=== PATIENT | female | born 1980 | race Caucasian/White ===

== ENCOUNTER → 2018-04-01 08:57 | Outpatient (CLI) | payer BC, SELFPAY ==
[2018-04-01 13:59] LABS: Cholesterol 172 mg/dL (200); Glucose 93 mg/dL (74-106); High Density Lipoprotein 47 mg/dL; Triglycerides 55 mg/dL; Very Low Density Lipoprotein 11 mg/dL (5-40)
== END ==
PROVIDERS: Visit Provider Family Medicine
DX: Z13.1 Encounter for screening for diabetes mellitus (principal); Z13.220 Encounter for screening for lipoid disorders
CPT/HCPCS: 36415; 80061; 82947

== ENCOUNTER → 2019-05-05 11:48 | Outpatient (CLI) | payer BC, SELFPAY ==
--- NOTE | 2019-05-05 11:52 | BI_ITS ---
BILATERAL DIGITAL MAMMOGRAM WITH TOMOSYNTHESIS: Mediolateraloblique and craniocaudal views demonstrate no evidence of dominant parenchymal masses. No cluster of microcalcifications or architectural distortion is seen. No evidence of skin thickening is identified There has been no significant change since 08/18/2013. Breast Density: The breast tissue is heterogeneously dense, which may obscure small masses. CAD was used to assist in final assessment. BI/SCREEN MAMM (CAD) W/NETTE BILAT IMPRESSION: NORMAL MAMMOGRAM BILATERALLY. ASSESSMENT CATEGORY: BIRADS Category 1: Negative. A letter regarding these results will be sent to the patient by the facility within 30 days. Yearly mammograms are recommended. Approximately 10% of breast cancers are not detected by mammography. A normal mammogram should not delay biopsy of a clinically suspicious abnormality. [id number] Electronically Signed: Jorge Presley, at 17:41 EDT Tel , Service support ,
== END ==
PROVIDERS: Family Provider Family Medicine; PCP Family Medicine; Referring Provider Nurse Practitioner Women's Health; Visit Provider Nurse Practitioner Women's Health
DX: Z12.31 Encounter for screening mammogram for malignant neoplasm of breast (principal)
CPT/HCPCS: 77063; 77067

== ENCOUNTER → 2019-06-30 12:32 | Outpatient (CLI) | payer BC, SELFPAY ==
[2019-06-30 11:27] VITALS: BMI 45.5
[2019-07-04 16:23] LABS: HPV APTIMA, High Risk Negative (Negative)
== END ==
PROVIDERS: Family Provider Family Medicine; PCP Family Medicine; Visit Provider Nurse Practitioner Women's Health
DX: Z12.4 Encounter for screening for malignant neoplasm of cervix (principal)
CPT/HCPCS: 87624; 88175; G0145

== ENCOUNTER → 2020-09-24 09:18 | Outpatient (CLI) | payer BC, SELFPAY ==
[2019-09-08 14:04] VITALS: BMI 45.5
[2020-09-24 11:19] LABS: Cholesterol 172 mg/dL (200); Glucose 92 mg/dL (74-106); High Density Lipoprotein 55 mg/dL; Thyroid Stim Hormone (TSH) 3.02 uIU/mL (0.358-3.74); Triglycerides 118 mg/dL; Very Low Density Lipoprotein 24 mg/dL (5-40)
== END ==
PROVIDERS: PCP Family Medicine; Visit Provider Family Medicine
DX: G25.81 Restless legs syndrome (principal); E66.01 Morbid (severe) obesity due to excess calories; Z82.49 Family history of ischemic heart disease and other diseases of the circulatory system
CPT/HCPCS: 36415; 80061; 82947; 84443

== ENCOUNTER → 2020-10-04 12:46 | Outpatient (CLI) | payer BC, SELFPAY ==
[2019-09-08 14:04] VITALS: BMI 45.5
--- NOTE | 2020-10-04 12:48 | ECHOD_ITS ---
Reason For Study: MURMUR Procedure This was a 2D Doppler, Color Flow transthoracic echocardiogram. Exam performed in department. Left Ventricle Normal LV size. The estimated ejection fraction is 65 %. No evidence for diastolic dysfunction. No regional wall motion abnormalities noted. Right Ventricle Normal RV size. Normal systolic function. Atria Normal left atrium. Normal right atrium. No doppler evidence for ASD. Mitral Valve There is no mitral valve stenosis. Trivial mitral valve insufficiency. Tricuspid Valve There is no tricuspid stenosis. Trivial tricuspid valve insufficiency. Pulmonary artery systolic pressure is 30 mmHg. Aortic Valve Likely trileaflet valve. There is no aortic stenosis. No aortic valve insufficiency. Pulmonic Valve There is no pulmonic valvular stenosis. No pulmonic valve insufficiency. Great Vessels Normal aortic root. Pericardium/Pleural No pericardial effusion. MMode/2D Measurements & Calculations LVIDd: 4.9 cm IVSd: 0.65 cm Ao root diam: 3.0 cm LVIDs: 3.3 cm LVPWd: 0.71 cm RVDd: 3.5 cm FS: 33.0 % LAV(MOD-bp): 38.5 ml LA A4 area: 15.6 cm2 LA dimension(2D): 3.5 cm LAV(MOD-bp) Indexed: 17.5 ml/m2 LAV(MOD-sp2): 36.2 ml LAV(MOD-sp4): 36.8 ml RA A4 area: 14.4 cm2 Time Measurements MV dec time: 0.20 sec Doppler Measurements & Calculations MV E max andrea: 86.1 cm/sec Lat Peak E' Andrea: 14.2 cm/sec Med Peak E' Andrea: 10.3 cm/sec MV A max andrea: 90.7 cm/sec E/E' lat: 6.1 E/E' med: 8.3 MV E/A: 0.95 Ao V2 max: 165.9 cm/sec LV V1 max: 125.7 cm/sec PA V2 max: 112.5 cm/sec Ao max P.0 mmHg LV V1 max P.3 mmHg TR max andrea: 232.9 cm/sec TR max P.7 mmHg Interpretation Summary The estimated ejection fraction is 65 %. No evidence for diastolic dysfunction. Trivial mitral valve insufficiency. Likely trileaflet valve. Ordering Physician: Yosef Ochoa Referring Physician: Yosef Ochoa Performed By: Yelena Dubois RDCS, RVT
== END ==
LOC: CVS 12:47
PROVIDERS: PCP Family Medicine; Referring Provider Family Medicine; Visit Provider Family Medicine
DX: R01.1 Cardiac murmur, unspecified (principal)
CPT/HCPCS: 93306

== ENCOUNTER 2020-12-30 22:57 | Emergency (ER) | payer BC, SELFPAY ==
[2019-09-08 14:04] VITALS: BMI 45.5
[2020-12-30 22:58] VITALS: BP 160/99; PULSE 66; RESP 16; TEMP 36.5; O2SAT 99; BMI 44.4
--- NOTE | 2020-12-30 23:38 | EKG12_ITS ---
Test Reason : CP Blood Pressure : / mmHG Vent. Rate : 057 BPM Atrial Rate : 057 BPM P-R Int : 170 ms QRS Dur : 094 ms QT Int : 418 ms P-R-T Axes : 043 004 019 degrees QTc Int : 406 ms Sinus bradycardia Otherwise normal ECG Confirmed by JACK CONWAY, CARA ([id number]), photograph editor MARKO SCHUSTER ([id number]) on 01/01/2021 10:20:52 AM Referred By: BETHANIE Confirmed By:CARA SANTIAGO MD
--- NOTE | 2020-12-30 23:38 | RAD_ITS ---
EXAM: XR CHEST, 1 VIEW : 1978 CLINICAL INDICATION: chest pain TECHNIQUE: Frontal view of the chest. This report was created using [employer] report generation technology. COMPARISON: None. FINDINGS: LUNGS AND PLEURAL SPACES: Unremarkable. No consolidation or edema. No pneumothorax. No effusion. HEART: Unremarkable. Cardiac silhouette not enlarged. MEDIASTINUM: Central airways and mediastinal contour are unremarkable. BONES/JOINTS: Unremarkable. SOFT TISSUES: Unremarkable. RAD/Chest 1 View (Portable) IMPRESSION: No radiographic evidence of acute cardiopulmonary disease. at 0000 Reported and signed by: Sherif Arango MD Electronically Signed: Sherif Arango MD at 23:59 EDT Tel , Service support ,
[2020-12-30 23:42] VITALS: O2SAT 100
[2020-12-30] MEDS: Mag Hydrox/Al Hydrox/Simeth 30 ML UDC PO (23:46)
[2020-12-30] MEDS: Ondansetron 4 MG/2 ML Vial IV (23:50)
[2020-12-30 23:53] LABS: Absolute Lymphocyte Count 2.03 X10^3/uL (0.83-4.51); Absolute Neutrophil Count 13.2 X10^3/uL (2.0-7.7); Basophil# 0.06 X10^3/uL; Basophil% 0.4 % (0-1); Eosinophil# 0.15 X10^3/uL; Eosinophils% 0.9 % (0-5); Hematocrit 44.9 % (37-47); Hemoglobin 14.9 g/dL (12.0-15.0); Lymphocyte # 2.03 X10^3/ul (0.83-4.51); Lymphocyte % 12.3 % (19-41); Mean Corp Hgb Conc 33.2 g/dL (32-36); Mean Corpuscular Volume 87.5 fL (81-99); Monocyte# 0.95 X10^3/uL; Monocyte% 5.8 % (0-10); NRBC Flagged by Analyzer 0 % (0-5); Neutrophil # 13.23 X10^3/uL (2.7-7.7); Neutrophil % 80.1 % (47-70); Platelet Count 371 K/mm3 (150-450); RBC Distribution Width CV 12.1 % (11.6-14.6); Red Blood Count 5.13 M/mm3 (4.2-5.4); White Blood Count 16.5 K/mm3 (4.4-11.0)
[2020-12-30 23:57] VITALS: BP 168/96; PULSE 63; RESP 14; O2SAT 99
[2020-12-31] VITALS: PULSE 63; RESP 14; O2SAT 99
[2020-12-31 00:10] LABS: Anion Gap 9 (5-15); BUN 26 mg/dL (7-18); BUN/Creat Ratio 33.5 RATIO (10-20); Chloride 104 mmol/L (98-107); Creatinine, Serum 0.78 mg/dL (0.55-1.02); EST Glomerular Filtration Rate 86 mL/min (>60); Est Glom Filt Rate - Afr Amer 104 mL/min (>60); Estimated Creatinine Clearance 77.72 ml/min; Glucose 110 mg/dL (74-106); Potassium 3.3 mmol/L (3.5-5.1); Sodium Level 139 mmol/L (136-145)
[2020-12-31] MEDS: Aspirin 81 MG TAB.CHEW 324 MG PO (00:12)
[2020-12-31 01:00] VITALS: BP 148/91; PULSE 71; RESP 18; O2SAT 98
[2020-12-31 02:00] VITALS: BP 135/82; PULSE 82; RESP 18; O2SAT 98
--- NOTE | 2020-12-31 02:06 | EDS_ITS ---
HPI History of Present Illness Chief Complaint: Chest Pain Informant: patient Onset/Context/Timing Onset: Today Activity at onset: gradual Timing: Intermittent and Lasts (1 to 2 hours) Quality: Positive for Burning and Sharp Location: Substernal Worsened By: - (Laying down) Relieved By: Nothing Associated Symptoms: Positive for Nausea, Vomiting and Acid Reflux; Negative for Diaphoresis, Dyspnea, Cough, Fever, Lightheadedness and Palpitations Narrative Narrative: Patient presents with chest pain that began approximately 10 hours prior to arrival. Patient states it lasted 1 hour then resolved. Patient states it returned approximately 2 to 3 hours prior to arrival. Patient states that it has been constant since that time. Patient describes a sharp and burning. Patient denies any radiation of the pain. Patient states it is worse whenever she lays down. Patient states nothing seems to help with it. Patient admits to some nausea and vomiting. Patient also admits to some heartburn and reflux. Patient denies any cough or shortness of breath. Patient denies any fevers or sweats. Patient denies any lightheadedness or palpitations. Patient denies any cardiac or PE risk factors. CVD Risk Factors: Negative for Hypertension, Diabetes, Hypercholesterolemia, Family History 1' </=55 and Smoking PE Risk Factors: Negative for Recent Travel/Surgery, Recent Immobilization, Prior DVT or PE, Cancer and OCP + Smoking + >/=35 [employer] [facility] Medical History (Updated 12/31/20 @ 02:[address] Narendra Hurt DO) Restless leg Home Medications ropinirole 1 mg tablet 1 mg PO TID 05/24/19 [History Last Taken Unknown] Allergy/AdvReac Type Severity Reaction Status Date / Time bacitracin Allergy Mild unknown Verified 12/30/20 23:00 orange juice Allergy Mild UNKNOWN Verified 12/30/20 23:00 Family History Grandfather Diabetes Colon cancer Father Colon cancer Mother COPD (chronic obstructive pulmonary disease) Asthma Surgical History Groin cyst History of tonsillectomy Social History number of children: 2 current occupational status: employed current occupation: [employer] Smoking Status: Former smoker how long ago did patient quit smokin year ago seatbelt use: always do you feel safe at home: Yes additional social history: [place] Works at [employer] ROS ROS ED Constitutional Constitutional ED: Denies chills or fever(s) Eyes Eyes: Denies blurry vision or change in vision ENT ENT ED: Denies rhinorrhea or sore throat Cardiovascular Cardiovascular: Reports chest pain; Denies palpitations Respiratory/Chest Respiratory/Chest: Denies cough or dyspnea Gastrointestinal Gastrointestinal: Reports nausea and vomiting; Denies abdominal pain Genitourinary Genitourinary ED: Denies dysuria or hematuria Musculoskeletal Musculoskeletal: Reports back pain; Denies neck pain Integumentary Denies abscess or rash Neurologic Neurologic: Denies headache(s) or weakness Allergic/Immunologic Allergic/Immunologic ED: Denies mouth swelling or urticaria EXAM Physical Exam Const Vital Signs: 12/30/20 22:58 12/30/20 23:17 12/30/20 23:42 Temperature 97.7 F L Temperature Source Temporal Pulse Rate 66 Respiratory Rate 16 Respiratory Effort Normal Non-Labored Blood Pressure 160/99 H Blood Pressure Mean 119 Pulse Ox 99 100 Oxygen Delivery Method Room Air Nasal Cannula Oxygen Flow Rate (L/min) 2 12/30/20 23:57 12/31/20 00:00 12/31/20 01:00 Temperature Temperature Source Pulse Rate 63 63 71 Respiratory Rate 14 14 18 Respiratory Effort Blood Pressure 168/96 H 148/91 H Blood Pressure Mean 120 110 Pulse Ox 99 99 98 Oxygen Delivery Method Room Air Room Air Room Air Oxygen Flow Rate (L/min) 12/31/20 02:00 Temperature Temperature Source Pulse Rate 82 Respiratory Rate 18 Respiratory Effort Blood Pressure 135/82 H Blood Pressure Mean 99 Pulse Ox 98 Oxygen Delivery Method Room Air Oxygen Flow Rate (L/min) Positive well nourished, well developed and obese General Appearance ED: well developed Nutritional Appearance: obese HEENT normocephalic and atraumatic Eyes PERRL and EOMs intact bilaterally Neck supple and no JVD Chest Wall palpation of chest normal Resp normal respiratory effort and clear to auscultation bilaterally Effort and Inspection: Negative for respiratory distress Cardio regular rate, regular rhythm and no murmurs GI normal to inspection, nondistended, normoactive bowel sounds, soft to palpation, non-tender and non-distended Extremity normal to inspection General Extremety ED: Negative for edema or tenderness General Extremity: Negative for edema Neuro oriented x3, CN's II-XII intact bilaterally and no sensory deficits noted Sensorium / Orientation: awake and alert Motor Exam: strength 5/5 throughout Psych mental status grossly normal Heart Score History: Slightly/Non-Suspicious ECG: Normal Age: </= 45 years Risk Factors: No Risk Factors Troponin: </= Normal Limit Score: 0 MDM MDM MDM Narrative Medical decision making narrative: EKG was obtained. On my interpretation, it showed a normal sinus rhythm with a rate of 57. CA interval, QRS interval, and QTc intervals were all normal. Paulina was normal. There are no acute ST or T wave changes. Portable 1 view chest x-ray was obtained. On my interpretation, lung rosales are clear. There is normal cardiac silhouette. Bony thorax is normal. There is no acute process noted. Radiologist also interpreted the x-r ay and agrees. CBC shows a mild leukocytosis of 16.5. Basic metabolic profile was within normal limits. Troponin was normal. Patient was given a GI cocktail. Patient became nauseated after this. Patient was given a dose of Zofran. Patient has a HEART score of 0. Patient was advised that this is low risk for acute cardiac event. Patient was instructed to follow-up with her primary care physician in 5 to 7 days. Patient understood and was agreeable with the plan. All questions were answered. Lab Data Attestation: I reviewed the patient's lab results. Labs: Laboratory Results - last 24 hr 12/30/20 12/30/20 23:14 23:14 WBC 16.5 H RBC 5.13 Hgb 14.9 Hct 44.9 MCV 87.5 MCH 29.0 MCHC 33.2 RDW Std Deviation 39.0 RDW Coeff of Devaughn 12.1 Plt Count 371 MPV 10.0 Immature Gran % (Auto) 0.500 Neut % (Auto) 80.1 H Lymph % (Auto) 12.3 L Mclennan % (Auto) 5.8 Eos % (Auto) 0.9 Baso % (Auto) 0.4 Absolute Neuts (auto) 13.2 H Absolute Lymphs (auto) 2.03 Nucleated RBC % 0 Sodium 139 Potassium 3.3 L Chloride 104 Carbon Dioxide 26.0 Anion Gap 9 BUN 26 H Creatinine 0.78 Estim Creat Clear Calc 77.72 Est GFR (MDRD) Af Amer 104 Est GFR (MDRD) Non-Af 86 BUN/Creatinine Ratio 33.5 H Glucose 110 H Calcium 10.0 Troponin I < 0.015 Radiography Chest X-Ray - ED: 1 View, Read by ED Physician, Read by Radiologist and Normal Diagnostic Testing: Radiology Impression Chest X-Ray 12/30/20 23:38 IMPRESSION: No radiographic evidence of acute cardiopulmonary disease. at 0000 Reported and signed by: Sherif Arango MD Electronically Signed: Sherif Arango MD at 23:59 EDT Tel , Service support , EKG Initial EKG: Attestation: I personally reviewed and interpreted this EKG as follows: Interpretation: No Acute Injury Pattern and Sinus Bradycardia (57) Discharge Plan Triage Chief Complaint: Chest Pain ED Provider: Narendra Hurt Dx/Rx/DC Orders Clinical Impression: Chest pain of uncertain etiology Instructions: ED Chest Pain, Uncertain Cause Prescriptions: No Action ropinirole 1 mg tablet 1 mg PO TID RF: 0 Primary Care Provider: Yosef Ochoa Referrals: Yosef Ochoa MD [Primary Care Provider] - 1-2 Weeks Disposition Disposition: Home, self care Discharge Date/Time: 12/31/20 02:22
== END 2020-12-31 02:22 | disposition home or self-care (01) ==
PROVIDERS: Emergency Provider Emergency Medicine; PCP Family Medicine
DX: R07.9 Chest pain, unspecified (principal); E66.9 Obesity, unspecified; R11.2 Nausea with vomiting, unspecified; Z87.891 Personal history of nicotine dependence
CPT/HCPCS: 71045; 80048; 84484; 85025; 93005; 96374; 99285; A4216; J2405

== ENCOUNTER → 2021-03-28 14:19 | Outpatient (CLI) | payer BC, SELFPAY | PROVIDERS: PCP Family Medicine; Visit Provider Physician Assistant | DX: R05 Cough (principal) | CPT/HCPCS: 87635; U0005; U0003 ==

== ENCOUNTER 2023-01-02 08:00 | Outpatient (RCR) | payer BC, SELFPAY ==
--- NOTE | 2022-12-11 12:26 | HP.PTEVAL_ITS ---
Patient's Visit Information VIBHA MCCORMACK is a 42 year old F referred to Physical Therapy by IZAIAH Johnson with a diagnosis of LEFT KNEE PAIN AND DERANGEMENT. Date of Evaluation: 12/11/22 Physical Therapist: Tiara Marti PT, Cert MDT - Visit Plan Frequency: 2-3x /Week Duration: 4-6 Weeks Plan: L KNEE US, E-STIM WITH CP, AND GAIT TRAINING INCLUDING STEPS. L LE ROM, STRETCHING AND STRENGTHENING. - Subjective Work/Leisure: [employer]/WAITER ABOUT 30 TO 36 HRS A WK. Disability: NO. Present symptoms: WHOLE LEFT KNEE DEEP INSIDE. NO NUMBNESS OR TINGLING. NO SWELLING BUT KNEE GETS TIGHT. Present since: ABOUT A MONTH AGO. Pain Scale: WORST 7/10, LEAST 2/10. Currently: 3/10. Is it getting better, worse or staying the same: GETTING WORSE. Commenced as a result of: SOMETHING POPPED COMING DOWN STEPS AND HAS BEEN HURTING EVER SINCE THEN. Worse: STAIRS, BENDING IT, GETTING IN AND OUT OF CAR, GETTING UP AND DOWN OFF TOLIET. INITIATING GAIT AFTER SITTING. INCREASED PAIN WITH PROLONGED STANDING AND WALKING. Better: I DON'T KNOW. SITTING. IBUPROFEN 4 TIMES A DAY PER NATHANAEL LAI AT [facility]. Disturbed sleep: NO UNLESS ROLLING OVER. Previous history/Previous treatment: NO. Treatment this episode: ONE VISIT TO [facility] LAST WEEK. Gait: I FEEL LIKE I AM ALWAYS LIMPING. WALKS AND STANDS ALL DAY LONG AT WORK. Bowel or Bladder Dysfunction: NO. Accidents: NO. Unexplained weight loss: NO. Imaging: RECENT L KNEE X-RAY THAT WAS FINE PER PATIENT REPORT. PMH/Recent major surgery: UNREMARKABLE. OTHER: PATIENT REPORTS NATHANAEL LAI TOLD HER TO TRY PT IBUPROFEN AND PT FOR A WEEK AND IF IT ISN'T BETTER TO GO TO [facility]THO (DR. VELASQUEZ). - Objective THIS PATIENT AMBULATES INDEP'LY INTO PT LIMPING ON L LE AND NOT USING ANY ASSISTIVE DEVICES. SHE IS WALKING ON A BENT L KNEE. Sensory deficit: IRMA LE LIGHT TOUCH SENSATION IS GROSSLY INTACT AND SYMMETRICAL. ROM deficit: L KNEE AROM IN SUPINE = -5 DEG EXT TO 98 DEG FLEXION. Motor deficit: L LE: HIP 4-/5, KNEE 3-/5, ANKLE 5/5. R LE WFL. Core strength: POOR. Palpation: MILD L KNEE EDEMA. NO ACUTE TENDERNESS MCL OR LCL. - Special Tests L Knee Karley - Meniscus: Positive L Knee Jade - ACL: Negative L Knee Valgus - MCL: Negative L Knee Varus - LCL: Negative L Knee Patellar Apprehension - PFS: Negative - Balance/Special Test Scores Lower Extremity Functional Score: 40 - Goals Goal 1:: DECREASE C/O L KNEE PAIN AND SWELLING. Goal Time Frame: 4-6 Weeks Goal 2:: INCREASE FUNCTIONAL ROM OF L KNEE TO EASE ADL'S. Goal Time Frame: 4-6 Weeks Goal 3:: IMPROVE L LE FUNCTIONAL STRENGTH TO EASE ADL'S. Goal Time Frame: 4-6 Weeks Goal 4:: INDEP GAIT ON LEVEL SURFACES AND UP AND DOWN STEPS WITH LEAST UE ASSSIT AND DEVIATIONS. Goal Time Frame: 4-6 Weeks Goal 5:: PATIENT WILL BE INDEP WITH HEP FOR CONTINUED IMPROVEMENT ONCE FORMAL PHYSICAL THERAPY CONCLUDES. Goal Time Frame: 4-6 Weeks - Anticipated Interventions Patient/Client Instruction: Educate patient on: Condition, Plan of Care, Risk Factors For the Purpose of:: To improve self management Therapeutic Exercise to Include: Strength training, Flexibilty training, Gait and locomotor training, Neuromotor development, In an aquatic setting Comment: CONSIDER AT NEEDED/APPROPRIATE For the Purpose of:: To decrease pain, To decrease swelling/inflammation, To increase ROM, To improve muscle performance and motor function, To increase tolerance to activity/condition/position, To improve ability of physical actions for home/community/work/leisure, To improve gait and locomotor functions TENS: Yes IF ES: Yes Cryotherapy (ice pack, ice massage): Yes Ultrasound (thermal/non thermal): Yes For the Purpose of:: To decrease pain, To decrease swelling/inflammation, To improve nutrient delivery to tissue Thank you for the opportunity to evaluate your patient. For Medicare and Medicare HMO plans, please review the plan of care and approve it. It will need to be FAXED BACK to us at [phone] for Medicare purposes. For Medicare only, by signing this I certify the plan of care. Please let me know if there are questions or concerns regarding this plan of care. Physician Signature: Date:
--- NOTE | 2023-01-02 08:21 | HP.PTDCSUM ---
It has been my pleasure to treat VIBHA MCCORMACK referred by IZAIAH Johnson, with the diagnosis of LEFT KNEE PAIN AND DERANGEMENT for a total of 9 visit(s). Discharge Date: Please see the following information for a summary of their discharge status. Subjective: PATIENT REPORTS SHE IS DOING A LOT BETTER. ITS SO MUCH BETTER. PATIENT REPORTS HER PAIN IS MILD NOW AND MORE LOCALIZED TO A SMALL AREA ON THE INSIDE OF HER KNEE. SOMEDAYS SHE DOESN'T HAVE ANY KNEE PAIN AT ALL. CALF IS SORE TODAY AND SHE RELATES IT TO DOING CALF RAISES LAST VISIT - NOT BAD AND FEELS LIKE NORMAL SORENESS. STATES SHE FEELS 80% BETTER AND CAN CONTINUE INDEP EX NOW WITH [employer]. Left Knee Pain Intensity (Out of 10): 2 % Improvement: 80 Objective/Function: PATIENT WAS SEEN TODAY FOR RE-ASSESSMENT OF PROGRESS TOWARD THE SET PT GOALS AND THE NEED FOR FURTHER PHYSICAL THERAPY VS READINESS FOR DISCHARGE. UPON EXAM TODAY: ROM deficit: L KNEE AROM IN SUPINE WITH A HEEL SLIDE = FULL EXT TO 123 DEG FLEXION. Motor deficit: L LE: HIP 4/5, KNEE 4-/5, ANKLE 5/5. R LE WFL. Core strength: POOR. Palpation: MILD L KNEE EDEMA. NO ACUTE TENDERNESS MCL OR LCL. STAIRS: INDEP ASCEND AND DESCEND WITHOUT HR RECIPRICALLY BUT DIFFICULT ASCENDING LEADING WITH EA LEG - PATIENT REPORTS SHE WAS HAVING TROUBLE WITH R KNEE THAT WAS GETTING BETTER WITH EX JUST BEFORE SHE HURT THE L KNEE. NO C/O PAIN THROUGHOUT ASSESSMENT TODAY. Goal 1:: DECREASE C/O L KNEE PAIN AND SWELLING. Goal Progress: Goal Met Goal 2:: INCREASE FUNCTIONAL ROM OF L KNEE TO EASE ADL'S. Goal Progress: Goal Met Goal 3:: IMPROVE L LE FUNCTIONAL STRENGTH TO EASE ADL'S. Goal Progress: Goal Met Goal 4:: INDEP GAIT ON LEVEL SURFACES AND UP AND DOWN STEPS WITH LEAST UE ASSSIT AND DEVIATIONS. Goal Progress: Goal Met Goal 5:: PATIENT WILL BE INDEP WITH HEP FOR CONTINUED IMPROVEMENT ONCE FORMAL PHYSICAL THERAPY CONCLUDES. Goal Progress: Goal Met Plan: D/C TO INDEP EX. PATIENT AGREEABLE. If there are questions or concerns regarding this patient's physical therapy, please feel free to call me at [phone]. Thank you for the referral of this patient. Sincerely, Tiara Marti, PT, Cert MDT Balance/Gait/Functional tests - Balance/Special Test Scores Lower Extremity Functional Score: 52
== END 2023-01-02 08:29 | disposition home or self-care (01) ==
LOC: PT 08:00
PROVIDERS: PCP Family Medicine; Referring Provider Physician Assistant; Visit Provider Physician Assistant
DX: S86.912D Strain of unspecified muscle(s) and tendon(s) at lower leg level, left leg, subsequent encounter (principal); M23.92 Unspecified internal derangement of left knee
CPT/HCPCS: 97035; 97110; 97161; 97164; 97530

== ENCOUNTER → 2023-01-15 | Outpatient (CLI) | payer BC, SELFPAY ==
[2023-01-15 17:45] LABS: Absolute Lymphocyte Count 2.31 X10^3/uL (0.83-4.51); Absolute Neutrophil Count 7.5 X10^3/uL (2.0-7.7); Basophil# 0.06 X10^3/uL; Basophil% 0.5 % (0-1); Eosinophil# 0.32 X10^3/uL; Eosinophils% 2.9 % (0-5); Hematocrit 42.3 % (37-47); Hemoglobin 13.7 g/dL (12.0-15.0); Lymphocyte # 2.31 X10^3/ul (0.83-4.51); Lymphocyte % 20.8 % (19-41); Mean Corp Hgb Conc 32.4 g/dL (32-36); Mean Corpuscular Hgb 29.2 pg (27.0-32.0); Mean Corpuscular Volume 90.2 fL (81-99); Mean Platelet Vol. 9.8 fl (6.2-12.0); Monocyte# 0.84 X10^3/uL; Monocyte% 7.6 % (0-10); NRBC Flagged by Analyzer 0 % (0-5); Neutrophil # 7.53 X10^3/uL (2.7-7.7); Neutrophil % 67.8 % (47-70); Platelet Count 333 K/mm3 (150-450); RBC Distribution Width CV 12.9 % (11.6-14.6); RBC Distribution Width SD 42.5 fl (35.1-43.9); Red Blood Count 4.69 M/mm3 (4.2-5.4); White Blood Count 11.1 K/mm3 (4.4-11.0)
[2023-01-15 18:05] LABS: Vitamin B12 309 pg/mL (211-911); Vitamin D,25 Hydroxy 50.5 ng/mL
[2023-01-15 18:32] LABS: AST(SGOT) 13 U/L (15-37); Alanine Aminotransfer ALT/SGPT 24 U/L (13-56); Albumin, Serum 3.4 g/dL (3.2-5.0); Alkaline Phosphatase 64 U/L (45-117); Anion Gap 4 (5-15); BUN 24 mg/dL (7-18); Chloride 111 mmol/L (98-107); Creatinine, Serum 0.63 mg/dL (0.55-1.02); EST Glomerular Filtration Rate 108 mL/min (>60); Est Glom Filt Rate - Afr Amer 131 mL/min (>60); Ferritin 153 ng/mL (8-252); Globulin 3.4 g/dL (2.2-4.2); Glucose 93 mg/dL (74-106); Magnesium 2.2 mg/dL (1.6-2.6); Potassium 4.2 mmol/L (3.5-5.1); Protein, Total 6.8 g/dL (6.4-8.2); Sodium Level 139 mmol/L (136-145); Thyroid Stim Hormone (TSH) 1.75 uIU/mL (0.358-3.74)
== END | disposition home or self-care (01) ==
LOC: MFPLAB 15:59
PROVIDERS: PCP Family Medicine; Visit Provider Family Medicine
DX: R25.2 Cramp and spasm (principal)
CPT/HCPCS: 36415; 80053; 82306; 82607; 82728; 83735; 84443; 85025

== ENCOUNTER → 2023-01-19 | Outpatient (CLI) | payer BC, SELFPAY ==
[2023-01-19 18:01] LABS: Mucous, Urine 0 SEEN /hpf (<or=2+)
[2023-01-19 18:16] LABS: Color, Urine Yellow (Yellow); Glucose, Dipstick Normal (Normal); Ketone-Dipstick Negative (Negative); Leukocyte Esterase-Dipstick 100 /ul (Negative); Nitrite-Dipstick Negative (Negative); Occult Blood-Urine 50 /ul (Negative); Protein-Dipstick 15 mg/dl (Negative); Specific Gravity, Urine 1.025 (1.002-1.030); Urine Bilirubin Dipstick Negative (Negative); Urine Clarity Clear (Clear); Urine Urobilinogen Normal (Normal)
[2023-01-19 18:21] LABS: Internal QC Validated? YES +Cl - CLEAR BKGD; Pregnancy, Urine Negative Negative
[2023-01-19 18:34] LABS: Bacteria 1+ /hpf (None Seen)
[2023-01-19 18:35] LABS: Red Blood Cells-Urine 0-5 SEEN /hpf (0-5); Squamous Epithelial Cells - UA 0-5 SEEN /hpf (5-10); White Blood Cells 0-5 SEEN /hpf (0-5)
== END | disposition home or self-care (01) ==
PROVIDERS: PCP Family Medicine; Visit Provider Physician Assistant
DX: R30.0 Dysuria (principal); R80.9 Proteinuria, unspecified
CPT/HCPCS: 81001; 81025; 87086; 87088

== ENCOUNTER → 2023-02-11 | Outpatient (CLI) | payer BC, SELFPAY ==
--- NOTE | 2023-02-11 08:05 | BI_ITS ---
MAMMOGRAPHY - BILATERAL SCREENING 3-D TOMOSYNTHESIS REASON FOR EXAM: Female, 42 years old. Routine screening PERTINENT HISTORY: No significant family history. TECHNIQUE: 2-D mammograms and 3-D Tomosynthesis of the breast (s) were performed. CAD was performed. COMPARISON: 2019 FINDINGS: The breast composition is composed of scattered fibroglandular density. Scattered benign calcifications are seen. No dense spiculated masses or suspicious microcalcifications are identified. No architectural distortion is identified. There is no skin thickening or retraction. There has been no significant change since the prior study. BI/SCRN MAMM (CAD)W/NETTE BILAT IMPRESSION: No mammographic signs of malignancy. Routine yearly mammograms recommended. ASSESSMENT CATEGORY: BIRADS Category 1: Negative. A letter regarding these results will be sent to the patient by the facility within 30 days. FOLLOW UP RECOMMENDATION: Yearly follow up mammogram recommended. (A) Approximately 10% of breast cancers are not detected by mammography. A normal mammogram should not delay biopsy of a clinically suspicious abnormality. Electronically Signed: Ariel Taylor MD at 9:07 EDT ,
== END | disposition home or self-care (01) ==
LOC: OPBI 08:04
PROVIDERS: PCP Family Medicine; Referring Provider Nurse Practitioner Women's Health; Visit Provider Nurse Practitioner Women's Health
DX: Z12.31 Encounter for screening mammogram for malignant neoplasm of breast (principal)
CPT/HCPCS: 77063; 77067

== ENCOUNTER → 2023-02-13 | Outpatient (CLI) | payer BC, SELFPAY ==
--- NOTE | 2023-02-13 11:08 | MRI_ITS ---
EXAM: MR LEFT LOWER EXTREMITY WITHOUT INTRAVENOUS CONTRAST, HIP CLINICAL INDICATION: pain, rule out MM tear left TECHNIQUE: Multiplanar and multisequence MR images of the left hip without intravenous contrast. COMPARISON: No relevant prior studies available. FINDINGS: TENDONS: FLEXORS: Unremarkable. Intact. EXTENSORS/HAMSTRING: Unremarkable. Intact. ABDUCTORS: Unremarkable. Intact. ADDUCTORS: Unremarkable. Intact. ROTATORS: Unremarkable. Intact. MUSCLES: Unremarkable. Normal bulk and signal. FLUID: Moderate to large joint effusion. Up to large suprapatellar joint effusion with no Mcdowell''s cyst. Subcutaneous edema anterior to the patellar tendon. No organized fluid collections. No trochanteric bursitis. LABRUM: Unremarkable. No evidence of a tear on this non-arthrogram exam. CARTILAGE: Unremarkable. Articular cartilage intact. BONES/JOINTS: At least high-grade partial thickness tearing involving the posterior root ligament of the medial meniscus. There is associated 3 mm of peripheral extrusion of the body segment of the medial meniscus. Bone marrow edema both sides of the peripheral aspect of the medial femorotibial compartment may be related to meniscal pathology or could be degenerative with overall moderate osteoarthrosis involving the medial femorotibial compartment. No femoral neck fracture. No avascular necrosis of the femoral head. No sacral insufficiency fracture. No intra-articular ossific bodies. No bone marrow signal alterations. MRI/Lower Ext Joint Only (Routine) IMPRESSION: 1. At least high-grade partial thickness tearing involving the posterior root ligament of the medial meniscus. There is associated 3 mm of peripheral extrusion of the body segment of the medial meniscus. 2. Up to large suprapatellar joint effusion with no Mcdowell''s cyst. 3. 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 Electronically Signed: Srinivasa Stephens MD at 22:23 EDT ,
== END | disposition home or self-care (01) ==
LOC: OPBI 10:58
PROVIDERS: PCP Family Medicine; Referring Provider Nurse Practitioner Women's Health; Visit Provider Nurse Practitioner Women's Health
DX: M17.12 Unilateral primary osteoarthritis, left knee (principal); M23.92 Unspecified internal derangement of left knee
CPT/HCPCS: 73721

== ENCOUNTER 2023-07-27 08:50 | Emergency (ER) | payer BC, SELFPAY ==
[2023-07-27 08:51] VITALS: BP 183/105; PULSE 68; RESP 14; TEMP 36.8; O2SAT 98; BMI 43.7
--- NOTE | 2023-07-27 09:01 | EDS_ITS ---
HPI History of Present Illness Chief Complaint: Back [facility] Medical History Internal derangement of left knee Osteoarthritis of left knee Restless leg Strain of left knee Tear of medial meniscus of left knee Urinary tract infection with hematuria Home Medications ropinirole 1 mg tablet 1 mg PO TID 05/24/19 [History Last Taken Unknown] levonorgestrel 21 mcg/24 hours (8 yrs) 52 mg intrauterine device (Mirena) 1 device intrauterine ONCE 06/05/22 [History Last Taken Unknown] sumatriptan succinate 50 mg tablet (Imitrex) See Rx Instructions PO .COMPLEX 06/05/22 [History Last Taken Unknown] amino acid-hydrolyzed collagen-whey 15 gram-100 kcal/30 mL oral liquid ml PO 12/15/22 [History Last Taken Unknown] cholecalciferol (vitamin D3) 125 mcg (5,000 unit) capsule 125 mcg PO DAILY 12/15/22 [History Last Taken Unknown] krill oil 500 mg capsule 600 mg PO 12/15/22 [History Last Taken Unknown] loratadine 10 mg tablet (Claritin) 10 mg PO DAILY 12/15/22 [History Last Taken Unknown] mecobalamin (vitamin B12) 500 mcg chewable tablet mcg PO 12/15/22 [History Last Taken Unknown] tumeric 100 mg-nghia 150 mg-olive 50 mg-oreg 150 mg-caprylate capsule cap PO 12/15/22 [History Last Taken Unknown] vitamin K2 100 mcg capsule 100 mcg PO DAILY 12/15/22 [History Last Taken Unknown] prednisone 20 mg tablet 40 mg (2 x 20 mg) PO DAILY 5 days #10 tabs 07/27/23 [Rx Last Taken Unknown] Allergy/AdvReac Type Severity Reaction Status Date / Time bacitracin Allergy Mild unknown Verified 07/27/23 08:51 orange juice Allergy Mild UNKNOWN Verified 07/27/23 08:51 Family History Grandfather Diabetes Colon cancer Father Colon cancer Mother COPD (chronic obstructive pulmonary disease) Asthma Surgical History Groin cyst History of tonsillectomy Social History number of children: 2 current occupational status: employed current occupation: [employer] Smoking Status: Former smoker how long ago did patient quit smokin year ago seatbelt use: always do you feel safe at home: Yes additional social history: [employer] Works at [employer] EXAM Physical Exam Const Vital Signs: 07/27/23 08:51 Temperature 98.2 F Temperature Source Temporal Pulse Rate 68 Respiratory Rate 14 Blood Pressure 183/105 H Blood Pressure Mean 131 Pulse Ox 98 Oxygen Delivery Method Room Air [facility] [place] Narrative Medical decision making narrative: HISTORY OF PRESENT ILLNESS: 43-year-old female presents with back pain. States several days of right-sided back pain that radiates down the right leg. Notes tingling in the right leg. No inciting event. No falls. No recent MVC's. No history of back surgeries. Patient denies any saddle anesthesia, urinary tension, bowel or bladder incontinence, lower extremity weakness, fever or IV drug use, no recent spinal manipulation or surgery, no recent urinary catheterization. REVIEW OF SYSTEMS: All other systems reviewed and are negative except as noted in the history of present illness. At least 10 review of systems reviewed and are negative except as noted in history of present illness. PHYSICAL EXAM: Nursing triage notes reviewed, Vital signs reviewed Constitutional: please see mdm Abdomen: Soft, there is no tenderness, rigidity, rebound or guarding, no obvious peritoneal signs, no palpable pulsatile abdominal masses, no auscultated abdominal bruit : No CVAT Extremities: No edema, compartments soft, positive straight leg raise test on the right Back: No midline step-offs or deformities Neuro: In intact sensation L1-S1 dermatomal distributions. Intact 5/5 strength in hip flexion (T12-L3). Knee extension (L2-L4). Ankle dorsiflexion (L4-L5). Ankle plantar flexion (S1). Great toe extension (L5). 2+ patellar and Achilles DTRs. Skin: No rash or lesions noted MEDICAL DECISION MAKING: Chief Complaint: Back pain External records reviewed: No recent advanced imaging of the spine Factors affecting care: Obesity Social determinants of health: No IV drug use History obtained from others: the patient's Consults: none ALL IMAGES (IF OBTAINED) HAVE BEEN PERSONALLY REVIEWED AND INTERPRETED BY MYSELF. [facility] Narrative: Patient was hemodynamically stable, afebrile, nontoxic-appearing. Exam with positive straight leg raise on the right. This consistent with likely lumbar r adiculopathy. I gave the patient oral narcotics, NSAIDs, corticosteroids, IM muscle relaxants and topical Lidoderm patch. Encouraged to continue anti- inflammatory therapy with home corticosteroids, Tylenol and ibuprofen. I considered the following differential diagnosis: Musculoskeletal back pain, space-occupying lesion of the spinal (epidural abscess, epidural hematoma), cauda equina, conus medullaris, fracture dislocation, AAA, nephrolithiasis, pyelonephritis, aortic dissection I considered obtaining imaging including x-ray, CT scan and MRI of the lumbar spine however that these tests were not necessary at this time given the atraumatic nature of her pain and low suspicion for acute bony or spinal pathology. The patient presented complaining of back pain. There was no history of recent fall or trauma. There was no evidence to support genitourinary etiology. There is also no evidence to suggest vascular pathology such as AAA dissection. No fevers or other evidence to suspect infectious processes, abscess, osteomyelitis etc. The patient?s neurological exam is normal with normal motor and sensory. There is no saddle paresthesias reported and no bowel or bladder incontinence or retention. I suspect the pain is mechanical in nature. Clinical suspicion, plan of care and management was discussed with the patient. The patient was instructed to follow up with their health care provider. The patient was also instructed to return if the pain worsened, changed, or developed weakness or bowel or bladder trouble. The patient agreed with plan. I completed a structured, evidence-based clinical evaluation to screen for acute non-traumatic spinal emergencies. The patient has a normal detailed neurologic exam and red flag historical factors were negative. The evidence indicates that the patient is very low risk for an acute spinal emergency and this is consistent with my clinical intuition. The risk of further workup is higher than the likelihood of the patient having a spinal epidural abscess or other dangerous emergency spinal condition. It is, therefore, in the patient?s best interest not to do additional emergent testing at this time. Shared Decision-Making I have discussed with the patient my clinical impression and the result of an evidence-based clinical evaluation to screen for spinal epidural abscess and other spinal emergencies, as well as the risk of further testing and hospitalization. The evidence shows that the risk for an acute spinal emergency is less than 1%. Although the risk of an acute spinal emergency has not been completely eliminated, the risks of further testing likely exceed any potential benefit, and the patient agrees with not pursuing further emergent evaluation for causes of back pain at this time. The patient and/or family, caregivers express understanding. The patient and/or family, caregivers agrees with the plan. Total critical care time today provided was at least 0 minutes. This excludes separately billable procedures. Critical care time (if documented) is secondary to the patient having high probability of clinically significant/life threatening deterioration in the patient's condition which required my urgent intervention. Impression: 1. Lumbar radiculopathy 2. Obesity Disposition: Discharge home Troy Morillo DO Discharge Plan Triage Chief Complaint: Back ED Provider: Troy Morillo Dx/Rx/DC Orders Clinical Impression: Lumbar radiculopathy, acute Instructions: ED Sciatica, ED RICE Prescriptions: New prednisone 20 mg tablet 40 mg PO DAILY 5 Days Qty: 10 0RF No Action ropinirole 1 mg tablet 1 mg PO TID Mirena 20 mcg/24 hours (8 yrs) 52 mg intrauterine device 1 device intrauterine ONCE Rx Instructions: as a single dose sumatriptan succinate [Imitrex] 50 mg tablet See Rx Instructions PO .COMPLEX Rx Instructions: take 1 tab at onset of headache; if no relief may repeat 1 tab after at least 2 hrs; max = 4 tabs/24 hr PO loratadine [Claritin] 10 mg tablet 10 mg PO DAILY mecobalamin (vitamin B12) 500 mcg tablet,chewable PO krill oil 500 mg capsule 600 mg PO cholecalciferol (vitamin D3) 125 mcg (5,000 unit) capsule 125 mcg PO DAILY vitamin K2 100 mcg capsule 100 mcg PO DAILY luwbxda-rrti-ovvby-oreg-capryl 100 mg-150 mg- 50 mg-150 mg capsule PO amino ac-hydroly collagen-whey 15 gram-100 kcal/30 mL liquid PO Primary Care Provider: Arely Merino Referrals: Arely Merino, [Primary Care Provider] - Activity Restrictions/Additional Instructions: Thank you for trusting us with your care today! Please take Tylenol (2 pills, 650 mg), ibuprofen (2 pills, 400 mg) every 6 hours as needed for pain and fever control. Please take prednisone as prescribed. Please go to local pharmacy or drugstore obtain lidocaine (Salonpas) lidocaine patches. Please return to the emergency department if your symptoms change or worsen. Specifically develop bowel or bladder incontinence, urinary retention, weakness numbness or loss sensation in the legs. Please follow with your primary care physician for further outpatient evaluation and management. Disposition Disposition: Home, Self Care
--- OUTSIDE RECORDS SUMMARY | 2023-07-27 09:20 | XMS RPT_ITS | CCD ---
Author Name Unknown Address [address] [place] [address] Organization [facility] Care Team Providers Care Combine Driver Name Role Phone Herberth Merino DO Primary Care Provider [phone] HERBERTH MERINO Primary Care Unavailable MARKO CARR Referring Unavailable MANISH MARIEE Attending Unavailable HERBERTH MERINO Primary Care Unavailable MARKO CARR Attending Unavailable Allergies Allergy Classification Reported Allergen(s) Allergy Type Date of Onset Reaction(s) Facility (3 sources) Bacitracin; Translations: [BACITRACIN] Drug Allergy 6 Swelling [facility] Work Phone: (3 sources) Brooke juice; Translations: [ORANGE JUICE] Propensity to adverse reactions 6 Rash [facility] (3 sources) Bees; Translations: [BEES] Propensity to adverse reactions 6 Swelling [facility] (2 sources) CATERPILLARS [Other] Propensity to adverse reactions 6 Hives [facility] (1 source) OTHER; Translations: [OTHER] Propensity to adverse reactions (disorder) 6 [facility] [place] [facility] Medications Completed/Discontinued Medications Medication Drug Class(es) Dates Sig (Normalized) Sig (Original) [id number] 200 actuat albuterol 0.09 mg/actuat metered dose inhaler (1 source) beta2-Adrenergic Agonist Start: 05-23-2015 End: 01-23-2023 take 2 puff(s) by inhalation every six hours as needed for wheezing albuterol HFA (PROVENTIL HFA, VENTOLIN HFA) 90 mcg/actuation inhaler Indications: Sinobronchitis Inhale 2 Puffs as instructed every 6 hours as needed for Wheezing/Shortness of Breath. 1 Inhaler 2 05/23/2015 01/23/2023 Discontinued Problems Active Problems Problem Classification Problem Date Documented Da te Episodic/Chronic Gastrointestinal hemorrhage (4 sources) Hematochezia; Translations: [Melena] Onset: 05-23-2008 05-23-2008 Episodic Other and unspecified benign neoplasm (2 sources) History of polyp of colon; Translations: [Personal history of colonic polyps] Episodic Other and unspecified benign neoplasm (1 source) Personal history of colonic polyps; Translations: [Personal history of colonic polyps] Onset: 03-24-2023 Episodic Other nutritional; endocrine; and metabolic disorders (1 source) Body mass index 40+ - severely obese; Translations: [Morbid (severe) obesity due to excess calories] 03-26-2023 Chronic Residual codes; unclassified (2 sources) Family history of cancer of colon; Translations: [Family history of malignant neoplasm of digestive organs] Episodic Residual codes; unclassified (1 source) Family history of malignant neoplasm of digestive organs; Translations: [Family history of colon cancer] Onset: 03-24-2023 Episodic Past or Other Problems Problem Classification Problem Date Documented Da te Episodic/Chronic Abdominal pain (2 sources) Left lower quadrant pain; Translations: [Left lower quadrant pain] Onset: 05-23-2008 05-23-2008 Episodic Other and unspecified benign neoplasm (2 sources) Benign neoplasm of colon; Translations: [Benign neoplasm of colon, unspecified] Onset: 06-06-2008 06-06-2008 Episodic Residual codes; unclassified (2 sources) Family history of breast cancer; Translations: [Family history of malignant neoplasm of breast] Onset: 08-18-2013 08-18-2013 Episodic Sprains and strains (2 sources) Neck sprain; Translations: [Sprain of joints and ligaments of unspecified parts of neck, initial encounter] Onset: 02-16-2007 02-16-2007 Episodic Results Test Name Value Interpretation Reference Range Facil ity Vital Signs Date Time Vital Sign Value Performing Clinician Jenifer alexis 03-24-2023 09:50-0400 Diastolic blood pressure 62 mm[Hg] Manish Mariee MD Work Phone: [facility] 03-24-2023 09:50-0400 Heart rate 64 /min Manish Mareie MD Work Phone: [facility] 03-24-2023 09:50-0400 Respiratory rate 16 /min Manish Mariee MD Work Phone: [facility] 03-24-2023 09:50-0400 SaO2% (BldA) [Mass fraction] 97 % Manish Mariee MD Work Phone: [facility] 03-24-2023 09:50-0400 Systolic blood pressure 117 mm[Hg] Manish Mariee MD Work Phone: [facility] 03-24-2023 07:42-0400 Body temperature 97.9 [degF] Manish Mariee MD Work Phone: [facility] 03-24-2023 07:42-0400 Body weight 112 kg Manish Mariee MD Work Phone: [facility] 01-23-2023 09:35-0400 Body height 162.6 cm Marko [place] PA-C Work Phone: [facility] 01-23-2023 09:35-0400 Body temperature 97.5 [degF] Marko [place] PA-C Work Phone: [facility] 01-23-2023 09:35-0400 Body weight 112.04 kg Marko Lilly PA-C Work Phone: [facility] 01-23-2023 09:35-0400 Diastolic blood pressure 74 mm[Hg] Marko Lilly PA-C Work Phone: [facility] 01-23-2023 09:35-0400 Heart rate 103 /min Marko Lilly PA-C Work Phone: [facility] 01-23-2023 09:35-0400 SaO2% (BldA) [Mass fraction] 96 % Marko [place] PA-C Work Phone: [facility] 01-23-2023 09:35-0400 Systolic blood pressure 118 mm[Hg] Marko Lilly PA-C Work Phone: [facility] Encounters Encounter Date Encounter Type Care Provider Facility Start: 03-24-2023 End: 03-24-2023 ambulatory HERBERTH MERINO Facility:[facility] Start: 03-24-2023 End: 03-24-2023 Subsequent hospital visit by physician Manish Mariee MD Work Phone: Ambulatory Surgery Procedures Date Procedure Procedure Detail Performing Clinician Start: 03-24-2023 Colonoscopy flx dx w /collj spec when pfrmd Marko [place] PA-C Work Phone: Start: 03-24-2023 Colonoscopy Manish hinojosa MD Work Phone: Start: 01-30-2017 Colonoscopy Marko Gra [place] PA-C Work Phone: Start: 08-18-2013 Mammography Marko Gra f PA-C Work Phone: Start: 06-16-2008 Lipid 1996 panel - S katharine or Plasma Manish Mariee MD Work Phone: Plan of Treatment Date Care Activity Detail Author Start: 03-24-2028 Colonoscopy Colonoscopy [facility] Start: 03-24-2028 Colorectal Cancer Screening Colorectal Cancer Screening [facility] Start: 03-27-2023 Covid-19 Vaccine () Covid-19 Vaccine () [facility] Start: 03-27-2023 Influenza vaccination [facility] Start: 2023 COLOGUARD (FIT-DNA) COLOGUARD (FIT-D NA) [facility] Start: [address] COLONOGRAPHY [facility] Start: 2023 Diabetes Screening Diabetes Screenin g [facility] Start: 2023 FECAL OCCULT BLOOD FECAL OCCULT BLOO D [facility] Start: 2023 Lipid 1996 panel - S katharine or Plasma Lipid Screening [facility] Start: 2023 SIGMOIDOSCOPY SIGMOIDOSCOPY [facility] Start: 07-27-2022 DEPRESSION ASSESSMENT DEPRESSION ASS ESSMENT [facility] Start: 01-30-2022 Colonoscopy COLONOSCOPY [facility] Start: 01-30-2022 COLORECTAL CANCER SCREENING COLORECTAL CANCER SCREENING [facility] Start: 01-10-2021 COVID-19 VACCINE (3 - Booster for Moderna series) COVID-19 VACCINE (3 - Booster for Moderna series) [facility] Start: 08-18-2018 HPV TESTING HPV TESTING [facility] Start: 08-18-2018 PAP TESTING PAP TESTING [facility] Start: 05-16-2018 Urine microalbumin profile [facility] Start: 2018 Mammography [facility] Start: 1996 HEPATITIS C SCREENING HEPATITIS C SC REENING [facility] Start: 1996 HIV SCREENING HIV SCREENING [facility] Start: 1978 HEPATITIS B (1 of 3 - 3-dose series) HEPATITIS B (1 of 3 - 3-dose series) [facility] Start: 1978 Hepatitis B Vaccine (1 of 3 - 3-dose series) Hepatitis B Vaccine (1 of 3 - 3-dose series) [facility] Immunizations Immunization Date Immunization Notes Care Provider Shady tellez 07-10-2014 influenza virus vacc ine, unspecified formulation Manish Mariee MD Work Phone: [facility] 05-31-2008 influenza virus vacc ine, unspecified formulation Marko Carr PA-C Work Phone: [facility] 05-16-2008 tetanus toxoid, redu claudia diphtheria toxoid, and acellular pertussis vaccine, adsorbed Marko Carr PA-C Work Phone: [facility] Payers Date Payer Category Payer Unknown [employer] PPO OOS [id number] 2013-Present [phone] [address] [place] [address] PPO [id number] 2013 Unknown [id number] Social History Date Type Detail Facility Start: 01-23-2023 Tobacco smoking stat us NHIS Ex-smoker [facility] Work Phone: History of tobacco use Current smoker [facility] Work Phone: History of tobacco use Cigarette Smoker [facility] Work Phone: Start: 01-23-2023 End: 03-24-2023 Cigarettes smoked current (pack per day) - Reported 0.5 [facility] Start: 01-23-2023 Tobacco use and exposure Smokeless tobacco non-user [facility] Work Phone: Start: 01-23-2023 End: 05-21-2023 Alcohol intake Current drinker of alcohol (finding) [facility] Start: 1980 Sex Assigned At Not on file [facility] Start: 01-23-2023 End: 03-24-2023 Tobacco use panel [facility] National Score (1-10 0), lower number is lower risk 60 [facility] Nurse Note 03-24-2023 April Bedoya RN - 03/24/2023 9:20 AM EDT Note Date & Type Note Facility 03-24-2023 Nurse Note Arrived in phase II via cart. Left lateral position. Sedated, but responds to verbal stimuli. Color normal; skin warm and dry. Respirations wnl and unlabored. Abdomen soft and with + bowel sounds in quads X 4. Patient resting comfortably. Family at bedside. Dr. Mariee at bedside to review procedure and recommendations. April Bedoya RN documented in this encounter [facility] History and physical note 03-24-2023 Manish Mariee MD - 03/24/2023 8:15 AM EDTGManish hill MD - 03/24/2023 8:15 AM EDT Note Date & Type Note Facility 03-24-2023 History and physi zonia note UPDATED PROCEDURAL SEDATION HISTORY AND PHYSICAL EXAMINATION SERVICE DATE: 03/24/2023 SERVICE TIME: 8:43 AM PHYSICAL EXAM MUST BE COMPLETED ON ADMISSION PROCEDURE: Procedure Indications: The History and Physical (completed in the past 30 days) has been reviewed and the patient has been examined. The contents accurately reflect the patient's condition with the following additions or revisions since the H&P was completed. ASA Class: ASA Class:: Patient with mild systemic disease Examination indicates no changes. AIRWAY: Airway Visualization of Uvula: Yes Mouth opening greater than 2 fingerbreadths: Yes Neck Full Range of Motion: Yes LUNGS: Lungs clear to auscultation CARDIAC: Regular rhythm,Regular rate Provisional Diagnosis/Treatment Plan: screening colonoscopy - family history SEDATION GOAL: Moderate This H&P can be found in the attached. SIGNATURE: Manish Mariee MD PATIENT NAME: Brigette German DATE: March 24, 2023 TIME: 8:43 AM Source Note - Manish Mariee MD - 03/24/2023 8:15 AM EDT Images from the original note were not included. HISTORY AND PHYSICAL Brigette German 1980 REFERRING PHYSICIAN: No ref. provider found CHIEF COMPLAINT: Consult HPI: The patient is a 42 year old female referred for endoscopy. Brigette notes no colon complaints. Patient denies any change in bowel habits, weight changes, blood in stools, black tarry stools or abdominal pain. +family history of colon cancer The patient notes no upper GI complaints. Brigette has undergone prior endoscopy. Last colonoscopy 01/30/[address] Mariee under conscious sedation. No concerning findings, repeat colonoscopy recommended in 5 years. Patient denies chest pain, shortness of breath or recent hospitalizations. Denies problems with sedation in the past. PAST MEDICAL HISTORY PAST MEDICAL HISTORY Diagnosis Date Abdominal pain, right upper quadrant Acute medial meniscus tear left Benign neoplasm of colon Blood in stool Encounter for insertion or removal of intrauterine contraceptive device 07/04/2008 Mirena Migraine Restless leg PAST SURGICAL HISTORY PAST SURGICAL HISTORY Procedure Laterality Date BX/EXC LYMPH NODE OPEN SUPERFICIAL 1998 left groin area COLONOSCOPY FLX DX W/COLLJ SPEC WHEN PFRMD 01/30/2017 Normal colon-family history of colon cancer-5 year follow-up COLSC FLX W/REMOVAL LESION BY HOT BX FORCEPS 06/06/2008 small sessile polyp a 30cm IUD INSERTION ([employer]IAN DEPT)_*FL 2002 Mirena IUD INSERTION ([employer]CH[employer]ICIAN DEPT)_*FL 07/04/2008 Mirena TONSILLECTOMY & ADENOIDECTOMY <AGE 10 age 7 CURRENT MEDICATIONS Current Outpatient Medications Medication Sig SUMAtriptan (IMITREX) 25 mg tablet Take 25 mg by mouth as needed for migraine headache (see administration instructions). rOPINIRole (REQUIP) 0.5 mg tablet Take 0.5 mg by mouth as needed (restless leg). No current facility-administered medications for this visit. ALLERGIES: Bacitracin, Bees, Caterpillars [Other], and Brooke Juice PERSONAL HISTORY: SOCIAL HISTORY Social History Tobacco Use Smoking status: Former Packs/day: 0.50 Years: 11.00 Pack years: 5.50 Types: Cigarettes Smokeless tobacco: Never Substance Use Topics Alcohol use: Yes Comment: Occasionally Drug use: No FAMILY HISTORY: FAMILY HISTORY FAMILY HISTORY Problem Relation Age of Onset other (ENDOMETRIOSIS) Mother other (HTN) Mother Colon Cancer Father Heart Maternal Grandmother Hypertension Maternal Grandmother Stroke Maternal Grandmother Alzheimer's Disease Maternal Grandmother Stroke Maternal Grandfather Heart Maternal Grandfather Hypertension Maternal Grandfather Diabetes Maternal Grandfather Breast Cancer Maternal Aunt @ age 38 Colon Cancer Paternal Grandfather Colon Cancer Other P-Great Aunt other (Congenital Heart Defect) Other Maternal Cousin REVIEW OF SYMPTOMS: The review of systems data was entered by the nurse and reviewed by me Nursing Notes: Veronica Escalante 01/23/2023 9:38 AM Signed REVIEW OF SYSTEMS: General: The patient denies fatigue, denies weight loss, denies weight gain, denies feeling hot, and denies feelings of cold. Eyes: The patient denies glaucoma, denies eye injury/surgery, wears glasses or contacts. Ear/Nose/Throat: The patient denies allergies, denies hayfever, denies ear infections, and denies bloody noses. Cardiovascular: The patient denies chest pain, denies heart disease, denies high blood pressure,denies cardiac stent, denies prior heart attack, denies irregular heart beat, denies high cholesterol, denies poor circulation, denies heart failure, other cardiac issues, denies claudication, denies cold feet, denies peripheral arterial stent. Respiratory: The patient denies tuberculosis, denies pneumonia, denies frequent cough, denies pulmonary embolism, denies shortness of breath, and denies coughing up blood. Gastrointestinal: The patient denies difficulty swallowing, denies acid reflux, denies ulcers, denies vomiting, denies jaundice/hepatitis, denies gallbladder problems, denies black or tarry stools, denies hemorrhoids, denies bleeding from rectum, denies diverticulitis, denies constipation, denies diarrhea, denies loss of stool control, and denies hernias. Kidney/Bladder: The patient denies kidney stones, NOTES urine infections, and denies bloody urine. Skin: The patient denies a history of skin cancer, denies bleeding/changing moles, and denies a history of skin rash. Neurologic: The patient denies a history of epilepsy/convulsions, NOTES headaches, denies head/spinal injuries, and denies stroke/TIA. Psychiatric: The patient denies psychiatric medications, denies depression, and denies voices, denies substance abuse. Endocrine: The patient denies thyroid disorders, denies diabetes, and denies hormonal problems. Hematologic: The patient denies a history of bruising, denies bleeding, and denies anemia, denies blood clots. Infections: The patient denies a history of measles and mumps, denies rheumatic fever, and denies sexually transmitted diseases. Musculoskeletal: The patient denies back pain/injury, denies back problems, denies sciatica, NOTES knee/foot trouble, denies arthritis, or denies gout. When was patient's last Mammogram screening? N/A Last Colonoscopy: 2016 Veronica Escalante I have confirmed and edited as necessary, the PFSH and ROS obtained by others. Marko Carr PA-C PHYSICAL EXAMINATION: General: The patient is 42 year old female, well nourished, well hydrated in no acute distress. The patient is oriented to time, place, and person. VITALS: Blood pressure 118/74, pulse 103, temperature 36.4 C (97.5 F), height 162.6 cm (5' 4 ), weight 112 kg (247 lb), last menstrual period 06/27/2005, SpO2 96 %. Body mass index is 42.4 kg/m . HEENT: Normal cephalic, ataumatic, pupils are equally round, sclera are anicteric, mucous membranes are moist, oropharynx is clear. Neck has no masses, asymmetry or lymphadenopathy. Respiratory: Clear to auscultation and percussion. Normal respiratory excursion and pattern. Cardiac: Examination is regular rate and rhythm. Normal S1/S2 Abdominal exam: Soft, nontender, with no palpable masses. No hepatosplenomegaly. No palpable hernias. Extremities: no clubbing, cyanosis or edema. No adenopathy. LABORATORY VALUES: As Noted RADIOLOGIC STUDIES: As Noted Assessment IMPRESSION: encounter for high-risk screening colonoscopy, family history of colon cancer PLAN: I have reviewed my findings with the surgeon. Will plan for lower endoscopy. We discussed the risks and benefits of the planned endoscopy. I have informed the patient that complications can occur including failure to complete the endoscopy and perforation. The patient had the opportunity to ask questions concerning the planned endoscopy. My staff has also explained the procedure to the patient in understandable terms and has given the patient printed material concerning the procedure. The patient freely consents to surgery. I plan to use Miralax/Dulcolax bowel preparation Diagnoses: (Z80.0) Family history of colon cancer (primary encounter diagnosis) (Z86.010) Personal history of colonic polyps I spent a total of 25 minutes on the date of the service which included preparing to see the patient, [id number] patient care, completing clinical documentation, obtaining and/or reviewing separately obtained history, performing a medically appropriate examination, counseling and educating the patient/family/caregiver, and ordering medications, tests, or procedures. Marko Carr PA-C Images from the original note were not included. HISTORY AND PHYSICAL Brigette German 1980 REFERRING PHYSICIAN: No ref. provider found CHIEF COMPLAINT: Consult HPI: The patient is a 42 year old female referred for endoscopy. Brigette notes no colon complaints. Patient denies any change in bowel habits, weight changes, blood in stools, black tarry stools or abdominal pain. +family history of colon cancer The patient notes no upper GI complaints. Brigette has undergone prior endoscopy. Last colonoscopy 01/30/[address] Mariee under conscious sedation. No concerning findings, repeat colonoscopy recommended in 5 years. Patient denies chest pain, shortness of breath or recent hospitalizations. Denies problems with sedation in the past. PAST MEDICAL HISTORY PAST MEDICAL HISTORY Diagnosis Date Abdominal pain, right upper quadrant Acute medial meniscus tear left Benign neoplasm of colon Blood in stool Encounter for insertion or removal of intrauterine contraceptive device 07/04/2008 Mirena Migraine Restless leg PAST SURGICAL HISTORY PAST SURGICAL HISTORY Procedure Laterality Date BX/EXC LYMPH NODE OPEN SUPERFICIAL 1998 left groin area COLONOSCOPY FLX DX W/COLLJ SPEC WHEN PFRMD 01/30/2017 Normal colon-family history of colon cancer-5 year follow-up COLSC FLX W/REMOVAL LESION BY HOT BX FORCEPS 06/06/2008 small sessile polyp a 30cm IUD INSERTION ([employer]ICIAN DEPT)_*FL 2002 Mirena IUD INSERTION ([employer]CH[employer]ICIAN DEPT)_*FL 07/04/2008 Mirena TONSILLECTOMY & ADENOIDECTOMY <AGE 10 age 7 CURRENT MEDICATIONS Current Outpatient Medications Medication Sig SUMAtriptan (IMITREX) 25 mg tablet Take 25 mg by mouth as needed for migraine headache (see administration instructions). rOPINIRole (REQUIP) 0.5 mg tablet Take 0.5 mg by mouth as needed (restless leg). No current facility-administered medications for this visit. ALLERGIES: Bacitracin, Bees, Caterpillars [Other], and Brooke Juice PERSONAL HISTORY: SOCIAL HISTORY Social History Tobacco Use Smoking status: Former Packs/day: 0.50 Years: 11.00 Pack years: 5.50 Types: Cigarettes Smokeless tobacco: Never Substance Use Topics Alcohol use: Yes Comment: Occasionally Drug use: No FAMILY HISTORY: FAMILY HISTORY FAMILY HISTORY Problem Relation Age of Onset other (ENDOMETRIOSIS) Mother other (HTN) Mother Colon Cancer Father Heart Maternal Grandmother Hypertension Maternal Grandmother Stroke Maternal Grandmother Alzheimer's Disease Maternal Grandmother Stroke Maternal Grandfather Heart Maternal Grandfather Hypertension Maternal Grandfather Diabetes Maternal Grandfather Breast Cancer Maternal Aunt @ age 38 Colon Cancer Paternal Grandfather Colon Cancer Other P-Great Aunt other (Congenital Heart Defect) Other Maternal Cousin REVIEW OF SYMPTOMS: The review of systems data was entered by the nurse and reviewed by mn Nursing Notes: Veronica Escalante 01/23/2023 9:38 AM Signed REVIEW OF SYSTEMS: General: The patient denies fatigue, denies weight loss, denies weight gain, denies feeling hot, and denies feelings of cold. Eyes: The patient denies glaucoma, denies eye injury/surgery, wears glasses or contacts. Ear/Nose/Throat: The patient denies allergies, denies hayfever, denies ear infections, and denies bloody noses. Cardiovascular: The patient denies chest pain, denies heart disease, denies high blood pressure,denies cardiac stent, denies prior heart attack, denies irregular heart beat, denies high cholesterol, denies poor circulation, denies heart failure, other cardiac issues, denies claudication, denies cold feet, denies peripheral arterial stent. Respiratory: The patient denies tuberculosis, denies pneumonia, denies frequent cough, denies pulmonary embolism, denies shortness of breath, and denies coughing up blood. Gastrointestinal: The patient denies difficulty swallowing, denies acid reflux, denies ulcers, denies vomiting, denies jaundice/hepatitis, denies gallbladder problems, denies black or tarry stools, denies hemorrhoids, denies bleeding from rectum, denies diverticulitis, denies constipation, denies diarrhea, denies loss of stool control, and denies hernias. Kidney/Bladder: The patient denies kidney stones, NOTES urine infections, and denies bloody urine. Skin: The patient denies a history of skin cancer, denies bleeding/changing moles, and denies a history of skin rash. Neurologic: The patient denies a history of epilepsy/convulsions, NOTES headaches, denies head/spinal injuries, and denies stroke/TIA. Psychiatric: The patient denies psychiatric medications, denies depression, and denies voices, denies substance abuse. Endocrine: The patient denies thyroid disorders, denies diabetes, and denies hormonal problems. Hematologic: The patient denies a history of bruising, denies bleeding, and denies anemia, denies blood clots. Infections: The patient denies a history of measles and mumps, denies rheumatic fever, and denies sexually transmitted diseases. Musculoskeletal: The patient denies back pain/injury, denies back problems, denies sciatica, NOTES knee/foot trouble, denies arthritis, or denies gout. When was patient's last Mammogram screening? N/A Last Colonoscopy: 2017 Veronica Escalante I have confirmed and edited as necessary, the PFSH and ROS obtained by others. Marko Carr PA-C PHYSICAL EXAMINATION: General: The patient is 42 year old female, well nourished, well hydrated in no acute distress. The patient is oriented to time, place, and person. VITALS: Blood pressure 118/74, pulse 103, temperature 36.4 C (97.5 F), height 162.6 cm (5' 4 ), weight 112 kg (247 lb), last menstrual period 06/27/2005, SpO2 96 %. Body mass index is 42.4 kg/m . HEENT: Normal cephalic, ataumatic, pupils are equally round, sclera are anicteric, mucous membranes are moist, oropharynx is clear. Neck has no masses, asymmetry or lymphadenopathy. Respiratory: Clear to auscultation and percussion. Normal respiratory excursion and pattern. Cardiac: Examination is regular rate and rhythm. Normal S1/S2 Abdominal exam: Soft, nontender, with no palpable masses. No hepatosplenomegaly. No palpable hernias. Extremities: no clubbing, cyanosis or edema. No adenopathy. LABORATORY VALUES: As Noted RADIOLOGIC STUDIES: As Noted Assessment IMPRESSION: encounter for high-risk screening colonoscopy, family history of colon cancer PLAN: I have reviewed my findings with the surgeon. Will plan for lower endoscopy. We discussed the risks and benefits of the planned endoscopy. I have informed the patient that complications can occur including failure to complete the endoscopy and perforation. The patient had the opportunity to ask questions concerning the planned endoscopy. My staff has also explained the procedure to the patient in understandable terms and has given the patient printed material concerning the procedure. The patient freely consents to surgery. I plan to use Miralax/Dulcolax bowel preparation Diagnoses: (Z80.0) Family history of colon cancer (primary encounter diagnosis) (Z86.010) Personal history of colonic polyps I spent a total of 25 minutes on the date of the service which included preparing to see the patient, [id number] patient care, completing clinical documentation, obtaining and/or reviewing separately obtained history, performing a medically appropriate examination, counseling and educating the patient/family/caregiver, and ordering medications, tests, or procedures. Marko Carr PA-C documented in this encounter [facility] Progress note 01-23-2023 Note Date & Type Note Facility 01-23-2023 Note HNO ID: [id number] Author: Marko Carr PA-C Service: ? Author Type: Physician Criminal Court Judge Type: Progress Notes Filed: 01/29/2023 4:08 PM Note Text: HISTORY AND PHYSICAL Brigette German 1980 REFERRING PHYSICIAN: No ref. provider found CHIEF COMPLAINT: Consult HPI: The patient is a 42 year old female referred for endoscopy. Brigette notes no colon complaints. Patient denies any change in bowel habits, weight changes, blood in stools, black tarry stools or abdominal pain. +family history of colon cancer The patient notes no upper GI complaints. Brigette has undergone prior endoscopy. Last colonoscopy 01/30/[address] Mariee under conscious sedation. No concerning findings, repeat colonoscopy recommended in 5 years. Patient denies chest pain, shortness of breath or recent hospitalizations. Denies problems with sedation in the past. PAST MEDICAL HISTORY Diagnosis Date Abdominal pain, right upper quadrant Acute medial meniscus tear left Benign neoplasm of colon Blood in stool Encounter for insertion or removal of intrauterine contraceptive device 07/04/2008 Mirena Migraine Restless leg PAST SURGICAL HISTORY Procedure Laterality Date BX/EXC LYMPH NODE OPEN SUPERFICIAL 1998 left groin area COLONOSCOPY FLX DX W/COLLJ SPEC WHEN PFRMD 01/30/2017 Normal colon-family history of colon cancer-5 year follow-up COLSC FLX W/REMOVAL LESION BY HOT BX FORCEPS 06/06/2008 small sessile polyp a 30cm IUD INSERTION ([employer])_*FL 2002 Mirena IUD INSERTION ([employer])_*FL 07/04/2008 Mirena TONSILLECTOMY AND ADENOIDECTOMY age 7 Current Outpatient Medications Medication Sig SUMAtriptan (IMITREX) 25 mg tablet Take 25 mg by mouth as needed for migraine headache (see administration instructions). rOPINIRole (REQUIP) 0.5 mg tablet Take 0.5 mg by mouth as needed (restless leg). No current facility-administered medications for this visit. ALLERGIES: Bacitracin, Bees, Caterpillars [Other], and Brooke Juice PERSONAL HISTORY: Social History Tobacco Use Smoking status: Former Packs/day: 0.50 Years: 11.00 Pack years: 5.50 Types: Cigarettes Smokeless tobacco: Never Substance Use Topics Alcohol use: Yes Comment: Occasionally Drug use: No FAMILY HISTORY: FAMILY HISTORY Problem Relation Age of Onset other (ENDOMETRIOSIS) Mother other (HTN) Mother Colon Cancer Father Heart Maternal Grandmother Hypertension Maternal Grandmother Stroke Maternal Grandmother Alzheimer's Disease Maternal Grandmother Stroke Maternal Grandfather Heart Maternal Grandfather Hypertension Maternal Grandfather Diabetes Maternal Grandfather Breast Cancer Maternal Aunt @ age 38 Colon Cancer Paternal Grandfather Colon Cancer Other P-Great Aunt other (Congenital Heart Defect) Other Maternal Cousin REVIEW OF SYMPTOMS: The review of systems data was entered by the nurse and reviewed by me Nursing Notes: Veronica Escalante 01/23/2023 9:38 AM Signed REVIEW OF SYSTEMS: General: The patient denies fatigue, denies weight loss, denies weight gain, denies feeling hot, and denies feelings of cold. Eyes: The patient denies glaucoma, denies eye injury/surgery, wears glasses or contacts. Ear/Nose/Throat: The patient denies allergies, denies hayfever, denies ear infections, and denies bloody noses. Cardiovascular: The patient denies chest pain, denies heart disease, denies high blood pressure,denies cardiac stent, denies prior heart attack, denies irregular heart beat, denies high cholesterol, denies poor circulation, denies heart failure, other cardiac issues, denies claudication, denies cold feet, denies peripheral arterial stent. Respiratory: The patient denies tuberculosis, denies pneumonia, denies frequent cough, denies pulmonary embolism, denies shortness of breath, and denies coughing up blood. Gastrointestinal: The patient denies difficulty swallowing, denies acid reflux, denies ulcers, denies vomiting, denies jaundice/hepatitis, denies gallbladder problems, denies black or tarry stools, denies hemorrhoids, denies bleeding from rectum, denies diverticulitis, denies constipation, denies diarrhea, denies loss of stool control, and denies hernias. Kidney/Bladder: The patient denies kidney stones, NOTES urine infections, and denies bloody urine. Skin: The patient denies a history of skin cancer, denies bleeding/changing moles, and denies a history of skin rash. Neurologic: The patient denies a history of epilepsy/convulsions, NOTES headaches, denies head/spinal injuries, and denies stroke/TIA. Psychiatric: The patient denies psychiatric medications, denies depression, and denies voices, denies substance abuse. Endocrine: The patient denies thyroid disorders, denies diabetes, and denies hormonal problems. Hematologic: The patient denies a history of bruising, denies bleeding, and denies anemia, denies blood clots. Infections: The patient denies a (more content not included)... [place] History of Present illness Narrative 01-23-2023 Marko Carr PA-C - 01/23/2023 9:38 AM EDT Note Date & Type Note Facility 01-23-2023 History of Presen t illness Narrative HISTORY AND PHYSICAL Brigette German 1980 REFERRING PHYSICIAN: No ref. provider found CHIEF COMPLAINT: Consult HPI: The patient is a 42 year old female referred for endoscopy. Brigette notes no colon complaints. Patient denies any change in bowel habits, weight changes, blood in stools, black tarry stools or abdominal pain. +family history of colon cancer The patient notes no upper GI complaints. Brigette has undergone prior endoscopy. Last colonoscopy 01/30/[address] Mariee under conscious sedation. No concerning findings, repeat colonoscopy recommended in 5 years. Patient denies chest pain, shortness of breath or recent hospitalizations. Denies problems with sedation in the past. PAST MEDICAL HISTORY Diagnosis Date Abdominal pain, right upper quadrant Acute medial meniscus tear left Benign neoplasm of colon Blood in stool Encounter for insertion or removal of intrauterine contraceptive device 07/04/2008 Mirena Migraine Restless leg PAST SURGICAL HISTORY Procedure Laterality Date BX/EXC LYMPH NODE OPEN SUPERFICIAL 1998 left groin area COLONOSCOPY FLX DX W/COLLJ SPEC WHEN PFRMD 01/30/2017 Normal colon-family history of colon cancer-5 year follow-up COLSC FLX W/REMOVAL LESION BY HOT BX FORCEPS 06/06/2008 small sessile polyp a 30cm IUD INSERTION ([employer])_*FL 2002 Mirena IUD INSERTION ([employer])_*FL 07/04/2008 Mirena TONSILLECTOMY & ADENOIDECTOMY <AGE 10 age 7 Current Outpatient Medications Medication Sig SUMAtriptan (IMITREX) 25 mg tablet Take 25 mg by mouth as needed for migraine headache (see administration instructions). rOPINIRole (REQUIP) 0.5 mg tablet Take 0.5 mg by mouth as needed (restless leg). No current facility-administered medications for this visit. ALLERGIES: Bacitracin, Bees, Caterpillars [Other], and Brooke Juice PERSONAL HISTORY: Social History Tobacco Use Smoking status: Former Packs/day: 0.50 Years: 11.00 Pack years: 5.50 Types: Cigarettes Smokeless tobacco: Never Substance Use Topics Alcohol use: Yes Comment: Occasionally Drug use: No FAMILY HISTORY: FAMILY HISTORY Problem Relation Age of Onset other (ENDOMETRIOSIS) Mother other (HTN) Mother Colon Cancer Father Heart Maternal Grandmother Hypertension Maternal Grandmother Stroke Maternal Grandmother Alzheimer's Disease Maternal Grandmother Stroke Maternal Grandfather Heart Maternal Grandfather Hypertension Maternal Grandfather Diabetes Maternal Grandfather Breast Cancer Maternal Aunt @ age 38 Colon Cancer Paternal Grandfather Colon Cancer Other P-Great Aunt other (Congenital Heart Defect) Other Maternal Cousin REVIEW OF SYMPTOMS: The review of systems data was entered by the nurse and reviewed by me Nursing Notes: Veronica Ava 01/23/2023 9:38 AM Signed REVIEW OF SYSTEMS: General: The patient denies fatigue, denies weight loss, denies weight gain, denies feeling hot, and denies feelings of cold. Eyes: The patient denies glaucoma, denies eye injury/surgery, wears glasses or contacts. Ear/Nose/Throat: The patient denies allergies, denies hayfever, denies ear infections, and denies bloody noses. Cardiovascular: The patient denies chest pain, denies heart disease, denies high blood pressure,denies cardiac stent, denies prior heart attack, denies irregular heart beat, denies high cholesterol, denies poor circulation, denies heart failure, other cardiac issues, denies claudication, denies cold feet, denies peripheral arterial stent. Respiratory: The patient denies tuberculosis, denies pneumonia, denies frequent cough, denies pulmonary embolism, denies shortness of breath, and denies coughing up blood. Gastrointestinal: The patient denies difficulty swallowing, denies acid reflux, denies ulcers, denies vomiting, denies jaundice/hepatitis, denies gallbladder problems, denies black or tarry stools, denies hemorrhoids, denies bleeding from rectum, denies diverticulitis, denies constipation, denies diarrhea, denies loss of stool control, and denies hernias. Kidney/Bladder: The patient denies kidney stones, NOTES urine infections, and denies bloody urine. Skin: The patient denies a history of skin cancer, denies bleeding/changing moles, and denies a history of skin rash. Neurologic: The patient denies a history of epilepsy/convulsions, NOTES headaches, denies head/spinal injuries, and denies stroke/TIA. Psychiatric: The patient denies psychiatric medications, denies depression, and denies voices, denies substance abuse. Endocrine: The patient denies thyroid disorders, denies diabetes, and denies hormonal problems. Hematologic: The patient denies a history of bruising, denies bleeding, and denies anemia, denies blood clots. Infections: The patient denies a history of measles and mumps, denies rheumatic fever, and denies sexually transmitted diseases. Musculoskeletal: The patient denies back pain/injury, denies back problems, denies sciatica, NOTES knee/foot trouble, denies arthritis, or denies gout. When was patient's last Mammogram screening? N/A Last Colonoscopy: 2016 Veronica Escalante I have confirmed and edited as necessary, the PFSH and ROS obtained by others. Marko Carr PA-C PHYSICAL EXAMINATION: General: The patient is 42 year old female, well nourished, well hydrated in no acute distress. The patient is oriented to time, place, and person. VITALS: Blood pressure 118/74, pulse 103, temperature 36.4 C (97.5 F), height 162.6 cm (5' 4 ), weight 112 kg (247 lb), last menstrual period 06/27/2005, SpO2 96 %. Body mass index is 42.4 kg/m . HEENT: Normal cephalic, ataumatic, pupils are equally round, sclera are anicteric, mucous membranes are moist, oropharynx is clear. Neck has no masses, asymmetry or lymphadenopathy. Respiratory: Clear to auscultation and percussion. Normal respiratory excursion and pattern. Cardiac: Examination is regular rate and rhythm. Normal S1/S2 Abdominal exam: Soft, nontender, with no palpable masses. No hepatosplenomegaly. No palpable hernias. Extremities: no clubbing, cyanosis or edema. No adenopathy. LABORATORY VALUES: As Noted RADIOLOGIC STUDIES: As Noted Assessment IMPRESSION: encounter for high-risk screening colonoscopy, family history of colon cancer PLAN: I have reviewed my findings with the surgeon. Will plan for lower endoscopy. We discussed the risks and benefits of the planned endoscopy. I have informed the patient that complications can occur including failure to complete the endoscopy and perforation. The patient had the opportunity to ask questions concerning the planned endoscopy. My staff has also explained the procedure to the patient in understandable terms and has given the patient printed material concerning the procedure. The patient freely consents to surgery. I plan to use Miralax/Dulcolax bowel preparation Diagnoses: (Z80.0) Family history of colon cancer (primary encounter diagnosis) (Z86.010) Personal history of colonic polyps I spent a total of 25 minutes on the date of the service which included preparing to see the patient, [id number] patient care, completing clinical documentation, obtaining and/or reviewing separately obtained history, performing a medically appropriate examination, counseling and educating the patient/family/caregiver, and ordering medications, tests, or procedures. Marko Carr PA-C documented in this encounter [facility] Nurse Note 01-23-2023 Veronica Escalante - 01/23/2023 9:37 AM EDT Note Date & Type Note Facility 01-23-2023 Nurse Note REVIEW OF SYSTEMS: General: The patient denies fatigue, denies weight loss, denies weight gain, denies feeling hot, and denies feelings of cold. Eyes: The patient denies glaucoma, denies eye injury/surgery, wears glasses or contacts. Ear/Nose/Throat: The patient denies allergies, denies hayfever, denies ear infections, and denies bloody noses. Cardiovascular: The patient denies chest pain, denies heart disease, denies high blood pressure,denies cardiac stent, denies prior heart attack, denies irregular heart beat, denies high cholesterol, denies poor circulation, denies heart failure, other cardiac issues, denies claudication, denies cold feet, denies peripheral arterial stent. Respiratory: The patient denies tuberculosis, denies pneumonia, denies frequent cough, denies pulmonary embolism, denies shortness of breath, and denies coughing up blood. Gastrointestinal: The patient denies difficulty swallowing, denies acid reflux, denies ulcers, denies vomiting, denies jaundice/hepatitis, denies gallbladder problems, denies black or tarry stools, denies hemorrhoids, denies bleeding from rectum, denies diverticulitis, denies constipation, denies diarrhea, denies loss of stool control, and denies hernias. Kidney/Bladder: The patient denies kidney stones, NOTES urine infections, and denies bloody urine. Skin: The patient denies a history of skin cancer, denies bleeding/changing moles, and denies a history of skin rash. Neurologic: The patient denies a history of epilepsy/convulsions, NOTES headaches, denies head/spinal injuries, and denies stroke/TIA. Psychiatric: The patient denies psychiatric medications, denies depression, and denies voices, denies substance abuse. Endocrine: The patient denies thyroid disorders, denies diabetes, and denies hormonal problems. Hematologic: The patient denies a history of bruising, denies bleeding, and denies anemia, denies blood clots. Infections: The patient denies a history of measles and mumps, denies rheumatic fever, and denies sexually transmitted diseases. Musculoskeletal: The patient denies back pain/injury, denies back problems, denies sciatica, NOTES knee/foot trouble, denies arthritis, or denies gout. When was patient's last Mammogram screening? N/A Last Colonoscopy: 2016 Veronica Escalante documented in this encounter [facility] Evaluation note Note Date & Type Note Facility documented in this encounter [facility] Evaluation note Note Date & Type Note Facility documented in this encounter [facility] Reason for referral (narrative) Outpatient Procedure (Routine) - Closed Note Date & Type Note Facility Referral ID Status Reason Start Date Expiration Date V isits Requested Visits Authorized [id number] Closed Auto-Generate d Referral 01/23/2023 01/24/2024 1 1 [facility] Reason for visit Narrative Outpatient Procedure (Routine) - Closed Note Date & Type Note Facility Referral ID Status Reason Start Date Expiration Date V isits Requested Visits Authorized [id number] Closed Auto-Generate d Referral 01/23/2023 01/24/2024 1 1 [facility] Summary Purpose Family History No Family History Records Found Advance Directives No Advanced Directives Records Found Medications Administered Section Inactive Administered Medications - up to 3 most recent administrations Medication Order MAR Action Action Date Dose Rate Site diphenhydrAMINE 12.5-50 mg injection (BENADRYL) 12.5-50 mg, INTRAVENOUS, DIRECTED, Starting on Thu03/24/23 at 0900, Until Thu03/24/23 at 1259, DOSING DIRECTED BY PHYSICIAN FOR PROCEDURAL SEDATION ONLY, Intraprocedure Given by LIP 03/24/2023 8:59 AM EDT 50 mg fentaNYL 50 mcg/mL 25-100 mcg injection (SUBLIMAZE) 25-100 mcg, INTRAVENOUS, DIRECTED, Starting on Thu03/24/23 at 0900, Until Thu03/24/23 at 1259, DOSING DIRECTED BY PHYSICIAN FOR PROCEDURAL SEDATION ONLY, Intraprocedure Given by LIP 03/24/2023 8:57 AM EDT 50 mcg Additional Source Comments Source Comments (unrecognize d section and content) In the event this informatio n is protected by the Federal Confidentiality of Alcohol and Drug Abuse Patient Records regulations: The Federal rules restrict any use of the information to criminally investigate or prosecute any alcohol or drug abuse patient.[facility] the event this information is protected by the Federal Confidentiality of Alcohol and Drug Abuse Patient Records regulations: The Federal rules restrict any use of the information to criminally investigate or prosecute any alcohol or drug abuse patient.[facility] Reason for Visit (unrecogniz ed section and content) Care Teams (unrecognized sec tion and content) 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 This clinical summary was aggregated from multiple sources. Caution should be exercised in using it in the provision of clinical care. This summary normalizes information from multiple sources, and as a consequence, information in this document may materially change the coding, format and clinical context of patient data. In addition, data may be omitted in some cases. CLINICAL DECISIONS SHOULD BE BASED ON THE PRIMARY CLINICAL RECORDS. [employer] provides no warranty or guarantee of the accuracy or completeness of information in this document.
[2023-07-27] MEDS: Ibuprofen 200 MG Tablet 400 MG PO (09:31)
[2023-07-27] MEDS: Orphenadrine 60 MG/2 ML Ampul IM (09:31)
[2023-07-27] MEDS: predniSONE 20 MG Tablet 40 MG PO (09:32)
[2023-07-27] MEDS: Oxycodone/Apap 5/325 Tablet PO (09:33)
[2023-07-27] MEDS: Lidocaine 5% Patch 1 PATCH TOPICAL (09:39)
== END 2023-07-27 10:06 | disposition home or self-care (01) ==
PROVIDERS: Emergency Provider Emergency Medicine; PCP Family Medicine; Visit Provider Emergency Medicine
DX: M54.16 Radiculopathy, lumbar region (principal); E66.9 Obesity, unspecified; Z87.891 Personal history of nicotine dependence; G25.81 Restless legs syndrome; Z79.899 Other long term (current) drug therapy
CPT/HCPCS: 96372; 99284

== ENCOUNTER 2023-09-10 10:00 | Outpatient (RCR) | payer BC, SELFPAY ==
--- NOTE | 2023-08-10 08:59 | HP.PTEVAL ---
Patient's Visit Information Visit Information Visit Information: VIBHA MCCORMACK is a 43 year old F referred to Physical Therapy by Dr. Elio Parker MD with a diagnosis of Lumbar Radiculopathy. Date of Evaluation: 08/10/23 Physical Therapist: Uma Posey DPT Visit Plan Frequency: 2x /Week Duration: 4 Weeks Plan: Extension Bias- 1x a week needs extension HEP due to high deductible- Focus on Centralization and core strength/stabilization HEP Given IE: postural correction, standing extensions, prone prop Subjective Subjective: Patient reports that she a herniated disc- MORRIS- she could do NOTHING for 10 days- she had to play flat. She couldn't even get up to go to the bathroom. She went to the ED they gave her meds and sent her home, then she followed up with chiropractor. She has followed ortho and pain mgmt. She has had x-rays which showed (Mild degenerative narrowing of the L5-S1 disc). pain mgmt Dr. Stover did an injection- it helped- she feels that she is 30-40% better. She has not had an MRI. She is not currently seeing chiro. Worst in the last few days: 12/03 Agg: walking, sitting Eases: laying down flat on her back. Pain is located in the middle of the low back and on the right side- buttock and down to the mid thigh. The last time it went past the knee was last week prior to the injection. She reports that she has numbness in the lateral aspect of her right foot and has tingling in the whole leg- which is still constant. Sleep: disturbed but its better- side sleeper. She has had issues with her back but has been able to adapt with adjustments. Goes back to see ortho MD Aug 27 and pain mgmt sep 03. Work: [employer]- went back on Thursday- she did okay- took breaks and was able to lay down as needed. No loss of change in bowel or bladder. PMHx/Meds: no changes since seen in ortho. Objective Objective: Posture: forward head, rounded shoulder- can correct but is unable to complete Observation: she is unable to sit for longer than 5 min without getting up and moving around due to radicular s/s down the right LE ROM: Lumbar: pain with flexion and SB to the right and rotation to the right- Flexion: hands to knees all other WFL, Hip/Knee/Ankle: WFL HR/TR: able but increased discomfort on the right due to numbness per pt report Sensation: diminished on right lateral calf and lateral aspect of the foot Strength: Core: poor, Left: Hip: 4+/5, Knee: 5/5, Ankle: 5/5, Right: Hip: 4-/5 throughout, Knee:5/5 Ankle: 4+/5 Flex: HS: severe, Gastroc: moderate Special Test: dural signs: left: negative Right: positive, Prone Prop: decreased pain, DKTC: increased pain Special Tests L/S Slump test left side: Negative L/S Slump test right side: Positive L/S Left Straight Leg Raise: Negative L/S Right Straight Leg Raise: Positive Balance/Special Test Scores Oswestry Low Back Score: 18 Goals Goal 1:: Patient will report participation in home exercise program activities a minimum of 5 days per week, as adjunct to skilled physical therapy intervention in preparation for independent home management upon discharge. Goal Time Frame: 4-6 Weeks Goal 2:: Patient will report ability to sit for more than 10 min without radicular s/s Goal Time Frame: 4-6 Weeks Goal 3:: Patient will maintain proper posture t/o tx session to demo increased core s/s Goal Time Frame: 4-6 Weeks Goal 4:: Patient will report 80% improvement Goal Time Frame: 4-6 Weeks Rehabilitation Potential Physical Therapy Diagnosis: Patient presents hypomobility- she has decreased core strength/stabilization, flex, lumbar ROM and muscular endurance leading to increased pain and radiculopathy. Rehabilitation Potential: Good Anticipated Interventions Patient/Client Instruction: Educate patient on: Benefits of Fitness Program Therapeutic Exercise to Include: Strength training, Endurance training, Balance training, Coordination, Agility training, Body mechanics, Postural training, Flexibilty training, Gait and locomotor training, Neuromotor development, Passive ROM, Active ROM, Dynamic Lumbar Stabilization and Scapular Strength/Stabilization For the Purpose of:: To improve muscle performance and motor function TENS: Yes Cryotherapy (ice pack, ice massage): Yes Thermo therapy (hot pack): Yes Ultrasound (thermal/non thermal): Yes Text: Thank you for the opportunity to evaluate your patient. For Medicare and Medicare HMO plans, please review the plan of care and approve it. It will need to be FAXED BACK to us at [phone] for Medicare purposes. For Medicare only, by signing this I certify the plan of care. Please let me know if there are questions or concerns regarding this plan of care. Physician Signature: Date:
--- NOTE | 2023-09-10 15:32 | HP.PTREVAL_ITS ---
Re-Evaluation Intro: Dr. Elio Parker MD, It has been my pleasure to treat VIBHA MCCORMACK over the last 6 visits for Lumbar Radiculopathy. Please see the progress note below for an update on the physical therapy plan of care! Subjective Subjective: Pt reports no pain but numbness and tingling in RLE has increased, in lateral L foot and spreading to second to last toe. Pt reports 5/10 pain at worst (tingling/discomfort in L5 dermatome pattern), gets down to 2 or 3 at best. Objective Objective/Function: ROM: full flex, full ext with radic sxs improved, stretch with rod LSB 75% of normal movement bending to R MMT: global R hip strength 3+/5, L hip 4-/5, rod quads/hamstrings 4/5 PALPATION: some tightness in rod lumbar extensors and hamstrings when on stretch Pt. reports no longer having any pain, but is still having some extended NT in her RLE, she reports some mild centralization Pt overall demonstrates some improvements with pain and ROM, but continues to have radicular symptoms in RLE but is able to change intensity with lumbar ext. Plan Plan Plan: Pt to return in 3 weeks to check in and assess pain during work and at gym. Pt instructed to slowly progress and trial exercises at gym to improve LE and core strength while paying attention to pain/what motions flare up RLE sxs. Balance/Gait/Functional tests Balance/Special Test Scores Oswestry Low Back Score: 11 Goals Goals Goal 1:: Patient will report participation in home exercise program activities a minimum of 5 days per week, as adjunct to skilled physical therapy intervention in preparation for independent home management upon discharge. Goal Time Frame: 4-6 Weeks Goal Progress: Progressing Goal 2:: Patient will report ability to sit for more than 10 min without radicular s/s Goal Time Frame: 4-6 Weeks Goal Progress: Progressing Goal 3:: Patient will maintain proper posture t/o tx session to demo increased core s/s Goal Time Frame: 4-6 Weeks Goal Progress: Progressing Goal 4:: Patient will report 80% improvement Goal Time Frame: 4-6 Weeks Goal Progress: Progressing Goal 5:: LTG: pt. to complete her gym exercises with 0-2/10 symptoms in her RLE. Goal Time Frame: 4-6 Weeks Goal Progress: Progressing Anticipated Interventions Anticipated Interventions Patient/Client Instruction: Educate patient on: Benefits of Fitness Program Therapeutic Exercise to Include: Strength training, Endurance training, Balance training, Coordination, Agility training, Body mechanics, Postural training, Flexibilty training, Gait and locomotor training, Neuromotor development, Pa ssive ROM, Active ROM, Dynamic Lumbar Stabilization and Scapular Strength/Stabilization For the Purpose of:: To improve muscle performance and motor function TENS: Yes Cryotherapy (ice pack, ice massage): Yes Thermo therapy (hot pack): Yes Ultrasound (thermal/non thermal): Yes Re-Evaluation Ending Re-evaluation ending: Please do not hesitate to contact me at [phone] by phone or if you have questions or concerns regarding this new plan of care! Sincerely, Nate Noyola DPT
--- NOTE | 2023-11-02 10:57 | HP.PT.NRP ---
Patient Information Patient Information: VIBHA MCCORMACK was seen in my office for initial evaluation on 08/10/23. The following Plan of Care was established for this patient: POC Established Initial Frequency: 2x /Week Initial Duration: 4 Weeks Anticipated Interventions Patient/Client Instruction: Educate patient on: Benefits of Fitness Program Therapeutic Exercise to Include: Strength training, Endurance training, Balance training, Coordination, Agility training, Body mechanics, Postural training, Flexibilty training, Gait and locomotor training, Neuromotor development, Passive ROM, Active ROM, Dynamic Lumbar Stabilization and Scapular Strength/Stabilization For the Purpose of:: To improve muscle performance and motor function TENS: Yes Cryotherapy (ice pack, ice massage): Yes Thermo therapy (hot pack): Yes Ultrasound (thermal/non thermal): Yes Last Seen Last Seen: This patient was last seen in our office . Pertinent comments regarding their Physical therapy will appear below: Patient was to check in as needed after re-evaluation. She is appropriate to be d/c at this time- if she has questions we are happy to answer any that arise. At this point I will be discontinuing this patient from physical therapy. I would be happy to see this patient again in the future if found appropriate by the physician. Thank you! Uma Posey, DPT Balance/Gait/Functional tests Balance/Special Test Scores Oswestry Low Back Score: 11
== END 2023-09-10 19:00 | disposition home or self-care (01) ==
LOC: PT 10:00
PROVIDERS: PCP Family Medicine; Visit Provider Orthopaedic Surgery Orthopaedic Surgery of the Spine
DX: M54.16 Radiculopathy, lumbar region (principal)
CPT/HCPCS: 97110; 97162

== ENCOUNTER → 2023-12-18 | Outpatient (CLI) | payer BC, SELFPAY ==
--- NOTE | 2023-12-18 06:49 | MRI_ITS ---
EXAM: MR LUMBAR SPINE WITHOUT INTRAVENOUS CONTRAST CLINICAL INDICATION: low back pain, numbness down L leg and foot TECHNIQUE: Multiplanar and multisequence MR images of the lumbar spine without intravenous contrast. COMPARISON: No relevant prior studies available. FINDINGS: VERTEBRAE: Normal. Vertebral body heights are preserved. Normal vertebral bodies and posterior elements. No spondylolisthesis. There is preservation of the normal lumbar lordosis. SPINAL CORD: Normal. Normal position and signal intensity of the conus medullaris. SOFT TISSUES: Normal. /SPINAL CANAL/NEURAL FORAMINA: L1-L2: Normal. Normal disc height and morphology. Normal spinal canal and lateral recesses. Normal neuroforamina. L2-L3: Normal. Normal disc height and morphology. Normal spinal canal and lateral recesses. Normal neuroforamina. L3-L4: Normal. Normal disc height and morphology. Normal spinal canal and lateral recesses. Normal neuroforamina. L4-L5: Decreased T2 signal intensity of the disc consistent with desiccation. No disc protrusion. Normal spinal canal and lateral recesses. Normal neuroforamina. L5-S1: Mild to moderate narrowing of the disc space. Prominent disc herniation noted with what appears to be extruded disc extending inferiorly on the right side displacing the right S1 nerve root. No significant spinal or neural foraminal stenosis. MRI/Spine Lumbar (Routine) IMPRESSION: L5-S1 disc degeneration. Right L5-S1 extruded disc compressing the right S1 nerve root. Electronically Signed: Aaron Blanco MD at 8:45 EDT ,
== END | disposition home or self-care (01) ==
PROVIDERS: PCP Family Medicine; Referring Provider Orthopaedic Surgery Orthopaedic Surgery of the Spine; Visit Provider Orthopaedic Surgery Orthopaedic Surgery of the Spine
DX: M54.10 Radiculopathy, site unspecified (principal)
CPT/HCPCS: 72148

== ENCOUNTER → 2024-01-29 | Outpatient (CLI) | payer BC, SELFPAY ==
[2024-01-29 12:09] LABS: Absolute Lymphocyte Count 1.89 X10^3/uL (0.83-4.51); Absolute Neutrophil Count 5.4 X10^3/uL (2.0-7.7); Basophil# 0.04 X10^3/uL; Basophil% 0.5 % (0-1); Eosinophil# 0.33 X10^3/uL; Hematocrit 42.6 % (37-47); Hemoglobin 13.9 g/dL (12.0-15.0); Lymphocyte # 1.89 X10^3/ul (0.83-4.51); Lymphocyte % 22.7 % (19-41); Mean Corp Hgb Conc 32.6 g/dL (32-36); Mean Corpuscular Hgb 28.7 pg (27.0-32.0); Mean Platelet Vol. 10.9 fl (6.2-12.0); Monocyte# 0.61 X10^3/uL; Monocyte% 7.3 % (0-10); NRBC Flagged by Analyzer 0 % (0-5); Neutrophil # 5.41 X10^3/uL (2.7-7.7); Platelet Count 262 K/mm3 (150-450); RBC Distribution Width CV 12.4 % (11.6-14.6); Red Blood Count 4.84 M/mm3 (4.2-5.4); White Blood Count 8.3 K/mm3 (4.4-11.0)
[2024-01-29 12:29] LABS: Vitamin D,25 Hydroxy 49.2 ng/mL
[2024-01-29 12:52] LABS: ALB/GLOB Ratio 0.9 RATIO (0.9-2.4); AST(SGOT) 19 U/L (15-37); Alanine Aminotransfer ALT/SGPT 25 U/L (13-56); Albumin, Serum 3.4 g/dL (3.2-5.0); Alkaline Phosphatase 62 U/L (45-117); Anion Gap 9 (5-15); BUN 21 mg/dL (7-18); BUN/Creat Ratio 37.6 RATIO (10-20); Calcium,Total 9.5 mg/dL (8.5-10.1); Chloride 110 mmol/L (98-107); Cholesterol 188 mg/dL (200); Creatinine, Serum 0.56 mg/dL (0.55-1.02); EST Glomerular Filtration Rate 125 mL/min (>60); Est Glom Filt Rate - Afr Amer 151 mL/min (>60); Globulin 3.6 g/dL (2.2-4.2); Glucose 91 mg/dL (74-106); High Density Lipoprotein 52 mg/dL; Potassium 3.6 mmol/L (3.5-5.1); Sodium Level 139 mmol/L (136-145); T4 Free Direct 1.28 ng/dL (0.76-1.46); Thyroid Stim Hormone (TSH) 3.59 uIU/mL (0.358-3.74); Triglycerides 85 mg/dL; Very Low Density Lipoprotein 17 mg/dL (5-40)
== END | disposition home or self-care (01) ==
LOC: MTLAB 09:57
PROVIDERS: PCP Family Medicine; Referring Provider Family Medicine; Visit Provider Family Medicine
DX: Z13.1 Encounter for screening for diabetes mellitus (principal); G43.909 Migraine, unspecified, not intractable, without status migrainosus; R53.83 Other fatigue; Z13.220 Encounter for screening for lipoid disorders
CPT/HCPCS: 36415; 80053; 80061; 82306; 84439; 84443; 85025

== ENCOUNTER → 2024-09-08 | Outpatient (CLI) | payer BC, SELFPAY ==
[2024-09-13 16:08] LABS: HPV APTIMA, High Risk Negative (Negative)
== END | disposition home or self-care (01) ==
LOC: LABSPEC 16:22
PROVIDERS: PCP Family Medicine; Referring Provider Nurse Practitioner Women's Health; Visit Provider Nurse Practitioner Women's Health
DX: Z12.4 Encounter for screening for malignant neoplasm of cervix (principal)
CPT/HCPCS: 87624; 88175; G0145

== ENCOUNTER → 2024-09-23 | Outpatient (CLI) | payer BC, SELFPAY ==
--- NOTE | 2024-09-23 08:41 | BI_ITS ---
PROCEDURE: SCRN MAMM (CAD)W/NETTE BILAT REASON FOR EXAM: F, Age 44 y/o, presents for annual screening mammogram. Family history of breast cancer in a maternal aunt at age 29. TECHNIQUE: Bilateral screening digital breast tomosynthesis with 2D and 3D images. Computer aided detection. COMPARISON: 02/11/2023, 05/05/2019 FINDINGS: There are scattered areas of fibroglandular density. No suspicious masses, areas of developing architectural distortion, or suspicious calcifications. BI/SCRN MAMM (CAD)W/NETTE BILAT IMPRESSION: There is no mammographic evidence of malignancy. BI-RADS 1: NEGATIVE. RECOMMEND ANNUAL MAMMOGRAPHIC SCREENING. Follow-up code: Routine Follow-up The patient will be notified of the results by letter. Reading Location: [id number]
== END | disposition home or self-care (01) ==
LOC: OPBI 08:39
PROVIDERS: PCP Family Medicine; Referring Provider Nurse Practitioner Women's Health; Visit Provider Nurse Practitioner Women's Health
DX: Z12.31 Encounter for screening mammogram for malignant neoplasm of breast (principal); Z80.3 Family history of malignant neoplasm of breast
CPT/HCPCS: 77063; 77067

== ENCOUNTER → 2025-05-08 | Outpatient (CLI) | payer BC, SELFPAY ==
[2025-05-08 10:51] LABS: Hematocrit 42.3 % (37-47); Hemoglobin 14.1 g/dL (12.0-15.0); Immature Granulocytes Count 0.040 X10^3/uL (0.0-0.0); Mean Corp Hgb Conc 33.3 g/dL (32-36); Mean Corpuscular Volume 90.2 fL (81-99); Mean Platelet Vol. 10.3 fl (6.2-12.0); NRBC Flagged by Analyzer 0 % (0-5); Platelet Count 292 K/mm3 (150-450); RBC Distribution Width CV 12.3 % (11.6-14.6); RBC Distribution Width SD 40.7 fl (35.1-43.9); Red Blood Count 4.69 M/mm3 (4.2-5.4); White Blood Count 9.6 K/mm3 (4.4-11.0)
[2025-05-08 11:48] LABS: FOLATES,SERUM (FOLIC ACID) 25.20 ng/mL (4.60-34.80)
[2025-05-08 12:19] LABS: AST(SGOT) 18 U/L (<=31); Alanine Aminotransfer ALT/SGPT 19 U/L (<=34); Albumin, Serum 4.0 g/dL (3.5-5.0); Alkaline Phosphatase 67 U/L (35-104); Anion Gap 12 (5-15); BUN 18 mg/dL (4-19); BUN/Creat Ratio 28.5 RATIO (10-20); Calcium,Total 9.7 mg/dL (7.6-11.0); Carbon Dioxide 23.8 mmol/L (21.0-32.0); Chloride 102 mmol/L (98-108); Globulin 3.2 g/dL (2.2-4.2); Glucose 91 mg/dL (70-99); Potassium 3.7 mmol/L (3.3-5.1)
[2025-05-08 12:51] LABS: CORTISOL AM < 0.11 ug/dL (6.02-18.40); Free T3 3.2 pg/mL (2.18-3.98); Vitamin B12 657 pg/mL (180-914); Vitamin D,25 Hydroxy 48.9 ng/mL (30-100)
[2025-05-08 12:53] LABS: Ferritin 172 ng/mL (22-378)
[2025-05-08 13:04] LABS: CRP 7.51 mg/L (0.0-3.0); Iron 92 ug/dL (50-170); Iron Binding Capacity,Total 375 ug/dL (250-450); Iron Binding Capacity,Unsat 283 ug/dL (228-428)
[2025-05-14 13:07] LABS: Estrogen, Total, Serum 157 pg/mL (.); VITAMIN B6 23.0 ug/L (3.4-65.2)
== END | disposition home or self-care (01) ==
PROVIDERS: PCP Family Medicine; Referring Provider Nurse Practitioner Family; Visit Provider Nurse Practitioner Family
DX: Z13.29 Encounter for screening for other suspected endocrine disorder (principal); Z13.228 Encounter for screening for other metabolic disorders; E66.3 Overweight; M62.830 Muscle spasm of back; M54.50 Low back pain, unspecified; M25.569 Pain in unspecified knee; E55.9 Vitamin D deficiency, unspecified; R53.82 Chronic fatigue, unspecified
CPT/HCPCS: 36415; 80053; 82306; 82533; 82607; 82627; 82670; 82672; 82728; 82746; 83525; 83540; 83550; 84207; 84270; 84403; 84439; 84443; 84481; 84482; 85025; 85652; 86140; 82626

== ENCOUNTER → 2025-05-11 | Outpatient (CLI) | payer BC, SELFPAY ==
--- OUTSIDE RECORDS SUMMARY | 2025-05-11 08:06 | XMS RPT_ITS | CCD ---
Author Organization [facility] Care Team Providers Care Conference Director Name Role Phone Dr. Yosef Ochoa Primary Care Provider Dr. Yosef Ochoa Referring Provider Raudel BLISS, [place] Onofre Burrows Attending Provider Dr. Tomás Gomez Attending Provider MD Yosef Jacobs Attending Provider DO Herberth Merino Primary Care Provider [phone] DO Herberth Merino Referring Provider Herberth Merino DO Primary Care Provider Dr. Yosef Ochoa Referring Provider Unavailable [place] POWER LINEMAN TECHNICIAN, POWER LINEMAN TECHNICIAN-C Leah Attending Provider [phone] DO Herberth Merino Primary Care Provider [phone] Dr. Yosef Ochoa Referring Provider Unavailable [place] POWER LINEMAN TECHNICIAN, POWER LINEMAN TECHNICIAN-C Leah Attending Provider [phone] DO Herberth Merino Primary Care Provider [phone] DO Herberth Merino Referring Provider Dr. Elio Parker Attending Provider Dr. Tomás Gomez Attending Provider Jessica Ni MD Primary Care Provider [phone] JESSICA NI Primary Care Unavailable KAY MARIEE Attending Unavailable HERBERTH MERINO Primary Care Unavailable KATHIA CARR Referring Unavailable HERBERTH MERINO Primary Care Unavailable KATHIA CARR Attending Unavailable Herberth Merino DO Referring Provider [place] POWER LINEMAN TECHNICIAN-CLeah Attending Provider [facility] Polo OBRIENCLeah Referring Provider Jessica Ni Primary Care Unavailable Mahin Tanisha Referring Unavailable Mahin, Tanisha Attending Unavailable Raine, Chalon Primary Care Unavailable [place] POWER LINEMAN TECHNICIAN, Leah Referring Unavailable [place] POWER LINEMAN TECHNICIAN, Leah Attending Unavailable [place] POWER LINEMAN TECHNICIAN, Leah Attending Unavailable Raine, Chalon Primary Care Unavailable [place] POWER LINEMAN TECHNICIAN, Leah Referring Unavailable Raine, Chalon Primary Care Unavailable Herberth Merino Referring Unavailable [place] POWER LINEMAN TECHNICIAN, Leah Attending Unavailable Allergies Allergy Classification Reported Allergen(s) Allergy Type Date of Onset Reaction(s) Facility (9 sources) Bacitracin; Translations: [BACITRACIN] Drug Allergy 6 [facility] (9 sources) [place] juice; Translations: [ORANGE JUICE] Allergy to substance 6 [facility] (4 sources) Bees; Translations: [BEES] Propensity to adverse reactions 6 [facility] (2 sources) CATERPILLARS [Other] Propensity to adverse reactions 6 [facility] (1 source) OTHER; Translations: [OTHER] Propensity to adverse reactions (disorder) 6 [facility] (1 source) Bacitracin Drug Allergy 5 [facility] (1 source) [place] juice Drug allergy (disorder) 5 [facility] Medications Current Medications Medication Drug Class(es) Dates Sig (Normalized) Sig (Original) Amino Ac-Hydroly Collagen-Whey (4 sources) Start: 12-15-2022 Amino Ac-Hydroly Collagen-Whey Active ML PO December 14, 2022 11:00pm Start: 12-15-2022 Amino Ac-Wirtz ly Collagen-Whey Active ML PO December 15, 2022 12:00am Amino Ac-Hydroly Collagen-Whey 15 gram-100 kcal/30 mL liquid (1 source) Start: 12-15-2022 Amino Ac-Hydroly Collagen-Whey 15 gram-100 kcal/30 mL liquid Active mL PO December 15, 2022 12:00am cephalexin 500 mg oral capsule (1 source) Cephalosporin Antibacterial Start: 12-10-2023 End: 12-15-2023 take 1 capsule by mouth four times daily cephALEXin (KEFLEX) 500 mg capsule Take 1 capsule by mouth four times daily for 5 days. 20 capsule 0 12/10/2023 12/15/2023 Active cholecalciferol 0.125 mg oral capsule (5 sources) Vitamin D Start: 12-15-2022 take 1 capsule by mouth once daily Cholecalciferol (Vitamin D3) 125 mcg (5,000 unit) capsule Active 125 ug PO DAILY December 15, 2022 12:00am krill oil 500 mg oral capsule (5 sources) Start: 12-15-2022 Krill Oil 500 mg capsule Active 600 mg PO December 15, 2022 12:00am Start: 12-15-2022 Krill Oil Acti ve 600 MG PO December 15, 2022 12:00am levonorgestrel 0.624021 mg/hr intrauterine system (5 sources) Progestin, Progestin-containing Intrauterine Device Start: 06-05-2022 Levonorgestrel (Mirena) 20 mcg/24 hours (8 yrs) 52 mg intrauterine device Active 1 NMA INTRA-UTER ONCE June 05, 2022 1:00am as a single dose Start: 06-05-2022 Levonorgestrel (Mirena) 20 mcg/24 hours (8 yrs) 52 mg intrauterine device Active 1 DEVICE INTRA-UTER ONCE June 05, 2022 1:00am as a single dose rOPINIRole 1 mg oral tablet (8 sources) Nonergot Dopamine Agonist Start: 05-24-2019 take 1 tablet by mouth three times daily Ropinirole 1 mg tablet Active 1 mg PO THREE TIMES A DAY May 24, 2019 12:00am rOPINIRole (REQU IP) 0.5 mg tablet Take 0.5 mg by mouth as needed (restless leg). 0 Active Comment on above: Take 0.5 mg by mouth as needed (restless leg). SUMAtriptan 50 mg oral tablet (8 sources) Serotonin-1b and Serotonin-1d Receptor Agonist Start: 06-05-2022 take 1 tablet by mouth every two hours Sumatriptan Succinate (Imitrex) 50 mg tablet Active 0 PO .COMPLEX June 05, 2022 1:00am take 1 tab at onset of headache; if no relief may repeat 1 tab after at least 2 hrs; max = 4 tabs/24 hr PO SUMAtriptan (IMI TREX) 25 mg tablet Take 25 mg by mouth as needed for migraine headache (see administration instructions). 0 Active Comment on above: Take 25 mg by mouth as needed for migraine headache (see administration instructions). Atqygkn-Nedt-Rutmb-Or eg-Capryl (3 sources) Start: 12-15-2022 Kamqawj-Adjv-Inmdm-O reg-Capryl Active CAP PO December 14, 2022 11:00pm Start: 12-15-2022 Urpiuek-Mxte-A uqiy-Bgud-Sonhkk Active CAP PO December 15, 2022 12:00am Vaxuuttu-Kfwm-Sdgrf-Oreg-Cap ry (1 source) Start: 12-15-2022 Wvzrxjjj-Opea-Gfkhs-Oreg-Cap ry Active CAP PO December 15, 2022 12:00am Fzglwgrn-Ggfe-Kechb-Oreg-Cap ry 100 mg-150 mg- 50 mg-150 mg capsule (1 source) Start: 12-15-2022 Zdipuved-Bsst-Utiih-Oreg-Cap ry 100 mg-150 mg- 50 mg-150 mg capsule Active NMA PO December 15, 2022 12:00am Vitamin B Complex capsule (1 source) Start: 09-08-2024 Vitamin B Complex capsule Ac tive 1 NMA PO daily September 08, 2024 1:00am vitamin k2 0.1 mg oral capsu le (5 sources) Start: 12-15-2022 Vitamin K2 100 mcg capsule A ctive 100 ug PO DAILY December 15, 2022 12:00am Completed/Discontinued Medications Medication Drug Class(es) Dates Sig (Normalized) Sig (Original) [id number] 200 actuat albuterol 0.09 mg/actuat metered dose inhaler (1 source) beta2-Adrenergic Agonist Start: 05-23-2015 End: 01-23-2023 take 2 puff(s) by inhalation every six hours as needed for wheezing albuterol HFA (PROVENTIL HFA, VENTOLIN HFA) 90 mcg/actuation inhaler Indications: Sinobronchitis Inhale 2 Puffs as instructed every 6 hours as needed for Wheezing/Shortness of Breath. 1 Inhaler 2 05/23/2015 01/23/2023 Discontinued Comment on above: Inhale 2 Puffs as in structed every 6 hours as needed for Wheezing/Shortness of Breath. amoxicillin 500 mg oral capsule (5 sources) Penicillin-class Antibacterial Start: 09-08-2019 End: 09-18-2019 take 2 capsules by mouth twice daily Amoxicillin 500 mg capsule Discontinued 1000 mg PO TWICE A DAY 40 September 08, 2019 1:00am September 17, 2019 1:00am September 18, 2019 1:08am Start: 09-08-2019 End: 09-18-2019 take 1000 mg by mouth twice daily Amoxicillin Discontinued 1000 MG PO TWICE A DAY 40 September 08, 2019 1:00am September 18, 2019 1:08am buPROPion (1 source) Aminoketone End: 01-23-2023 bupropion HCl (WELLBUTRIN ORAL) Take by mouth. 0 01/23/2023 Discontinued Comment on above: Take by mouth. loratadine 10 mg oral tablet (5 sources) Start: 12-15-2022 End: 09-08-2024 take 1 tablet by mouth once daily Loratadine (Claritin) 10 mg tablet Discontinued 10 mg PO DAILY December 15, 2022 12:00am September 08, 2024 3:45pm mecobalamin (5 sources) Start: 12-15-2022 End: 09-08-2024 Mecobalamin (Vitamin B12) 500 mcg tablet,chewable Discontinued ug PO December 15, 2022 12:00am September 08, 2024 3:45pm Start: 12-15-2022 Mecobalamin (V itamin B12) Active MCG PO December 14, 2022 11:00pm Start: 12-15-2022 Mecobalamin (V itamin B12) Active MCG PO December 15, 2022 12:00am methylPREDNISolone 4 mg oral tablet (2 sources) Corticosteroid Start: 08-04-2023 End: 08-27-2023 take 1 tablet by mouth once Methylprednisolone (Medrol (Mauro)) 4 mg tablets,dose pack Discontinued 0 PO per package directions August 04, 2023 1:00am August 27, 2023 10:59am PO PER PKG DIR nitrofurantoin, macrocrystals 25 mg / nitrofurantoin, monohydrate 75 mg oral capsule (4 sources) Nitrofuran Antibacterial Start: 01-19-2023 End: 01-24-2023 take 1 capsule by mouth every twelve hours at mealtime Nitrofurantoin Monohyd/M-Cryst (Macrobid) 100 mg capsule Discontinued 100 mg PO Q12H 10 January 19, 2023 12:00am January 23, 2023 12:00am January 24, 2023 12:12am must administer with a meal/food predniSONE 20 mg oral tablet (3 sources) Start: 07-27-2023 End: 09-08-2024 take 2 tablets by mouth once daily Prednisone 20 mg tablet Discontinued 40 mg PO DAILY 10 July 27, 2023 1:00am September 08, 2024 3:45pm Start: 07-27-2023 take 40 mg by mouth once daily Prednisone Active 40 MG PO DAILY 10 July 27, 2023 1:00am Problems Active Problems Problem Classification Problem Date Documented Date Episodic/Chronic Contraceptive and procreative management (5 sources) Intrauterine contraceptive device in situ; Translations: [Presence of (intrauterine) contraceptive device] 06-05-2022 Episodic Comment on above: Mirena 04/2019 Joint disorders and dislocations; trauma-related (9 sources) Derangement of left knee; Translations: [Unspecified internal derangement of left knee] 12-04-2022 Chronic Joint disorders and dislocations; trauma-related (3 sources) Tear of medial meniscus of knee; Translations: [Other tear of medial meniscus, current injury, left knee, initial encounter] 02-17-2023 Episodic Malaise and fatigue (1 source) Chronic fatigue, unspecified; Translations: [Chronic fatigue, unspecified] Onset: 05-08-2025 Chronic Nutritional deficiencies (1 source) Vitamin D deficiency, unspecified; Translations: [Vitamin D deficiency, unspecified] Onset: 05-08-2025 Chronic Nutritional deficiencies (1 source) Nutritional deficiency, unspecified; Translations: [Nutritional deficiency, unspecified] Onset: 05-08-2025 Episodic Osteoarthritis (9 sources) Osteoarthritis of left knee joint; Translations: [Unilateral primary osteoarthritis, left knee] 12-15-2022 Chronic Other and unspecified benign neoplasm (2 sources) History of polyp of colon; Translations: [Personal history of colonic polyps] Episodic Other non-traumatic joint disorders (1 source) Pain in unspecified knee; Translations: [Pain in unspecified knee] Onset: 05-08-2025 Episodic Other nutritional; endocrine; and metabolic disorders (2 sources) Body mass index 40+ - severely obese; Translations: [Morbid (severe) obesity due to excess calories] Onset: 03-26-2023 03-26-2023 Chronic Other nutritional; endocrine; and metabolic disorders (1 source) Overweight; Translations: [Overweight] Onset: 05-08-2025 Episodic Other screening for suspected conditions (not mental disorders or infectious disease) (5 sources) Encounter for screening for other suspected endocrine disorder; Translations: [Encounter for screening for other metabolic disorders] Onset: 09-08-2024 Episodic Other skin disorders (1 source) Ingrowing great toenail; Translations: [Ingrowing nail] 12-10-2023 Episodic Residual codes; unclassified (7 sources) Family history of cancer of colon; Translations: [Family history of malignant neoplasm of digestive organs] 06-05-2022 Episodic Comment on above: started screening at age 28 and does every 5 years Spondylosis; intervertebral disc disorders; other back problems (8 sources) Lumbar radiculopathy; Translations: [Radiculopathy, lumbar region] Onset: 05-08-2025 07-27-2023 Episodic Sprains and strains (12 sources) Strain of knee; Translations: [Strain of unspecified muscle(s) and tendon(s) at lower leg level, left leg, initial encounter] Onset: 02-16-2007 12-04-2022 Episodic Unclassified (1 source) Low back pain, unspecified; Translations: [Low back pain, unspecified] Onset: 05-08-2025 Urinary tract infections (5 sources) Urinary tract infectious disease; Translations: [Urinary tract infection, site not specified] 01-19-2023 Episodic Viral infection (5 sources) Disease caused by 2019-nCoV; Translations: [COVID-19] 06-05-2022 Episodic Past or Other Problems Problem Classification Problem Date Documented Da te Episodic/Chronic Abdominal pain (3 sources) Left lower quadrant pain; Translations: [Left lower quadrant pain] Onset: 05-23-2008 05-23-2008 Episodic Gastrointestinal hemorrhage (5 sources) Hematochezia; Translations: [Melena] Onset: 05-23-2008 05-23-2008 Episodic Other and unspecified benign neoplasm (3 sources) Benign neoplasm of colon; Translations: [Benign neoplasm of colon, unspecified] Onset: 06-06-2008 06-06-2008 Episodic Other and unspecified benign neoplasm (1 source) Personal history of colonic polyps; Translations: [Personal history of colonic polyps] Onset: 03-24-2023 Episodic Residual codes; unclassified (3 sources) Family history of breast cancer; Translations: [Family history of malignant neoplasm of breast] Onset: 08-18-2013 08-18-2013 Episodic Residual codes; unclassified (1 source) Family history of malignant neoplasm of digestive organs; Translations: [Family history of colon cancer] Onset: 03-24-2023 Episodic Results Test Name Value Interpretation Reference Range Facility CBC W/Diff, Automatedon - Absolute Lymph 2.67 X10 3/uL Normal 0.83-4.51 [facility] Comment on above: Performed By: #### L 500.4050, L506.0400, L509.3001, L506.1001, L503.6030, L3300.1750, L506.0200, L101.9900, L501.9520, L501.43665, L509.6001, L100.0100, L503.0106, L503.6550, L501.6710 #### [facility] [address] [place], [address] Absolute Neut 5.9 X10 3/uL Normal 2.0-7.7 [facility] Comment on above: Performed By: #### L 500.4050, L506.0400, L509.3001, L506.1001, L503.6030, L3300.1750, L506.0200, L101.9900, L501.9520, L501.96294, L509.6001, L100.0100, L503.0106, L503.6550, L501.6710 #### [facility] [address] [place], [address] Basophils/100 WBC (Bld) 0.7 % Normal 0-1 [facility] Comment on above: Performed By: #### L 500.4050, L506.0400, L509.3001, L506.1001, L503.6030, L3300.1750, L506.0200, L101.9900, L501.9520, L501.48013, L509.6001, L100.0100, L503.0106, L503.6550, L501.6710 #### [facility] [address] [place], [place], [id number] (615) Eosinophils/100 WBC (Bld) 2.3 % Normal 0-5 [facility] Comment on above: Performed By: #### L 500.4050, L506.0400, L509.3001, L506.1001, L503.6030, L3300.1750, L506.0200, L101.9900, L501.9520, L501.56404, L509.6001, L100.0100, L503.0106, L503.6550, L501.6710 #### [facility] [address] [facility] [place], [address] Erythrocyte distribution width (RBC) [Ratio] 12.3 % Normal 11.6-14.6 [facility] Comment on above: Performed By: #### L 500.4050, L506.0400, L509.3001, L506.1001, L503.6030, L3300.1750, L506.0200, L101.9900, L501.9520, L501.10508, L509.6001, L100.0100, L503.0106, L503.6550, L501.6710 #### [facility] [address] [facility]. [place], [place], [id number] Hematocrit (Bld) [Volume fraction] 42.3 % Normal 37-47 [facility] Comment on above: Performed By: #### L 500.4050, L506.0400, L509.3001, L506.1001, L503.6030, L3300.1750, L506.0200, L101.9900, L501.9520, L501.12724, L509.6001, L100.0100, L503.0106, L503.6550, L501.6710 #### [facility] [address] [place], [address] Hemoglobin (Bld) [Mass/Vol] 14.1 g/dL Normal 12.0-15.0 [facility] Comment on above: Performed By: #### L 500.4050, L506.0400, L509.3001, L506.1001, L503.6030, L3300.1750, L506.0200, L101.9900, L501.9520, L501.61750, L509.6001, L100.0100, L503.0106, L503.6550, L501.6710 #### [facility] [address] [place], [address] IG% 0.400 Normal 0.0-0.9 [facility] Comment on above: Result Comment: IG% - Immature Granulocytes (promyelocytes, myelocytes and metamyelocytes) > 1% indicates that a LEFT SHIFT is Present. Performed By: #### L 500.4050, L506.0400, L509.3001, L506.1001, L503.6030, L3300.1750, L506.0200, L101.9900, L501.9520, L501.54294, L509.6001, L100.0100, L503.0106, L503.6550, L501.6710 #### [facility] [address] [place], [address] Lymphocytes/100 WBC (Bld) 27.9 % Normal 19-41 [facility] Comment on above: Performed By: #### L 500.4050, L506.0400, L509.3001, L506.1001, L503.6030, L3300.1750, L506.0200, L101.9900, L501.9520, L501.84993, L509.6001, L100.0100, L503.0106, L503.6550, L501.6710 #### [facility] [address] [place], [address] MCH (RBC) [Entitic mass] 30.1 pg Normal 27.0-32.0 [facility] Comment on above: Performed By: #### L 500.4050, L506.0400, L509.3001, L506.1001, L503.6030, L3300.1750, L506.0200, L101.9900, L501.9520, L501.44108, L509.6001, L100.0100, L503.0106, L503.6550, L501.6710 #### [facility] [address] [facility] [place], [address] MCHC (RBC) [Mass/Vol] 33.3 g/dL Normal 32-36 [facility] Comment on above: Performed By: #### L 500.4050, L506.0400, L509.3001, L506.1001, L503.6030, L3300.1750, L506.0200, L101.9900, L501.9520, L501.20247, L509.6001, L100.0100, L503.0106, L503.6550, L501.6710 #### [facility] [address] [place], [address] MCV (RBC) [Entitic vol] 90.2 fL Normal 81-99 [facility] Comment on above: Performed By: #### L 500.4050, L506.0400, L509.3001, L506.1001, L503.6030, L3300.1750, L506.0200, L101.9900, L501.9520, L501.69743, L509.6001, L100.0100, L503.0106, L503.6550, L501.6710 #### [facility] [address] [place], [address] Monocytes/100 WBC (Bld) 6.7 % Normal 0-10 [facility] Comment on above: Performed By: #### L 500.4050, L506.0400, L509.3001, L506.1001, L503.6030, L3300.1750, L506.0200, L101.9900, L501.9520, L501.20497, L509.6001, L100.0100, L503.0106, L503.6550, L501.6710 #### [facility] [address] [place], [address] Neutrophils/100 WBC (Bld) 62.0 % Normal 47-70 [facility] Comment on above: Performed By: #### L 500.4050, L506.0400, L509.3001, L506.1001, L503.6030, L3300.1750, L506.0200, L101.9900, L501.9520, L501.56847, L509.6001, L100.0100, L503.0106, L503.6550, L501.6710 #### [facility] [address] [place], [place], [phone] ([phone] Nucleated RBC (Bld) [#/Vol] 0 10*3/uL Normal 0-5 [facility] Comment on above: Performed By: #### L 500.4050, L506.0400, L509.3001, L506.1001, L503.6030, L3300.1750, L506.0200, L101.9900, L501.9520, L501.36289, L509.6001, L100.0100, L503.0106, L503.6550, L501.6710 #### [facility] [address] [place], [address] Platelet mean volume (Bld) [Entitic vol] 10.3 fL Normal 6.2-12.0 [facility] Comment on above: Performed By: #### L 500.4050, L506.0400, L509.3001, L506.1001, L503.6030, L3300.1750, L506.0200, L101.9900, L501.9520, L501.94740, L509.6001, L100.0100, L503.0106, L503.6550, L501.6710 #### [facility] [address] [facility] [place], [address] Platelets (Bld) [#/Vol] 292 10*3/uL Normal 150-450 [facility] Comment on above: Performed By: #### L 500.4050, L506.0400, L509.3001, L506.1001, L503.6030, L3300.1750, L506.0200, L101.9900, L501.9520, L501.60308, L509.6001, L100.0100, L503.0106, L503.6550, L501.6710 #### [facility] [address] [place], [address] RBC (Bld) [#/Vol] 4.69 10*6/uL Normal 4.2-5.4 [facility] Comment on above: Performed By: #### L 500.4050, L506.0400, L509.3001, L506.1001, L503.6030, L3300.1750, L506.0200, L101.9900, L501.9520, L501.26310, L509.6001, L100.0100, L503.0106, L503.6550, L501.6710 #### [facility] [address], [address] RDW SD 40.7 fl Normal 35.1-43.9 [facility] Comment on above: Performed By: #### L 500.4050, L506.0400, L509.3001, L506.1001, L503.6030, L3300.1750, L506.0200, L101.9900, L501.9520, L501.12983, L509.6001, L100.0100, L503.0106, L503.6550, L501.6710 #### [facility] [address] [place], [place], [id number] WBC (Bld) [#/Vol] 9.6 10*3/uL Normal 4.4-11.[address] [facility] Comment on above: Performed By: #### L 500.4050, L506.0400, L509.3001, L506.1001, L503.6030, L3300.1750, L506.0200, L101.9900, L501.9520, L501.46358, L509.6001, L100.0100, L503.0106, L503.6550, L501.6710 #### [facility] [address] [place], [place], [id number] CRPon 05-08-2025 C-REACTIVE PROT 7.51 mg/L High 0.0-3.0 [facility] Comment on above: Performed By: #### L 500.4050, L506.0400, L509.3001, L506.1001, L503.6030, L3300.1750, L506.0200, L101.9900, L501.9520, L501.14407, L509.6001, L100.0100, L503.0106, L503.6550, L501.6710 #### [facility] [address] [place], [place], [id number] Comprehensive Metabolic Prof ilon 05-08-2025 Albumin [Mass/Vol] 4.0 g/dL Normal 3.5-5.[address] [facility] Comment on above: Performed By: #### L 500.4050, L506.0400, L509.3001, L506.1001, L503.6030, L3300.1750, L506.0200, L101.9900, L501.9520, L501.33897, L509.6001, L100.0100, L503.0106, L503.6550, L501.6710 #### [facility] [address] [place], [place], [id number] (819) Albumin/Globulin [Mass ratio] 1.3 {ratio} Normal 0.9-2.4 [facility] Comment on above: Performed By: #### L 500.4050, L506.0400, L509.3001, L506.1001, L503.6030, L3300.1750, L506.0200, L101.9900, L501.9520, L501.45778, L509.6001, L100.0100, L503.0106, L503.6550, L501.6710 #### [facility] [address] [place], [place], [id number] ALK PHOS 67 U/L Normal 35-104 [facility] Comment on above: Performed By: #### L 500.4050, L506.0400, L509.3001, L506.1001, L503.6030, L3300.1750, L506.0200, L101.9900, L501.9520, L501.04631, L509.6001, L100.0100, L503.0106, L503.6550, L501.6710 #### [facility] [address] [place], [place], [id number] (569) ALT [Catalytic activity/Vol] 19 U/L Normal <=34 [facility] Comment on above: Performed By: #### L 500.4050, L506.0400, L509.3001, L506.1001, L503.6030, L3300.1750, L506.0200, L101.9900, L501.9520, L501.85476, L509.6001, L100.0100, L503.0106, L503.6550, L501.6710 #### [facility] [address] [place], [place], [id number] AST [Catalytic activity/Vol] 18 U/L Normal <=31 [facility] Comment on above: Performed By: #### L 500.4050, L506.0400, L509.3001, L506.1001, L503.6030, L3300.1750, L506.0200, L101.9900, L501.9520, L501.30927, L509.6001, L100.0100, L503.0106, L503.6550, L501.6710 #### [facility] [address] [facility] [place], [place], [id number] Bilirubin [Mass/Vol] 0.39 mg/dL Normal 0.00-1.30 [facility] Comment on above: Performed By: #### L 500.4050, L506.0400, L509.3001, L506.1001, L503.6030, L3300.1750, L506.0200, L101.9900, L501.9520, L501.02869, L509.6001, L100.0100, L503.0106, L503.6550, L501.6710 #### [facility] [address] [place], [place], [id number] BUN/CRE 28.5 RATIO High 10-20 [facility] Comment on above: Performed By: #### L 500.4050, L506.0400, L509.3001, L506.1001, L503.6030, L3300.1750, L506.0200, L101.9900, L501.9520, L501.35387, L509.6001, L100.0100, L503.0106, L503.6550, L501.6710 #### [facility] [address] [place], [place], [phone] (353) Calcium [Mass/Vol] 9.7 mg/dL Normal 7.6-11.[address] [facility] Comment on above: Performed By: #### L 500.4050, L506.0400, L509.3001, L506.1001, L503.6030, L3300.1750, L506.0200, L101.9900, L501.9520, L501.29085, L509.6001, L100.0100, L503.0106, L503.6550, L501.6710 #### [facility] [address] [place], [place], [phone] (713) Chloride [Moles/Vol] 102 mmol/L Normal 98-108 [facility] Comment on above: Performed By: #### L 500.4050, L506.0400, L509.3001, L506.1001, L503.6030, L3300.1750, L506.0200, L101.9900, L501.9520, L501.56687, L509.6001, L100.0100, L503.0106, L503.6550, L501.6710 #### [facility] [address] [place], [place], [phone] (163) CO2 [Moles/Vol] 23.8 mmol/L Normal 21.0-32.0 [facility] Comment on above: Performed By: #### L 500.4050, L506.0400, L509.3001, L506.1001, L503.6030, L3300.1750, L506.0200, L101.9900, L501.9520, L501.09463, L509.6001, L100.0100, L503.0106, L503.6550, L501.6710 #### [facility] [address] [place], [place], [address] Creatinine [Mass/Vol] 0.62 mg/dL Low 0.70-1.20 [facility] Comment on above: Performed By: #### L 500.4050, L506.0400, L509.3001, L506.1001, L503.6030, L3300.1750, L506.0200, L101.9900, L501.9520, L501.55436, L509.6001, L100.0100, L503.0106, L503.6550, L501.6710 #### [facility] [address] [place], [place], [id number] GAP 12 Normal 5-15 [facility] Comment on above: Performed By: #### L 500.4050, L506.0400, L509.3001, L506.1001, L503.6030, L3300.1750, L506.0200, L101.9900, L501.9520, L501.24805, L509.6001, L100.0100, L503.0106, L503.6550, L501.6710 #### [facility] [address] [place], [place], [id number] GFR/1.73 sq M.predicted among non-blacks MDRD (S/P/Bld) [Vol rate/Area] 111 mL/min/{1.73_m2} Normal >60 [facility] Comment on above: Result Comment: mL/m in/1.73m2 CKD-EPI Creatinine Equation (2020) Performed By: #### L 500.4050, L506.0400, L509.3001, L506.1001, L503.6030, L3300.1750, L506.0200, L101.9900, L501.9520, L501.63309, L509.6001, L100.0100, L503.0106, L503.6550, L501.6710 #### [facility] [address] [place], [address] Globulin (S) [Mass/Vol] 3.2 g/dL Normal 2.2-4.2 [facility] Comment on above: Performed By: #### L 500.4050, L506.0400, L509.3001, L506.1001, L503.6030, L3300.1750, L506.0200, L101.9900, L501.9520, L501.77386, L509.6001, L100.0100, L503.0106, L503.6550, L501.6710 #### [facility] [address] [place], [address] Glucose [Mass/Vol] 91 mg/dL Normal 70-[address] [facility] Comment on above: Performed By: #### L 500.4050, L506.0400, L509.3001, L506.1001, L503.6030, L3300.1750, L506.0200, L101.9900, L501.9520, L501.16877, L509.6001, L100.0100, L503.0106, L503.6550, L501.6710 #### [facility] [address] [place], [address] Potassium [Moles/Vol] 3.7 mmol/L Normal 3.3-5.1 [facility] Comment on above: Performed By: #### L 500.4050, L506.0400, L509.3001, L506.1001, L503.6030, L3300.1750, L506.0200, L101.9900, L501.9520, L501.56874, L509.6001, L100.0100, L503.0106, L503.6550, L501.6710 #### [facility] [address] [place], [address] Sodium [Moles/Vol] 138 mmol/L Normal 133-[address] [facility] Comment on above: Performed By: #### L 500.4050, L506.0400, L509.3001, L506.1001, L503.6030, L3300.1750, L506.0200, L101.9900, L501.9520, L501.04337, L509.6001, L100.0100, L503.0106, L503.6550, L501.6710 #### [facility] [address] [place], [place], [phone] T PROT 7.2 g/dL Normal 5.9-8.4 [facility] Comment on above: Performed By: #### L 500.4050, L506.0400, L509.3001, L506.1001, L503.6030, L3300.1750, L506.0200, L101.9900, L501.9520, L501.04054, L509.6001, L100.0100, L503.0106, L503.6550, L501.6710 #### [facility] [address] [place], [address] Urea nitrogen [Mass/Vol] 18 mg/dL Normal 4-19 [facility] Comment on above: Performed By: #### L 500.4050, L506.0400, L509.3001, L506.1001, L503.6030, L3300.1750, L506.0200, L101.9900, L501.9520, L501.28307, L509.6001, L100.0100, L503.0106, L503.6550, L501.6710 #### [facility] [address] [facility] [place], [place], [phone] Erythrocyte Sed Rateon 05-08 SED RATE 25 mm/hr Normal 0-30 [facility] Comment on above: Performed By: #### L 500.4050, L506.0400, L509.3001, L506.1001, L503.6030, L3300.1750, L506.0200, L101.9900, L501.9520, L501.51566, L509.6001, L100.0100, L503.0106, L503.6550, L501.6710 #### [facility] [address], [address] Estradiolon 05-08-2025 ESTRADIOL 45.2 pg/mL Normal [facility] Comment on above: Result Comment: FEMA LES ADULT FEMALE: Premenopausal: 15-350 pg/mL(E2 levels vary widely through the menstrual cycle) Postmenopausal: <10 pg/mL TESFAYE STAGES MEAN AGE REFERENCE RANGES Stage I(>14 days and prepubertal) 7.1 years Undetectable-20 pg/mLL Stage II 10.5 years Undetectable-24 pg/mL Stage III 11.6 years Undetectable-60 pg/mL Stage IV 12.3 years 15-85 pg/mL Stage V 14.5 years 15-350 pg/mL Puberty onset (transition from Tesfaye stage I to Tesfaye stage II) occurs for girls at a median age of 10.5 (/- 2) years. There is evidence that it may occur up to 1 year earlier in obese girls and in girls. Progression through Tesfaye stages is variable. Tesfaye stage V (adult) should be reached by age 18. Performed By: #### L 500.4050, L506.0400, L509.3001, L506.1001, L503.6030, L3300.1750, L506.0200, L101.9900, L501.9520, L501.97136, L509.6001, L100.0100, L503.0106, L503.6550, L501.6710 #### [facility] [address], [address] Ferritinon 05-08-2025 Ferritin [Mass/Vol] 172 ng/mL Normal 22-378 [facility] Comment on above: Performed By: #### L 500.4050, L506.0400, L509.3001, L506.1001, L503.6030, L3300.1750, L506.0200, L101.9900, L501.9520, L501.99233, L509.6001, L100.0100, L503.0106, L503.6550, L501.6710 #### [facility] [address] [place], [place], [id number] Folates,Serum (Folic Acid)on 05-08-2025 FOLATES,SERUM 25.20 ng/mL Normal 4.60-34.80 [facility] Comment on above: Order Comment: N Result Comment: Hemo lysis, Results will be affected, Requires Recollection. Performed By: #### L 500.4050, L506.0400, L509.3001, L506.1001, L503.6030, L3300.1750, L506.0200, L101.9900, L501.9520, L501.39404, L509.6001, L100.0100, L503.0106, L503.6550, L501.6710 #### [facility] [address] [place], [place], [phone] (562) Free T3on 05-08-2025 Free T3 [Mass/Vol] 3.2 pg/mL Normal 2.18-3.[address] [facility] Comment on above: Performed By: #### L 500.4050, L506.0400, L509.3001, L506.1001, L503.6030, L3300.1750, L506.0200, L101.9900, L501.9520, L501.36994, L509.6001, L100.0100, L503.0106, L503.6550, L501.6710 #### [facility] [address] [place], [place], [phone] Iron+Iron Binding Capacityon 05-08-2025 Iron [Mass/Vol] 92 ug/dL Normal 50-170 [facility] Comment on above: Performed By: #### L 500.4050, L506.0400, L509.3001, L506.1001, L503.6030, L3300.1750, L506.0200, L101.9900, L501.9520, L501.57226, L509.6001, L100.0100, L503.0106, L503.6550, L501.6710 #### [facility] [address] [place], [address] IRON SATURATION 24.5 Normal 13-59 [facility] Comment on above: Performed By: #### L 500.4050, L506.0400, L509.3001, L506.1001, L503.6030, L3300.1750, L506.0200, L101.9900, L501.9520, L501.92368, L509.6001, L100.0100, L503.0106, L503.6550, L501.6710 #### [facility] [address] [place], [place], [phone] (279) TIBC 375 ug/dL Normal 250-450 [facility] Comment on above: Performed By: #### L 500.4050, L506.0400, L509.3001, L506.1001, L503.6030, L3300.1750, L506.0200, L101.9900, L501.9520, L501.01047, L509.6001, L100.0100, L503.0106, L503.6550, L501.6710 #### [facility] [address] [place], [place], [phone] (574) UIBC 283 ug/dL Normal 228-428 [facility] Comment on above: Performed By: #### L 500.4050, L506.0400, L509.3001, L506.1001, L503.6030, L3300.1750, L506.0200, L101.9900, L501.9520, L501.80594, L509.6001, L100.0100, L503.0106, L503.6550, L501.6710 #### [facility] [address] [place], [address] L509.3001on 05-08-2025 Testosterone [Mass/Vol] ng/dL Low 9-55 [facility] Comment on above: Performed By: #### L 500.4050, L506.0400, L509.3001, L506.1001, L503.6030, L3300.1750, L506.0200, L101.9900, L501.9520, L501.72884, L509.6001, L100.0100, L503.0106, L503.6550, L501.6710 #### [facility] [address] [facility] [place], [address] L509.6001on 05-08-2025 CORTISOL < 0.11 Low 6.02-18.40 [facility] Comment on above: Performed By: #### L 500.4050, L506.0400, L509.3001, L506.1001, L503.6030, L3300.1750, L506.0200, L101.9900, L501.9520, L501.93086, L509.6001, L100.0100, L503.0106, L503.6550, L501.6710 #### [facility] [address] [place], [address] T4 Free Directon 05-08-2025 T4 FREE DIRECT 1.40 ng/dL Normal 0.76-1.46 [facility] Comment on above: Performed By: #### L 500.4050, L506.0400, L509.3001, L506.1001, L503.6030, L3300.1750, L506.0200, L101.9900, L501.9520, L501.09698, L509.6001, L100.0100, L503.0106, L503.6550, L501.6710 #### [facility] [address] [place], [place], [id number] Thyroid Stim Hormone (TSH)on 05-08-2025 TSH 5.860 uIU/mL High 0.300-4.200 [facility] Comment on above: Performed By: #### L 500.4050, L506.0400, L509.3001, L506.1001, L503.6030, L3300.1750, L506.0200, L101.9900, L501.9520, L501.78472, L509.6001, L100.0100, L503.0106, L503.6550, L501.6710 #### [facility] [address] [place], [place], [id number] Vitamin B12on 05-08-2025 Cobalamin (Vitamin B12) [Mass/Vol] 657 pg/mL Normal 180-914 [facility] Comment on above: Performed By: #### L 500.4050, L506.0400, L509.3001, L506.1001, L503.6030, L3300.1750, L506.0200, L101.9900, L501.9520, L501.54447, L509.6001, L100.0100, L503.0106, L503.6550, L501.6710 #### [facility] [address] [place], [place], [id number] Vitamin D,25 Hydroxyon 05-08 Vitamin D 25-OH 48.9 ng/mL Normal 30-100 [facility] Comment on above: Result Comment: Lidia min D Status Deficiency: <20 ng/mL (50nmol/L) Insufficiency: 20-30 ng/mL (50-75 nmol/L) Sufficiency: 30-100 ng/mL (75-250 nmol/L) Toxicity: >100 ng/mL (>250 nmol/L) Performed By: #### L 500.4050, L506.0400, L509.3001, L506.1001, L503.6030, L3300.1750, L506.0200, L101.9900, L501.9520, L501.50895, L509.6001, L100.0100, L503.0106, L503.6550, L501.6710 #### [facility] [address] [place], [address] Breast imaging reportOrdered By: Peyton Carlson on 09-23-2024 Study report [facility] Imaging Services [address] [place] [address] SCRN MAMM (CAD)W/NETTE BILAT MR#: [id number] Acct: [id number] Name: BRIGETTE GERMAN NANCY Rep #: [id number] : 1980 F 44 From: Renita Carlson MD PCP: Dr. Jessica Ni MD Status: REG CL I Study:SCRN MAMM (CAD)W/NETTE BILAT Date of Exa m: 09/23/24 Exam# [id number] Ordering Dr: Leah Cuellar NP POWER LINEMAN TECHNICIAN-C PROCEDURE: SCRN MAMM (CAD)W/NETTE BILAT REASON FOR EXAM: F, Age 44 y/o, presents for annual screening mammogram. Family history of breast cancer in a maternal aunt at age 29. TECHNIQUE: Bilateral screening digital breast tomosynthesis with 2D and 3D images. Computeraided detection. COMPARISON: 02/11/2023, 05/05/2019 FINDINGS: There are scattered areas of fibroglandular density. No suspicious masses, areas of developing architectural distortion, or suspicious calcifications. BI/SCRN MAMM (CAD)W/NETTE BILAT IMPRESSION: There is no mammographic evidence of malignancy. BI-RADS 1: NEGATIVE. RECOMMEND ANNUAL MAMMOGRAPHIC SCREENING. Follow-up code: Routine Follow-up The patient will be notified of the results by letter. Reading Location: [facility] CC: POWER LINEMAN TECHNICIAN-C Leah Cuellar; Dr. Jessica Ni MD ~ Class B Driver: Signed [facility] SCRN MAMM (CAD)W/NETTE BILATo n 09-23-2024 SCRN MAMM (CAD)W/NETTE BILAT [facility] Imaging Services [address] [place] [address] SCRN MAMM (CAD)W/NETTE BILAT MR#: [id number] Acct: [id number] Name: BRIGETTE GERMAN NANCY Rep #: [id number] : 1980 F 44 From: Peyton Carlson MD PCP: Dr. Jessica Ni MD Status: REG CLI Study: SCRN MAMM (CAD)W/NETTE BILAT Date of Exam: 08/28 03/20 Exam# [id number] Ordering Dr: Leah Cuellar NP POWER LINEMAN TECHNICIAN -C PROCEDURE: SCRN MAMM (CAD)W/NETTE BILAT REASON FOR EXAM: F, Age 44 y/o, presents for annual screening mammogram. Family history of breast cancer in a maternal aunt at age 29. TECHNIQUE: Bilateral screening digital breast tomosynthesis with 2D and 3D images. Computer aided detection. COMPARISON: 02/11/2023, 05/05/2019 FINDINGS: There are scattered areas of fibroglandular density. No suspicious masses, areas of developing architectural distortion, or suspicious calcifications. BI/SCRN MAMM (CAD)W/NETTE BILAT IMPRESSION: There is no mammographic evidence of malignancy. BI-RADS 1: NEGATIVE. RECOMMEND ANNUAL MAMMOGRAPHIC SCREENING. Follow-up code: Routine Follow-up The patient will be notified of the results by letter. Reading Location: [id number] CC: POWER LINEMAN TECHNICIANJuan Cuellar; Dr. Jessica Ni MD Class B Driver: Signed Normal [facility] PAP IG HPV APTIMA 16/18,45on 09-13-2024 ADEQ Comment Normal . [facility] Comment on above: Order Comment: Speci men Comment: [id number] Comment: Source.............CervixSpecimen Comment: No. of containers..01 ThinPrep Vial Result Comment: Sati sfactory for evaluation. No endocervical component is identified. Performed By: #### L 500.4050, L506.0400, L509.3001, L506.1001, L503.6030, L3300.1750, L506.0200, L101.9900, L501.9520, L501.41033, L509.6001, L100.0100, L503.0106, L503.6550, L501.6710 #### [facility] [address] [place], [place], [address] COMM . Normal . [facility] Comment on above: Order Comment: Speci men Comment: [id number] Comment: Source.............CervixSpecimen Comment: No. of containers..01 ThinPrep Vial Performed By: #### L 500.4050, L506.0400, L509.3001, L506.1001, L503.6030, L3300.1750, L506.0200, L101.9900, L501.9520, L501.72058, L509.6001, L100.0100, L503.0106, L503.6550, L501.6710 #### [facility] [address] [place], [address] COMMENT Comment Normal . [facility] Comment on above: Order Comment: Speci men Comment: [id number] Comment: Source.............CervixSpecimen Comment: No. of containers..01 ThinPrep Vial Result Comment: This liquid based ThinPrep(R) pap test was screened with the use of an image guided system. Performed By: #### L 500.4050, L506.0400, L509.3001, L506.1001, L503.6030, L3300.1750, L506.0200, L101.9900, L501.9520, L501.10114, L509.6001, L100.0100, L503.0106, L503.6550, L501.6710 #### [facility] [address] [place], [place], [address] DIAG Comment Normal . [facility] Comment on above: Order Comment: Speci men Comment: [id number] Comment: Source.............CervixSpecimen Comment: No. of containers..01 ThinPrep Vial Result Comment: NEGA TIVE FOR INTRAEPITHELIAL LESION OR MALIGNANCY. Performed By: #### L 500.4050, L506.0400, L509.3001, L506.1001, L503.6030, L3300.1750, L506.0200, L101.9900, L501.9520, L501.13383, L509.6001, L100.0100, L503.0106, L503.6550, L501.6710 #### [facility] [address] [place], [address] HPV APTIMA, HR Negative Normal Negative [facility] Comment on above: Order Comment: Speci men Comment: [id number] Comment: Source.............CervixSpecimen Comment: No. of containers..01 ThinPrep Vial Result Comment: This nucleic acid amplification test detects fourteen high- risk HPV types (16,18,31,33,35,39,45,51,52,56,58,59,66,68) without differentiation. Performed By: #### L 500.4050, L506.0400, L509.3001, L506.1001, L503.6030, L3300.1750, L506.0200, L101.9900, L501.9520, L501.36635, L509.6001, L100.0100, L503.0106, L503.6550, L501.6710 #### [facility] [address] [place], [place], [address] HPV Abbey Rfx Comment Normal . [facility] Comment on above: Order Comment: Speci men Comment: [id number] Comment: Source.............CervixSpecimen Comment: No. of containers..01 ThinPrep Vial Result Comment: Crit ertahir not met, HPV Genotype not performed. Performed at: - [facility] [id number] Student Liaison Officer: Lauren Valle MD, Phone: [phone] Performed at: = - [facility] [address] [id number] Student Liaison Officer: Lauren Valle MD, Phone: [phone] Performed By: #### L 500.4050, L506.0400, L509.3001, L506.1001, L503.6030, L3300.1750, L506.0200, L101.9900, L501.9520, L501.59187, L509.6001, L100.0100, L503.0106, L503.6550, L501.6710 #### [facility] [address] [place], [address] PAPSMR Comment Normal . [facility] Comment on above: Order Comment: Speci men Comment: [id number] Comment: Source.............CervixSpecimen Comment: No. of containers..01 ThinPrep Vial Result Comment: The Pap smear is a screening test designed to aid in the detection of premalignant and malignant conditions of the uterine cervix. It is not a diagnostic procedure and should not be used as the sole means of detecting cervical cancer. Both false-positive and false-negative reports do occur. Performed By: #### L 500.4050, L506.0400, L509.3001, L506.1001, L503.6030, L3300.1750, L506.0200, L101.9900, L501.9520, L501.75593, L509.6001, L100.0100, L503.0106, L503.6550, L501.6710 #### [facility] [address] [place], [address] PERFORM Comment Normal . [facility] Comment on above: Order Comment: Speci men Comment: [id number] Comment: Source.............CervixSpecimen Comment: No. of containers..01 ThinPrep Vial Result Comment: Brian [employer] Supply And Distribution Manager (ASCP) Performed By: #### L 500.4050, L506.0400, L509.3001, L506.1001, L503.6030, L3300.1750, L506.0200, L101.9900, L501.9520, L501.66758, L509.6001, L100.0100, L503.0106, L503.6550, L501.6710 #### [facility] [address] [place], [place], [address] Demolitionist Cyto stain Nom (C vx/Vag) [ID]Ordered By: Leah Cuellar on 09-08-2024 Pap Smear Performed By Comment . [facility] Comment on above: Brian Hair Cytote chnologist (ASCP) Cytology report Cyto stain D oc (Cvx/Vag)Ordered By: Leah Cuellar on 09-08-2024 Thin Prep Pap Smear Comment . [facility] Comment on above: The Pap smear is a s creening test designed to aid in thedetection of premalignant and malignant conditions of theuterine cervix. It is not a diagnostic procedure andshould not be used as the sole means of detecting cervicalcancer. Both false-positive and false-negative reports dooccur. Cytology report Cyto stain.t hin prep Doc (Cvx/Vag)Ordered By: Leah Cuellar on 09-08-2024 HPV Genotype Special Info Comment . [facility] Comment on above: Criteria not met, HP V Genotype not performed.Performed at: WB - [facility] [address] [id number] Director: Lauren Valle MD, Phone: [phone] at: =G - [facility] [id number] [place], [place] [id number] Director: Lauren Valle MD, Phone: [phone] HPV 16+18+31+33+35+39+45+51+ 52+56+58+59+66+68 DNA Probe+sig amp Ql (Cvx)Ordered By: Leah Cuellar on 09-08-2024 Human Papillomavirus High Risk Negative Negative [facility] Comment on above: This nucleic acid am plification test detects fourteen high-risk HPV types (16,18,31,33,35,39,45,51,52,56,58,59,66,68)without differentiation. Image-guided ThinPrep PapOrd ered By: Leah Cuellar on 09-08-2024 Pap Smear Note Comment . [facility] Comment on above: This liquid based Th inPrep(R) pap test was screened withthe use of an image guided system. Image-guided liquid-based Pa pOrdered By: Leah Cuellar on 09-08-2024 Pap Smear Diagnosis Comment . [facility] Comment on above: NEGATIVE FOR INTRAEP ITHELIAL LESION OR MALIGNANCY. Recreation Attendant Office Visit Reporton 09-08-2024 Recreation Attendant Office Visit Report [facility] [address], [address] [place] [address] OFFICE VISIT Date of Service: 09/08/24 MR#: [id number] Acct: [id number] Name: BRIGETTE GERMAN NANCY Rep #: [id number] : 1980 Provider: SARAHY cunningham Age/Sex: 44/F Location: [facility] Status: Signed Intake Vital Signs 07/09/23 15:50 12/22/23 08:02 09/08/24 14:39 09/08/24 14:45 Height 5 ft 4 in 5 ft 4 in 5 ft 4 in 5 ft 4 in Weight: 270 lb 4 oz BMI 46.3 BP 128/72 H Intake Visit Reasons: Annual (CHILLER TENDER) Chief Complaint: Annual Research Editor Required: No Is patient in pain?: No Allergies bacitracin Allergy (Mild, Verified 09/08/24 14:47) unknown orange juice Allergy (Mild, Verified 09/08/24 14:47) UNKNOWN Medications ???Medication ???Instructions ???Recorded ???Confirmed ???Type ropinirole 1 mg tablet 1 mg PO TID 05/24/19 09/08/24 Hist ory levonorgestrel (Mirena) 1 device intrauterine ONCE 2 09/08/24 History sumatriptan succinate 50 mg tablet See Rx Instructions PO .COMPLEX 06/05/22 09/08/24 History (Imitrex) amino acid-hydrolyzed ml PO 12/15/22 09/08/24 History collagen-whey 15 gram-100 kcal/30 mL oral liquid cholecalciferol (vitamin D3) 125 125 mcg PO DAILY 12/15/22 09/08/24 History mcg (5,000 unit) capsule krill oil 500 mg capsule 600 mg PO 12/15/22 09/08/24 Histor y turmeric 100 mg-nghia 150 cap PO 12/15/22 09/08/24 History mg-olive 50 mg-oreg 150 mg-capryl capsule vitamin K2 100 mcg capsule 100 mcg PO DAILY 12/15/22 09/08/24 History vitamin B complex 1 cap PO QDAY 09/08/24 09/08/24 Hi story Is last menstrual period known: No Post menopausal: No Patient : No : No Control Method: Mirena Nurse's Note: No menses with IUD. [facility] Medical History Tear of medial meniscus of left knee Urinary tract infection with hematuria Osteoarthritis of left knee Internal derangement of left knee Strain of left knee Restless leg Surgical History Groin cyst History of tonsillectomy Family History Grandfather Diabetes Colon cancer Father Colon cancer Mother COPD (chronic obstructive pulmonary disease) Asthma Social History number of children: 2 current occupational status: employed current occupation: [employer] Smoking Status: Former smoker how long ago did patient quit smokin year ago seatbelt use: always do you feel safe at home: Yes additional social history: [place] Works at [employer] History 2 Elective abortions Hx Para 2 Spontaneous abortions Hx # Term Pregnancies 2 Ectopic pregnancies Hx # Pregnancies Multiple births # of living children 2 Past Pregnancies Del. Date Name GA/Weeks Outcome Route Bth Weight Gen Labor Lgth Anesthesia Del Locatn Provider FOB Unknown [id number] Unknown 2002 HPI Encounter for routine gynecological examination Details: BRIGETTE GERMAN is a 44 year old who presents for annual exam. Denies concerns. No menses with IUD. Needs replaced 2026 Last PAP: 2018 History of abnormal PAP: no Last mammogram: 2022 History of abnormal mammogram: no Colon cancer screening: Q5yr. [facility] Other preventative health care screenings: Tanisha [place] Female Reproductive History Questions: metorrhagia: No, sexually active: Yes, dyspareunia: No and PCB: No ROS Const Constitutional: Denies fatigue, weight gain or weight loss Cardio Card: Denies chest pain Resp Resp: Denies cough or dyspnea on exertion GI GI: Denies abdominal pain, bloating, change in stool character, constipation or vomiting : Reports as per HPI; Denies difficulty voiding, pelvic pain, urinary frequency, urinary incontinence, urinary urgency, vaginal discharge or vaginal pruritus Exam Const General: cooperative, healthy appearing, no acute distress and well developed Nutritional Appearance: obese Orientation: alert, oriented to person and oriented to place HENSC Head: normal to inspection Neck Neck: normal visual inspection Thyroid: thyroid normal Lymphatic: no lymphadenopathy noted Chest Breast inspection: normal inspection of the breasts and normal inspection of the axillae Breast palpation: normal palpation of the breasts, normal palpation of the axillae and no axillary lymphadenopathy Resp Effort Inspection: normal respiratory effort GI Palpation: soft, no masses and nontender Rectal Exam: deferred External Female Exam: normal external appearance and normal appearance of the urethra Urethra: normal appearance o (more content not included)... Normal [facility] Service comment (Unsp spec) [Interp]Ordered By: Leah Cuellar on 09-08-2024 Pap Smear Comment (3) . . [facility] Office Visit (UCWSTR) BRIGETTE GERMAN ([id number]) 1980 F Date Time Provider Department 12/10/23 8:15 AM VERONICA MINOR [facility] During your visit today, we recorded the following information about you: Temperature Pulse Respiration Blood pressure 97 degrees 65/minute 18/minute 118/85 Weight 120 kg Veronica Minor APRN.CNP 12/10/2023 9:03 AM Signed This note was created using [employer]. Subjective Brigette German is a 43 year old female. 43 year old female with PMH migraines, RLS, presents for toe complaints. Subacute Endorses this episode started about 2 months ago Right great toe +redness +swelling +pain +pus Endorses she has a history of ingrown toe nail, she did attempt to remove herself Denies fever or chills Denies reduced or limited ROM She has an appt with podiatry on 12/15/23 through [facility] The history is provided by the patient. No high school foreign language teacher was used. Pain (foot) Pain location: right great toe. This is a new problem. The current episode started more than 1 month ago. There has been no history of extremity trauma. The problem occurs constantly. The problem has been waxing and waning. The quality of the pain is described as aching and sharp. The pain is at a severity of 6/10. The pain is moderate. Associated symptoms include joint swelling. Pertinent negatives include no fever, inability to bear weight, itching, joint locking, limited range of motion, numbness, stiffness or tingling. The symptoms are aggravated by activity. She has tried heat for the symptoms. The treatment provided no relief. Family history does not include gout or rheumatoid arthritis. There is no history of diabetes, gout, osteoarthritis or rheumatoid arthritis. PAST MEDICAL HISTORY Diagnosis Date Abdominal pain, right upper quadrant Acute medial meniscus tear left Arthritis Benign neoplasm of colon Blood in stool Encounter for insertion or removal of intrauterine contraceptive device 07/04/2008 Mirena Migraine Restless leg PAST SURGICAL HISTORY Procedure Laterality Date BX/EXC LYMPH NODE OPEN SUPERFICIAL 1998 left groin area COLONOSCOPY 03/23/2023 repeat in 5 years COLONOSCOPY FLX DX W/COLLJ SPEC WHEN PFRMD 01/30/2017 Normal colon-family history of colon cancer-5 year follow-up COLSC FLX W/REMOVAL LESION BY HOT BX FORCEPS 06/06/2008 small sessile polyp a 30cm IUD INSERTION ([employer])_*FL 2002 Mirena IUD INSERTION ([employer])_*FL 07/04/2008 Mirena TONSILLECTOMY AND ADENOIDECTOMY age 7 ALLERGIES Bacitracin, Bees, and [employer]view Juice MEDICATIONS SUMAtriptan (IMITREX) 25 mg tablet Take 25 mg by mouth as needed for migraine headache (see administration instructions). cephALEXin (KEFLEX) 500 mg capsule Take 1 capsule by mouth four times daily for 5 days. rOPINIRole (REQUIP) 0.5 mg tablet Take 0.5 mg by mouth as needed (restless leg). (Patient not taking: Reported on 12/10/2023) FAMILY HISTORY Problem Relation Age of Onset [...] other (Congenital Heart Defect) Other Maternal Cousin Social History Tobacco Use Smoking status: Former Packs/day: 0.50 Years: 11.00 Additional pack years: 0.00 Total pack years: 5.50 Types: Cigarettes Smokeless tobacco: Never Vaping Use Vaping Use: Never used Substance Use Topics Alcohol use: Yes Comment: Occasionally Drug use: Yes Types: Marijuana Comment: used gummies months ago Review of Systems Constitutional: Negative for activity change, appetite change, chills and fever. Eyes: Negative for pain, discharge and itching. Respiratory: Negative for apnea, cough, choking and chest tightness. Cardiovascular: Negative for chest pain, palpitations and leg swelling. Gastrointestinal: Negative for abdominal pain, diarrhea, nausea and vomiting. Musculoskeletal: Negative for back pain, gait problem, gout and stiffness. Right great toe Skin: Negative for color change, itching, pallor, rash and wound. Allergic/Immunologic : Negative for environmental allergies, food allergies and immunocompromised state. Neurological: Negative for dizziness, tingling, facial asymmetry, numbness and headaches. Hematological: Negative for adenopathy. Does not bruise/bleed easily. Psychiatric/Behavior al: Negative for agitation and behavioral problems. Objective BP 118/85 Pulse 65 Temp 36.1 ?C (97 ?F) Resp 18 Wt 120 kg (264 lb 8.8 oz) LMP 06/27/2005 SpO2 98% B (more content not included)... Normal [facility] COLONOSCOPY SCREENINGon 02-25 [facility] Patient Name: Brigette German Procedure Date: 03/24/2023 8:23 AM Date of : 1980 Admit Type: Outpatient Age: 43 Gender: Female Note Status: Finalized Procedure: Colonoscopy Indications: Screening in patient at increased risk: Family history of 1st-degree relative with colorectal cancer Providers: Kay Mariee MD Patient Profile: This is a 43 year old female. Refer to note in patient chart for documentation of history and physical. Last Colonoscopy: 5 years ago. Referring Physician: Kathia Carr (pa) (Referring MD) Medicines: Midazolam 7 mg IV, Fentanyl 100 micrograms IV, Diphenhydramine 50 mg IV Complications: No immediate complications. Requesting Provider: Procedure: Pre-Anesthesia Assessment: - Prior to the procedure, a History and Physical was performed, and patient medications and allergies were reviewed. The patient is competent. The risks and benefits of the procedure and the sedation options and risks were discussed with the patient. All questions were answered and informed consent was obtained. Patient identification and proposed procedure were verified by the physician and the nurse in the procedure room. Mental Status Examination: alert and oriented. Respiratory Examination: clear to auscultation. Prophylactic Antibiotics: The patient does not require prophylactic antibiotics. Prior Anticoagulants: The patient has taken no anticoagulant or antiplatelet agents. ASA Grade Assessment: II - A patient with mild systemic disease. After reviewing the risks and benefits, the patient was deemed in satisfactory condition to undergo the procedure. The anesthesia plan was to use moderate sedation / analgesia (conscious sedation). Immediately prior to administration of medications, the patient was re-assessed for adequacy to receive sedatives. The heart rate, respiratory rate, oxygen saturations, blood pressure, adequacy of pulmonary ventilation, and response to care were monitored throughout the procedure. The physical status of the patient was re-assessed after the procedure. After I obtained informed consent, the scope was passed under direct vision. Throughout the procedure, the patient's blood pressure, pulse, and oxygen saturations were monitored continuously. The Colonoscope was introduced through the anus and advanced to the cecum, identified by the appendiceal orifice, ileocecal valve and palpation. The colonoscopy was performed without difficulty. The patient tolerated the procedure well. The quality of the bowel preparation was good. The ileocecal valve, appendiceal orifice, and rectum were photographed. Moderate Sedation: Moderate (conscious) sedation was personally administered by the endoscopist. The following parameters were monitored: oxygen saturation, heart rate, blood pressure, and response to care. Total physician intraservice time was 20 minutes. The administration of moderate sedation was initiated at 08:54 AM. Findings: The perianal and digital rectal examinations were normal. A few small-mouthed diverticula were found in the sigmoid colon. The exam was otherwise without abnormality on direct and retroflexion views. Impression: - Diverticulosis in the sigmoid colon. - The examination was otherwise normal on direct and retroflexion views. - No specimens collected. Recommendation: - Discharge patient to home. - Resume previous diet. - Continue present medications. - Repeat colonoscopy in 5 years for screening purposes. - Patient has a contact number available for emergencies. The signs and symptoms of potential delayed complications were discussed with the patient. Return to normal activities tomorrow. Written discharge instructions were provided to the patient. Procedure Code(s): --- Professional --- 06641, Colonoscopy, flexible; diagnostic, including collection of specimen(s) by brushing or washing, when performed (separate procedure) G0500, Moderate sedation services provided by the same physician or other qualified health hospice spiritual care coordinator performing a gastrointestinal endoscopic service that sedation supports, requiring the presence of an independent trained observer to assist in the monitoring of the patient's level of consciousness and physiological status; initial 15 minutes of intra-service time; patient age 5 years or older (additional time may be reported with 66773, as appropriate) CPT copyright 2020 [employer]. All rights reserved. The codes documented in this report are preliminary and upon business continuity consultant review may be revised to meet current compliance requirements. Attending Participation: I was present and participated during the entire procedure, including non-peterson portions, and during the administration and monitoring of Moderate Sedation. Scope In: 9:01:37 AM Scope Out: 9:14 (more content not included)... Normal [facility] HISTORY PHYSICALon HISTORY PHYSICAL HNO ID: [id number] Author: Kay Mariee MD Service: General Surgery Author Type: Physician Type: HANDP Filed: 03/24/2023 7:30 AM Note Text: HISTORY AND PHYSICAL Brigette German [...] small sessile polyp a 30cm IUD INSERTION ([employer])_*FL 2002 Mirena IUD INSERTION ([employer])_*FL 07/04/2008 Mirena TONSILLECTOMY AND ADENOIDECTOMY age 7 CURRENT MEDICATIONS Current Outpatient Medications Medication Sig SUMAtriptan (IMITREX) 25 mg tablet Take 25 mg by mouth as needed for migraine headache (see administration instructions). rOPINIRole (REQUIP) 0.5 mg tablet Take 0.5 mg by mouth as needed (restless leg). No current facility-administere d medications for this visit. ALLERGIES: Bacitracin, Bees, Caterpillars [Other], and Fairview Juice PERSONAL HISTORY: SOCIAL HISTORY Social History [...] Neurologic: The patient denies a history of epilepsy/convulsions , NOTES headaches, denies head/spinal injuries, and denies stroke/TIA. Psychiatric: The patient denies psychiatric medications, denies depression, and denies voices, denies substance abuse. Endocrine: The patient denies thyroid disorders, denies diabetes, and denies hormonal problems. Hematologic: The patient denies a history of (more content not included)... Normal [facility] NURSING PROGon 03-24-2023 NURSING PROG HNO ID: [id number] Author: April Bedoya RN Service: ? Author Type: Registered Nurse Type: Nursing Progress Note Filed: 03/24/2023 9:28 AM Note Text: Arrived in phase II via cart. Left lateral position. Sedated, but responds to verbal stimuli. Color normal; skin warm and dry. Respirations wnl and unlabored. Abdomen soft and with + bowel sounds in quads X 4. Patient resting comfortably. Family at bedside. Dr. Mariee at bedside to review procedure and recommendations. April Bedoya RN Normal [facility] CNOVon 01-23-2023 CNOV Office Visit (CLAUDINES) BRIGETTE GERMAN ([id number]) 1980 F Date Time Provider Department 01/23/23 9:30 AM KATHIA CARR During your visit today, we recorded the following information about you: Temperature Pulse Blood pressure Weight 97.5 degrees 103/minute 118/74 112 kg Height 1.626 m Veronica Ava 01/23/2023 9:38 AM Signed REVIEW [...] Neurologic: The patient denies a history of epilepsy/convulsions , NOTES headaches, denies head/spinal injuries, and denies [...] Mammogram screening? N/A Last Colonoscopy: 2016 Veronica Carr PA-C 01/29/2023 4:08 PM Signed HISTORY AND PHYSICAL Brigette German 1980 REFERRING [...] small sessile polyp a 30cm IUD INSERTION ([employer])_*FL 2002 Mirena IUD INSERTION ([facility])_*FL 07/04/2008 Mirena TONSILLECTOMY AND ADENOIDECTOMY age 7 Current Outpatient Medications Medication Sig SUMAtriptan (IMITREX) 25 mg tablet Take 25 mg by mouth as needed for migraine headache (see administration instructions). rOPINIRole (REQUIP) 0.5 mg tablet Take 0.5 mg by mouth as needed (restless leg). No current facility-administere d medications for this visit. ALLERGIES: Bacitracin, Bees, Caterpillars [Other], and Fairview Juice PERSONAL HISTORY: Social History Tobacco Use Smoking status: Former Packs/day: 0.50 Years: 11.00 Pack years: 5.50 Types: Cigarettes Smokeless tobacco: Never Substance Use Topics Alcohol use: Yes Comment: Occasionally Drug use: No FAMILY HISTORY: FAMILY HISTORY Problem Relation Age o (more content not included)... Normal [facility] Basophil percentageOrdered B y: Onofre Starks on 01-19-2023 Basophil percentage 0-5 SEEN /hpf 0-5 [facility] Bilirubin Test strip Ql (U)O rdered By: Onofre Starks on 01-19-2023 Bilirubin Ql (U) Negative Negative [facility] Culture, urineOrdered By: St reyna Starks on 01-19-2023 Bacteria identified Cx Nom (U) Mixed Gram Pos & Gram Neg Org [facility] Ketones Test strip Ql (U)Ord ered By: Onofre Starks on 01-19-2023 Ketones Ql (U) Negative Negative [facility] Laboratory - Chemistry and C hemistry - challengeOrdered By: Onofre Starks on 01-19-2023 HCG ( test) Ql (U) Negative [facility] Comment on above: Very dilute urine sp ecimens, as indicated by a low specificgravity, may not contain business services sales representative levels of hCG. If is still suspected, a first morning urinespecimen should be collected 48 hours later and tested. Mucus LM Ql (Urine sed)Order ed By: Onofre Starks on 01-19-2023 Mucus Ql (Urine sed) 0 SEEN /hpf [facility] Nitrite Test strip Ql (U)Ord ered By: Onofre Starks on 01-19-2023 Nitrite Ql (U) Negative Negative [facility] Protein Test strip Ql (U)Ord ered By: Onofre Starks on 01-19-2023 Protein Ql (U) 15 mg/dl Negative [facility] Squamous epithelial cells de tection in urine sediment by light microscopyOrdered By: Onofre Starks on 01-19-2023 Epithelial cells.squamous LM Ql (Urine sed) 0-5 SEEN /hpf 5-10 [facility] Urine blood detectionOrdered By: Onofre Starks on 01-19-2023 RBC Ql (U) 50 /ul Negative [facility] RBC Ql (U) 0-5 SEEN /hpf 0-5 [facility] Urine clarityOrdered By: Jose A Starks on 01-19-2023 Clarity (U) Clear Clear [facility] Urine color determinationOrd ered By: Onofre Starks on 06-26-2023 Color (U) Yellow Yellow [facility] Urine glucose detectionOrder ed By: Onofre Starks on 01-19-2023 Glucose Ql (U) Normal mg/dl Normal [facility] Urine leukocyte esterase det ection by dipstickOrdered By: Onofre Starks on 01-19-2023 Leukocyte esterase Test strip Ql (U) 100 /ul Negative [facility] Urine pHOrdered By: Onofre rhoades on 01-19-2023 pH (U) 5.0 [pH] 5.0 - 8.0 [facility] Urine sediment bacteria coun t by microscopy (number/high power field)Ordered By: Onofre Starks on 01-19-2023 Bacteria LM.HPF (Urine sed) [#/Area] 1 /[HPF] None Seen [facility] Urine specific gravity measu rementOrdered By: Onofre Starks on 01-19-2023 Specific gravity (U) [Rel density] 1.025 1.002-1.030 [facility] Urobilinogen Auto test strip Ql (U)Ordered By: Onofre Starks on 01-19-2023 Urobilinogen Ql (U) Normal mg/dl Normal [facility] Absolute lymphocyte countOrd ered By: Herberth Merino on 01-15-2023 Lymphocytes Auto (Unsp spec) [#/Vol] 2.31 10*3/uL 0.83-4.51 [facility] Basophil percentageOrdered B y: Herberth Merino on 01-15-2023 Basophils/100 WBC (Bld) 0.5 % 0-1 [facility] Bilirubin [Mass/Vol] 0.30 mg/dL 0.20-1.00 [facility] Comment on above: For patients on eltr ombopag therapy, use of Dimension [place] TBIL is not recommended. Chloride [Moles/Vol] 111 mmol/L 98-107 [facility] Eosinophils/100 WBC (Bld) 2.9 % 0-5 [facility] Glucose [Mass/Vol] 93 mg/dL 74-[address] [facility] Neutrophils (Bld) [#/Vol] 7.5 10*3/uL 2.0-7.7 [facility] Neutrophils/100 WBC (Bld) 67.8 % 47-70 [facility] Potassium [Moles/Vol] 4.2 mmol/L 3.5-5.1 [facility] Comment on above: Slight Hemolysis, Re sult may be falsely increased. Protein [Mass/Vol] 6.8 g/dL 6.4-8.[address] [facility] Sodium [Moles/Vol] 139 mmol/L 136-[address] [facility] WBC (Bld) [#/Vol] 11.1 10*3/uL 4.4-11.0 [facility] Blood erythrocytes count (nu mber/volume)Ordered By: Herberth Merino on 01-15-2023 RBC (Bld) [#/Vol] 4.69 10*6/uL 4.2-5.4 [facility] Blood hemoglobin measurement (mass/volume)Ordered By: Herberth Merino on 01-15-2023 Hemoglobin (Bld) [Mass/Vol] 13.7 g/dL 12.0-15.0 [facility] Blood lymphocytes/100 leukoc ytesOrdered By: Herberth Merino on 01-15-2023 Lymphocytes/100 WBC (Bld) 20.8 % 19-41 [facility] Blood monocytes/100 leukocyt esOrdered By: Herberth Merino on 01-15-2023 Monocytes/100 WBC (Bld) 7.6 % 0-10 [facility] Blood platelet mean volumeOr dered By: Herberth Merino on 01-15-2023 Platelet mean volume (Bld) [Entitic vol] 9.8 fL 6.2-12.0 [facility] Determination of erythrocyte mean corpuscular volume (MCV)Ordered By: Herberth Merino on 01-15-2023 MCV (RBC) [Entitic vol] 90.2 fL 81-99 [facility] Hematocrit Auto (Bld) [Volum e fraction]Ordered By: Herberth Merino on 01-15-2023 Hematocrit (Bld) [Volume fraction] 42.3 % 37-47 [facility] Laboratory - Chemistry and C hemistry - challengeOrdered By: Herberth Merino on 01-15-2023 ALP [Catalytic activity/Vol] 64 U/L 45-117 [facility] ALT [Catalytic activity/Vol] 24 U/L 13-56 [facility] CO2 [Moles/Vol] 24.0 mmol/L 21.0-32.0 [facility] Cobalamin (Vitamin B12) [Mass/Vol] 309 pg/mL 211-911 [facility] Globulin (S) [Mass/Vol] 3.4 g/dL 2.2-4.2 [facility] Magnesium [Mass/Vol] 2.2 mg/dL 1.6-2.6 [facility] Comment on above: Slight Hemolysis, Re sult may be falsely increased. Urea nitrogen/Creatinine [Mass ratio] 38.0 mg/mg 10-20 [facility] Laboratory - Hematology and Cell countsOrdered By: Herberth Merino on 01-15-2023 Erythrocyte distribution width (RBC) [Entitic vol] 42.5 fL 35.1-43.9 [facility] Erythrocyte distribution width (RBC) [Ratio] 12.9 % 11.6-14.6 [facility] Immature granulocytes/100 WBC (Bld) 0.400 % 0.0-0.9 [facility] Comment on above: IG% - Immature Granu locytes (promyelocytes, myelocytes and metamyelocytes) > 1% indicates that a LEFT SHIFT is Present. MCH (RBC) [Entitic mass] 29.2 pg 27.0-32.0 [facility] Nucleated RBC/100 WBC (Bld) [Ratio] 0 % 0-5 [facility] MCHC Auto (RBC) [Mass/Vol]Or dered By: Herberth Merino on 01-15-2023 MCHC (RBC) [Mass/Vol] 32.4 g/dL 32-36 [facility] No Panel InformationOrdered By: Herberth Merino on 01-15-2023 Estimated GFR (MDRD) Amer 131 mL/min >60 [facility] Comment on above: GFR Calc Estimated GFR (MDRD) Non-Af Amer 108 mL/min >60 [facility] Comment on above: Non- GFR Calc Thyroid Stimulating Hormone (TSH) 1.75 uIU/mL 0.358-3.74 [facility] Vitamin D 25-Hydroxy 50.5 ng/mL [facility] Comment on above: Vitamin D 25(OH) Sta tus Range Deficiency <20 ng/mL (50nmol/L) Insufficiency 20 - 30 ng/mL (50 - 75 nmol/L) Sufficiency 30 - 100 ng/mL (75 - 250 nmol/L) Toxicity >100 ng/mL (>250 nmol/L) Platelets bldOrdered By: Robby Merino on 01-15-2023 Platelets (Bld) [#/Vol] 333 10*3/uL 150-450 [facility] Serum or plasma albumin marybeth urement (mass/volume)Ordered By: Herberth Merino on 01-15-2023 Albumin [Mass/Vol] 3.4 g/dL 3.2-5.[address] [facility] Serum or plasma albumin/glob ulin mass ratioOrdered By: Herberth Merino on 01-15-2023 Albumin/Globulin [Mass ratio] 1.0 {ratio} 0.9-2.4 [facility] Serum or plasma calcium marybeth urement (mass/volume)Ordered By: Herberth Merino on 01-15-2023 Calcium [Mass/Vol] 9.0 mg/dL 8.5-10.[address] [facility] Serum or plasma creatinine m easurement (mass/volume)Ordered By: Herberth Merino on 01-15-2023 Creatinine [Mass/Vol] 0.63 mg/dL 0.55-1.02 [facility] Comment on above: The validity of the calculated GFR & GFRAA in patients over 70 years has not been determined. Clinical correlation is essential. Serum or plasma ferritin alana surement (mass/volume)Ordered By: Herberth Merino on 01-15-2023 Ferritin [Mass/Vol] 153 ng/mL 8252 [facility] Serum or plasma urea nitroge n measurement (mass/volume)Ordered By: Herberth Merino on 01-15-2023 Urea nitrogen [Mass/Vol] 24 mg/dL 7-18 [facility] Thin prep Papanicolaou smear with manual screeningOrdered By: Herberth Merino on 01-15-2023 Thin prep Papanicolaou smear with manual screening 13 U/L 15-37 [facility] Comment on above: Slight Hemolysis, Re sult may be falsely increased. Thin prep Papanicolaou smear with manual screening 4 5-15 [facility] Vital Signs Date Time Vital Sign Value Performing Clinician Jenifer alexis 09-08-2024 14:45-0500 Body height 162.56 cm Herberth Merino DO Work Phone: [facility] 09-08-2024 14:39-0500 Body mass index (BMI) [Ratio] 46.3 kg/m2 Herberth Tiradoer DO Work Phone: [facility] 09-08-2024 14:39-0500 Body weight 122.58 kg Herberth Tiradoer DO Work Phone: [facility] 09-08-2024 14:39-0500 Diastolic blood pressure 72 mm[Hg] Herberth Tiradoer DO Work Phone: [facility] 09-08-2024 14:39-0500 Systolic blood pressure 128 mm[Hg] Herberth Tiradoer DO Work Phone: [facility] 12-10-2023 08:24-0400 Body mass index (BMI) [Ratio] 45.41 kg/m2 Veronica Minor JAVA MANAGER.HOG MAN Work Phone: [facility] 12-10-2023 08:24-0400 Body temperature 97 [degF] Veronica Minor JAVA MANAGER.HOG MAN Work Phone: [facility] 12-10-2023 08:24-0400 Body weight 120 kg Veronica Minor JAVA MANAGER.HOG MAN Work Phone: [facility] 12-10-2023 08:24-0400 Diastolic blood pressure 85 mm[Hg] Veronica Minor JAVA MANAGER.HOG MAN Work Phone: [facility] 12-10-2023 08:24-0400 Heart rate 65 /min Veronica Minor JAVA MANAGER.HOG MAN Work Phone: [facility] 12-10-2023 08:24-0400 Respiratory rate 18 /min Veronica Minor JAVA MANAGER.HOG MAN Work Phone: [facility] 12-10-2023 08:24-0400 SaO2% (BldA) [Mass fraction] 98 % Veronica Minor JAVA MANAGER.HOG MAN Work Phone: [facility] 12-10-2023 08:24-0400 Systolic blood pressure 118 mm[Hg] Veronica Minor JAVA MANAGER.HOG MAN Work Phone: [facility] 08-03-2023 16:09-0500 Body height 162.[address] Navas [facility] 07-27-2023 08:51-0500 Body height 162.[address] Navas [facility] 07-27-2023 08:51-0500 Body mass index (BMI) [Ratio] 43.7 kg/m2 Dr. Navas [facility] 07-27-2023 08:51-0500 Body temperature 98.2 [degF] Dr. Navas [facility] 07-27-2023 08:51-0500 Body weight 115.[address] Navas [facility] 07-27-2023 08:51-0500 Diastolic blood pressure 105 mm[Hg] Dr. Navas [facility] 07-27-2023 08:51-0500 Heart rate 68 /min Dr. Navas [facility] 07-27-2023 08:51-0500 Respiratory rate 14 /min Dr. Navas [facility] 07-27-2023 08:51-0500 SaO2% (BldA) [Mass fraction] 98 % Dr. Navas [facility] 07-27-2023 08:51-0500 Systolic blood pressure 183 mm[Hg] Dr. Navas [facility] 07-09-2023 15:44-0500 Body mass index (BMI) [Ratio] 45.3 kg/m2 Dr. Navas [facility] 07-09-2023 15:44-0500 Body weight 119.[address] Navas [facility] 07-09-2023 15:44-0500 Diastolic blood pressure 72 mm[Hg] Dr. Navas [facility] 07-09-2023 15:44-0500 Systolic blood pressure 130 mm[Hg] Dr. Navas [facility] 03-24-2023 09:50-0400 Diastolic blood pressure 62 mm[Hg] Kay Mariee MD Work Phone: [facility] 03-24-2023 09:50-0400 Heart rate 64 /min Kay Mariee MD Work Phone: [facility] 03-24-2023 09:50-0400 Respiratory rate 16 /min Kay Mariee MD Work Phone: [facility] 03-24-2023 09:50-0400 SaO2% (BldA) [Mass fraction] 97 % Kay Mariee MD Work Phone: [facility] 03-24-2023 09:50-0400 Systolic blood pressure 117 mm[Hg] Kay Mariee MD Work Phone: [facility] 03-24-2023 07:42-0400 Body temperature 97.9 [degF] Kay Mariee MD Work Phone: [facility] 03-24-2023 07:42-0400 Body weight 112 kg Kay Mariee MD Work Phone: [facility] 01-23-2023 09:35-0400 Body height 162.6 cm Kathia Lilly PA-C Work Phone: [facility] 01-23-2023 09:35-0400 Body temperature 97.5 [degF] Kathia Lilly PA-C Work Phone: [facility] 01-23-2023 09:35-0400 Body weight 112.04 kg Kathia Lilly PA-C Work Phone: [facility] 01-23-2023 09:35-0400 Diastolic blood pressure 74 mm[Hg] Kathia San Jon PA-C Work Phone: [facility] 01-23-2023 09:35-0400 Heart rate 103 /min Kathia Lilly PA-C Work Phone: [facility] 01-23-2023 09:35-0400 SaO2% (BldA) [Mass fraction] 96 % Kathia San Jon PA-C Work Phone: [facility] 01-23-2023 09:35-0400 Systolic blood pressure 118 mm[Hg] Kathia PA-C Work Phone: [facility] 01-19-2023 16:52-0400 Body height 162.[address] Yosef Ochoa Work Phone: [facility] 01-19-2023 16:52-0400 Body mass index (BMI) [Ratio] 42 kg/m2 Dr. Yosef Ochoa Work Phone: [facility] 01-19-2023 16:52-0400 Body temperature 98.6 [degF] Dr. Yosef Ochoa Work Phone: [facility] 01-19-2023 16:52-0400 Body weight 111.[address] Yosef Ochoa Work Phone: [facility] 01-19-2023 16:52-0400 Diastolic blood pressure 96 mm[Hg] Dr. Yosef Ochoa Work Phone: [facility] 01-19-2023 16:52-0400 Heart rate 84 /min Dr. Yosef Ochoa Work Phone: [facility] 01-19-2023 16:52-0400 Respiratory rate 16 /min Dr. Yosef Ochoa Work Phone: [facility] 01-19-2023 16:52-0400 SaO2% (BldA) [Mass fraction] 97 % Dr. Yosef Ochoa Work Phone: [facility] 01-19-2023 16:52-0400 Systolic blood pressure 138 mm[Hg] Dr. Yosef Ochoa Work Phone: [facility] 12-15-2022 08:04-0400 Body height 160.[address] Yosef Ochoa Work Phone: [facility] 12-15-2022 08:04-0400 Body mass index (BMI) [Ratio] 44.2 kg/m2 Dr. Yosef Ochoa Work Phone: [facility] 12-15-2022 08:04-0400 Body weight 113.[address] Yosef Ochoa Work Phone: [facility] 12-04-2022 10:29-0400 Body mass index (BMI) [Ratio] 44.1 kg/m2 Dr. Yosef Ochoa Work Phone: [facility] 12-04-2022 10:29-0400 Body temperature 98.3 [degF] Dr. Yosef Ochoa Work Phone: [facility] 12-04-2022 10:29-0400 Body weight 113.[address] Yosef Ochoa Work Phone: [facility] 12-04-2022 10:29-0400 Diastolic blood pressure 78 mm[Hg] Dr. Yosef Ochoa Work Phone: [facility] 12-04-2022 10:29-0400 Heart rate 70 /min Dr. Yosef Ochoa Work Phone: [facility] 12-04-2022 10:29-0400 Respiratory rate 16 /min Dr. Yosef Ochoa Work Phone: [facility] 12-04-2022 10:29-0400 SaO2% (BldA) [Mass fraction] 98 % Dr. Yosef Ochoa Work Phone: [facility] 12-04-2022 10:29-0400 Systolic blood pressure 128 mm[Hg] Dr. Yosef Ochoa Work Phone: [facility] Encounters Encounter Date Encounter Type Care Provider Facility Start: 05-08-2025 ambulatory Jessica Ni Facility:[facility] Start: 09-23-2024 End: 09-23-2024 ambulatory Herberth Merino DO Work Phone: [facility] Work Phone: Start: 09-23-2024 End: 09-23-2024 Patient encounter procedure Leah WEATHERS -Outpatient Breast Imaging Work Phone: Start: 09-23-2024 End: 09-23-2024 ambulatory Chalon Raine Facility:[facility] Start: 09-08-2024 End: 09-08-2024 Patient encounter procedure Leah Cuellar POWER LINEMAN TECHNICIAN-C -Laboratory, Specimen Work Phone: Start: 09-08-2024 Encounter for gynecological examination (general) (routine) without abnormal findings Leah Cuellar POWER LINEMAN TECHNICIAN [facility] Start: 09-08-2024 End: 09-08-2024 Patient encounter procedure Leah Cuellar POWER LINEMAN TECHNICIAN-C -[facility] [place] Work Phone: Start: 09-08-2024 End: 09-08-2024 Patient encounter status Leah Cuellar POWER LINEMAN TECHNICIAN-C [facility] Start: 09-08-2024 End: 09-08-2024 ambulatory Chalon Raine Facility:[facility] Start: 09-08-2024 End: 09-08-2024 ambulatory Leahmaxwell Nogueras POWER LINEMAN TECHNICIAN Facility:[facility] Start: 12-10-2023 End: 12-10-2023 ambulatory CHALON RAINE Facility:[facility] Start: 12-10-2023 End: 12-10-2023 Patient encounter procedure Veronica Minor APRN.HOG MAN Work Phone: [facility] Comment on above: Ingrown nail of grea t toe of right foot (Primary Dx) Start: 09-10-2023 End: 09-10-[address] Yosef Ochoa [facility] Work Phone: Start: 09-10-2023 End: 09-10-[address] Yosef Ochoa [facility]-Physical Therapy Work Phone: Start: 08-27-2023 End: 08-27-[address] Yosef Ochoa [facility] Work Phone: Start: 08-04-2023 End: 08-04-[address] Yosef Ochoa [facility] Work Phone: Start: 07-27-2023 End: 07-27-2023 Emergency department patient visit Dr. Yosef Ochoa [facility]-Emergency Department Work Phone: Start: 07-09-2023 End: 07-09-[address] Ysoef Ochoa [facility] [place] Work Phone: Start: 03-24-2023 End: 03-24-2023 ambulatory KAY MARIEE Facility:[facility] Start: 03-24-2023 End: 03-24-2023 Subsequent hospital visit by physician Kay Mariee MD Work Phone: Ambulatory Surgery Comment on above: Family history of co temo cancer [Z80.0] Start: 01-23-2023 End: 01-23-2023 ambulatory HERBERTH Markos MERINO Facility:[facility] Start: 01-23-2023 End: 01-23-2023 Patient encounter procedure Kathia Carr PA-C Work Phone: General Surgery Comment on above: Family history of co temo cancer (Primary Dx); Personal history of colonic polyps Start: 01-19-2023 End: 01-19-[address] Yosef Ochoa Work Phone: [facility] Work Phone: Start: 01-19-2023 End: 01-19-[address] Yosef Ochoa Work Phone: [facility]-Laboratory, Specimen Work Phone: Start: 01-19-2023 End: 01-19-[address] Yosef Ochoa Work Phone: [facility] Work Phone: Start: 01-15-2023 End: 01-15-[address] Yosef Ochoa Work Phone: [facility] Work Phone: Start: 01-15-2023 End: 01-15-[address] oYsef Ochoa Work Phone: [facility] Start: 01-02-2023 End: 01-02-[address] Yosef Ochoa Work Phone: [facility]-Physical Therapy Start: 12-19-2022 End: 12-19-[address] Yosef Ochoa Work Phone: [facility] Start: 12-15-2022 End: 12-15-[address] Yosef Ochoa Work Phone: [facility] Start: 12-04-2022 End: 12-04-[address] Yosef Ochoa Work Phone: [facility] Procedures Date Procedure Procedure Detail Performing Clinician Start: 09-23-2024 Screening mammography Brien keyannakatia Angeliquedwight LINTON Work Phone: Start: 08-04-2023 X-ray of lumbosacral spine Dr. Yosef Ochoa Start: 03-24-2023 Colonoscopy flx dx w /collj spec when pfrmd Kathia Carr PA-C Work Phone: Start: 03-24-2023 Colonoscopy Kay hinojosa MD Work Phone: Start: 01-19-[address] Yosef Ochoa Work Phone: Start: 12-04-2022 Radiologic examinati on of knee Dr. Yosef Ochoa Work Phone: Start: 01-30-2017 Colonoscopy Kathia Gra f PA-C Work Phone: Start: 08-18-2013 Mammography Kathia Gra f PA-C Work Phone: Start: 06-16-2008 Lipid 1996 panel - S katharine or Plasma Kay Mariee MD Work Phone: Plan of Treatment Date Care Activity Detail Author Start: 03-24-2028 Colonoscopy Colonoscopy [facility] Start: 03-24-2028 Colorectal Cancer Screening Colorectal Cancer Screening [facility] Start: 08-29-2028 Screening for malignant neoplasm of colon [facility] Start: 03-27-2024 Influenza vaccination Influenza Vaccine (Season Ended) [facility] Start: 08-04-2023 Patient referral [facility] Work Phone: Start: 07-27-2023 Behavioral Health Screening Behavioral Health Screening [facility] Start: 07-27-2023 [facility] Start: 03-27-2023 Covid-19 Vaccine ( season) Covid-19 Vaccine () [facility] Start: 03-27-2023 Influenza vaccination [facility] Start: 2023 COLOGUARD (FIT-DNA) COLOGUARD (FIT-DNA) [facility] Start: [address] COLONOGRAPHY [facility] Start: 2023 Diabetes Screening Diabetes Screening [facility] Start: 2023 FECAL OCCULT BLOOD FECAL OCCULT BLOOD [facility] Start: 2023 Lipid 1996 panel - Serum or Plasma Lipid Screening [facility] Start: 2023 Lipid panel Lipid Screening [facility] Start: 2023 Screening for malignant neoplasm of colon [facility] Start: 2023 SIGMOIDOSCOPY SIGMOIDOSCOPY [facility] Start: 12-04-2022 Patient referral [facility] Work Phone: Start: 07-27-2022 DEPRESSION ASSESSMENT DEPRESSION ASSESSMENT [facility] Start: 01-30-2022 Colonoscopy COLONOSCOPY [facility] Start: 01-30-2022 COLORECTAL CANCER SCREENING COLORECTAL CANCER SCREENING [facility] Start: 01-10-2021 COVID-19 VACCINE (3 - Booster for Moderna series) COVID-19 VACCINE (3 - Booster for Moderna series) [facility] Start: 08-18-2018 HPV TESTING HPV TESTING [facility] Start: 08-18-2018 PAP TESTING PAP TESTING [facility] Start: 08-18-2018 Screening for malignant neoplasm of cervix [facility] Start: 05-16-2018 Urine microalbumin profile [facility] Start: 2018 Mammography [facility] Start: 2018 Screening for malignant neoplasm of breast Mammogram Screening [facility] Start: 1997 Hepatitis B Vaccine (1 of 3 - 19+ 3-dose series) Hepatitis B Vaccine (1 of 3 - 19+ 3-dose series) [facility] Start: 1996 HEPATITIS C SCREENING HEPATITIS C SCREENING [facility] Start: 1996 Hepatitis C screening Hepatitis C Screening [facility] Start: 1996 HIV SCREENING HIV SCREENING [facility] Start: 1996 HIV screening HIV Screening [facility] Start: 1978 HEPATITIS B (1 of 3 - 3-dose series) HEPATITIS B (1 of 3 - 3-dose series) [facility] Start: 1978 Hepatitis B Vaccine (1 of 3 - 3-dose series) Hepatitis B Vaccine (1 of 3 - 3-dose series) [facility] Patient Education ED Sciatica ED [facility] Work Phone: Patient referral [facility] Work Phone: [facility] Immunizations Immunization Date Immunization Notes Care Provider Shady tellez 07-10-2014 influenza virus vacc ine, unspecified formulation Kay Mariee MD Work Phone: [facility] 05-31-2008 influenza virus vacc ine, unspecified formulation Kathia Carr PA-C Work Phone: [facility] 05-16-2008 tetanus toxoid, redu claudia diphtheria toxoid, and acellular pertussis vaccine, adsorbed Kathia Carr PA-C Work Phone: [facility] Payers Date Payer Category Payer Self-pay [id number] 2013 Unknown [id number] 2013 Unknown [employer] BLUE CARD PPO OOS [id number] 2013-Present [phone] [id number] [place] [address] PPO [id number] Unknown [id number] Unknown [id number] Unknown [id number] Unknown [id number] Social History Date Type Detail Facility Start: 12-19-2022 End: 08-27-2023 Tobacco smoking status OKIS Unknown if ever smoked [facility] Start: 1980 Sex Assigned At Female W [facility] Start: 01-23-2023 End: 08-27-2023 Tobacco smoking status OKIS Ex-smoker [facility] Work Phone: History of tobacco use Current smoker [facility] Work Phone: History of tobacco use Cigarette Smoker [facility] Work Phone: Start: 01-23-2023 End: 12-10-2023 Cigarettes smoked current (pack per day) - Reported 0.5 [facility] Start: 01-23-2023 Tobacco use and exposure Smokeless tobacco non-user [facility] Work Phone: Start: 01-23-2023 End: 12-10-2023 Alcohol intake Current drinker of alcohol (finding) [facility] Start: 1980 Sex Assigned At Not on file C [facility] Start: 01-23-2023 End: 03-24-2023 Tobacco use panel [facility] National Score (1-10 0), lower number is lower risk 60 [facility] Start: 10-06-2024 Sex Female (finding) [facility] Clinical Notes 01-23-2023 to 09-08-2024 Note Date & Type Note Facility 09-08-2024 Note [facility] Pap Smear Specimen Adequacy September 09, 2024 12:59am Comment . Satisfactory for evaluation. No endocervical component is identified. Comment on above: Satisfactory for kirby luation. No endocervical component is identified. 09-08-2024 Evaluation note Diagnosis Onset Date Resolution Encounter for routine gynecological examination noneactive September 08 2:35pm [facility] Work Phone: 1(819) 100-613105-16-2024 NoteHNO ID: [id number] Author: VERONICA MINOR APRN.HOG MAN Service: ? Author Type: Nurse Practitioner Type: Progress Notes Filed: 12/10/2023 09:03 Note Text: This note was created using [employer]. Subjective Brigette German is a 43 year old female. 43 year old female with PMH migraines, RLS, presents for toe complaints. Subacute Endorses this episode started about 2 months ago Right great toe +redness +swelling +pain +pus Endorses she has a history of ingrown toe nail, she did attempt to remove herself Denies fever or chills Denies reduced or limited ROM She has an appt with podiatry on 12/15/23 through [facility] The history is provided by the patient. No high school foreign language teacher was used. Pain (foot) Pain location: right great toe. This is a new problem. The current episode started more than 1 month ago. There has been no history of extremity trauma. The problem occurs constantly. The problem has been waxing and waning. The quality of the pain is described as aching and sharp. The pain is at a severity of 6/10. The pain is moderate. Associated symptoms include joint swelling. Pertinent negatives include no fever, inability to bear weight, itching, joint locking, limited range of motion, numbness, stiffness or tingling. The symptoms are aggravated by activity. She has tried heat for the symptoms. The treatment provided no relief. Family history does not include gout or rheumatoid arthritis. There is no history of diabetes, gout, osteoarthritis or rheumatoid arthritis. PAST MEDICAL HISTORY Diagnosis Date Abdominal pain, right upper quadrant Acute medial meniscus tear left Arthritis Benign neoplasm of colon Blood in stool Encounter for insertion or removal of intrauterine contraceptive device 07/04/2008 Mirena Migraine Restless leg PAST SURGICAL HISTORY Procedure Laterality Date BX/EXC LYMPH NODE OPEN SUPERFICIAL 1998 left groin area COLONOSCOPY 03/23/2023 repeat in 5 years COLONOSCOPY FLX DX W/COLLJ SPEC WHEN PFRMD 01/30/2017 Normal colon-family history of colon cancer-5 year follow-up COLSC FLX W/REMOVAL LESION BY HOT BX FORCEPS 06/06/2008 small sessile polyp a 30cm IUD INSERTION ([employer])_*FL 2002 Mirena IUD INSERTION ([employer])_*FL 07/04/2008 Mirena TONSILLECTOMY AND ADENOIDECTOMY age 7 ALLERGIES Bacitracin, Bees, and [place] Juice MEDICATIONS SUMAtriptan (IMITREX) 25 mg tablet Take 25 mg by mouth as needed for migraine headache (see administration instructions). cephALEXin (KEFLEX) 500 mg capsule Take 1 capsule by mouth four times daily for 5 days. rOPINIRole (REQUIP) 0.5 mg tablet Take 0.5 mg by mouth as needed (restless leg). (Patient not taking: Reported on 12/10/2023) FAMILY HISTORY Problem Relation Age of Onset [...] other (Congenital Heart Defect) Other Maternal Cousin Social History Tobacco Use Smoking status: Former Packs/day: 0.50 Years: 11.00 Additional pack years: 0.00 Total pack years: 5.50 Types: Cigarettes Smokeless tobacco: Never Vaping Use Vaping Use: Never used Substance Use Topics Alcohol use: Yes Comment: Occasionally Drug use: Yes Types: Marijuana Comment: used gummies months ago Review of Systems Constitutional: Negative for activity change, appetite change, chills and fever. Eyes: Negative for pain, discharge and itching. Respiratory: Negative for apnea, cough, choking and chest tightness. Cardiovascular: Negative for chest pain, palpitations and leg swelling. Gastrointestinal: Negative for abdominal pain, diarrhea, nausea and vomiting. Musculoskeletal: Negative for back pain, gait problem, gout and stiffness. Right great toe Skin: Negative for color change, itching, pallor, rash and wound. Allergic/Immunologic: Negative for environmental allergies, food allergies and immunocompromised state. Neurological: Negative for dizziness, tingling, facial asymmetry, numbness and headaches. Hematological: Negative for adenopathy. Does not bruise/bleed easily. Psychiatric/Behavioral: Negative for agitation and behavioral problems. Objective BP 118/85 Pulse 65 Temp 36.1 ?C (97 ?F) Resp 18 Wt 120 kg (264 lb 8.8 oz) LMP 06/27/2005 SpO2 98% BMI 45.41 kg/m? Physical Exam Vitals and nursing note reviewed. Constitutional: General: She is not in acute distress. Appearance: Normal appearance. She is normal weight. She is not ill-appearing, toxic-appearing or diaphoretic. HENT: Head: Normocephalic and atraumatic. Righ (more content not included)...[facility]05-16-2024 History of Present illness Narrative* Veronica Minor APRN.HOG MAN - 12/10/2023 8:35 AM EDT This note was created using [employer]hands. Subjective Brigette German is a 43 year old female. 43 year old female with PMH migraines, RLS, presents for toe complaints. Subacute Endorses this episode started about 2 months ago Right great toe +redness +swelling +pain +pus Endorses she has a history of ingrown toe nail, she did attempt to remove herself Denies fever or chills Denies reduced or limited ROM She has an appt with podiatry on 12/15/23 through [facility] The history is provided by the patient. No high school foreign language teacher was used. Pain (foot) Pain location: right great toe. This is a new problem. The current episode started more than 1 month ago. There has been no history of extremity trauma. The problem occurs constantly. The problem hasbeen waxing and waning. The quality of the pain is described as aching and sharp. The pain is at a severity of 6/10. The pain is moderate. Associated symptoms include joint swelling. Pertinent negatives include no fever, inability to bear weight, itching, joint locking, limited range of motion, numbness, stiffness or tingling. The symptoms are aggravated by activity. She has tried heat for the symptoms. The treatment provided no relief. Family history does not include gout or rheumatoid arthriti s. There is no history of diabetes, gout, osteoarthritis or rheumatoid arthritis. PAST MEDICAL HISTORY Diagnosis Date Abdominal pain, right upper quadrant Acute medial meniscus tear left Arthritis Benign neoplasm of colon Blood in stool Encounter for insertion or removal of intrauterine contraceptive device 07/04/2008 Mirena Migraine Restless leg PAST SURGICAL HISTORY Procedure Laterality Date BX/EXC LYMPH NODE OPEN SUPERFICIAL 1998 left groin area COLONOSCOPY 03/23/2023 repeat in 5 years COLONOSCOPY FLX DX W/COLLJ SPEC WHEN PFRMD 01/30/2017 Normal colon-family history of colon cancer-5 year follow-up COLSC FLX W/REMOVAL LESION BY HOT BX FORCEPS 06/06/2008 small sessile polyp a 30cm IUD INSERTION ([employer])_*FL 2002 Mirena IUD INSERTION ([facility])_*FL 07/04/2008 Mirena TONSILLECTOMY & ADENOIDECTOMY <AGE 10 age 7 ALLERGIES Bacitracin, Bees, and [employer]view Juice MEDICATIONS SUMAtriptan (IMITREX) 25 mg tablet Take 25 mg by mouth as needed for migraine headache (see administration instructions). cephALEXin (KEFLEX) 500 mg capsule Take 1 capsule by mouth four times daily for 5 days. rOPINIRole (REQUIP) 0.5 mg tablet Take 0.5 mg by mouth as needed (restless leg). (Patient not taking: Reported on 12/10/2023) FAMILY HISTORY Problem Relation Age of Onset [...] other (Congenital Heart Defect) Other Maternal Cousin Social History Tobacco Use Smoking status: Former Packs/day: 0.50 Years: 11.00 Additional pack years: 0.00 Total pack years: 5.50 Types: Cigarettes Smokeless tobacco: Never Vaping Use Vaping Use: Never used Substance Use Topics Alcohol use: Yes Comment: Occasionally Drug use: Yes Types: Marijuana Comment: used gummies months ago Review of Systems Constitutional: Negative for activity change, appetite change, chills and fever. Eyes: Negative for pain, discharge and itching. Respiratory: Negative for apnea, cough, choking and chest tightness. Cardiovascular: Negative for chest pain, palpitations and leg swelling. Gastrointestinal: Negative for abdominal pain, diarrhea, nausea and vomiting. Musculoskeletal: Negative for back pain, gait problem, gout and stiffness. Right great toe Skin: Negative for color change, itching, pallor, rash and wound. Allergic/Immunologic: Negative for environmental allergies, food allergies and immunocompromised state. Neurological: Negative for dizziness, tingling, facial asymmetry, numbness and headaches. Hematological: Negative for adenopathy. Does not bruise/bleed easily. Psychiatric/Behavioral: Negative for agitation and behavioral problems. Objective BP 118/85 Pulse 65 Temp 36.1 C (97 F) Resp 18 Wt 120 kg (264 lb 8.8 oz) LMP 06/27/2005 SpO2 98% BMI 45.41 kg/m Physical Exam Vitals and nursing note reviewed. Constitutional: General: She is not in acute distress. Appearance: Normal appearance. She is normal weight. She is not ill-appearing, toxic-appearing or diaphoretic. HENT: Head: Normocephalic and atraumatic. Right Ear: Ear canal and external ear normal. Left Ear: Ear canal and external ear normal. Nose: Nose normal. No congestion or rhinorrhea. Mouth/Throat: Mouth: Mucous membranes are moist. Pharynx: No oropharyngeal exudate or posterior oropharyngeal erythema. Eyes: General: Right eye: No discharge. Left eye: No discharge. Extraocular Movements: Extraocular movements intact. Conjunctiva/sclera: Conjunctivae normal. Pupils: Pupils are equal, round, and reactive to light. Cardiovascular: Rate and Rhythm: Normal rate and regular rhythm. Pulses: Normal pulses. Heart sounds: Normal heart sounds. No murmur heard. No friction rub. Pulmonary: Effort: Pulmonary effort is normal. No respiratory distress. Breath sounds: Normal breath sounds. No stridor. No wheezing, rhonchi or rales. Chest: Chest wall: No tenderness. Abdominal: General: Abdomen is flat. There is no distension. Palpations: Abdomen is soft. There is no mass. Tenderness: There is no abdominal tenderness. There is no right CVA tenderness, left CVA tenderness, guarding or rebound. Hernia: No hernia is present. Musculoskeletal: General: Swelling and tenderness present. No deformity or signs of injury. Cervical back: Normal range of motion and neck supple. No rigidity. Right lower leg: No edema. Left lower leg: No edema. Comments: Right great toe with ingrown toe nail medial aspect +redness No purulence or abscess + brisk cap refill Full active and passive ROM No lesions noted. Lymphadenopathy: Cervical: No cervical adenopathy. Skin: General: Skin is warm and dry. Capillary Refill: Capillary refill takes less than 2 seconds. Coloration: Skin is not jaundiced or pale. Findings: No bruising, erythema, lesion or rash. Neurological: General: No focal deficit present. Mental Status: She is alert and oriented to person, place, and time. Cranial Nerves: No cranial nerve deficit. Sensory: No sensory deficit. Motor: No weakness. Coordination: Coordination normal. Gait: Gait normal. Psychiatric: Mood and Affect: Mood normal. Behavior: Behavior normal. Thought Content: Thought content normal. Judgment: Judgment normal. Assessment and Plan ASSESSMENT/PLAN: 1. Ingrown nail of great toe of right foot - ICD9: 703.0, ICD10: L60.0 X 2 months Has history of same She has a podiatry appt 12/15/23 RX Keflex Warm compresses OTC analgesics Keep appt 12/15/23 Discussed red flags Veronica Minor APRN.HOG MAN [facility] Discharge summary Author Uma Posey [facility] November 02, 2023 10:58am Note Date/Time November 02, 2023 10:5 8am [facility] Physical Therapy [facility] [address] [place] [address] [address] [place] [address] / REHABILITATION SERVICES DISCHARGE SUMMARY MR#: [id number] Acct: [id number] Name: BRIGETTE GERMAN Rep #: [id number] : 1980 43 From: Uma Bethea Referring Dr.: Dr. Elio Parker MD Status: REG R Insurance: [facility] PACKAGE PLAN Patient Information Patient Information: BRIGETTE GERMAN was seen in my office for initial evaluation on 08/10/23. The following Plan of Care was established for this patient: POC Established Initial Frequency: 2x /Week Initial Duration: 4 Weeks Anticipated Interventions Patient/Client Instruction: Educate patient on: Benefits of Fitness Program Therapeutic Exercise to Include: Strength training, Endurance training, Balance training, Coordination, Agility training, Body mechanics, Postural training, Flexibilty training, Gait and locomotor training, Neuromotor development, Passive ROM, Active ROM, Dynamic Lumbar Stabilization and Scapular Strength/Stabilization For the Purpose of:: To improve muscle performance and motor function TENS: Yes Cryotherapy (ice pack, ice massage): Yes Thermo therapy (hot pack): Yes Ultrasound (thermal/non thermal): Yes Last Seen Last Seen: This patient was last seen in our office . Pertinent comments regarding their Physical therapy will appear below: Patient was to check in as needed after re-evaluation. She is appropriate to bed/c at this time- if she has questions we are happy to answer any that arise. At this point I will be discontinuing this patient from physical therapy. I would be happy to see this patient again in the future if found appropriate by the physician. Thank you! Uma Posey, DPT Balance/Gait/Functional tests Balance/Special Test Scores Oswestry Low Back Score: 11 <Electronically signed by Uma Posey DPT> 11/02/23 1058 CC: Dr. Elio Parker MD; Herberth Merino, DO ~ ELR Signed [facility] Work Phone: [phone]) 275-646408-29-2023 Nurse Note* April Bedoya RN - 03/24/2023 9:20 AM EDT Arrived in phase II via cart. Left lateral position. Sedated, but responds to verbal stimuli. Colornormal; skin warm and dry. Respirations wnl and unlabored. Abdomen soft and with + bowel sounds in quads X 4. Patient resting comfortably. Family at bedside. Dr. Mariee at bedside to review procedure and recommendations. April Bedoya RN documented in this encounterMar[facility]08-29-[facility]23 History and physical note * Kay Mariee MD - 03/24/2023 8:15 AM EDT UPDATED PROCEDURAL SEDATION HISTORY AND PHYSICAL EXAMINATION SERVICE DATE: 03/24/2023 SERVICE TIME: 8:43 AM PHYSICAL EXAM MUST BE COMPLETED ON ADMISSION PROCEDURE: Procedure Indications: The History and Physical (completed in the past 30 days) has been reviewed and the patient has beenexamined. The contents accurately reflect the patient's condition [...] can be found in the attached. SIGNATURE: Kay Mariee MD PATIENT NAME: Brigette German DATE: March 24, 2023 TIME: 8:43 AM Source Note - Kay Mariee MD - 03/24/2023 8:15 AM EDT [...] small sessile polyp a 30cm IUD INSERTION ([facility])_*FL 2002 Mirena IUD INSERTION ([facility])_*FL 07/04/2008 Mirena TONSILLECTOMY & ADENOIDECTOMY <AGE 10 age 7 CURRENT MEDICATIONS Current Outpatient Medications Medication Sig SUMAtriptan (IMITREX) 25 mg tablet Take 25 mg by mouth as needed for migraine headache (see administration instructions). rOPINIRole (REQUIP) 0.5 mg tablet Take 0.5 mg by mouth as needed (restless leg). No current facility-administered medications for this visit. ALLERGIES: Bacitracin, Bees, Caterpillars [Other], and [employer] Juice PERSONAL HISTORY: SOCIAL HISTORY Social History [...] entered by the nurse and reviewed by nd Nursing Notes: Veronica Escalante 01/23/2023 9:38 AM [...] the PFSH and ROS obtained by others. Kathia Carr PA-C PHYSICAL EXAMINATION: General: The patient is 42 year old female, well nourished, well hydrated in no acute distress. Thepatient is oriented to time, place, and person. VITALS: Blood pressure 118/74, pulse 103, temperature 36.4 C (97.5 F), height 162.6 cm (5' 4), weight 112 kg (247 lb), last menstrual period 06/27/2005, SpO2 96 %. Body mass index is 42.4 kg/m . HEENT: Normal cephalic, ataumatic, pupils are equally round, sclera are anicteric, mucous membranesare moist, oropharynx is clear. Neck has no [...] Will plan for lower endoscopy. We discussed therisks and benefits of the planned endoscopy. I have informed the patient that complications can occur including failure to complete the endoscopy and perforation. The patient had the opportunity to ask questions concerning the planned endoscopy. My staff has also explained the procedure to the patient in understandable terms and has given the patient printed material concerning the procedure. Thepatient freely consents to surgery. I plan to use Miralax/Dulcolax bowel preparation Diagnoses: (Z80.0) Family history of colon cancer (primary encounter diagnosis) (Z86.010) Personal history of colonic polyps I spent a total of 25 minutes on the date of the service which included preparing to see the patient, [id number] patient care, completing clinical documentation, obtaining and/or reviewing separately obtained history, performing a medically appropriate examination, counseling and educating the pat ient/family/caregiver, and ordering medications, tests, or procedures. Kathia Carr PA-C * Kay Mariee MD - 03/24/2023 8:15 AM EDT Images from the original note were not included. HISTORY AND PHYSICAL Brigette Tigre German 1980 REFERRING PHYSICIAN: No ref. provider [...] small sessile polyp a 30cm IUD INSERTION ([employer])_*FL 2002 Mirena IUD INSERTION ([facility])_*FL 07/04/2008 Mirena TONSILLECTOMY & ADENOIDECTOMY <AGE 10 age 7 CURRENT MEDICATIONS Current Outpatient Medications Medication Sig SUMAtriptan (IMITREX) 25 mg tablet Take 25 mg by mouth as needed for migraine headache (see administration instructions). rOPINIRole (REQUIP) 0.5 mg tablet Take 0.5 mg by mouth as needed (restless leg). No current facility-administered medications for this visit. ALLERGIES: Bacitracin, Bees, Caterpillars [Other], and [employer] Juice PERSONAL HISTORY: SOCIAL HISTORY Social History [...] entered by the nurse and reviewed by nd Nursing Notes: Veronica Escalante 01/23/2023 9:38 AM [...] the PFSH and ROS obtained by others. Kathia Carr PA-C PHYSICAL EXAMINATION: General: The patient is 42 year old female, well nourished, well hydrated in no acute distress. Thepatient is oriented to time, place, and person. VITALS: Blood pressure 118/74, pulse 103, temperature 36.4 C (97.5 F), height 162.6 cm (5' 4), weight 112 kg (247 lb), last menstrual period 06/27/2005, SpO2 96 %. Body mass index is 42.4 kg/m . HEENT: Normal cephalic, ataumatic, pupils are equally round, sclera are anicteric, mucous membranesare moist, oropharynx is clear. Neck has no [...] Will plan for lower endoscopy. We discussed therisks and benefits of the planned endoscopy. I have informed the patient that complications can occur including failure to complete the endoscopy and perforation. The patient had the opportunity to ask questions concerning the planned endoscopy. My staff has also explained the procedure to the patient in understandable terms and has given the patient printed material concerning the procedure. Thepatient freely consents to surgery. I plan to use Miralax/Dulcolax bowel preparation Diagnoses: (Z80.0) Family history of colon cancer (primary encounter diagnosis) (Z86.010) Personal history of colonic polyps I spent a total of 25 minutes on the date of the service which included preparing to see the patient, [id number] patient care, completing clinical documentation, obtaining and/or reviewing separately obtained history, performing a medically appropriate examination, counseling and educating the pat ient/family/caregiver, and ordering medications, tests, or procedures. Kathia Carr PA-C documented in this encounterMar[facility] Hospital06-30-2023 NoteHNO ID: [id number] Author: Kathia Carr PA-C Service: ? Author Type: Physician Warper Creeler Type: Progress Notes Filed: 01/29/2023 4:08 PM [...] small sessile polyp a 30cm IUD INSERTION ([facility])_*FL 2002 Mirena IUD INSERTION ([facility])_*FL 07/04/2008 Mirena TONSILLECTOMY AND ADENOIDECTOMY age 7 Current Outpatient Medications Medication Sig SUMAtriptan (IMITREX) 25 mg tablet Take 25 mg by mouth as needed for migraine headache (see administration instructions). rOPINIRole (REQUIP) 0.5 mg tablet Take 0.5 mg by mouth as needed (restless leg). No current facility-administered medications for this visit. ALLERGIES: Bacitracin, Bees, Caterpillars [Other], and [employer] Juice PERSONAL HISTORY: Social History Tobacco Use [...] The patient denies a (more content not included)...[facility]06-30-[facility] History of Present illness Narrative* Kathia Carr PA-C - 01/23/2023 9:38 AM EDT HISTORY AND PHYSICAL Brigette Landeros Monserrat 1980 REFERRING PHYSICIAN: No ref. provider found [...] small sessile polyp a 30cm IUD INSERTION ([facility])_*FL 2002 Mirena IUD INSERTION ([facility])_*FL 07/04/2008 Mirena TONSILLECTOMY & ADENOIDECTOMY <AGE 10 age 7 Current Outpatient Medications Medication Sig SUMAtriptan (IMITREX) 25 mg tablet Take 25 mg by mouth as needed for migraine headache (see administration instructions). rOPINIRole (REQUIP) 0.5 mg tablet Take 0.5 mg by mouth as needed (restless leg). No current facility-administered medications for this visit. ALLERGIES: Bacitracin, Bees, Caterpillars [Other], and [employer] Juice PERSONAL HISTORY: Social History Tobacco Use [...] the PFSH and ROS obtained by others. Kathia Carr PA-C PHYSICAL EXAMINATION: General: The patient is 42 year old female, well nourished, well hydrated in no acute distress. Thepatient is oriented to time, place, and person. VITALS: Blood pressure 118/74, pulse 103, temperature 36.4 C (97.5 F), height 162.6 cm (5' 4), weight 112 kg (247 lb), last menstrual period 06/27/2005, SpO2 96 %. Body mass index is 42.4 kg/m . HEENT: Normal cephalic, ataumatic, pupils are equally round, sclera are anicteric, mucous membranesare moist, oropharynx is clear. Neck has no [...] Will plan for lower endoscopy. We discussed therisks and benefits of the planned endoscopy. I have informed the patient that complications can occur including failure to complete the endoscopy and perforation. The patient had the opportunity to ask questions concerning the planned endoscopy. My staff has also explained the procedure to the patient in understandable terms and has given the patient printed material concerning the procedure. Thepatient freely consents to surgery. I plan to use Miralax/Dulcolax bowel preparation Diagnoses: (Z80.0) Family history of colon cancer (primary encounter diagnosis) (Z86.010) Personal history of colonic polyps I spent a total of 25 minutes on the date of the service which included preparing to see the patient, [id number] patient care, completing clinical documentation, obtaining and/or reviewing separately obtained history, performing a medically appropriate examination, counseling and educating the pat ient/family/caregiver, and ordering medications, tests, or procedures. Kathia Carr PA-C documented in this encounterMar[facility]06-30-2023 Nurse Note* Veronica Escalante - 01/23/2023 9:37 AM EDT REVIEW OF SYSTEMS: General: The patient denies [...] Colonoscopy: 2016 Veronica Escalante documented in this encounterMar[facility] HospitalEvaluation note* Diagnosis Onset Date Resolution Status Internal derangement of left knee acute Strain of left knee acute Internal derangement of left knee acute Osteoarthritis of left knee acute Strain of left knee acute Osteoarthritis of left knee acute [facility] Work Phone: Evaluation note* Diagnosis Onset Date Resolution Status Internal derangement of left knee acute Strain of left knee acute Internal derangement of left knee acute Osteoarthritis of left knee acute Strain of left knee acute Osteoarthritis of left knee acute Urinary tract infection with hematuria acute [facility] Work Phone: Evaluation note* Diagnosis Family history of colon cancer- Primary Family history of malignant neoplasm of gastrointestinal tract Personal history of colonic polyps [facility] Diagnosis Blood in stool- Primary Family history of colon cancer Family history of malignant neoplasm of gastrointestinal tract Personal history of colonic polyps Obesity, Class III, BMI >= 40 Morbid obesity documented [facility] this encounter [facility]* Diagnosis Onset Date Resolution Status Encounter for routine gynecological examination noneactive [facility] Work Phone: Evaluation note* Diagnosis Onset Date Resolution Status Encounter for routine gynecological examination noneactive Lumbar radiculopathy acute Lumbar radiculopathy acute [facility] Work Phone: Evaluation note* Diagnosis Ingrown nail of great toe of right foot- Primary [facility] Additional Instructions Thank you for trusting us with your care today! Please take Tylenol (2 pills, 650 mg), ibuprofen (2 pills, 400 mg) every 6 hours as needed for pain and fever control. Please take prednisone as prescribed. Please go to local pharmacy or drugstore obtain lidocaine (Salonpas) lidocaine patches. Please return to the emergency department if your symptoms change or worsen. Specifically develop bowel or bladder incontinence, urinary retention, weakness numbness or loss sensation in the legs. Please follow with your primary care physician for further outpatient evaluation and management.[facility] Work Phone: Reason for referral (narrative)* Outpatient Procedure (Routine) - Closed Specialty Diagnoses / Procedures Referred By Contshahbaz t Referred To Contact [facility] Diagnoses Family history of colon cancer Personal history of colonic polyps Procedures COLONOSCOPY SCREENING COLONOSCOPY FLX DX W/COLLJ SPEC WHEN PFRMD Kathia Carr PA-C [address] [place] [address] [facility] [place] [address] [place] [address] Referral ID Status Reason Start Date Expiration Date V isits Requested Visits Authorized [id number] Closed Auto-Generate d Referral 01/23/2023 01/24/2024 1 1 [facility]Reason [facility] (narrative)No reason for referral information availableWSumma Health [facility] Work Phone: Reason for visit Narrative* Outpatient Procedure (Routine) - Closed Specialty Diagnoses / Procedures Referred By Contshahbaz t Referred To Contact [facility] Diagnoses Family history of colon cancer Personal history of colonic polyps Procedures COLONOSCOPY SCREENING COLONOSCOPY FLX DX W/COLLJ SPEC WHEN PFRMD Kathia Carr PA-C [address] [facility] [place] [address] [facility] [place] [address] [place] [address] Referral ID Status Reason Start Date Expiration Date V isits Requested Visits Authorized [id number] Closed Auto-Generate d Referral 01/23/2023 01/24/2024 1 1 [facility] Chief Complaint and Reason for Visit Chief Complaint L KNEE INJURY XRAY LEFT KNEE LEFT KNEE STRAIN OF L KNEE RX HERE Reason for Visit Internal derangement of left knee Strain of left knee Internal derangement of left knee Osteoarthritis of left knee Strain of left knee Osteoarthritis of left knee Chief Complaint L KNEE INJURY XRAY LEFT KNEE LEFT KNEE STRAIN OF L KNEE RX HERE Urinary tract infection Reason for Visit Internal derangement of left knee Strain of left knee Internal derangement of left knee Osteoarthritis of left knee Strain of left knee Osteoarthritis of left knee Urinary tract infection with hematuria Chief Complaint Annual ([employer]ENDER) BACK Reason for Visit Encounter for routin e gynecological examination Chief Complaint Annual (CH[employer] TENDER) BACK LUMBAR SPINE RM 3 LUMBAR SPINE LUMBAR RADICULOPATHY / RX HERE Reason for Visit Encounter for routin e gynecological examination Lumbar radiculopathy Lumbar radiculopathy Chief Complaint Admit Date Annual (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 TENDER) September 08, 2024 2:35pm SCREENING September 23, 2024 8:39am Reason for Visit Admit Date Encounter for routine gynecological exam ination September 08, 2024 2:35pm Family History No Family History Records Found Relationship Condition Age at Onset Recorded Date/T abigail grandfather Diabetes mellitus Unknown Malignant neoplasm of colon Unknown father Malignant neoplasm of colon Unknown mother Chronic obstructive pulmonary disease Unk nown Asthma Unknown Advance Directives No Advanced Directives Records Found Advance Directive Response Recorded Date/ Time Living Will No March 28 9:57am Power of Garment Worker No March 28, 2021 9:57am Advance Directive Response Recorded Date/ Time Living Will No July 27 4 10:02am Power of Garment Worker No July 27 10:02am Advance Directive Response Recorded Date/ Time Living Will No August 03 5:09pm Power of Garment Worker No August 03 5:09pm Medications Administered Section Inactive Administered Medications - up to 3 most recent administrations Medication Order MAR Action Action Date Dose Rate Site diphenhydrAMINE 12.5-50 mg injection (BENADRYL) 12.5-50 mg, INTRAVENOUS, DIRECTED, Starting on Thu03/24/23 at 0900, Until Thu03/24/23 at 1259, DOSING DIRECTED BY PHYSICIAN FOR PROCEDURAL SEDATION ONLY, Intraprocedure Given by [facility] 03/24/2023 8:59 AM EDT 50 mg fentaNYL 50 mcg/mL 25-100 mcg injection (SUBLIMAZE) 25-100 mcg, INTRAVENOUS, DIRECTED, Starting on Thu03/24/23 at 0900, Until Thu03/24/23 at 1259, DOSING DIRECTED BY PHYSICIAN FOR PROCEDURAL SEDATION ONLY, Intraprocedure Given by [facility] 03/24/2023 8:57 AM EDT 50 mcg Given by [facility] 03/24/2023 8:54 AM EDT 50 mcg lactated ringers iv infusion 30 mL/hr, INTRAVENOUS, CONTINUOUS, Starting on Thu03/24/23 at 0730, Until Thu03/24/23 at 0922, Preprocedure New Bag/Syringe/Bottle 03/24/2023 7:40 AM EDT 30 mL/hr 30 mL/hr Wrist, Right midazolam 1-5 mg injection (VERSED) 1-5 mg, INTRAVENOUS, DIRECTED, Starting on Thu03/24/23 at 0900, Until Thu03/24/23 at 1259, DOSING DIRECTED BY PHYSICIAN FOR PROCEDURAL SEDATION ONLY, Intraprocedure Given 03/24/2023 9:07 AM EDT 2 mg Given by [facility] 03/24/2023 8:57 AM EDT 2 mg Given by [facility] 03/24/2023 8:54 AM EDT 3 mg Summary Purpose Additional Source Comments Care Teams (unrecognized sec tion and content) Team Status: Active Member Role Status Dates Dr. Yosef Ochoa MD Family Provider Active Herberth Merino DO Primary Care Provider Active Team Status: Inactive Member Role Status Dates Dr. Yosef Ochoa MD Primary Care Provider, Referring Provider Active Onofre BLISS, PA Attending Provider Active Team Status: Inactive Member Role Status Dates Dr. Yosef Ochoa MD Primary Care Provider Active Dr. Tomás Gomez MD Attending Provider Active Team Status: Inactive Member Role Status Dates Dr. Yosef Ochoa MD Primary Care Provider, Referring Provider Active Yosef Jacobs MD Attending Provider Active Team Status: Inactive Member Role Status Dates Dr. Yosef Ochoa MD Primary Care Provider Active Onofre BLISS, PA Attending Provider, Referring Pr ovider Active Team Status: Inactive Member Role Status Dates Herberth Merino DO Primary Care Provider, Attending Provider Active Team Status: Inactive Member Role Status Dates Herberth Merino DO Primary Care Provider, Referring Provider Active Onofre BLISS, PA Attending Provider Active Team Status: Inactive Member Role Status Dates Herberth Merino DO Primary Care Provider Active Onofre BLISS, [place] Attending Provider Active Conference Director Relationship Specialty Start Date End Date Herberth Merino DO [address] [facility] [address] [place] [address] PCP - General Family Medicine 01/16/23 Conference Director Relationship Specialty Start Date End Date Herberth Merino DO [address] [facility] [address] [place] [address] PCP - General Family Medicine 01/16/23 Team Status: Inactive Member Role Status Dates Dr. Yosef Ochoa MD Referring Provider Active Leah Cuellar NP, POWER LINEMAN TECHNICIAN-C Attending Provider Active Herberth Merino DO Primary Care Provider Active Team Status: Inactive Member Role Status Dates Herberth Merino DO Primary Care Provider Active Dr. Troy Morillo DO Emergency Provider Active Team Status: Inactive Member Role Status Dates Herberth Merino DO Primary Care Provider, Referring Provider Active Dr. Elio Parker MD Attending Provider Active Team Status: Inactive Member Role Status Dates Herberth Merino DO Primary Care Provider Active Dr. Tomás Gomez MD Attending Provider Active Team Status: Inactive Member Role Status Dates Herberth Merino DO Primary Care Provider Active Dr. Troy Morillo DO Attending Provider, Jude rudolph Active Team Status: Inactive Member Role Status Dates Herberth Merino DO Primary Care Provider Active Dr. Elio Parker MD Attending Provider Active Conference Director Relationship Specialty Start Date End Date Jessica Ni MD [address] [place] [address] PCP - General Internal Medicine 12/10/23 Team Status: Active Member Role Status Mariia Ni MD Primary Care Provider Active Team Status: Inactive Member Role Status Dates Herberth Merino DO Referring Provider Active Start: September 08, 2024 End: September 08, 2024 Leah Cuellar NP POWER LINEMAN TECHNICIAN-C Attending Provider Active Start: September 08, 2024 End: September 08, 2024 Jessica Ni MD Primary Care Provider Active St art: September 08, 2024 End: September 08, 2024 Team Status: Inactive Member Role Status Mariia Ni MD Primary Care Provider Active St art: September 08, 2024 End: September 08, 2024 Leah Cuellar NP POWER LINEMAN TECHNICIAN-C Attending Provider Active Start: September 08, 2024 End: September 08, 2024 Leah Cuellar NP POWER LINEMAN TECHNICIAN-C Referring Provider Active Start: September 08, 2024 End: September 08, 2024 Team Status: Inactive Member Role Status Mariia Ni MD Primary Care Provider Active St art: September 23, 2024 End: September 23, 2024 Leah Cuellar NP POWER LINEMAN TECHNICIAN-C Attending Provider Active Start: September 23, 2024 End: September 23, 2024 Leah Cuellar NP POWER LINEMAN TECHNICIAN-C Referring Provider Active Start: September 23, 2024 End: September 23, 2024 Goals (unrecognized section and content) Goals may be documented in a n alternate sectionGoals may be documented in an alternate sectionGoals may be documented in an alternate sectionGoals may be documented in an alternate sectionGoals may be documented in an alternate section Source Comments (unrecognize d section and content) In the event this informatio n is protected by the Federal Confidentiality of Alcohol and Drug Abuse Patient Records regulations: The Federal rules restrict any use of the information to criminally investigate or prosecute any alcohol or drug abuse patient.[facility] the event this information is protected by the Federal Confidentiality of Alcohol and Drug Abuse Patient Records regulations: The Federal rules restrict any use of the information to criminally investigate or prosecute any alcohol or drug abuse patient.[facility] the event this information is protected by the Federal Confidentiality of Alcohol and Drug Abuse Patient Records regulations: The Federal rules restrict any use of the information to criminally investigate or prosecute any alcohol or drug abuse patient.[facility] Reason for Visit (unrecogniz ed section and content) Reason Comments Consult Reason Comments Ingrown Toenail R great toe redness, pain, swelling drainage x 2 months INFORMATION SOURCE (unrecogn ized section and content) DATE CREATED AUTHOR 12/12/2023 [facility] DATE CREATED AUTHOR 'S PATRICA STEWART 05/08/2025 [facility] FOR RECORDS PERTAINING TO PATIENTS WHO ARE [...] BE BASED ON THE PRIMARY CLINICAL RECORDS. [facility] [employer], [facility]. provides no warranty or guarantee of the accuracy or completeness of information in this document.
--- OUTSIDE RECORDS SUMMARY | 2025-05-11 08:06 | XMS RPT_ITS | CCD ---
Author Organization [facility] Care Team Providers Care Consultant Education Name Role Phone Dr. Yosef Ochoa Primary Care Provider Dr. Yosef Ochoa Referring Provider Raudel [place], [place] Onofre Burrows Attending Provider Dr. Tomás Gomez Attending Provider MD Yosef Jacobs Attending Provider DO Herberth Merino Primary Care Provider [phone] DO Herberth Merino Referring Provider Herberth Merino DO Primary Care Provider Dr. Yosef Ochoa Referring Provider Unavailable Polo RIDE OPERATOR, RIDE OPERATOR-C Leah Attending Provider [phone] DO Herberth Merino Primary Care Provider [phone] Dr. Yosef Ochoa Referring Provider Unavailable Polo RIDE OPERATOR, RIDE OPERATOR-C Leah Attending Provider [phone] DO Herberth [...] Unavailable Herberth Merino DO Referring Provider Polo RIDE OPERATOR-CLeah Attending Provider [facility]aine [facility] Polo OBRIENCLeah Referring Provider Jessica Ni Primary Care Unavailable Mahin Tanisha Referring Unavailable Mahin, Tanisha Attending Unavailable Raine, Chalon Primary Care Unavailable [place] RIDE OPERATOR, Leah Referring Unavailable Polo RIDE OPERATOR, Leah Attending Unavailable Polo RIDE OPERATOR, Leah Attending Unavailable Raine, Chalon Primary Care Unavailable Polo RIDE OPERATOR, Leah Referring Unavailable Raine, Chalon Primary Care Unavailable Herberth Merino Referring Unavailable Polo RIDE OPERATOR, Leah Attending Unavailable Allergies Allergy Classification Reported Allergen(s) Allergy Type Date of Onset Reaction(s) Facility (9 sources) Bacitracin; Translations: [BACITRACIN] Drug Allergy 6 [facility] (9 sources) [employer] juice; Translations: [ORANGE JUICE] Allergy to substance 6 [facility] (4 sources) Bees; Translations: [BEES] Propensity to adverse reactions 6 [facility] (2 sources) CATERPILLARS [Other] Propensity to adverse reactions 6 [facility] [place] (1 source) OTHER; Translations: [OTHER] Propensity to adverse reactions (disorder) 6 [facility] (1 source) Bacitracin Drug Allergy 5 [facility] (1 source) [employer] juice Drug allergy (disorder) 5 [facility] Medications Current Medications Medication Drug Class(es) Dates Sig (Normalized) Sig (Original) Amino Ac-Hydroly Collagen-Whey (4 sources) Start: 12-15-2022 Amino Ac-Hydroly Collagen-Whey Active ML PO December 14, 2022 11:00pm Start: 12-15-2022 Amino Ac-[place] ly Collagen-Whey Active ML PO December 15, [...] MG PO December 15, 2022 12:00am levonorgestrel 0.139802 mg/hr intrauterine system (5 sources) Progestin, Progestin-containing [...] needed for migraine headache (see administration instructions). Emunqve-Uwbx-Vpzqa-Or eg-Capryl (3 sources) Start: 12-15-2022 Fmerzjm-Hrlj-Fmxef-O reg-Capryl Active CAP PO December 14, 2022 11:00pm Start: 12-15-2022 Izdkcxe-Xyqy-Q hjut-Soqv-Addodm Active CAP PO December 15, 2022 12:00am Lryfvhgb-Twcx-Tgmeu-Oreg-Cap ry (1 source) Start: 12-15-2022 Cfryedef-Egjp-Dwcrg-Oreg-Cap ry Active CAP PO December 15, 2022 12:00am Ekeqmjyq-Uayp-Ibqkt-Oreg-Cap ry 100 mg-150 mg- 50 mg-150 mg capsule (1 source) Start: 12-15-2022 Bpsnoedz-Txly-Uvwdo-Oreg-Cap ry 100 mg-150 mg- 50 mg-150 mg [...] Drug Class(es) Dates Sig (Normalized) Sig (Original) [id number] 200 actuat albuterol 0.09 mg/actuat metered dose [...] Absolute Lymph 2.67 X10 3/uL Normal 0.83-4.51 [facility] Comment on above: Performed By: #### L 500.4050, L506.0400, L509.3001, L506.1001, L503.6030, L3300.1750, L506.0200, L101.9900, L501.9520, L501.06067, L509.6001, L100.0100, L503.0106, L503.6550, L501.6710 #### [facility] [address] [place], [address] Absolute Neut 5.9 X10 3/uL Normal 2.0-7.7 [facility] Comment on above: Performed By: #### L 500.4050, L506.0400, L509.3001, L506.1001, L503.6030, L3300.1750, L506.0200, L101.9900, L501.9520, L501.32309, L509.6001, L100.0100, L503.0106, L503.6550, L501.6710 #### [facility] [address] [place], [address] Basophils/100 WBC (Bld) 0.7 % Normal 0-[address] [facility] Comment on above: Performed By: #### L 500.4050, L506.0400, L509.3001, L506.1001, L503.6030, L3300.1750, L506.0200, L101.9900, L501.9520, L501.56885, L509.6001, L100.0100, L503.0106, L503.6550, L501.6710 #### [facility] [address] [place], [place], [phone] (886) Eosinophils/100 WBC (Bld) 2.3 % Normal 0-5 [facility] Comment on above: Performed By: #### L 500.4050, L506.0400, L509.3001, L506.1001, L503.6030, L3300.1750, L506.0200, L101.9900, L501.9520, L501.59539, L509.6001, L100.0100, L503.0106, L503.6550, L501.6710 #### [facility] [address] [facility] [place], [address] Erythrocyte distribution width (RBC) [Ratio] 12.3 % Normal 11.6-14.6 [facility] Comment on above: Performed By: #### L 500.4050, L506.0400, L509.3001, L506.1001, L503.6030, L3300.1750, L506.0200, L101.9900, L501.9520, L501.61286, L509.6001, L100.0100, L503.0106, L503.6550, L501.6710 #### [facility] [address] [facility] [place], [place], [id number] Hematocrit (Bld) [Volume fraction] 42.3 % Normal 37-47 [facility] Comment on above: Performed By: #### L 500.4050, L506.0400, L509.3001, L506.1001, L503.6030, L3300.1750, L506.0200, L101.9900, L501.9520, L501.16450, L509.6001, L100.0100, L503.0106, L503.6550, L501.6710 #### [facility] [address] [place], [address] Hemoglobin (Bld) [Mass/Vol] 14.1 g/dL Normal 12.0-15.0 [facility] Comment on above: Performed By: #### L 500.4050, L506.0400, L509.3001, L506.1001, L503.6030, L3300.1750, L506.0200, L101.9900, L501.9520, L501.16953, L509.6001, L100.0100, L503.0106, L503.6550, L501.6710 #### [facility] [address] [place], [address] IG% 0.400 Normal 0.0-0.9 [facility] Comment on above: Result Comment: IG% - Immature Granulocytes (promyelocytes, myelocytes and metamyelocytes) > 1% indicates that a LEFT SHIFT is Present. Performed By: #### L 500.4050, L506.0400, L509.3001, L506.1001, L503.6030, L3300.1750, L506.0200, L101.9900, L501.9520, L501.75904, L509.6001, L100.0100, L503.0106, L503.6550, L501.6710 #### [facility] [address] [place], [address] Lymphocytes/100 WBC (Bld) 27.9 % Normal 19-41 [facility] Comment on above: Performed By: #### L 500.4050, L506.0400, L509.3001, L506.1001, L503.6030, L3300.1750, L506.0200, L101.9900, L501.9520, L501.49360, L509.6001, L100.0100, L503.0106, L503.6550, L501.6710 #### [facility] [address] [place], [address] MCH (RBC) [Entitic mass] 30.1 pg Normal 27.0-32.0 [facility] Comment on above: Performed By: #### L 500.4050, L506.0400, L509.3001, L506.1001, L503.6030, L3300.1750, L506.0200, L101.9900, L501.9520, L501.66248, L509.6001, L100.0100, L503.0106, L503.6550, L501.6710 #### [facility] [address] [place], [address] MCHC (RBC) [Mass/Vol] 33.3 g/dL Normal 32-36 [facility] Comment on above: Performed By: #### L 500.4050, L506.0400, L509.3001, L506.1001, L503.6030, L3300.1750, L506.0200, L101.9900, L501.9520, L501.60267, L509.6001, L100.0100, L503.0106, L503.6550, L501.6710 #### [facility] [address] [place], [address] MCV (RBC) [Entitic vol] 90.2 fL Normal 81-[address] [facility] Comment on above: Performed By: #### L 500.4050, L506.0400, L509.3001, L506.1001, L503.6030, L3300.1750, L506.0200, L101.9900, L501.9520, L501.41707, L509.6001, L100.0100, L503.0106, L503.6550, L501.6710 #### [facility] [address] [place], [address] Monocytes/100 WBC (Bld) 6.7 % Normal 0-[address] [facility] Comment on above: Performed By: #### L 500.4050, L506.0400, L509.3001, L506.1001, L503.6030, L3300.1750, L506.0200, L101.9900, L501.9520, L501.82501, L509.6001, L100.0100, L503.0106, L503.6550, L501.6710 #### [facility] [address] [place], [address] Neutrophils/100 WBC (Bld) 62.0 % Normal 47-70 [facility] Comment on above: Performed By: #### L 500.4050, L506.0400, L509.3001, L506.1001, L503.6030, L3300.1750, L506.0200, L101.9900, L501.9520, L501.62681, L509.6001, L100.0100, L503.0106, L503.6550, L501.6710 #### [facility] [address] [place], [place], [phone] ([phone] Nucleated RBC (Bld) [#/Vol] 0 10*3/uL Normal 0-5 [facility] Comment on above: Performed By: #### L 500.4050, L506.0400, L509.3001, L506.1001, L503.6030, L3300.1750, L506.0200, L101.9900, L501.9520, L501.48761, L509.6001, L100.0100, L503.0106, L503.6550, L501.6710 #### [facility] [address] [place], [address] Platelet mean volume (Bld) [Entitic vol] 10.3 fL Normal 6.2-12.0 [facility] Comment on above: Performed By: #### L 500.4050, L506.0400, L509.3001, L506.1001, L503.6030, L3300.1750, L506.0200, L101.9900, L501.9520, L501.96085, L509.6001, L100.0100, L503.0106, L503.6550, L501.6710 #### [facility] [address] [facility] [place], [address] Platelets (Bld) [#/Vol] 292 10*3/uL Normal 150-450 [facility] Comment on above: Performed By: #### L 500.4050, L506.0400, L509.3001, L506.1001, L503.6030, L3300.1750, L506.0200, L101.9900, L501.9520, L501.94993, L509.6001, L100.0100, L503.0106, L503.6550, L501.6710 #### [facility] [address] [place], [address] RBC (Bld) [#/Vol] 4.69 10*6/uL Normal 4.2-5.4 [facility] Comment on above: Performed By: #### L 500.4050, L506.0400, L509.3001, L506.1001, L503.6030, L3300.1750, L506.0200, L101.9900, L501.9520, L501.61541, L509.6001, L100.0100, L503.0106, L503.6550, L501.6710 #### [facility] [address] [place], [address] RDW SD 40.7 fl Normal 35.1-43.9 [facility] Comment on above: Performed By: #### L 500.4050, L506.0400, L509.3001, L506.1001, L503.6030, L3300.1750, L506.0200, L101.9900, L501.9520, L501.85041, L509.6001, L100.0100, L503.0106, L503.6550, L501.6710 #### [facility] [address] [place], [place], [id number] WBC (Bld) [#/Vol] 9.6 10*3/uL Normal 4.4-11.0 [facility] Comment on above: Performed By: #### L 500.4050, L506.0400, L509.3001, L506.1001, L503.6030, L3300.1750, L506.0200, L101.9900, L501.9520, L501.58933, L509.6001, L100.0100, L503.0106, L503.6550, L501.6710 #### [facility] [address] [place], [place], [id number] CRPon 05-08-2025 C-REACTIVE PROT 7.51 mg/L High 0.0-3.0 [facility] Comment on above: Performed By: #### L 500.4050, L506.0400, L509.3001, L506.1001, L503.6030, L3300.1750, L506.0200, L101.9900, L501.9520, L501.55883, L509.6001, L100.0100, L503.0106, L503.6550, L501.6710 #### [facility] [address] [place], [place], [id number] Comprehensive Metabolic Prof ilon 05-08-2025 Albumin [Mass/Vol] 4.0 g/dL Normal 3.5-5.0 [facility] Comment on above: Performed By: #### L 500.4050, L506.0400, L509.3001, L506.1001, L503.6030, L3300.1750, L506.0200, L101.9900, L501.9520, L501.57644, L509.6001, L100.0100, L503.0106, L503.6550, L501.6710 #### [facility] [address] [place], [place], [phone] (095) Albumin/Globulin [Mass ratio] 1.3 {ratio} Normal 0.9-2.4 [facility] Comment on above: Performed By: #### L 500.4050, L506.0400, L509.3001, L506.1001, L503.6030, L3300.1750, L506.0200, L101.9900, L501.9520, L501.21845, L509.6001, L100.0100, L503.0106, L503.6550, L501.6710 #### [facility] [address] [place], [place], [id number] ALK PHOS 67 U/L Normal 35-104 [facility] Comment on above: Performed By: #### L 500.4050, L506.0400, L509.3001, L506.1001, L503.6030, L3300.1750, L506.0200, L101.9900, L501.9520, L501.99028, L509.6001, L100.0100, L503.0106, L503.6550, L501.6710 #### [facility] [address] [place], [place], [id number] (089) ALT [Catalytic activity/Vol] 19 U/L Normal <=34 [facility] Comment on above: Performed By: #### L 500.4050, L506.0400, L509.3001, L506.1001, L503.6030, L3300.1750, L506.0200, L101.9900, L501.9520, L501.52536, L509.6001, L100.0100, L503.0106, L503.6550, L501.6710 #### [facility] [address] [place], [place], [id number] AST [Catalytic activity/Vol] 18 U/L Normal <=31 [facility] Comment on above: Performed By: #### L 500.4050, L506.0400, L509.3001, L506.1001, L503.6030, L3300.1750, L506.0200, L101.9900, L501.9520, L501.09616, L509.6001, L100.0100, L503.0106, L503.6550, L501.6710 #### [facility] [address] [facility] [place], [place], [address] Bilirubin [Mass/Vol] 0.39 mg/dL Normal 0.00-1.30 [facility] Comment on above: Performed By: #### L 500.4050, L506.0400, L509.3001, L506.1001, L503.6030, L3300.1750, L506.0200, L101.9900, L501.9520, L501.64389, L509.6001, L100.0100, L503.0106, L503.6550, L501.6710 #### [facility] [address] [place], [place], [id number] BUN/CRE 28.5 RATIO High 10-20 [facility] Comment on above: Performed By: #### L 500.4050, L506.0400, L509.3001, L506.1001, L503.6030, L3300.1750, L506.0200, L101.9900, L501.9520, L501.26824, L509.6001, L100.0100, L503.0106, L503.6550, L501.6710 #### [facility] [address] [place], [place], [phone] (638) Calcium [Mass/Vol] 9.7 mg/dL Normal 7.6-11.0 [facility] Comment on above: Performed By: #### L 500.4050, L506.0400, L509.3001, L506.1001, L503.6030, L3300.1750, L506.0200, L101.9900, L501.9520, L501.70507, L509.6001, L100.0100, L503.0106, L503.6550, L501.6710 #### [facility] [address] [place], [place], [phone] (262) Chloride [Moles/Vol] 102 mmol/L Normal 98-108 [facility] Comment on above: Performed By: #### L 500.4050, L506.0400, L509.3001, L506.1001, L503.6030, L3300.1750, L506.0200, L101.9900, L501.9520, L501.49219, L509.6001, L100.0100, L503.0106, L503.6550, L501.6710 #### [facility] [address] [place], [place], [phone] (748) CO2 [Moles/Vol] 23.8 mmol/L Normal 21.0-32.0 [facility] Comment on above: Performed By: #### L 500.4050, L506.0400, L509.3001, L506.1001, L503.6030, L3300.1750, L506.0200, L101.9900, L501.9520, L501.37707, L509.6001, L100.0100, L503.0106, L503.6550, L501.6710 #### [facility] [address] [place], [place], [address] Creatinine [Mass/Vol] 0.62 mg/dL Low 0.70-1.20 [facility] Comment on above: Performed By: #### L 500.4050, L506.0400, L509.3001, L506.1001, L503.6030, L3300.1750, L506.0200, L101.9900, L501.9520, L501.95554, L509.6001, L100.0100, L503.0106, L503.6550, L501.6710 #### [facility] [address] [place], [place], [id number] GAP 12 Normal 5-15 [facility] Comment on above: Performed By: #### L 500.4050, L506.0400, L509.3001, L506.1001, L503.6030, L3300.1750, L506.0200, L101.9900, L501.9520, L501.54387, L509.6001, L100.0100, L503.0106, L503.6550, L501.6710 #### [facility] [address] [place], [place], [id number] GFR/1.73 sq M.predicted among non-blacks MDRD (S/P/Bld) [Vol rate/Area] 111 mL/min/{1.73_m2} Normal >60 [facility] Comment on above: Result Comment: mL/m in/1.73m2 CKD-EPI Creatinine Equation (2020) Performed By: #### L 500.4050, L506.0400, L509.3001, L506.1001, L503.6030, L3300.1750, L506.0200, L101.9900, L501.9520, L501.28114, L509.6001, L100.0100, L503.0106, L503.6550, L501.6710 #### [facility] [address] [place], [address] Globulin (S) [Mass/Vol] 3.2 g/dL Normal 2.2-4.2 [facility] Comment on above: Performed By: #### L 500.4050, L506.0400, L509.3001, L506.1001, L503.6030, L3300.1750, L506.0200, L101.9900, L501.9520, L501.95768, L509.6001, L100.0100, L503.0106, L503.6550, L501.6710 #### [facility] [address] [place], [address] Glucose [Mass/Vol] 91 mg/dL Normal 70-99 [facility] Comment on above: Performed By: #### L 500.4050, L506.0400, L509.3001, L506.1001, L503.6030, L3300.1750, L506.0200, L101.9900, L501.9520, L501.39586, L509.6001, L100.0100, L503.0106, L503.6550, L501.6710 #### [facility] [address] [place], [address] Potassium [Moles/Vol] 3.7 mmol/L Normal 3.3-5.1 [facility] Comment on above: Performed By: #### L 500.4050, L506.0400, L509.3001, L506.1001, L503.6030, L3300.1750, L506.0200, L101.9900, L501.9520, L501.03540, L509.6001, L100.0100, L503.0106, L503.6550, L501.6710 #### [facility] [address] [place], [address] Sodium [Moles/Vol] 138 mmol/L Normal 133-145 [facility] Comment on above: Performed By: #### L 500.4050, L506.0400, L509.3001, L506.1001, L503.6030, L3300.1750, L506.0200, L101.9900, L501.9520, L501.24369, L509.6001, L100.0100, L503.0106, L503.6550, L501.6710 #### [facility] [address] [place], [place], [id number] T PROT 7.2 g/dL Normal 5.9-8.4 [facility] Comment on above: Performed By: #### L 500.4050, L506.0400, L509.3001, L506.1001, L503.6030, L3300.1750, L506.0200, L101.9900, L501.9520, L501.46274, L509.6001, L100.0100, L503.0106, L503.6550, L501.6710 #### [facility] [address] [place], [address] Urea nitrogen [Mass/Vol] 18 mg/dL Normal 4-19 [facility] Comment on above: Performed By: #### L 500.4050, L506.0400, L509.3001, L506.1001, L503.6030, L3300.1750, L506.0200, L101.9900, L501.9520, L501.67260, L509.6001, L100.0100, L503.0106, L503.6550, L501.6710 #### [facility] [address] [facility] [place], [place], [id number] Erythrocyte Sed Rateon 05-08 SED RATE 25 mm/hr Normal 0-30 [facility] Comment on above: Performed By: #### L 500.4050, L506.0400, L509.3001, L506.1001, L503.6030, L3300.1750, L506.0200, L101.9900, L501.9520, L501.07881, L509.6001, L100.0100, L503.0106, L503.6550, L501.6710 #### [facility] [address] [place], [address] Estradiolon 05-08-2025 ESTRADIOL 45.2 pg/mL Normal [facility] Comment on above: Result Comment: FEMA LES [...] L509.3001, L506.1001, L503.6030, L3300.1750, L506.0200, L101.9900, L501.9520, L501.70189, L509.6001, L100.0100, L503.0106, L503.6550, L501.6710 #### [facility] [address] [place], [address] Ferritinon 05-08-2025 Ferritin [Mass/Vol] 172 ng/mL Normal 22-378 [facility] Comment on above: Performed By: #### L 500.4050, L506.0400, L509.3001, L506.1001, L503.6030, L3300.1750, L506.0200, L101.9900, L501.9520, L501.16320, L509.6001, L100.0100, L503.0106, L503.6550, L501.6710 #### [facility] [address] [place], [place], [id number] Folates,Serum (Folic Acid)on 05-08-2025 FOLATES,SERUM 25.20 ng/mL Normal 4.60-34.80 [facility] Comment on above: Order Comment: N Result Comment: Hemo lysis, Results will be affected, Requires Recollection. Performed By: #### L 500.4050, L506.0400, L509.3001, L506.1001, L503.6030, L3300.1750, L506.0200, L101.9900, L501.9520, L501.77499, L509.6001, L100.0100, L503.0106, L503.6550, L501.6710 #### [facility] [address] [place], [place], [id number] (032) Free T3on 05-08-2025 Free T3 [Mass/Vol] 3.2 pg/mL Normal 2.18-3.98 [facility] Comment on above: Performed By: #### L 500.4050, L506.0400, L509.3001, L506.1001, L503.6030, L3300.1750, L506.0200, L101.9900, L501.9520, L501.13931, L509.6001, L100.0100, L503.0106, L503.6550, L501.6710 #### [facility] [address] [place], [place], [id number] Iron+Iron Binding Capacityon 05-08-2025 Iron [Mass/Vol] 92 ug/dL Normal 50-170 [facility] Comment on above: Performed By: #### L 500.4050, L506.0400, L509.3001, L506.1001, L503.6030, L3300.1750, L506.0200, L101.9900, L501.9520, L501.99547, L509.6001, L100.0100, L503.0106, L503.6550, L501.6710 #### [facility] [address] [place], [address] IRON SATURATION 24.5 Normal 13-59 [facility] Comment on above: Performed By: #### L 500.4050, L506.0400, L509.3001, L506.1001, L503.6030, L3300.1750, L506.0200, L101.9900, L501.9520, L501.68483, L509.6001, L100.0100, L503.0106, L503.6550, L501.6710 #### [facility] [address] [place], [place], [id number] (772) TIBC 375 ug/dL Normal 250-450 [facility] Comment on above: Performed By: #### L 500.4050, L506.0400, L509.3001, L506.1001, L503.6030, L3300.1750, L506.0200, L101.9900, L501.9520, L501.08928, L509.6001, L100.0100, L503.0106, L503.6550, L501.6710 #### [facility] [address] [place], [place], [id number] (428) UIBC 283 ug/dL Normal 228-428 [facility] Comment on above: Performed By: #### L 500.4050, L506.0400, L509.3001, L506.1001, L503.6030, L3300.1750, L506.0200, L101.9900, L501.9520, L501.71549, L509.6001, L100.0100, L503.0106, L503.6550, L501.6710 #### [facility] [address] [place], [address] L509.3001on 05-08-2025 Testosterone [Mass/Vol] ng/dL Low 9-[address] [facility] Comment on above: Performed By: #### L 500.4050, L506.0400, L509.3001, L506.1001, L503.6030, L3300.1750, L506.0200, L101.9900, L501.9520, L501.94522, L509.6001, L100.0100, L503.0106, L503.6550, L501.6710 #### [facility] [address] [facility] [place], [address] L509.6001on 05-08-2025 CORTISOL < 0.11 Low 6.02-18.40 [facility] Comment on above: Performed By: #### L 500.4050, L506.0400, L509.3001, L506.1001, L503.6030, L3300.1750, L506.0200, L101.9900, L501.9520, L501.77408, L509.6001, L100.0100, L503.0106, L503.6550, L501.6710 #### [facility] [address] [place], [address] T4 Free Directon 05-08-2025 T4 FREE DIRECT 1.40 ng/dL Normal 0.76-1.46 [facility] Comment on above: Performed By: #### L 500.4050, L506.0400, L509.3001, L506.1001, L503.6030, L3300.1750, L506.0200, L101.9900, L501.9520, L501.15983, L509.6001, L100.0100, L503.0106, L503.6550, L501.6710 #### [facility] [address] [place], [place], [id number] Thyroid Stim Hormone (TSH)on 05-08-2025 TSH 5.860 uIU/mL High 0.300-4.200 [facility] Comment on above: Performed By: #### L 500.4050, L506.0400, L509.3001, L506.1001, L503.6030, L3300.1750, L506.0200, L101.9900, L501.9520, L501.04683, L509.6001, L100.0100, L503.0106, L503.6550, L501.6710 #### [facility] [address], [place], [id number] Vitamin B12on 05-08-2025 Cobalamin (Vitamin B12) [Mass/Vol] 657 pg/mL Normal 180-914 [facility] Comment on above: Performed By: #### L 500.4050, L506.0400, L509.3001, L506.1001, L503.6030, L3300.1750, L506.0200, L101.9900, L501.9520, L501.62066, L509.6001, L100.0100, L503.0106, L503.6550, L501.6710 #### [facility] [address], [place], [id number] Vitamin D,25 Hydroxyon 05-08 Vitamin D 25-OH 48.9 ng/mL Normal 30-100 [facility] Comment on above: Result Comment: Lidia min D Status Deficiency: <20 ng/mL (50nmol/L) Insufficiency: 20-30 ng/mL (50-75 nmol/L) Sufficiency: 30-100 ng/mL (75-250 nmol/L) Toxicity: >100 ng/mL (>250 nmol/L) Performed By: #### L 500.4050, L506.0400, L509.3001, L506.1001, L503.6030, L3300.1750, L506.0200, L101.9900, L501.9520, L501.35100, L509.6001, L100.0100, L503.0106, L503.6550, L501.6710 #### [facility] [address] [place], [address] Breast imaging reportOrdered By: Peyton Carlson on 09-23-2024 Study report [facility] Imaging Services [address] [place] [address] SCRN MAMM (CAD)W/NETTE BILAT MR#: [id number] Acct: [id number] Name: BRIGETTE GERMAN NANCY Rep #: [id number] : 1980 F 44 From: Renita Carlson MD PCP: Dr. Jessica Ni MD Status: REG CL I Study:SCRN MAMM (CAD)W/NETTE BILAT Date of Exa m: 09/23/24 Exam# [id number] Ordering Dr: Leah Cuellar NP RIDE OPERATOR-C PROCEDURE: SCRN MAMM (CAD)W/NETTE BILAT REASON FOR [...] of the results by letter. Reading Location: [facility] CC: RIDE OPERATOR-C Leah Cuellar; Dr. Jessica Ni MD ~ Tar Processing Technician: Signed [facility] SCRN MAMM (CAD)W/NETTE BILATo n 09-23-2024 SCRN MAMM (CAD)W/NETTE BILAT [facility] Imaging Services [address] [place] [address] SCRN MAMM (CAD)W/NETTE BILAT MR#: [id number] Acct: [id number] Name: BRIGETTE GERMAN NANCY Rep #: [id number] : 1980 F 44 From: Peyton Carlson MD PCP: Dr. Jessica Ni MD Status: REG CLI Study: SCRN MAMM (CAD)W/NETTE BILAT Date of Exam: 08/28 03/20 Exam# [id number] Ordering Dr: Leah Cuellar NP RIDE OPERATOR -C PROCEDURE: SCRN MAMM (CAD)W/NETTE BILAT REASON [...] of the results by letter. Reading Location: [id number] CC: RIDE OPERATORJuan Cuellar; Dr. Jessica Ni MD Tar Processing Technician: Signed Normal [facility] PAP IG HPV APTIMA 16/18,45on 09-13-2024 ADEQ Comment Normal . [facility] Comment on above: Order Comment: Speci men Comment: [id number] Comment: Source.............CervixSpecimen Comment: No. of containers..01 ThinPrep Vial Result Comment: Sati sfactory for evaluation. No endocervical component is identified. Performed By: #### L 500.4050, L506.0400, L509.3001, L506.1001, L503.6030, L3300.1750, L506.0200, L101.9900, L501.9520, L501.23725, L509.6001, L100.0100, L503.0106, L503.6550, L501.6710 #### [facility] [address] [place], [place], [address] COMM . Normal . [facility] Comment on above: Order Comment: Speci men Comment: [id number] Comment: Source.............CervixSpecimen Comment: No. of containers..01 ThinPrep Vial Performed By: #### L 500.4050, L506.0400, L509.3001, L506.1001, L503.6030, L3300.1750, L506.0200, L101.9900, L501.9520, L501.80121, L509.6001, L100.0100, L503.0106, L503.6550, L501.6710 #### [facility] [address] [place], [address] COMMENT Comment Normal . [facility] Comment on above: Order Comment: Speci men Comment: [id number] Comment: Source.............CervixSpecimen Comment: No. of containers..01 ThinPrep Vial Result Comment: This liquid based ThinPrep(R) pap test was screened with the use of an image guided system. Performed By: #### L 500.4050, L506.0400, L509.3001, L506.1001, L503.6030, L3300.1750, L506.0200, L101.9900, L501.9520, L501.21038, L509.6001, L100.0100, L503.0106, L503.6550, L501.6710 #### [facility] [address] [place], [place], [address] DIAG Comment Normal . [facility] Comment on above: Order Comment: Speci men Comment: [id number] Comment: Source.............CervixSpecimen Comment: No. of containers..01 ThinPrep Vial Result Comment: NEGA TIVE FOR INTRAEPITHELIAL LESION OR MALIGNANCY. Performed By: #### L 500.4050, L506.0400, L509.3001, L506.1001, L503.6030, L3300.1750, L506.0200, L101.9900, L501.9520, L501.18772, L509.6001, L100.0100, L503.0106, L503.6550, L501.6710 #### [facility] [address] [place], [address] HPV APTIMA, HR Negative Normal Negative [facility] Comment on above: Order Comment: Speci men Comment: [id number] Comment: Source.............CervixSpecimen Comment: No. of containers..01 ThinPrep Vial Result Comment: This nucleic acid amplification test detects fourteen high- risk HPV types (16,18,31,33,35,39,45,51,52,56,58,59,66,68) without differentiation. Performed By: #### L 500.4050, L506.0400, L509.3001, L506.1001, L503.6030, L3300.1750, L506.0200, L101.9900, L501.9520, L501.09664, L509.6001, L100.0100, L503.0106, L503.6550, L501.6710 #### [facility] [address] [place], [place], [address] HPV Abbey Rfx Comment Normal . [facility] Comment on above: Order Comment: Speci men Comment: [id number] Comment: Source.............CervixSpecimen Comment: No. of containers..01 ThinPrep Vial Result Comment: Crit ertahir not met, HPV Genotype not performed. Performed at: - [facility] [id number] Animal Handler: Lauren Valle MD, Phone: [phone] Performed at: = - [facility] [address] [id number] Animal Handler: Lauren Valle MD, Phone: [phone] Performed By: #### L 500.4050, L506.0400, L509.3001, L506.1001, L503.6030, L3300.1750, L506.0200, L101.9900, L501.9520, L501.97496, L509.6001, L100.0100, L503.0106, L503.6550, L501.6710 #### [facility] [address] [place], [address] PAPSMR Comment Normal . [facility] Comment on above: Order Comment: Speci men Comment: [id number] Comment: Source.............CervixSpecimen Comment: No. of containers..01 ThinPrep [...] L509.3001, L506.1001, L503.6030, L3300.1750, L506.0200, L101.9900, L501.9520, L501.82924, L509.6001, L100.0100, L503.0106, L503.6550, L501.6710 #### [facility] [address] [place], [address] PERFORM Comment Normal . [facility] Comment on above: Order Comment: Speci men Comment: [id number] Comment: Source.............CervixSpecimen Comment: No. of containers..01 ThinPrep Vial Result Comment: Brian Hair Perinatal Nurse (ASCP) Performed By: #### L 500.4050, L506.0400, L509.3001, L506.1001, L503.6030, L3300.1750, L506.0200, L101.9900, L501.9520, L501.42748, L509.6001, L100.0100, L503.0106, L503.6550, L501.6710 #### [facility] [address] [place], [place], [address] Fuselage Framer Cyto stain Nom (C vx/Vag) [ID]Ordered By: Leah Cuellar on 09-08-2024 Pap Smear Performed By Comment . [facility] Comment on above: Brian Hair Cytote chnologist (ASCP) Cytology report Cyto stain D oc (Cvx/Vag)Ordered By: Leah Cuellar on 09-08-2024 Thin Prep Pap Smear Comment . [facility] Comment on above: The Pap smear is [...] 09-08-2024 HPV Genotype Special Info Comment . [facility] Comment on above: Criteria not met, HP V Genotype not performed.Performed at: WB - [facility] [address] [id number] Director: Lauren Valle MD, Phone: [phone] at: =G - [facility] [address] [place], [place] [id number] Director: Lauren Valle MD, Phone: [phone] HPV 16+18+31+33+35+39+45+51+ 52+56+58+59+66+68 DNA Probe+sig amp Ql (Cvx)Ordered By: Leah Cuellar on 09-08-2024 Human Papillomavirus High Risk Negative Negative [facility] Comment on above: This nucleic acid am plification test detects fourteen high-risk HPV types (16,18,31,33,35,39,45,51,52,56,58,59,66,68)without differentiation. Image-guided ThinPrep PapOrd ered By: Leah Cuellar on 09-08-2024 Pap Smear Note Comment . [facility] Comment on above: This liquid based Th inPrep(R) pap test was screened withthe use of an image guided system. Image-guided liquid-based Pa pOrdered By: Leah Cuellar on 09-08-2024 Pap Smear Diagnosis Comment . [facility] Comment on above: NEGATIVE FOR INTRAEP ITHELIAL LESION OR MALIGNANCY. Radio Repair Teacher Office Visit Reporton 09-08-2024 Radio Repair Teacher Office Visit Report [facility] [address], [address] [place] [address] OFFICE VISIT Date of Service: 09/08/24 MR#: [id number] Acct: [id number] Name: BRIGETTE GERMAN NANCY Rep #: [id number] : 1980 Provider: SARAHY cunningham Age/Sex: 44/F Location: 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 [facility] Medical History Tear of medial meniscus [...] Yes additional social history: [employer] Works at [employer] History 2 Elective abortions Hx Para 2 [...] oriented to person and oriented to place HENMS Head: normal to inspection Neck Neck: normal [...] appearance o (more content not included)... Normal [facility] Service comment (Unsp spec) [Interp]Ordered By: Leah Cuellar on 09-08-2024 Pap Smear Comment (3) . . [facility] Office Visit (UCWSTR) BRIGETTE GERMAN ([id number]) 1980 F Date Time Provider Department 12/10/23 8:15 AM VERONICA MINOR [facility] During your visit today, we recorded the following information about you: Temperature Pulse Respiration Blood pressure 97 degrees 65/minute 18/minute 118/85 Weight 120 kg Veronica Minor APRN.CNP 12/10/2023 9:03 AM Signed This note was created using Epicsellriter. Subjective Brigette German is a 43 year [...] the patient. No high school foreign language tutor was used. Pain (foot) Pain location: right [...] small sessile polyp a 30cm IUD INSERTION (MARKETING SYSTEMS ANALYST DEPT)_*[place] 2002 Mirena IUD INSERTION (MARKETING SYSTEMS ANALYST DEPT)_*FL 07/04/2008 Mirena TONSILLECTOMY AND ADENOIDECTOMY age 7 ALLERGIES Bacitracin, Bees, and [employer] Juice MEDICATIONS SUMAtriptan (IMITREX) 25 mg tablet [...] 98% B (more content not included)... Normal [facility] COLONOSCOPY SCREENINGon 02-25 [place] [facility] Name: Brigette German Procedure [...] the patient. Procedure Code(s): --- Professional --- 48973, Colonoscopy, flexible; diagnostic, including collection of specimen(s) by brushing or washing, when performed (separate procedure) G0500, Moderate sedation services provided by the same physician or other qualified health child caregiver private home performing a gastrointestinal endoscopic service that sedation supports, requiring the presence of an independent trained observer to assist in the monitoring of the patient's level of consciousness and physiological status; initial 15 minutes of intra-service time; patient age 5 years or older (additional time may be reported with 53683, as appropriate) CPT copyright 2020 [employer]. All rights reserved. The codes documented in this report are preliminary and upon medical billing coder review may be revised to meet current compliance requirements. Attending Participation: I was present and participated during the entire procedure, including non-peterson portions, and during the administration and monitoring of Moderate Sedation. Scope In: 9:01:37 AM Scope Out: 9:14 (more content not included)... Normal [facility] HISTORY PHYSICALon HISTORY PHYSICAL HNO ID: [id number] Author: Kay Mariee MD Service: General Surgery [...] small sessile polyp a 30cm IUD INSERTION (MARKETING SYSTEMS ANALYST DEPT)_*FL 2002 Mirena IUD INSERTION (MARKETING SYSTEMS ANALYST DEPT)_*FL 07/04/2008 Mirena TONSILLECTOMY AND ADENOIDECTOMY age 7 CURRENT MEDICATIONS Current Outpatient Medications Medication Sig SUMAtriptan (IMITREX) 25 mg tablet Take 25 mg by mouth as needed for migraine headache (see administration instructions). rOPINIRole (REQUIP) 0.5 mg tablet Take 0.5 mg by mouth as needed (restless leg). No current facility-administere d medications for this visit. ALLERGIES: Bacitracin, Bees, Caterpillars [Other], and [employer] Juice PERSONAL HISTORY: SOCIAL HISTORY Social History [...] history of (more content not included)... Normal [facility] NURSING PROGon 03-24-2023 NURSING PROG HNO ID: [id number] Author: April Bedoya RN Service: ? Author [...] procedure and recommendations. April Bedoya RN Normal [facility] CNOVon 01-23-2023 CNOV Office Visit (CLAUDINES) BRIGETTE GERMAN ([id number]) 1980 F Date Time Provider Department 01/23/23 [...] small sessile polyp a 30cm IUD INSERTION (MARKETING SYSTEMS ANALYST DEPT)_*FL 2002 Mirena IUD INSERTION (MARKETING SYSTEMS ANALYST DEPT)_*FL 07/04/2008 Mirena TONSILLECTOMY AND ADENOIDECTOMY age 7 Current Outpatient Medications Medication Sig SUMAtriptan (IMITREX) 25 mg tablet Take 25 mg by mouth as needed for migraine headache (see administration instructions). rOPINIRole (REQUIP) 0.5 mg tablet Take 0.5 mg by mouth as needed (restless leg). No current facility-administere d medications for this visit. ALLERGIES: Bacitracin, Bees, Caterpillars [Other], and [employer] Juice PERSONAL HISTORY: Social History Tobacco Use Smoking status: Former Packs/day: 0.50 Years: 11.00 Pack years: 5.50 Types: Cigarettes Smokeless tobacco: Never Substance Use Topics Alcohol use: Yes Comment: Occasionally Drug use: No FAMILY HISTORY: FAMILY HISTORY Problem Relation Age o (more content not included)... Normal [facility] Basophil percentageOrdered B y: Onofre Starks on 01-19-2023 Basophil percentage 0-5 SEEN /hpf 0-5 [facility] Bilirubin Test strip Ql (U)O rdered By: Onofre Starks on 01-19-2023 Bilirubin Ql (U) Negative Negative [facility] Culture, urineOrdered By: St reyna Starks on 01-19-2023 Bacteria identified Cx Nom (U) Mixed Gram Pos & Gram Neg Org [facility] Ketones Test strip Ql (U)Ord ered By: Onofre Starks on 01-19-2023 Ketones Ql (U) Negative Negative [facility] - Chemistry and C hemistry - challengeOrdered By: Onofre Starks on 01-19-2023 HCG ( test) Ql (U) Negative [facility] Comment on above: Very dilute urine sp ecimens, as indicated by a low specificgravity, may not contain sales promotion representative levels of hCG. If is still suspected, a first morning urinespecimen should be collected 48 hours later and tested. Mucus LM Ql (Urine sed)Order ed By: Onofre Starks on 01-19-2023 Mucus Ql (Urine sed) 0 SEEN /hpf [facility] Nitrite Test strip Ql (U)Ord ered By: Onofre Starks on 01-19-2023 Nitrite Ql (U) Negative Negative [facility] Protein Test strip Ql (U)Ord ered By: Onofre Starks on 01-19-2023 Protein Ql (U) 15 mg/dl Negative [facility] Squamous epithelial cells de tection in urine sediment by light microscopyOrdered By: Onofre Starks on 01-19-2023 Epithelial cells.squamous LM Ql (Urine sed) 0-5 SEEN /hpf 5-10 [facility] Urine blood detectionOrdered By: Onofre Starks on 01-19-2023 RBC Ql (U) 50 /ul Negative [facility] RBC Ql (U) 0-5 SEEN /hpf 0-5 [facility] Urine clarityOrdered By: Jose A Starks on 01-19-2023 Clarity (U) Clear Clear [facility] Urine color determinationOrd ered By: Onofre Starks on 06-26-2023 Color (U) Yellow Yellow [facility] Urine glucose detectionOrder ed By: Onofre Starks on 01-19-2023 Glucose Ql (U) Normal mg/dl Normal [facility] Urine leukocyte esterase det ection by dipstickOrdered By: Onofre Starks on 01-19-2023 Leukocyte esterase Test strip Ql (U) 100 /ul Negative [facility] Urine pHOrdered By: Onofre rhoades on 01-19-2023 pH (U) 5.0 [pH] 5.0 - 8.0 [facility] Urine sediment bacteria coun t by microscopy (number/high power field)Ordered By: Onofre Starks on 01-19-2023 Bacteria LM.HPF (Urine sed) [#/Area] 1 /[HPF] None Seen [facility] Urine specific gravity measu rementOrdered By: Onofre Starks on 01-19-2023 Specific gravity (U) [Rel density] 1.025 1.002-1.030 [facility] Urobilinogen Auto test strip Ql (U)Ordered By: Onofre Starks on 01-19-2023 Urobilinogen Ql (U) Normal mg/dl Normal [facility] Absolute lymphocyte countOrd ered By: Herberth Merino on 01-15-2023 Lymphocytes Auto (Unsp spec) [#/Vol] 2.31 10*3/uL 0.83-4.51 [facility] Basophil percentageOrdered B y: Herberth Merino on 01-15-2023 Basophils/100 WBC (Bld) 0.5 % 0-1 [facility] Bilirubin [Mass/Vol] 0.30 mg/dL 0.20-1.00 [facility] Comment on above: For patients on eltr ombopag therapy, use of Dimension [place] TBIL is not recommended. Chloride [Moles/Vol] 111 mmol/L 98-107 [facility] Eosinophils/100 WBC (Bld) 2.9 % 0-5 [facility] Glucose [Mass/Vol] 93 mg/dL 74-106 [facility] Neutrophils (Bld) [#/Vol] 7.5 10*3/uL 2.0-7.7 [facility] Neutrophils/100 WBC (Bld) 67.8 % 47-70 [facility] Potassium [Moles/Vol] 4.2 mmol/L 3.5-5.1 [facility] Comment on above: Slight Hemolysis, Re sult may be falsely increased. Protein [Mass/Vol] 6.8 g/dL 6.4-8.2 [facility] Sodium [Moles/Vol] 139 mmol/L 136-145 [facility] WBC (Bld) [#/Vol] 11.1 10*3/uL 4.4-11.0 [facility] Blood erythrocytes count (nu mber/volume)Ordered By: Herberth Merino on 01-15-2023 RBC (Bld) [#/Vol] 4.69 10*6/uL 4.2-5.4 [facility] Blood hemoglobin measurement (mass/volume)Ordered By: Herberth Merino on 01-15-2023 Hemoglobin (Bld) [Mass/Vol] 13.7 g/dL 12.0-15.0 [facility] Blood lymphocytes/100 leukoc ytesOrdered By: Herberth Merino on 01-15-2023 Lymphocytes/100 WBC (Bld) 20.8 % 19-41 [facility] Blood monocytes/100 leukocyt esOrdered By: Herberth Merino on 01-15-2023 Monocytes/100 WBC (Bld) 7.6 % 0-[address] [facility] Blood platelet mean volumeOr dered By: Herberth Merino on 01-15-2023 Platelet mean volume (Bld) [Entitic vol] 9.8 fL 6.2-12.0 [facility] Determination of erythrocyte mean corpuscular volume (MCV)Ordered By: Herberth Merino on 01-15-2023 MCV (RBC) [Entitic vol] 90.2 fL 81-[address] [facility] Hematocrit Auto (Bld) [Volum e fraction]Ordered By: Herberth Merino on 01-15-2023 Hematocrit (Bld) [Volume fraction] 42.3 % 37-47 [facility] - Chemistry and C hemistry - challengeOrdered By: Herberth Merino on 01-15-2023 ALP [Catalytic activity/Vol] 64 U/L 45-117 [facility] ALT [Catalytic activity/Vol] 24 U/L 13-56 [facility] CO2 [Moles/Vol] 24.0 mmol/L 21.0-32.0 [facility] Cobalamin (Vitamin B12) [Mass/Vol] 309 pg/mL 211-911 [facility] Globulin (S) [Mass/Vol] 3.4 g/dL 2.2-4.[address] [facility] Magnesium [Mass/Vol] 2.2 mg/dL 1.6-2.6 [facility] Comment on above: Slight Hemolysis, Re sult may be falsely increased. Urea nitrogen/Creatinine [Mass ratio] 38.0 mg/mg 10-20 [facility] - Hematology and Cell countsOrdered By: Herberth Merino on 01-15-2023 Erythrocyte distribution width (RBC) [Entitic vol] 42.5 fL 35.1-43.9 [facility] Erythrocyte distribution width (RBC) [Ratio] 12.9 % 11.6-14.6 [facility] Immature granulocytes/100 WBC (Bld) 0.400 % 0.0-0.9 [facility] Comment on above: IG% - Immature Granu locytes (promyelocytes, myelocytes and metamyelocytes) > 1% indicates that a LEFT SHIFT is Present. MCH (RBC) [Entitic mass] 29.2 pg 27.0-32.0 [facility] Nucleated RBC/100 WBC (Bld) [Ratio] 0 % 0-5 [facility] MCHC Auto (RBC) [Mass/Vol]Or dered By: Herberth Merino on 01-15-2023 MCHC (RBC) [Mass/Vol] 32.4 g/dL 32-36 [facility] No Panel InformationOrdered By: Herberth Merino on 01-15-2023 Estimated GFR (MDRD) Amer 131 mL/min >60 [facility] Comment on above: GFR Calc Estimated GFR (MDRD) Non-Af Amer 108 mL/min >60 [facility] Comment on above: Non- GFR Calc Thyroid Stimulating Hormone (TSH) 1.75 uIU/mL 0.358-3.74 [facility] Vitamin D 25-Hydroxy 50.5 ng/mL [facility] Comment on above: Vitamin D 25(OH) Sta tus Range Deficiency <20 ng/mL (50nmol/L) Insufficiency 20 - 30 ng/mL (50 - 75 nmol/L) Sufficiency 30 - 100 ng/mL (75 - 250 nmol/L) Toxicity >100 ng/mL (>250 nmol/L) Platelets bldOrdered By: Robby Merino on 01-15-2023 Platelets (Bld) [#/Vol] 333 10*3/uL 150-450 [facility] Serum or plasma albumin marybeth urement (mass/volume)Ordered By: Herberth Merino on 01-15-2023 Albumin [Mass/Vol] 3.4 g/dL 3.2-5.0 [facility] Serum or plasma albumin/glob ulin mass ratioOrdered By: Herberth Merino on 01-15-2023 Albumin/Globulin [Mass ratio] 1.0 {ratio} 0.9-2.4 [facility] Serum or plasma calcium marybeth urement (mass/volume)Ordered By: Herberth Merino on 01-15-2023 Calcium [Mass/Vol] 9.0 mg/dL 8.5-10.1 [facility] Serum or plasma creatinine m easurement (mass/volume)Ordered By: Herberth Merino on 01-15-2023 Creatinine [Mass/Vol] 0.63 mg/dL 0.55-1.02 [facility] Comment on above: The validity of the calculated GFR & GFRAA in patients over 70 years has not been determined. Clinical correlation is essential. Serum or plasma ferritin alana surement (mass/volume)Ordered By: Herberth Merino on 01-15-2023 Ferritin [Mass/Vol] 153 ng/mL 8252 [facility] Serum or plasma urea nitroge n measurement (mass/volume)Ordered By: Herberth Merino on 01-15-2023 Urea nitrogen [Mass/Vol] 24 mg/dL 7-18 [facility] Thin prep Papanicolaou smear with manual screeningOrdered By: Herberth Merino on 01-15-2023 Thin prep Papanicolaou smear with manual screening 13 U/L 15-37 [facility] Comment on above: Slight Hemolysis, Re sult may be falsely increased. Thin prep Papanicolaou smear with manual screening 4 5-15 [facility] Vital Signs Date Time Vital Sign Value Performing Clinician Jenifer alexis 09-08-2024 14:45-0500 Body height 162.56 cm Herberth Merino DO Work Phone: [facility] 09-08-2024 14:39-0500 Body mass index (BMI) [Ratio] 46.3 kg/m2 Herberth Tiradoer DO Work Phone: [facility] [facility] 09-08-2024 14:39-0500 Body weight 122.58 kg Herberth Tiradoer DO Work Phone: [facility] 09-08-2024 14:39-0500 Diastolic blood pressure 72 mm[Hg] Herberth Tiradoer DO Work Phone: [facility] 09-08-2024 14:39-0500 Systolic blood pressure 128 mm[Hg] Herberth Tiradoer DO Work Phone: [facility] 12-10-2023 08:24-0400 Body mass index (BMI) [Ratio] 45.41 kg/m2 Veronica Minor KNIFE SETTER.HOOP FLARING MACHINE OPERATOR HELPER Work Phone: [place] 12-10-2023 08:24-0400 Body temperature 97 [degF] Veronica Minor KNIFE SETTER.HOOP FLARING MACHINE OPERATOR HELPER Work Phone: [place] 12-10-2023 08:24-0400 Body weight 120 kg Veronica Minor KNIFE SETTER.HOOP FLARING MACHINE OPERATOR HELPER Work Phone: [place] 12-10-2023 08:24-0400 Diastolic blood pressure 85 mm[Hg] Veronica Minor KNIFE SETTER.HOOP FLARING MACHINE OPERATOR HELPER Work Phone: [place] 12-10-2023 08:24-0400 Heart rate 65 /min Veronica Minor KNIFE SETTER.HOOP FLARING MACHINE OPERATOR HELPER Work Phone: [place] 12-10-2023 08:24-0400 Respiratory rate 18 /min Veronica Minor KNIFE SETTER.HOOP FLARING MACHINE OPERATOR HELPER Work Phone: [place] 12-10-2023 08:24-0400 SaO2% (BldA) [Mass fraction] 98 % Veronica Minor KNIFE SETTER.HOOP FLARING MACHINE OPERATOR HELPER Work Phone: [place] 12-10-2023 08:24-0400 Systolic blood pressure 118 mm[Hg] Veronica Minor KNIFE SETTER.HOOP FLARING MACHINE OPERATOR HELPER Work Phone: [place] 08-03-2023 16:09-0500 Body height 162.[address] Navas [facility] 07-27-2023 08:51-0500 Body height 162.[address] Navas [facility] 07-27-2023 08:51-0500 Body mass index (BMI) [Ratio] 43.7 kg/m2 Dr. Navas [facility] 07-27-2023 08:51-0500 Body temperature 98.2 [degF] Dr. Navas [facility] 07-27-2023 08:51-0500 Body weight 115.[address] Navas [facility] 07-27-2023 08:51-0500 Diastolic blood pressure 105 mm[Hg] Dr. Navas [facility] 07-27-2023 08:51-0500 Heart rate 68 /min Dr. Navas [facility] 07-27-2023 08:51-0500 Respiratory rate 14 /min Dr. Navas [facility] 07-27-2023 08:51-0500 SaO2% (BldA) [Mass fraction] 98 % Dr. Navas [facility] 07-27-2023 08:51-0500 Systolic blood pressure 183 mm[Hg] Dr. Navas [facility] 07-09-2023 15:44-0500 Body mass index (BMI) [Ratio] 45.3 kg/m2 Dr. Navas [facility] 07-09-2023 15:44-0500 Body weight 119.[address] Navas [facility] 07-09-2023 15:44-0500 Diastolic blood pressure 72 mm[Hg] Dr. Navas [facility] 07-09-2023 15:44-0500 Systolic blood pressure 130 mm[Hg] Dr. Navsa [facility] 03-24-2023 09:50-0400 Diastolic blood pressure 62 mm[Hg] Kay Mariee MD Work Phone: [place] 03-24-2023 09:50-0400 Heart rate 64 /min Kay Mariee MD Work Phone: [place] 03-24-2023 09:50-0400 Respiratory rate 16 /min Kay Mariee MD Work Phone: [place] 03-24-2023 09:50-0400 SaO2% (BldA) [Mass fraction] 97 % Kay Mariee MD Work Phone: [place] 03-24-2023 09:50-0400 Systolic blood pressure 117 mm[Hg] Kay Mariee MD Work Phone: [place] 03-24-2023 07:42-0400 Body temperature 97.9 [degF] Kay Mariee MD Work Phone: [place] 03-24-2023 07:42-0400 Body weight 112 kg Kay Mariee MD Work Phone: [place] 01-23-2023 09:35-0400 Body height 162.6 cm Kathia Lilly PA-C Work Phone: [place] 01-23-2023 09:35-0400 Body temperature 97.5 [degF] Kathia Lilly PA-C Work Phone: [place] 01-23-2023 09:35-0400 Body weight 112.04 kg Kathia Lilly PA-C Work Phone: [place] 01-23-2023 09:35-0400 Diastolic blood pressure 74 mm[Hg] Kathia Aventura PA-C Work Phone: [place] 01-23-2023 09:35-0400 Heart rate 103 /min Kathia Lilly PA-C Work Phone: [place] 01-23-2023 09:35-0400 SaO2% (BldA) [Mass fraction] 96 % Akthia Aventura PA-C Work Phone: [place] 01-23-2023 09:35-0400 Systolic blood pressure 118 mm[Hg] Kathia PA-C Work Phone: [place] 01-19-2023 16:52-0400 Body height 162.[address] Yosef Ochoa Work Phone: [facility] 01-19-2023 16:52-0400 Body mass index (BMI) [Ratio] 42 kg/m2 Dr. Yosef Ochoa Work Phone: [facility] 01-19-2023 16:52-0400 Body temperature 98.6 [degF] Dr. Yosef Ochoa Work Phone: [facility] 01-19-2023 16:52-0400 Body weight 111.[address] Yosef Ochoa Work Phone: [facility] 01-19-2023 16:52-0400 Diastolic blood pressure 96 mm[Hg] Dr. Yosef Ochoa Work Phone: [facility] 01-19-2023 16:52-0400 Heart rate 84 /min Dr. Yosef Ochoa Work Phone: [facility] 01-19-2023 16:52-0400 Respiratory rate 16 /min Dr. Yosef Ochoa Work Phone: [facility] 01-19-2023 16:52-0400 SaO2% (BldA) [Mass fraction] 97 % Dr. Yosef Ochoa Work Phone: [facility] 01-19-2023 16:52-0400 Systolic blood pressure 138 mm[Hg] Dr. Yosef Ochoa Work Phone: [facility] 12-15-2022 08:04-0400 Body height 160.[address] Yosef Ochoa Work Phone: [facility] 12-15-2022 08:04-0400 Body mass index (BMI) [Ratio] 44.2 kg/m2 Dr. Yosef Ochoa Work Phone: [facility] 12-15-2022 08:04-0400 Body weight 113.[address] Yosef Ochoa Work Phone: [facility] 12-04-2022 10:29-0400 Body mass index (BMI) [Ratio] 44.1 kg/m2 Dr. Yosef Ochoa Work Phone: [facility] 12-04-2022 10:29-0400 Body temperature 98.3 [degF] Dr. Yosef Ochoa Work Phone: [facility] 12-04-2022 10:29-0400 Body weight 113.[address] Yosef Ochoa Work Phone: [facility] 12-04-2022 10:29-0400 Diastolic blood pressure 78 mm[Hg] Dr. Yosef Ochoa Work Phone: [facility] 12-04-2022 10:29-0400 Heart rate 70 /min Dr. Yosef Ochoa Work Phone: [facility] 12-04-2022 10:29-0400 Respiratory rate 16 /min Dr. Yosef Ochoa Work Phone: [facility] 12-04-2022 10:29-0400 SaO2% (BldA) [Mass fraction] 98 % Dr. Yosef Ochoa Work Phone: [facility] 12-04-2022 10:29-0400 Systolic blood pressure 128 mm[Hg] Dr. Yosef Ochoa Work Phone: [facility] Encounters Encounter Date Encounter Type Care Provider Facility Start: 05-08-2025 ambulatory Jessica Ni Facility:[facility] Start: 09-23-2024 End: 09-23-2024 ambulatory Herberth Merino DO Work Phone: [facility] Work Phone: Start: 09-23-2024 End: 09-23-2024 Patient encounter procedure Leah WEATHERS -Outpatient Breast Imaging Work Phone: Start: 09-23-2024 End: 09-23-2024 ambulatory Chalon Raine Facility:[facility] Start: 09-08-2024 End: 09-08-2024 Patient encounter procedure Leah Cuellar RIDE OPERATOR-C -Laboratory, Specimen Work Phone: Start: 09-08-2024 Encounter for gynecological examination (general) (routine) without abnormal findings Leah Cuellar RIDE OPERATOR [facility] Start: 09-08-2024 End: 09-08-2024 Patient encounter procedure Leah Cuellar RIDE OPERATOR-C -[facility] Work Phone: Start: 09-08-2024 End: 09-08-2024 Patient encounter status Leah Cuellar RIDE OPERATOR-C [facility] Start: 09-08-2024 End: 09-08-2024 ambulatory Chalon Raine Facility:[facility] Start: 09-08-2024 End: 09-08-2024 ambulatory Leahmaxwell Nogueras RIDE OPERATOR Facility:[facility] Start: 12-10-2023 End: 12-10-2023 ambulatory CHALON RAINE Facility:[facility] Start: 12-10-2023 End: 12-10-2023 Patient encounter procedure Veronica Minor APRN.HOOP FLARING MACHINE OPERATOR HELPER Work Phone: [facility] Comment on above: Ingrown nail of grea t toe of right foot (Primary Dx) Start: 09-10-2023 End: 09-10-[address] Yosef Ochoa [facility] Work Phone: Start: 09-10-2023 End: 09-10-[address] Yosef Ochoa [facility]-Physical Therapy Work Phone: Start: 08-27-2023 End: 08-27-[address] Yosef Ochoa [facility] Work Phone: Start: 08-04-2023 End: 08-04-[address] Yosef Ochoa [facility] Work Phone: Start: 07-27-2023 End: 07-27-2023 Emergency department patient visit Dr. Yosef Ochoa [facility]-Emergency Department Work Phone: Start: 07-09-2023 End: 07-09-[address] Yosef Ochoa [facility] Work Phone: Start: 03-24-2023 End: 03-24-2023 ambulatory KAY MARIEE Facility:[facility] Start: 03-24-2023 End: 03-24-2023 Subsequent hospital visit by physician Kay Mariee MD Work Phone: Ambulatory Surgery Comment on above: Family history of co temo cancer [Z80.0] Start: 01-23-2023 End: 01-23-2023 ambulatory HERBERTH Markos MERINO Facility:[facility] Start: 01-23-2023 End: 01-23-2023 Patient encounter procedure Kathia Carr PA-C Work Phone: General Surgery Comment on above: Family history of co teom cancer (Primary Dx); Personal history of colonic polyps Start: 01-19-2023 End: 01-19-[address] Yosef Ochoa Work Phone: [facility] Work Phone: Start: 01-19-2023 End: 01-19-[address] Yosef Ochoa Work Phone: [facility]-Laboratory, Specimen Work Phone: Start: 01-19-2023 End: 01-19-[address] Yosef Ochoa Work Phone: [facility] Work Phone: Start: 01-15-2023 End: 01-15-[address] Yosef Ochoa Work Phone: [facility] Work Phone: Start: 01-15-2023 End: 01-15-[address] Yosef Ochoa Work Phone: [facility] Start: 01-02-2023 End: 01-02-[address] Yosef Ochoa Work Phone: [facility]-Physical Therapy Start: 12-19-2022 End: 12-19-[address] Yosef Ochoa Work Phone: [facility] Start: 12-15-2022 End: 12-15-[address] Yosef Ochoa Work Phone: [facility] Start: 12-04-2022 End: 12-04-[address] Yosef Ochoa Work Phone: [facility] Procedures Date Procedure Procedure Detail Performing [...] Activity Detail Author Start: 03-24-2028 Colonoscopy Colonoscopy [place] Start: 03-24-2028 Colorectal Cancer Screening Colorectal Cancer Screening [place] Start: 08-29-2028 Screening for malignant neoplasm of colon [place] Start: 03-27-2024 Influenza vaccination Influenza Vaccine (Season Ended) [place] Start: 08-04-2023 Patient referral [facility] Work Phone: Start: 07-27-2023 Behavioral Health Screening Behavioral Health Screening [place] Start: 07-27-2023 [facility] Start: 03-27-2023 Covid-19 Vaccine ( season) Covid-19 Vaccine () [place] Start: 03-27-2023 Influenza vaccination [place] Start: 2023 COLOGUARD (FIT-DNA) COLOGUARD (FIT-DNA) [place] Start: [address] COLONOGRAPHY [place] Start: 2023 Diabetes Screening Diabetes Screening [place] Start: 2023 FECAL OCCULT BLOOD FECAL OCCULT BLOOD [place] Start: 2023 Lipid 1996 panel - Serum or Plasma Lipid Screening [place] Start: 2023 Lipid panel Lipid Screening [place] Start: 2023 Screening for malignant neoplasm of colon [place] Start: 2023 SIGMOIDOSCOPY SIGMOIDOSCOPY [place] Start: 12-04-2022 Patient referral [facility] Work Phone: Start: 07-27-2022 DEPRESSION ASSESSMENT DEPRESSION ASSESSMENT [place] Start: 01-30-2022 Colonoscopy COLONOSCOPY [place] Start: 01-30-2022 COLORECTAL CANCER SCREENING COLORECTAL CANCER SCREENING [place] Start: 01-10-2021 COVID-19 VACCINE (3 - Booster for Moderna series) COVID-19 VACCINE (3 - Booster for Moderna series) [place] Start: 08-18-2018 HPV TESTING HPV TESTING [place] Start: 08-18-2018 PAP TESTING PAP TESTING [place] Start: 08-18-2018 Screening for malignant neoplasm of cervix [place] Start: 05-16-2018 Urine microalbumin profile [place] Start: 2018 Mammography [place] Start: 2018 Screening for malignant neoplasm of breast Mammogram Screening [place] Start: 1997 Hepatitis B Vaccine (1 of 3 - 19+ 3-dose series) Hepatitis B Vaccine (1 of 3 - 19+ 3-dose series) [place] Start: 1996 HEPATITIS C SCREENING HEPATITIS C SCREENING [place] Start: 1996 Hepatitis C screening Hepatitis C Screening [place] Start: 1996 HIV SCREENING HIV SCREENING [place] Start: 1996 HIV screening HIV Screening [place] Start: 1978 HEPATITIS B (1 of 3 - 3-dose series) HEPATITIS B (1 of 3 - 3-dose series) [place] Start: 1978 Hepatitis B Vaccine (1 of 3 - 3-dose series) Hepatitis B Vaccine (1 of 3 - 3-dose series) [place] Patient Education ED Sciatica ED [facility] Work Phone: [facility] Work Phone: [facility] Immunizations Immunization Date Immunization Notes Care Provider Shady tellez 07-10-2014 influenza virus vacc ine, unspecified formulation Kay Mariee MD Work Phone: [place] 05-31-2008 influenza virus vacc ine, unspecified formulation Kathia Carr PA-C Work Phone: [place] 05-16-2008 tetanus toxoid, redu claudia diphtheria toxoid, and acellular pertussis vaccine, adsorbed Kathia Carr PA-C Work Phone: [place] Payers Date Payer Category Payer Self-pay [id number] 2013 Unknown [id number] 2013 Unknown [employer] BLUE CARD PPO OOS [id number] 2013-Present [phone] [address] [place] [address] PPO [id number] Unknown [id number] Unknown [id number] Unknown [id number] Unknown [id number] Social History Date Type Detail Facility Start: 12-19-2022 End: 08-27-2023 Tobacco smoking status CAIS Unknown if ever smoked [facility] Start: 1980 Sex Assigned At Female [facility] Start: 01-23-2023 End: 08-27-2023 Tobacco smoking status CAIS Ex-smoker [place] Work Phone: History of tobacco use Current smoker [facility] Work Phone: History of tobacco use Cigarette Smoker [facility] Work Phone: Start: 01-23-2023 End: 12-10-2023 Cigarettes smoked current (pack per day) - Reported 0.5 [place] Start: 01-23-2023 Tobacco use and exposure Smokeless tobacco non-user [place] Work Phone: Start: 01-23-2023 End: 12-10-2023 Alcohol intake Current drinker of alcohol (finding) [place] Start: 1980 Sex Assigned At Not on file [facility] Start: 01-23-2023 End: 03-24-2023 Tobacco use panel [place] National Score (1-10 0), lower number is lower risk 60 [place] Start: 10-06-2024 Sex Female (finding) [facility] Clinical Notes 01-23-2023 to 09-08-2024 Note Date & Type Note Facility 09-08-2024 Note [facility] Pap Smear Specimen Adequacy September 09, 2024 12:59am Comment . Satisfactory for evaluation. No endocervical component is identified. Comment on above: Satisfactory for kirby luation. No endocervical component is identified. 09-08-2024 Evaluation note Diagnosis Onset Date Resolution Encounter for routine gynecological examination noneactive September 08 2:35pm [facility] Work Phone: 1(617) 492-203505-16-2024 NoteHNO ID: [id number] Author: VERONICA MINOR APRN.HOOP FLARING MACHINE OPERATOR HELPER Service: ? Author Type: Nurse Practitioner Type: Progress Notes Filed: 12/10/2023 09:03 Note Text: This note was created using Epicsellriter. Subjective Brigette German is a 43 year [...] an appt with podiatry on 12/15/23 through [place] [facility] The history is provided by the patient. No high school foreign language tutor was used. Pain (foot) Pain location: right [...] small sessile polyp a 30cm IUD INSERTION (MARKETING SYSTEMS ANALYST DEPT)_*FL 2002 Mirena IUD INSERTION (MARKETING SYSTEMS ANALYST DEPT)_*[place] 07/04/2008 Mirena TONSILLECTOMY AND ADENOIDECTOMY age 7 ALLERGIES Bacitracin, Bees, and [employer] Juice MEDICATIONS SUMAtriptan (IMITREX) 25 mg tablet [...] Normocephalic and atraumatic. Righ (more content not included)...[facility] History of Present illness Narrative* Veronica Minor APRN.HOOP FLARING MACHINE OPERATOR HELPER - 12/10/2023 8:35 AM EDT This note was created using Firmex. Subjective Brigette German is a 43 year [...] the patient. No high school foreign language tutor was used. Pain (foot) Pain location: right [...] small sessile polyp a 30cm IUD INSERTION (MARKETING SYSTEMS ANALYST DEPT)_*FL 2002 Mirena IUD INSERTION (MARKETING SYSTEMS ANALYST DEPT)_*FL 07/04/2008 Mirena TONSILLECTOMY & ADENOIDECTOMY <AGE 12 age 7 ALLERGIES Bacitracin, Bees, and [employer] Juice MEDICATIONS SUMAtriptan (IMITREX) 25 mg tablet [...] appt 12/15/23 Discussed red flags Veronica Minor APRN.HOOP FLARING MACHINE OPERATOR HELPER documented in this encounterCenterville04-08-2024 Discharge summary Author Uma Posey [facility] November 02, 2023 10:58am Note Date/Time November 02, 2023 10:5 8am [facility] Physical Therapy [facility] [address] [place] [address] [address] [place] [address] / REHABILITATION SERVICES DISCHARGE SUMMARY MR#: [id number] Acct: [id number] Name: BRIGETTE GERMAN Rep #: [id number] : 1980 43 From: Uma Bethea Referring Dr.: Dr. Elio Parker MD Status: REG R Insurance: [facility] PACKAGE PLAN Patient Information Patient Information: BRIGETTE [...] MD; Herberth Merino, DO ~ ELR Signed [facility] Work Phone: [phone]) 389-176308-29-2023 Nurse Note* April Bedoya RN - 03/24/2023 [...] recommendations. April Bedoya RN documented in this encounterCenterville08-29-2023 History and physical note * Kay Mariee [...] small sessile polyp a 30cm IUD INSERTION (MARKETING SYSTEMS ANALYST DEPT)_*FL 2002 Mirena IUD INSERTION (MARKETING SYSTEMS ANALYST DEPT)_*FL 07/04/2008 Mirena TONSILLECTOMY & ADENOIDECTOMY <AGE 10 age 7 CURRENT MEDICATIONS Current Outpatient Medications Medication Sig SUMAtriptan (IMITREX) 25 mg tablet Take 25 mg by mouth as needed for migraine headache (see administration instructions). rOPINIRole (REQUIP) 0.5 mg tablet Take 0.5 mg by mouth as needed (restless leg). No current facility-administered medications for this visit. ALLERGIES: Bacitracin, Bees, Caterpillars [Other], and [employer] Juice PERSONAL HISTORY: SOCIAL HISTORY Social History [...] entered by the nurse and reviewed by ri Nursing Notes: Veronica Escalante 01/23/2023 9:38 AM [...] which included preparing to see the patient, [id number] patient care, completing clinical documentation, obtaining and/or [...] small sessile polyp a 30cm IUD INSERTION (MARKETING SYSTEMS ANALYST DEPT)_*FL 2002 Mirena IUD INSERTION (MARKETING SYSTEMS ANALYST DEPT)_*FL 07/04/2008 Mirena TONSILLECTOMY & ADENOIDECTOMY <AGE 12 age 7 CURRENT MEDICATIONS Current Outpatient Medications Medication Sig SUMAtriptan (IMITREX) 25 mg tablet Take 25 mg by mouth as needed for migraine headache (see administration instructions). rOPINIRole (REQUIP) 0.5 mg tablet Take 0.5 mg by mouth as needed (restless leg). No current facility-administered medications for this visit. ALLERGIES: Bacitracin, Bees, Caterpillars [Other], and [employer] Juice PERSONAL HISTORY: SOCIAL HISTORY Social History [...] entered by the nurse and reviewed by ri Nursing Notes: Veronica Escalante 01/23/2023 9:38 AM [...] which included preparing to see the patient, [id number] patient care, completing clinical documentation, obtaining and/or reviewing separately obtained history, performing a medically appropriate examination, counseling and educating the pat ient/family/caregiver, and ordering medications, tests, or procedures. Kathia Carr PA-C documented in this encounterCenterville06-30-2023 NoteHNO ID: [id number] Author: Kathia Carr PA-C Service: ? Author Type: Physician Rfid Engineer Type: Progress Notes Filed: 01/29/2023 4:08 PM [...] small sessile polyp a 30cm IUD INSERTION (MARKETING SYSTEMS ANALYST DEPT)_*FL 2002 Mirena IUD INSERTION (MARKETING SYSTEMS ANALYST DEPT)_*FL 07/04/2008 Mirena TONSILLECTOMY AND ADENOIDECTOMY age 7 Current Outpatient Medications Medication Sig SUMAtriptan (IMITREX) 25 mg tablet Take 25 mg by mouth as needed for migraine headache (see administration instructions). rOPINIRole (REQUIP) 0.5 mg tablet Take 0.5 mg by mouth as needed (restless leg). No current facility-administered medications for this visit. ALLERGIES: Bacitracin, Bees, Caterpillars [Other], and [employer] Juice PERSONAL HISTORY: Social History Tobacco Use [...] The patient denies a (more content not included)...[facility] History of Present illness Narrative* Kathia Carr [...] small sessile polyp a 30cm IUD INSERTION (MARKETING SYSTEMS ANALYST DEPT)_*FL 2002 Mirena IUD INSERTION (MARKETING SYSTEMS ANALYST DEPT)_*FL 07/04/2008 Mirena TONSILLECTOMY & ADENOIDECTOMY <AGE 12 age 7 Current Outpatient Medications Medication Sig SUMAtriptan (IMITREX) 25 mg tablet Take 25 mg by mouth as needed for migraine headache (see administration instructions). rOPINIRole (REQUIP) 0.5 mg tablet Take 0.5 mg by mouth as needed (restless leg). No current facility-administered medications for this visit. ALLERGIES: Bacitracin, Bees, Caterpillars [Other], and [employer] Juice PERSONAL HISTORY: Social History Tobacco Use [...] which included preparing to see the patient, [id number] patient care, completing clinical documentation, obtaining and/or reviewing separately obtained history, performing a medically appropriate examination, counseling and educating the pat ient/family/caregiver, and ordering medications, tests, or procedures. Kathia Carr PA-C documented in this encounterCenterville06-30-2023 Nurse Note* Veronica Escalante - 01/23/2023 9:37 [...] Colonoscopy: 2016 Veronica Escalante documented in this encounterCentervilleEvaluation note* Diagnosis Onset Date Resolution Status Internal derangement of left knee acute Strain of left knee acute Internal derangement of left knee acute Osteoarthritis of left knee acute Strain of left knee acute Osteoarthritis of left knee acute [facility] Work Phone: Evaluation note* Diagnosis Onset Date Resolution Status Internal derangement of left knee acute Strain of left knee acute Internal derangement of left knee acute Osteoarthritis of left knee acute Strain of left knee acute Osteoarthritis of left knee acute Urinary tract infection with hematuria acute [facility] Work Phone: Evaluation note* Diagnosis Family history of colon cancer- Primary Family history of malignant neoplasm of gastrointestinal tract Personal history of colonic polyps [facility] Diagnosis Blood in stool- Primary Family history of colon cancer Family history of malignant neoplasm of gastrointestinal tract Personal history of colonic polyps Obesity, Class III, BMI >= 40 Morbid obesity documented in this [facility]* Diagnosis Onset Date Resolution Status Encounter for routine gynecological examination noneactive [facility] Work Phone: Evaluation note* Diagnosis Onset Date Resolution Status Encounter for routine gynecological examination noneactive Lumbar radiculopathy acute Lumbar radiculopathy acute [facility] [place] Work Phone: Evaluation note* Diagnosis Ingrown nail of great toe of right foot- [facility] Additional Instructions Thank you for [...] care physician for further outpatient evaluation and management.[facility] [place] Work Phone: Reason for referral (narrative)* Outpatient Procedure (Routine) - Closed Specialty Diagnoses / Procedures Referred By Contshahbaz t Referred To Contact [facility] Diagnoses Family history of colon cancer Personal history of colonic polyps Procedures COLONOSCOPY SCREENING COLONOSCOPY FLX DX W/COLLJ SPEC WHEN PFRMD Kathia Carr PA-C [address] [place] [address] [facility] [address] [place] [address] Referral ID Status Reason Start Date Expiration Date V isits Requested Visits Authorized [id number] Closed Auto-Generate d Referral 01/23/2023 01/24/2024 1 1 [place])No reason for referral information availableWSt. [facility] Work Phone: Reason for visit Narrative* Outpatient Procedure (Routine) - Closed Specialty Diagnoses / Procedures Referred By Contshahbaz t Referred To Contact [facility] Diagnoses Family history of colon cancer Personal history of colonic polyps Procedures COLONOSCOPY SCREENING COLONOSCOPY FLX DX W/COLLJ SPEC WHEN PFRMD Kathia Carr PA-C [address] [facility] [place] [address] [facility] [address] [place] [address] Referral ID Status Reason Start Date Expiration Date V isits Requested Visits Authorized [id number] Closed Auto-Generate d Referral 01/23/2023 01/24/2024 1 1 [place] Chief Complaint and Reason for Visit Chief [...] tract infection with hematuria Chief Complaint Annual (MARKETING SYSTEMS ANALYST) BACK Reason for Visit Encounter for routin e gynecological examination Chief Complaint Annual (MARKETING SYSTEMS ANALYST) BACK LUMBAR SPINE RM 3 LUMBAR SPINE LUMBAR RADICULOPATHY / RX HERE Reason for Visit Encounter for routin e gynecological examination Lumbar radiculopathy Lumbar radiculopathy Chief Complaint Admit Date Annual (MARKETING SYSTEMS ANALYST) September 08, 2024 2:35pm SCREENING September 23, [...] Will No March 28 9:57am Power of Software Tools Developer No March 28, 2021 9:57am Advance Directive Response Recorded Date/ Time Living Will No July 27 4 10:02am Power of Software Tools Developer No July 27 10:02am Advance Directive Response Recorded Date/ Time Living Will No August 03 5:09pm Power of Software Tools Developer No August 03 5:09pm Medications Administered Section Inactive Administered Medications - up to 3 most recent administrations Medication Order MAR Action Action Date Dose Rate Site diphenhydrAMINE 12.5-50 mg injection (BENADRYL) 12.5-50 mg, INTRAVENOUS, DIRECTED, Starting on Thu03/24/23 at 0900, Until Thu03/24/23 at 1259, DOSING DIRECTED BY PHYSICIAN FOR PROCEDURAL SEDATION ONLY, Intraprocedure Given by [facility] 03/24/2023 8:59 AM EDT 50 mg fentaNYL 50 mcg/mL 25-100 mcg injection (SUBLIMAZE) 25-100 mcg, INTRAVENOUS, DIRECTED, Starting on Thu03/24/23 at 0900, Until Thu03/24/23 at 1259, DOSING DIRECTED BY PHYSICIAN FOR PROCEDURAL SEDATION ONLY, Intraprocedure Given by [facility] 03/24/2023 8:57 AM EDT 50 mcg Given by [facility] 03/24/2023 8:54 AM EDT 50 mcg lactated [...] 9:07 AM EDT 2 mg Given by [facility] 03/24/2023 8:57 AM EDT 2 mg Given by [facility] 03/24/2023 8:54 AM EDT 3 mg Summary [...] Active Onofre BLISS, PA Attending Provider Active Consultant Education Relationship Specialty Start Date End Date Herberth Merino DO [address] [facility] [address] [place] [address] PCP - General Family Medicine 01/16/23 Consultant Education Relationship Specialty Start Date End Date Herberth Merino DO [address] [facility] [address] [place] [address] PCP - General Family Medicine 01/16/23 Team Status: Inactive Member Role Status Dates Dr. Yosef Ochoa MD Referring Provider Active Leah Cuellar NP, RIDE OPERATOR-C Attending Provider Active Herberth Merino DO Primary [...] Dr. Elio Parker MD Attending Provider Active Consultant Education Relationship Specialty Start Date End Date Jessica Ni MD [address] [place] [address] PCP - General Internal Medicine 12/10/23 Team Status: Active Member Role Status Mariia Ni MD Primary Care Provider Active Team Status: Inactive Member Role Status Dates Herberth Merino DO Referring Provider Active Start: September 08, 2024 End: September 08, 2024 Leah Cuellar NP RIDE OPERATOR-C Attending Provider Active Start: September 08, 2024 End: September 08, 2024 Jessica Ni MD Primary Care Provider Active St art: September 08, 2024 End: September 08, 2024 Team Status: Inactive Member Role Status Mariia Ni MD Primary Care Provider Active St art: September 08, 2024 End: September 08, 2024 Leah Cuellar NP RIDE OPERATOR-C Attending Provider Active Start: September 08, 2024 End: September 08, 2024 Leah Cuellar NP RIDE OPERATOR-C Referring Provider Active Start: September 08, 2024 End: September 08, 2024 Team Status: Inactive Member Role Status Mariia Ni MD Primary Care Provider Active St art: September 23, 2024 End: September 23, 2024 Leah Cuellar NP RIDE OPERATOR-C Attending Provider Active Start: September 23, 2024 End: September 23, 2024 Leah Cuellar NP RIDE OPERATOR-C Referring Provider Active Start: September 23, 2024 [...] or prosecute any alcohol or drug abuse patient.[place]In the event this information is protected by the Federal Confidentiality of Alcohol and Drug Abuse Patient Records regulations: The Federal rules restrict any use of the information to criminally investigate or prosecute any alcohol or drug abuse patient.[place]In the event this information is protected by the Federal Confidentiality of Alcohol and Drug Abuse Patient Records regulations: The Federal rules restrict any use of the information to criminally investigate or prosecute any alcohol or drug abuse patient.[place] Reason for Visit (unrecogniz ed section and content) Reason Comments Consult Reason Comments Ingrown Toenail R great toe redness, pain, swelling drainage x 2 months INFORMATION SOURCE (unrecogn ized section and content) DATE CREATED AUTHOR 12/12/2023 [facility] DATE CREATED AUTHOR 'S PATRICA STEWART 05/08/2025 [facility] FOR RECORDS PERTAINING TO PATIENTS WHO ARE [...] BE BASED ON THE PRIMARY CLINICAL RECORDS. [facility], [facility]. provides no warranty or guarantee of the accuracy or completeness of information in this document.
[2025-05-11 13:02] LABS: Magnesium 2.0 mg/dL (1.5-2.2)
[2025-05-12 13:08] LABS: ANTINUCLEAR ANTIBODIES DIRECT Negative (Negative); PROGESTERONE 0.2 ng/mL (.)
[2025-05-16 05:07] LABS: Zinc, Plasma or Serum 73 ug/dL (44-115)
== END | disposition home or self-care (01) ==
PROVIDERS: PCP Nurse Practitioner Family; Referring Provider Nurse Practitioner Family; Visit Provider Nurse Practitioner Family
DX: Z13.29 Encounter for screening for other suspected endocrine disorder (principal); R53.82 Chronic fatigue, unspecified; E63.9 Nutritional deficiency, unspecified; M54.50 Low back pain, unspecified; E66.3 Overweight; Z13.228 Encounter for screening for other metabolic disorders; R94.7 Abnormal results of other endocrine function studies
CPT/HCPCS: 36415; 82024; 83525; 83735; 84144; 84630; 86038; 86225

== ENCOUNTER → 2025-05-13 | Outpatient (CLI) | payer BC, SELFPAY ==
--- OUTSIDE RECORDS SUMMARY | 2025-05-13 09:00 | XMS RPT_ITS | CCD ---
Author Organization [facility] CliniSywy Care Team Providers Care Singer Songwriter Name Role Phone Dr. Yosef Ochoa Primary Care Provider Dr. Yosef Ochoa Referring Provider Raudel BLISS, [place] Onofre Burrows Attending Provider Dr. Tomás Gomez Attending Provider MD Yosef Jacobs Attending Provider DO Herberth Merino Primary Care Provider [phone] DO Herberth Merino Referring Provider Herberth Merino DO Primary Care Provider Dr. Yosef Ochoa Referring Provider Unavailable Polo FREIGHT CHECKER, FREIGHT CHECKER-C Leah Attending Provider [phone] DO Herberth Merino Primary Care Provider [phone] Dr. Yosef Ochoa Referring Provider Unavailable Polo FREIGHT CHECKER, FREIGHT CHECKER-C Leah Attending Provider [phone] DO Herberth [...] Unavailable Herberth Merino DO Referring Provider Polo FREIGHT CHECKER-CLeah Attending Provider [facility] Polo FREIGHT CHECKER-C, Leah Referring Provider Jessica Ni Primary Care Unavailable [place] FREIGHT CHECKER, Leah Attending Unavailable [place] FREIGHT CHECKER, Leah Referring Unavailable Hill, Tanisha Attending Unavailable Hill, Tanisha Referring Unavailable Elena, Chalon Primary Care Unavailable Hill, Tanisha Primary Care Unavailable Hill, Tanisha Attending Unavailable Hill, Tanisha Referring Unavailable Elena, Chalon Primary Care Unavailable [place] FREIGHT CHECKER, Leah Attending Unavailable Herberth Merino Referring Unavailable Polo FREIGHT CHECKER, Leah Attending Unavailable [place] FREIGHT CHECKER, Leah Referring Unavailable Elena, Chalon Primary Care Unavailable Allergies Allergy Classification Reported Allergen(s) Allergy Type Date of Onset Reaction(s) Facility (9 sources) Bacitracin; Translations: [BACITRACIN] Drug Allergy 6 [facility] (9 sources) Karnes juice; Translations: [ORANGE JUICE] Allergy to substance 6 [facility] (4 sources) Bees; Translations: [BEES] Propensity to adverse reactions 6 [facility] (2 sources) CATERPILLARS [Other] Propensity to adverse reactions 6 [facility] (1 source) OTHER; Translations: [OTHER] Propensity to adverse reactions (disorder) 6 [facility] Repository (1 source) Bacitracin Drug Allergy 5 [facility] (1 source) Karnes juice Drug allergy (disorder) 5 [facility] Medications Current Medications Medication Drug Class(es) Dates Sig (Normalized) Sig (Original) Amino Ac-Hydroly Collagen-Whey (4 sources) Start: 12-15-2022 Amino Ac-Hydroly Collagen-Whey Active ML PO December 14, 2022 11:00pm Start: 12-15-2022 Amino Ac-Lawrence ly Collagen-Whey Active ML PO December 15, [...] MG PO December 15, 2022 12:00am levonorgestrel 0.672694 mg/hr intrauterine system (5 sources) Progestin, Progestin-containing [...] needed for migraine headache (see administration instructions). Qmlcreu-Mezl-Iqzwx-Or eg-Capryl (3 sources) Start: 12-15-2022 Fqbrffb-Binl-Bwxdt-O reg-Capryl Active CAP PO December 14, 2022 11:00pm Start: 12-15-2022 Cdjvpck-Oldj-H xbpn-Qeuz-Sgdhjd Active CAP PO December 15, 2022 12:00am Nnspvwou-Rlhk-Zsyss-Oreg-Cap ry (1 source) Start: 12-15-2022 Ygmmjznm-Vdns-Btgyt-Oreg-Cap ry Active CAP PO December 15, 2022 12:00am Flockarc-Bpnf-Ouuqq-Oreg-Cap ry 100 mg-150 mg- 50 mg-150 mg capsule (1 source) Start: 12-15-2022 Zibiamvj-Bdgo-Nthvi-Oreg-Cap ry 100 mg-150 mg- 50 mg-150 mg [...] Drug Class(es) Dates Sig (Normalized) Sig (Original) [id number] 200 actuat albuterol 0.09 mg/actuat metered dose [...] mg tablet Discontinued 40 mg PO DAILY 04 30July 27, 2023 1:00am September 08, 2024 3:45pm [...] fatigue, unspecified; Translations: [Chronic fatigue, unspecified] Onset: 05-11-2025 Chronic Nutritional deficiencies (1 source) Vitamin D deficiency, unspecified; Translations: [Vitamin D deficiency, unspecified] Onset: 05-10-2025 Chronic Nutritional deficiencies (1 source) Nutritional deficiency, unspecified; Translations: [Nutritional deficiency, unspecified] Onset: 05-11-2025 Episodic Osteoarthritis (9 sources) Osteoarthritis of left knee joint; Translations: [Unilateral primary osteoarthritis, left knee] 12-15-2022 Chronic Other and unspecified benign neoplasm (2 sources) History of polyp of colon; Translations: [Personal history of colonic polyps] Episodic Other non-traumatic joint disorders (1 source) Pain in unspecified knee; Translations: [Pain in unspecified knee] Onset: 05-10-2025 Episodic Other nutritional; endocrine; and metabolic disorders (2 sources) Body mass index 40+ - severely obese; Translations: [Morbid (severe) obesity due to excess calories] Onset: 03-26-2023 03-26-2023 Chronic Other nutritional; endocrine; and metabolic disorders (1 source) Overweight; Translations: [Overweight] Onset: 05-11-2025 Episodic Other screening for suspected conditions (not mental disorders or infectious disease) (6 sources) Encounter for screening for other suspected [...] Lumbar radiculopathy; Translations: [Radiculopathy, lumbar region] Onset: 05-10-2025 07-27-2023 Episodic Sprains and strains (12 sources) Strain of knee; Translations: [Strain of unspecified muscle(s) and tendon(s) at lower leg level, left leg, initial encounter] Onset: 02-16-2007 12-04-2022 Episodic Unclassified (1 source) Low back pain, unspecified; Translations: [Low back pain, unspecified] Onset: 05-11-2025 Urinary tract infections (5 sources) Urinary tract [...] Test Name Value Interpretation Reference Range Facility BERTA w/ Reflex Mult Confirmon 05-11-2025 BERTA-D See below TNP Normal [facility] Comment on above: Performed By: #### L 501.5200, L3100.5450 #### [facility] [address] [place], [place], [address] L3410.9992on 05-11-20[facility] Normal . [facility] Comment on above: Order Comment: [id number] 1 COQ10 Result Comment: Test Ordered: [id number] Coenzyme Q10, Total Test(s) 923393-Czsbbmek Q10, Total was developed and its performance characteristics determined by [facility]. It has not been cleared or approved by the Food and Drug Administration. Coenzyme Q10, Total 0.88 ug/mL Reference Range: 0.37-2.20 Performed at: - [address] [id number] [place] Line Tender: Carolyn Ken MD, Phone: [phone] Performed at: [facility] [id number] [place] Line Tender: Michael Marcos PhD, Phone: [phone] Performed By: #### L 3410.9992 #### [facility] [address] [place], [place], [id number] [facility] Misc.on 05-11-2025 [facility] Misc[facility] 4 COMMENT Normal . [facility] Comment on above: Order Comment: [id number] 1 COQ10 Result Comment: Test Ordered: [id number] Vitamin B7 Test(s) 115302-Xqpcslb B7 was developed and its performance characteristics [facility]. It has not been cleared or approved by the Food and Drug Administration. Vitamin B7 0.68 ng/mL Reference Range: 0.05-0.83 Performed at: - [address] [id number] [place] Line Tender: Carolyn Ken MD, Phone: [phone] Performed at: - [address] [id number] [place] Line Tender: Michael Marcos PhD, Phone: [phone] Performed By: #### L 3410.9992 #### [facility] [address] [place], [place], [address] Magnesiumon 05-11-2025 Magnesium [Mass/Vol] 2.0 mg/dL Normal 1.5-2.2 [facility] Comment on above: Performed By: #### L 501.5200, L3100.5450 #### [facility] [address] [place], [place], [address] CBC W/Diff, Automatedon 10- Absolute Lymph 2.67 X10 3/uL Normal 0.83-4.51 [facility] Comment on above: Performed By: #### L 501.6710, L500.4050, L506.0400, L509.3001, L506.1001, L503.6030, L3300.1750, L506.0200, L101.9900, L501.9520, L501.73149, L3410.9998, L509.6001, L100.0100, L503.0106, L503.6550 #### [facility] [address] [place], [place], [address] Absolute Neut 5.9 X10 3/uL Normal 2.0-7.7 [facility] Comment on above: Performed By: #### L 501.6710, L500.4050, L506.0400, L509.3001, L506.1001, L503.6030, L3300.1750, L506.0200, L101.9900, L501.9520, L501.58229, L3410.9998, L509.6001, L100.0100, L503.0106, L503.6550 #### [facility] [address] [place], [address] Basophils/100 WBC (Bld) 0.7 % Normal 0-1 [facility] Comment on above: Performed By: #### L 501.6710, L500.4050, L506.0400, L509.3001, L506.1001, L503.6030, L3300.1750, L506.0200, L101.9900, L501.9520, L501.62727, L3410.9998, L509.6001, L100.0100, L503.0106, L503.6550 #### [facility] [address] [place], [address] Eosinophils/100 WBC (Bld) 2.3 % Normal 0-5 [facility] Comment on above: Performed By: #### L 501.6710, L500.4050, L506.0400, L509.3001, L506.1001, L503.6030, L3300.1750, L506.0200, L101.9900, L501.9520, L501.70286, L3410.9998, L509.6001, L100.0100, L503.0106, L503.6550 #### [facility] [address] [facility] [place], [address] Erythrocyte distribution width (RBC) [Ratio] 12.3 % Normal 11.6-14.6 [facility] Comment on above: Performed By: #### L 501.6710, L500.4050, L506.0400, L509.3001, L506.1001, L503.6030, L3300.1750, L506.0200, L101.9900, L501.9520, L501.00175, L3410.9998, L509.6001, L100.0100, L503.0106, L503.6550 #### [facility] [address] [facility] [place], [place], [id number] Hematocrit (Bld) [Volume fraction] 42.3 % Normal 37-47 [facility] Comment on above: Performed By: #### L 501.6710, L500.4050, L506.0400, L509.3001, L506.1001, L503.6030, L3300.1750, L506.0200, L101.9900, L501.9520, L501.54081, L3410.9998, L509.6001, L100.0100, L503.0106, L503.6550 #### [facility] [address] [place], [address] Hemoglobin (Bld) [Mass/Vol] 14.1 g/dL Normal 12.0-15.0 [facility] Comment on above: Performed By: #### L 501.6710, L500.4050, L506.0400, L509.3001, L506.1001, L503.6030, L3300.1750, L506.0200, L101.9900, L501.9520, L501.73968, L3410.9998, L509.6001, L100.0100, L503.0106, L503.6550 #### [facility] [address] [facility] [place], [place], [id number] IG% 0.400 Normal 0.0-0.9 [facility] Comment on above: Result Comment: IG% - Immature Granulocytes (promyelocytes, myelocytes and metamyelocytes) > 1% indicates that a LEFT SHIFT is Present. Performed By: #### L 501.6710, L500.4050, L506.0400, L509.3001, L506.1001, L503.6030, L3300.1750, L506.0200, L101.9900, L501.9520, L501.79405, L3410.9998, L509.6001, L100.0100, L503.0106, L503.6550 #### [facility] [address] [place], [address] Lymphocytes/100 WBC (Bld) 27.9 % Normal 19-41 [facility] Comment on above: Performed By: #### L 501.6710, L500.4050, L506.0400, L509.3001, L506.1001, L503.6030, L3300.1750, L506.0200, L101.9900, L501.9520, L501.23233, L3410.9998, L509.6001, L100.0100, L503.0106, L503.6550 #### [facility] [address] [facility] [place], [address] MCH (RBC) [Entitic mass] 30.1 pg Normal 27.0-32.0 [facility] Comment on above: Performed By: #### L 501.6710, L500.4050, L506.0400, L509.3001, L506.1001, L503.6030, L3300.1750, L506.0200, L101.9900, L501.9520, L501.25638, L3410.9998, L509.6001, L100.0100, L503.0106, L503.6550 #### [facility] [address] [place] [place], [address] MCHC (RBC) [Mass/Vol] 33.3 g/dL Normal 32-36 [facility] Comment on above: Performed By: #### L 501.6710, L500.4050, L506.0400, L509.3001, L506.1001, L503.6030, L3300.1750, L506.0200, L101.9900, L501.9520, L501.96328, L3410.9998, L509.6001, L100.0100, L503.0106, L503.6550 #### [facility] [address] [place], [address] MCV (RBC) [Entitic vol] 90.2 fL Normal 81-99 [facility] Comment on above: Performed By: #### L 501.6710, L500.4050, L506.0400, L509.3001, L506.1001, L503.6030, L3300.1750, L506.0200, L101.9900, L501.9520, L501.33776, L3410.9998, L509.6001, L100.0100, L503.0106, L503.6550 #### [facility] [address] [facility] [place], [address] Monocytes/100 WBC (Bld) 6.7 % Normal 0-10 [facility] Comment on above: Performed By: #### L 501.6710, L500.4050, L506.0400, L509.3001, L506.1001, L503.6030, L3300.1750, L506.0200, L101.9900, L501.9520, L501.62016, L3410.9998, L509.6001, L100.0100, L503.0106, L503.6550 #### [facility] [address] [place], [address] Neutrophils/100 WBC (Bld) 62.0 % Normal 47-70 [facility] Comment on above: Performed By: #### L 501.6710, L500.4050, L506.0400, L509.3001, L506.1001, L503.6030, L3300.1750, L506.0200, L101.9900, L501.9520, L501.40163, L3410.9998, L509.6001, L100.0100, L503.0106, L503.6550 #### [facility] [address] [place], [address] Nucleated RBC (Bld) [#/Vol] 0 10*3/uL Normal 0-5 [facility] Comment on above: Performed By: #### L 501.6710, L500.4050, L506.0400, L509.3001, L506.1001, L503.6030, L3300.1750, L506.0200, L101.9900, L501.9520, L501.32151, L3410.9998, L509.6001, L100.0100, L503.0106, L503.6550 #### [facility] [address] [place], [address] Platelet mean volume (Bld) [Entitic vol] 10.3 fL Normal 6.2-12.0 [facility] Comment on above: Performed By: #### L 501.6710, L500.4050, L506.0400, L509.3001, L506.1001, L503.6030, L3300.1750, L506.0200, L101.9900, L501.9520, L501.02990, L3410.9998, L509.6001, L100.0100, L503.0106, L503.6550 #### [facility] [address] [place], [address] Platelets (Bld) [#/Vol] 292 10*3/uL Normal 150-450 [facility] Comment on above: Performed By: #### L 501.6710, L500.4050, L506.0400, L509.3001, L506.1001, L503.6030, L3300.1750, L506.0200, L101.9900, L501.9520, L501.71796, L3410.9998, L509.6001, L100.0100, L503.0106, L503.6550 #### [facility] [address] [place], [place], [phone] (023) RBC (Bld) [#/Vol] 4.69 10*6/uL Normal 4.2-5.4 [facility] Comment on above: Performed By: #### L 501.6710, L500.4050, L506.0400, L509.3001, L506.1001, L503.6030, L3300.1750, L506.0200, L101.9900, L501.9520, L501.09588, L3410.9998, L509.6001, L100.0100, L503.0106, L503.6550 #### [facility] [address] [place], [place], [phone] (864) RDW SD 40.7 fl Normal 35.1-43.9 [facility] Comment on above: Performed By: #### L 501.6710, L500.4050, L506.0400, L509.3001, L506.1001, L503.6030, L3300.1750, L506.0200, L101.9900, L501.9520, L501.47581, L3410.9998, L509.6001, L100.0100, L503.0106, L503.6550 #### [facility] [address] [place], [place], [phone] (414) WBC (Bld) [#/Vol] 9.6 10*3/uL Normal 4.4-11.0 [facility] Comment on above: Performed By: #### L 501.6710, L500.4050, L506.0400, L509.3001, L506.1001, L503.6030, L3300.1750, L506.0200, L101.9900, L501.9520, L501.71976, L3410.9998, L509.6001, L100.0100, L503.0106, L503.6550 #### [facility] [address] [place], [place], [id number] CRPon 05-08-2025 C-REACTIVE PROT 7.51 mg/L High 0.0-3.0 [facility] Comment on above: Performed By: #### L 7400.0280 #### [facility] [address] [place], [place], [id number] Comprehensive Metabolic Prof ilon 05-08-2025 Albumin [Mass/Vol] 4.0 g/dL Normal 3.5-5.0 [facility] Comment on above: Performed By: #### L 501.6710, L500.4050, L506.0400, L509.3001, L506.1001, L503.6030, L3300.1750, L506.0200, L101.9900, L501.9520, L501.81248, L3410.9998, L509.6001, L100.0100, L503.0106, L503.6550 #### [facility] [address] [place], [place], [id number] Albumin/Globulin [Mass ratio] 1.3 {ratio} Normal 0.9-2.4 [facility] Comment on above: Performed By: #### L 501.6710, L500.4050, L506.0400, L509.3001, L506.1001, L503.6030, L3300.1750, L506.0200, L101.9900, L501.9520, L501.10140, L3410.9998, L509.6001, L100.0100, L503.0106, L503.6550 #### [facility] [address] [place], [place], [id number] ALK PHOS 67 U/L Normal 35-104 [facility] Comment on above: Performed By: #### L 501.6710, L500.4050, L506.0400, L509.3001, L506.1001, L503.6030, L3300.1750, L506.0200, L101.9900, L501.9520, L501.63942, L3410.9998, L509.6001, L100.0100, L503.0106, L503.6550 #### [facility] [address] [place], [address] ALT [Catalytic activity/Vol] 19 U/L Normal <=34 [facility] Comment on above: Performed By: #### L 501.6710, L500.4050, L506.0400, L509.3001, L506.1001, L503.6030, L3300.1750, L506.0200, L101.9900, L501.9520, L501.12987, L3410.9998, L509.6001, L100.0100, L503.0106, L503.6550 #### [facility] [address] [place], [address] AST [Catalytic activity/Vol] 18 U/L Normal <=31 [facility] Comment on above: Performed By: #### L 501.6710, L500.4050, L506.0400, L509.3001, L506.1001, L503.6030, L3300.1750, L506.0200, L101.9900, L501.9520, L501.17436, L3410.9998, L509.6001, L100.0100, L503.0106, L503.6550 #### [facility] [address] [place], [place], [id number] Bilirubin [Mass/Vol] 0.39 mg/dL Normal 0.00-1.30 [facility] Comment on above: Performed By: #### L 501.6710, L500.4050, L506.0400, L509.3001, L506.1001, L503.6030, L3300.1750, L506.0200, L101.9900, L501.9520, L501.10424, L3410.9998, L509.6001, L100.0100, L503.0106, L503.6550 #### [facility] [address] [place], [address] BUN/CRE 28.5 RATIO High 10-20 [facility] Comment on above: Performed By: #### L 501.6710, L500.4050, L506.0400, L509.3001, L506.1001, L503.6030, L3300.1750, L506.0200, L101.9900, L501.9520, L501.37572, L3410.9998, L509.6001, L100.0100, L503.0106, L503.6550 #### [facility] [address] [place], [place], [id number] (303) Calcium [Mass/Vol] 9.7 mg/dL Normal 7.6-11.0 [facility] Comment on above: Performed By: #### L 501.6710, L500.4050, L506.0400, L509.3001, L506.1001, L503.6030, L3300.1750, L506.0200, L101.9900, L501.9520, L501.91282, L3410.9998, L509.6001, L100.0100, L503.0106, L503.6550 #### [facility] [address] [place], [place], [phone] (783) Chloride [Moles/Vol] 102 mmol/L Normal 98-108 [facility] Comment on above: Performed By: #### L 501.6710, L500.4050, L506.0400, L509.3001, L506.1001, L503.6030, L3300.1750, L506.0200, L101.9900, L501.9520, L501.74640, L3410.9998, L509.6001, L100.0100, L503.0106, L503.6550 #### [facility] [address] [place], [place], [id number] CO2 [Moles/Vol] 23.8 mmol/L Normal 21.0-32.0 [facility] Comment on above: Performed By: #### L 501.6710, L500.4050, L506.0400, L509.3001, L506.1001, L503.6030, L3300.1750, L506.0200, L101.9900, L501.9520, L501.41145, L3410.9998, L509.6001, L100.0100, L503.0106, L503.6550 #### [facility] [address] [facility] [place], [address] Creatinine [Mass/Vol] 0.62 mg/dL Low 0.70-1.20 [facility] Comment on above: Performed By: #### L 501.6710, L500.4050, L506.0400, L509.3001, L506.1001, L503.6030, L3300.1750, L506.0200, L101.9900, L501.9520, L501.73823, L3410.9998, L509.6001, L100.0100, L503.0106, L503.6550 #### [facility] [address] [place], [place], [id number] GAP 12 Normal 5-15 [facility] Comment on above: Performed By: #### L 501.6710, L500.4050, L506.0400, L509.3001, L506.1001, L503.6030, L3300.1750, L506.0200, L101.9900, L501.9520, L501.02480, L3410.9998, L509.6001, L100.0100, L503.0106, L503.6550 #### [facility] [address] [facility] [place], [address] (881) GFR/1.73 sq M.predicted among non-blacks MDRD (S/P/Bld) [Vol rate/Area] 111 mL/min/{1.73_m2} Normal >60 [facility] Comment on above: Result Comment: mL/m in/1.73m2 CKD-EPI Creatinine Equation (2020) Performed By: #### L 501.6710, L500.4050, L506.0400, L509.3001, L506.1001, L503.6030, L3300.1750, L506.0200, L101.9900, L501.9520, L501.60098, L3410.9998, L509.6001, L100.0100, L503.0106, L503.6550 #### [facility] [address] [facility] [place], [address] (017) Globulin (S) [Mass/Vol] 3.2 g/dL Normal 2.2-4.2 [facility] Comment on above: Performed By: #### L 501.6710, L500.4050, L506.0400, L509.3001, L506.1001, L503.6030, L3300.1750, L506.0200, L101.9900, L501.9520, L501.33592, L3410.9998, L509.6001, L100.0100, L503.0106, L503.6550 #### [facility] [address] [facility] [place], [place], [phone] (525) Glucose [Mass/Vol] 91 mg/dL Normal 70-99 [facility] Comment on above: Performed By: #### L 501.6710, L500.4050, L506.0400, L509.3001, L506.1001, L503.6030, L3300.1750, L506.0200, L101.9900, L501.9520, L501.68153, L3410.9998, L509.6001, L100.0100, L503.0106, L503.6550 #### [facility] [address] [place], [address] Potassium [Moles/Vol] 3.7 mmol/L Normal 3.3-5.1 [facility] Comment on above: Performed By: #### L 501.6710, L500.4050, L506.0400, L509.3001, L506.1001, L503.6030, L3300.1750, L506.0200, L101.9900, L501.9520, L501.96702, L3410.9998, L509.6001, L100.0100, L503.0106, L503.6550 #### [facility] [address] [place], [address] Sodium [Moles/Vol] 138 mmol/L Normal 133-145 [facility] Comment on above: Performed By: #### L 501.6710, L500.4050, L506.0400, L509.3001, L506.1001, L503.6030, L3300.1750, L506.0200, L101.9900, L501.9520, L501.94890, L3410.9998, L509.6001, L100.0100, L503.0106, L503.6550 #### [facility] [address] [place], [address] T PROT 7.2 g/dL Normal 5.9-8.4 [facility] Comment on above: Performed By: #### L 501.6710, L500.4050, L506.0400, L509.3001, L506.1001, L503.6030, L3300.1750, L506.0200, L101.9900, L501.9520, L501.23646, L3410.9998, L509.6001, L100.0100, L503.0106, L503.6550 #### [facility] [address] [place], [place], [id number] Urea nitrogen [Mass/Vol] 18 mg/dL Normal 4-19 [facility] Comment on above: Performed By: #### L 501.6710, L500.4050, L506.0400, L509.3001, L506.1001, L503.6030, L3300.1750, L506.0200, L101.9900, L501.9520, L501.73373, L3410.9998, L509.6001, L100.0100, L503.0106, L503.6550 #### [facility] [address] [place], [place], [id number] Erythrocyte Sed Rateon 05-08 SED RATE 25 mm/hr Normal 0-30 [facility] Comment on above: Performed By: #### L 501.6710, L500.4050, L506.0400, L509.3001, L506.1001, L503.6030, L3300.1750, L506.0200, L101.9900, L501.9520, L501.69170, L3410.9998, L509.6001, L100.0100, L503.0106, L503.6550 #### [facility] [address] [place], [place], [id number] Estradiolon 05-08-2025 ESTRADIOL 45.2 pg/mL Normal [facility] Comment on above: Result Comment: FEMA LES [...] by age 16. Performed By: #### L 7400.0280 #### [facility] [address] [facility] [place], [place], [id number] Ferritinon 05-08-2025 Ferritin [Mass/Vol] 172 ng/mL Normal 22-378 [facility] Comment on above: Performed By: #### L 501.6710, L500.4050, L506.0400, L509.3001, L506.1001, L503.6030, L3300.1750, L506.0200, L101.9900, L501.9520, L501.32898, L3410.9998, L509.6001, L100.0100, L503.0106, L503.6550 #### [facility] [address] [place], [place], [id number] Folates,Serum (Folic Acid)on 05-08-2025 FOLATES,SERUM 25.20 ng/mL Normal 4.60-34.80 [facility] Comment on above: Order Comment: N Result Comment: Hemo lysis, Results will be affected, Requires Recollection. Performed By: #### L 501.6710, L500.4050, L506.0400, L509.3001, L506.1001, L503.6030, L3300.1750, L506.0200, L101.9900, L501.9520, L501.06858, L3410.9998, L509.6001, L100.0100, L503.0106, L503.6550 #### [facility] [address] [place], [address] Free T3on 05-08-2025 Free T3 [Mass/Vol] 3.2 pg/mL Normal 2.18-3.98 [facility] Comment on above: Performed By: #### L 7400.0280 #### [facility] [address] [place], [address] Iron+Iron Binding Capacityon 05-08-2025 Iron [Mass/Vol] 92 ug/dL Normal 50-170 [facility] Comment on above: Performed By: #### L 7400.0280 #### [facility] [address] [place], [address] IRON SATURATION 24.5 Normal 13-59 [facility] Comment on above: Performed By: #### L 7400.0280 #### [facility] [address] [place], [address] TIBC 375 ug/dL Normal 250-450 [facility] Comment on above: Performed By: #### L 7400.0280 #### [facility] [address] [place], [address] UIBC 283 ug/dL Normal 228-428 [facility] Comment on above: Performed By: #### L 7400.0280 #### [facility] [address] [place], [address] L509.3001on 05-08-2025 Testosterone [Mass/Vol] ng/dL Low 9-55 [facility] Comment on above: Performed By: #### L 7400.0280 #### [facility] [address] [place], [address] L509.6001on 05-08-2025 CORTISOL < 0.11 Low 6.02-18.40 [facility] Comment on above: Performed By: #### L 7400.0280 #### [facility] [address] [place], [address] T4 Free Directon 05-08-2025 T4 FREE DIRECT 1.40 ng/dL Normal 0.76-1.46 [facility] Comment on above: Performed By: #### L 7400.0280 #### [facility] [address] [place], [address] Thyroid Stim Hormone (TSH)on 05-08-2025 TSH 5.860 uIU/mL High 0.300-4.200 [facility] Comment on above: Performed By: #### L 7400.0280 #### [facility] [address] [place], [address] Vitamin B12on 05-08-2025 Cobalamin (Vitamin B12) [Mass/Vol] 657 pg/mL Normal 180-914 [facility] Comment on above: Performed By: #### L 7400.0280 #### [facility] [address] [place], [place], [address] Vitamin D,25 Hydroxyon 05-08 Vitamin D 25-OH 48.9 ng/mL Normal 30-100 [facility] Comment on above: Result Comment: Lidia min D Status Deficiency: <20 ng/mL (50nmol/L) Insufficiency: 20-30 ng/mL (50-75 nmol/L) Sufficiency: 30-100 ng/mL (75-250 nmol/L) Toxicity: >100 ng/mL (>250 nmol/L) Performed By: #### L 7400.0280 #### [facility] [address] [place], [address] Breast imaging reportOrdered By: Peyton Carlson on 09-23-2024 Study report [facility] Imaging Services [address] [place] [id number] SCRN MAMM (CAD)W/NETTE BILAT MR#: [id number] Acct: [id number] Name: BRIGETTE GERMAN NANCY Rep #: [id number] : 1980 F 44 From: Renita Carlson MD PCP: Dr. Jessica Ni MD Status: REG CL I Study:SCRN MAMM (CAD)W/NETTE BILAT Date of Exa m: 09/23/24 Exam# [id number] Ordering Dr: Leah Cuellar NP FREIGHT CHECKER-C PROCEDURE: SCRN MAMM (CAD)W/NETTE BILAT REASON FOR [...] of the results by letter. Reading Location: [facility] CC: FREIGHT CHECKER-C Leah Cuellar; Dr. Jessica Ni MD ~ Shot Polisher: Signed [facility] SCRN MAMM (CAD)W/NETTE BILATo n 09-23-2024 SCRN MAMM (CAD)W/NETTE BILAT [facility] Imaging Services [address], [place] [address] SCRN MAMM (CAD)W/NETTE BILAT MR#: [id number] Acct: [id number] Name: BRIGETTE GERMAN NANCY Rep #: [id number] : 1980 F 44 From: Peyton Carlson MD PCP: Dr. Jessica Ni MD Status: REG CLI Study: SCRN MAMM (CAD)W/NETTE BILAT Date of Exam: 08/28 03/20 Exam# [id number] Ordering Dr: Leah Cuellar NP FREIGHT CHECKER -C PROCEDURE: SCRN MAMM (CAD)W/NETTE BILAT REASON [...] of the results by letter. Reading Location: [facility] CC: FREIGHT CHECKER-C Leah Cuellar; Dr. Jessica Ni MD Shot Polisher: Signed Normal [facility] PAP IG HPV APTIMA 16/18,45on 09-13-2024 ADEQ Comment Normal . [facility] Comment on above: Order Comment: Speci men Comment: [id number] Specimen Comment: Source.............Cervix Specimen Comment: No. of containers..01 ThinPrep Vial Result Comment: Sati sfactory for evaluation. No endocervical component is identified. Performed By: #### L 7400.0280 #### [facility] [address] [place], [address] COMM . Normal . [facility] Comment on above: Order Comment: Speci men Comment: [id number] Specimen Comment: Source.............Cervix Specimen Comment: No. of containers..01 ThinPrep Vial Performed By: #### L 7400.0280 #### [facility] [address] [place], [place], [address] COMMENT Comment Normal . [facility] Comment on above: Order Comment: Speci men Comment: [id number] Specimen Comment: Source.............Cervix Specimen Comment: No. of containers..01 ThinPrep Vial Result Comment: This liquid based ThinPrep(R) pap test was screened with the use of an image guided system. Performed By: #### L 7400.0280 #### [facility] [address] [place], [address] DIAG Comment Normal . [facility] Comment on above: Order Comment: Speci men Comment: [id number] Specimen Comment: Source.............Cervix Specimen Comment: No. of containers..01 ThinPrep Vial Result Comment: NEGA TIVE FOR INTRAEPITHELIAL LESION OR MALIGNANCY. Performed By: #### L 7400.0280 #### [facility] [address] [place], [address] HPV APTIMA, HR Negative Normal Negative [facility] Comment on above: Order Comment: Speci men Comment: [id number] Specimen Comment: Source.............Cervix Specimen Comment: No. of containers..01 ThinPrep Vial Result Comment: This nucleic acid amplification test detects fourteen high- risk HPV types (16,18,31,33,35,39,45,51,52,56,58,59,66,68) without differentiation. Performed By: #### L 7400.0280 #### [facility] [address] [place], [place], [address] HPV Abbey Rfx Comment Normal . [facility] Comment on above: Order Comment: Speci men Comment: [id number] Specimen Comment: Source.............Cervix Specimen Comment: No. of containers..01 ThinPrep Vial Result Comment: Crit eria not met, HPV Genotype not performed. Performed at: - [facility] [id number] Flakeboard Line Tender: Lauren Valle MD, Phone: [phone] Performed at: = - [facility] [id number] Flakeboard Line Tender: Lauren Valle MD, Phone: [phone] Performed By: #### L 7400.0280 #### [facility] [address] [place], [address] PAPSMR Comment Normal . [facility] Comment on above: Order Comment: Speci men Comment: [id number] Specimen Comment: Source.............Cervix Specimen Comment: No. of containers..01 ThinPrep Vial Result Comment: The Pap smear is a screening test designed to aid in the detection of premalignant and malignant conditions of the uterine cervix. It is not a diagnostic procedure and should not be used as the sole means of detecting cervical cancer. Both false-positive and false-negative reports do occur. Performed By: #### L 7400.0280 #### [facility] [address] [place], [place], [address] PERFORM Comment Normal . [facility] Comment on above: Order Comment: Speci men Comment: [id number] Specimen Comment: Source.............Cervix Specimen Comment: No. of containers..01 ThinPrep Vial Result Comment: Brian Hair Inshore Undersea Warfare Officer (ASCP) Performed By: #### Teodoro 7400.0280 #### [facility] [address] [place], [place], [address] Psychiatry Teacher Cyto stain Nom (C vx/Vag) [ID]Ordered By: Leah Cuellar on 09-08-2024 Pap Smear Performed By Comment . [facility] Comment on above: Brian Reginaldo, Cytote chnologist (ASCP) Cytology report Cyto stain D oc (Cvx/Vag)Ordered By: Leah Cuellar on 09-08-2024 Thin Prep Pap Smear Comment . [facility] Comment on above: The Pap smear is [...] 09-08-2024 HPV Genotype Special Info Comment . [facility] Comment on above: Criteria not met, HP V Genotype not performed.Performed at: - [address] [id number] Director: Lauren Valle MD, Phone: [phone] at: =[facility] [id number] Director: Lauren Valle MD, Phone: [phone] HPV 16+18+31+33+35+39+45+51+ 52+56+58+59+66+68 DNA Probe+sig amp Ql (Cvx)Ordered By: Leah Cuellar on 09-08-2024 Human Papillomavirus High Risk Negative Negative [facility] Comment on above: This nucleic acid am plification test detects fourteen high-risk HPV types (16,18,31,33,35,39,45,51,52,56,58,59,66,68)without differentiation. Image-guided ThinPrep PapOrd ered By: Leah Cuellar on 09-08-2024 Pap Smear Note Comment . [facility] Comment on above: This liquid based Th inPrep(R) pap test was screened withthe use of an image guided system. Image-guided liquid-based Pa pOrdered By: Leah Cuellar on 09-08-2024 Pap Smear Diagnosis Comment . [facility] Comment on above: NEGATIVE FOR INTRAEP ITHELIAL LESION OR MALIGNANCY. [facility] Office Visit Reporton 09-08-2024 [facility] Office Visit Report [facility] [address], [address] [place] [address] OFFICE VISIT Date of Service: 09/08/24 MR#: [id number] Acct: [id number] Name: BRIGETTE GERMAN Rep #: [id number] : 1980 Provider: SARAHY cunningham Age/Sex: 44/F Location: [facility] Status: Signed Intake Vital Signs 07/09/23 15:50 12/22/23 08:02 09/08/24 14:39 09/08/24 14:45 Height 5 ft 4 in 5 ft 4 in 5 ft 4 in 5 ft 4 in Weight: 270 lb 4 oz BMI 46.3 BP 128/72 H Intake Visit 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 PFSH Medical History Tear of medial meniscus of [...] Yes additional social history: [employer] Works at [employer] History 2 Elective abortions Hx Para 2 Spontaneous abortions Hx # Term Pregnancies 2 Ectopic pregnancies Hx # Pregnancies Multiple births # of living children 2 Past Pregnancies Del. Date Name GA/Weeks Outcome Route Bth Weight Gen Labor Lgth Anesthesia Del Locatn Provider FOB Unknown Misty2000 Unknown Ramon2002 HPI Encounter for routine gynecological examination Details: BRIGETTE GERMAN is a 44 year old who presents for annual exam. Denies concerns. No menses with IUD. Needs replaced 2026 Last PAP: 2019 History of abnormal PAP: no Last mammogram: [...] oriented to person and oriented to place HENMT Head: normal to inspection Neck Neck: normal [...] appearance o (more content not included)... Normal [facility] Service comment (Unsp spec) [Interp]Ordered By: Leah Cuellar on 09-08-2024 Pap Smear Comment (3) . . [facility] CNOVon 12-10-2023 CNOV Office Visit (UCWSTR) BRIGETTE GERMAN ([id number]) 1980 F Date Time Provider Department 12/10/23 8:15 AM VERONICA MINOR [facility] During your visit today, we recorded the following information about you: Temperature Pulse Respiration Blood pressure 97 degrees 65/minute 18/minute 118/85 Weight 120 kg Veronica Minor APRN.BACK HOE MACHINE OPERATOR 12/10/2023 9:03 AM Signed This note was created using [employer]. Subjective Brigette Landeros Monserrat is a 43 year old female. 43 [...] history is provided by the patient. No imaging scheduler was used. Pain (foot) Pain location: right [...] small sessile polyp a 30cm IUD INSERTION (RESPIRATORY THERAPY TECHNICIAN DEPT)_*[place] 2002 Mirena IUD INSERTION (RESPIRATORY THERAPY TECHNICIAN DEPT)_*[place] 07/04/2008 Mirena TONSILLECTOMY AND ADENOIDECTOMY age 7 ALLERGIES Bacitracin, Bees, and Karnes Juice MEDICATIONS SUMAtriptan (IMITREX) 25 mg tablet [...] 98% B (more content not included)... Normal [facility] COLONOSCOPY SCREENINGon 02-25 [facility] Colonoscopyon 03-24-2023 Colonoscopy [place] [facility] Gastrointestinal Endoscopy Patient Name: Brigette German Procedure [...] the patient. Procedure Code(s): --- Professional --- 93330, Colonoscopy, flexible; diagnostic, including collection of specimen(s) by brushing or washing, when performed (separate procedure) G0500, Moderate sedation services provided by the same physician or other qualified health home care specialist performing a gastrointestinal endoscopic service that sedation supports, requiring the presence of an independent trained observer to assist in the monitoring of the patient's level of consciousness and physiological status; initial 15 minutes of intra-service time; patient age 5 years or older (additional time may be reported with 64406, as appropriate) CPT copyright 2020 [employer]. All rights reserved. The codes documented in this report are preliminary and upon shirring tender review may be revised to meet current compliance requirements. Attending Participation: I was present and participated during the entire procedure, including non-peterson portions, and during the administration and monitoring of Moderate Sedation. Scope In: 9:01:37 AM Scope Out: 9:14 (more content not included)... Normal [facility] HISTORY PHYSICALon HISTORY PHYSICAL HNO ID: [id number] Author: Kay Mariee MD Service: General Surgery [...] small sessile polyp a 30cm IUD INSERTION (RESPIRATORY THERAPY TECHNICIAN DEPT)_*FL 2002 Mirena IUD INSERTION (RESPIRATORY THERAPY TECHNICIAN DEPT)_*FL 07/04/2008 Mirena TONSILLECTOMY AND ADENOIDECTOMY age 7 CURRENT MEDICATIONS Current Outpatient Medications Medication Sig SUMAtriptan (IMITREX) 25 mg tablet Take 25 mg by mouth as needed for migraine headache (see administration instructions). rOPINIRole (REQUIP) 0.5 mg tablet Take 0.5 mg by mouth as needed (restless leg). No current facility-administere d medications for this visit. ALLERGIES: Bacitracin, Bees, Caterpillars [Other], and Karnes Juice PERSONAL HISTORY: SOCIAL HISTORY Social History [...] entered by the nurse and reviewed by ny Nursing Notes: Veronica Escalante 01/23/2023 9:38 AM [...] history of (more content not included)... Normal [facility] NURSING PROGon 03-24-2023 NURSING PROG HNO ID: [id number] Author: April Bedoya RN Service: ? Author [...] procedure and recommendations. April Bedoya RN Normal [facility] CNOVon 01-23-2023 CNOV Office Visit (GENSWS) BRIGETTE GERMAN ([id number]) 1980 F Date Time Provider Department 01/23/23 9:30 AM KATHIA CARR During your visit today, we recorded the following information about you: Temperature Pulse Blood pressure Weight 97.5 degrees 103/minute 118/74 112 kg Height 1.626 m Veronica Escalante 01/23/2023 9:38 AM Signed REVIEW [...] small sessile polyp a 30cm IUD INSERTION (RESPIRATORY THERAPY TECHNICIAN DEPT)_*FL 2002 Mirena IUD INSERTION (RESPIRATORY THERAPY TECHNICIAN DEPT)_*FL 07/04/2008 Mirena TONSILLECTOMY AND ADENOIDECTOMY age 7 Current Outpatient Medications Medication Sig SUMAtriptan (IMITREX) 25 mg tablet Take 25 mg by mouth as needed for migraine headache (see administration instructions). rOPINIRole (REQUIP) 0.5 mg tablet Take 0.5 mg by mouth as needed (restless leg). No current facility-administere d medications for this visit. ALLERGIES: Bacitracin, Bees, Caterpillars [Other], and Karnes Juice PERSONAL HISTORY: Social History Tobacco Use Smoking status: Former Packs/day: 0.50 Years: 11.00 Pack years: 5.50 Types: Cigarettes Smokeless tobacco: Never Substance Use Topics Alcohol use: Yes Comment: Occasionally Drug use: No FAMILY HISTORY: FAMILY HISTORY Problem Relation Age o (more content not included)... Normal [facility] Basophil percentageOrdered B y: Onofre Starsk on 01-19-2023 Basophil percentage 0-5 SEEN /hpf 0-5 [facility] Bilirubin Test strip Ql (U)O rdered By: Onofre Starks on 01-19-2023 Bilirubin Ql (U) Negative Negative [facility] Culture, urineOrdered By: St reyna Starks on 01-19-2023 Bacteria identified Cx Nom (U) Mixed Gram Pos & Gram Neg Org [facility] Ketones Test strip Ql (U)Ord ered By: Onofre Starks on 01-19-2023 Ketones Ql (U) Negative Negative [facility] - Chemistry and C hemistry - challengeOrdered By: Onofre Starks on 01-19-2023 HCG ( test) Ql (U) Negative [facility] Comment on above: Very dilute urine sp ecimens, as indicated by a low specificgravity, may not contain telecommunications sales representative levels of hCG. If is still suspected, a first morning urinespecimen should be collected 48 hours later and tested. Mucus LM Ql (Urine sed)Order ed By: Onofre Starks on 01-19-2023 Mucus Ql (Urine sed) 0 SEEN /hpf [facility] Nitrite Test strip Ql (U)Ord ered By: Onofre Starks on 01-19-2023 Nitrite Ql (U) Negative Negative [facility] Protein Test strip Ql (U)Ord ered By: Onofre Starks on 01-19-2023 Protein Ql (U) 15 mg/dl Negative [facility] Squamous epithelial cells de tection in urine sediment by light microscopyOrdered By: Onofre Starks on 01-19-2023 Epithelial cells.squamous LM Ql (Urine sed) 0-5 SEEN /hpf 5-10 [facility] Urine blood detectionOrdered By: Onofre Starks on 01-19-2023 RBC Ql (U) 50 /ul Negative [facility] RBC Ql (U) 0-5 SEEN /hpf 0-5 [facility] Urine clarityOrdered By: Jose A Starks on 01-19-2023 Clarity (U) Clear Clear [facility] Urine color determinationOrd ered By: Onofre Starks on 01-19-2023 Color (U) Yellow Yellow [facility] Urine glucose detectionOrder ed By: Onofre Starks on 01-19-2023 Glucose Ql (U) Normal mg/dl Normal [facility] Urine leukocyte esterase det ection by dipstickOrdered By: Onofre Starks on 01-19-2023 Leukocyte esterase Test strip Ql (U) 100 /ul Negative [facility] Urine pHOrdered By: Onofre rhoades on 01-19-2023 pH (U) 5.0 [pH] 5.0 - 8.0 [facility] Urine sediment bacteria coun t by microscopy (number/high power field)Ordered By: Onofre Starks on 01-19-2023 Bacteria LM.HPF (Urine sed) [#/Area] 1 /[HPF] None Seen [facility] Urine specific gravity measu rementOrdered By: Onofre Starks on 01-19-2023 Specific gravity (U) [Rel density] 1.025 1.002-1.030 [facility] Urobilinogen Auto test strip Ql (U)Ordered By: Onofre Starks on 01-19-2023 Urobilinogen Ql (U) Normal mg/dl Normal [facility] Absolute lymphocyte countOrd ered By: Herberth Merino on 01-15-2023 Lymphocytes Auto (Unsp spec) [#/Vol] 2.31 10*3/uL 0.83-4.51 [facility] Basophil percentageOrdered B y: Herberth Merino on 01-15-2023 Basophils/100 WBC (Bld) 0.5 % 0-1 [facility] Bilirubin [Mass/Vol] 0.30 mg/dL 0.20-1.00 [facility] Comment on above: For patients on eltr ombopag therapy, use of Dimension [place] TBIL is not recommended. Chloride [Moles/Vol] 111 mmol/L 98-107 [facility] Eosinophils/100 WBC (Bld) 2.9 % 0-5 [facility] Glucose [Mass/Vol] 93 mg/dL 74-106 [facility] Neutrophils (Bld) [#/Vol] 7.5 10*3/uL 2.0-7.7 [facility] Neutrophils/100 WBC (Bld) 67.8 % 47-70 [facility] Potassium [Moles/Vol] 4.2 mmol/L 3.5-5.1 [facility] Comment on above: Slight Hemolysis, Re sult may be falsely increased. Protein [Mass/Vol] 6.8 g/dL 6.4-8.2 [facility] Sodium [Moles/Vol] 139 mmol/L 136-145 [facility] WBC (Bld) [#/Vol] 11.1 10*3/uL 4.4-11.0 [facility] Blood erythrocytes count (nu mber/volume)Ordered By: Herberth Merino on 01-15-2023 RBC (Bld) [#/Vol] 4.69 10*6/uL 4.2-5.4 [facility] Blood hemoglobin measurement (mass/volume)Ordered By: Herberth Merino on 01-15-2023 Hemoglobin (Bld) [Mass/Vol] 13.7 g/dL 12.0-15.0 [facility] Blood lymphocytes/100 leukoc ytesOrdered By: Herberth Merino on 01-15-2023 Lymphocytes/100 WBC (Bld) 20.8 % 19-41 [facility] Blood monocytes/100 leukocyt esOrdered By: Herberth Merino on 01-15-2023 Monocytes/100 WBC (Bld) 7.6 % 0-10 [facility] Blood platelet mean volumeOr dered By: Herberth Merino on 01-15-2023 Platelet mean volume (Bld) [Entitic vol] 9.8 fL 6.2-12.0 [facility] Determination of erythrocyte mean corpuscular volume (MCV)Ordered By: Herberth Merino on 01-15-2023 MCV (RBC) [Entitic vol] 90.2 fL 81-99 [facility] Hematocrit Auto (Bld) [Volum e fraction]Ordered By: Herberth Merino on 01-15-2023 Hematocrit (Bld) [Volume fraction] 42.3 % 37-47 [facility] - Chemistry and C hemistry - challengeOrdered By: Herberth Merino on 01-15-2023 ALP [Catalytic activity/Vol] 64 U/L 45-117 [facility] ALT [Catalytic activity/Vol] 24 U/L 13-56 [facility] CO2 [Moles/Vol] 24.0 mmol/L 21.0-32.0 [facility] Cobalamin (Vitamin B12) [Mass/Vol] 309 pg/mL 211-911 [facility] Globulin (S) [Mass/Vol] 3.4 g/dL 2.2-4.2 [facility] Magnesium [Mass/Vol] 2.2 mg/dL 1.6-2.6 [facility] Comment on above: Slight Hemolysis, Re sult may be falsely increased. Urea nitrogen/Creatinine [Mass ratio] 38.0 mg/mg 10-20 [facility] - Hematology and Cell countsOrdered By: Herberth Merino on 01-15-2023 Erythrocyte distribution width (RBC) [Entitic vol] 42.5 fL 35.1-43.9 [facility] Erythrocyte distribution width (RBC) [Ratio] 12.9 % 11.6-14.6 [facility] Immature granulocytes/100 WBC (Bld) 0.400 % 0.0-0.9 [facility] Comment on above: IG% - Immature Granu locytes (promyelocytes, myelocytes and metamyelocytes) > 1% indicates that a LEFT SHIFT is Present. MCH (RBC) [Entitic mass] 29.2 pg 27.0-32.0 [facility] Nucleated RBC/100 WBC (Bld) [Ratio] 0 % 0-5 [facility] MCHC Auto (RBC) [Mass/Vol]Or dered By: Herberth Merino on 01-15-2023 MCHC (RBC) [Mass/Vol] 32.4 g/dL 32-36 [facility] No Panel InformationOrdered By: Herberth Merino on 01-15-2023 Estimated GFR (MDRD) Amer 131 mL/min >60 [facility] Comment on above: GFR Calc Estimated GFR (MDRD) Non-Af Amer 108 mL/min >60 [facility] Comment on above: Non- GFR Calc Thyroid Stimulating Hormone (TSH) 1.75 uIU/mL 0.358-3.74 [facility] Vitamin D 25-Hydroxy 50.5 ng/mL [facility] Comment on above: Vitamin D 25(OH) Sta tus Range Deficiency <20 ng/mL (50nmol/L) Insufficiency 20 - 30 ng/mL (50 - 75 nmol/L) Sufficiency 30 - 100 ng/mL (75 - 250 nmol/L) Toxicity >100 ng/mL (>250 nmol/L) Platelets bldOrdered By: Robby Merino on 01-15-2023 Platelets (Bld) [#/Vol] 333 10*3/uL 150-450 [facility] Serum or plasma albumin marybeth urement (mass/volume)Ordered By: Herberth Merino on 01-15-2023 Albumin [Mass/Vol] 3.4 g/dL 3.2-5.0 [facility] Serum or plasma albumin/glob ulin mass ratioOrdered By: Herberth Merino on 01-15-2023 Albumin/Globulin [Mass ratio] 1.0 {ratio} 0.9-2.4 [facility] Serum or plasma calcium marybeth urement (mass/volume)Ordered By: Herberth Merino on 01-15-2023 Calcium [Mass/Vol] 9.0 mg/dL 8.5-10.1 [facility] Serum or plasma creatinine m easurement (mass/volume)Ordered By: Herberth Merino on 01-15-2023 Creatinine [Mass/Vol] 0.63 mg/dL 0.55-1.02 [facility] Comment on above: The validity of the calculated GFR & GFRAA in patients over 70 years has not been determined. Clinical correlation is essential. Serum or plasma ferritin alana surement (mass/volume)Ordered By: Herberth Merino on 01-15-2023 Ferritin [Mass/Vol] 153 ng/mL 8252 [facility] Serum or plasma urea nitroge n measurement (mass/volume)Ordered By: Herberth Merino on 01-15-2023 Urea nitrogen [Mass/Vol] 24 mg/dL 7-18 [facility] Thin prep Papanicolaou smear with manual screeningOrdered By: Herberth Merino on 01-15-2023 Thin prep Papanicolaou smear with manual screening 13 U/L 15- [facility] Comment on above: Slight Hemolysis, Re sult may be falsely increased. Thin prep Papanicolaou smear with manual screening 4 5-15 [facility] Vital Signs Date Time Vital Sign Value Performing Clinician Antonellai reuben 09-08-2024 14:45-0500 Body height 162.56 cm Herbreth Merino DO Work Phone: [facility] 09-08-2024 14:39-0500 Body mass index (BMI) [Ratio] 46.3 kg/m2 Herberthbrian Grangernger DO Work Phone: [facility] 09-08-2024 14:39-0500 Body weight 122.58 kg Herberth Grangernger DO Work Phone: [facility] 09-08-2024 14:39-0500 Diastolic blood pressure 72 mm[Hg] Herberth Grangernger DO Work Phone: [facility] 09-08-2024 14:39-0500 Systolic blood pressure 128 mm[Hg] Herberthbrian Grangernger DO Work Phone: [facility] 12-10-2023 08:24-0400 Body mass index (BMI) [Ratio] 45.41 kg/m2 Veronica Minor PROMOTION SPECIALIST.BACK HOE MACHINE OPERATOR Work Phone: [facility] 12-10-2023 08:24-0400 Body temperature 97 [degF] Veronica Minor PROMOTION SPECIALIST.BACK HOE MACHINE OPERATOR Work Phone: [facility] 12-10-2023 08:24-0400 Body weight 120 kg Veronica Minor PROMOTION SPECIALIST.BACK HOE MACHINE OPERATOR Work Phone: [facility] 12-10-2023 08:24-0400 Diastolic blood pressure 85 mm[Hg] Veronica Minor PROMOTION SPECIALIST.BACK HOE MACHINE OPERATOR Work Phone: [facility] 12-10-2023 08:24-0400 Heart rate 65 /min Veronica Minor PROMOTION SPECIALIST.BACK HOE MACHINE OPERATOR Work Phone: [facility] 12-10-2023 08:24-0400 Respiratory rate 18 /min Veronica Minor PROMOTION SPECIALIST.BACK HOE MACHINE OPERATOR Work Phone: [facility] 12-10-2023 08:24-0400 SaO2% (BldA) [Mass fraction] 98 % Veronica Minor PROMOTION SPECIALIST.BACK HOE MACHINE OPERATOR Work Phone: [facility] 12-10-2023 08:24-0400 Systolic blood pressure 118 mm[Hg] Veronica Minor PROMOTION SPECIALIST.BACK HOE MACHINE OPERATOR Work Phone: [facility] 08-03-2023 16:09-0500 Body height 162.[address] Navas [facility] 07-27-2023 08:51-0500 Body height 162.[address] Navas [facility] 07-27-2023 08:51-0500 Body mass index (BMI) [Ratio] 43.7 kg/m2 Dr. Navas [facility] 07-27-2023 08:51-0500 Body temperature [facility].2 [facility]degF[facility]-27[facility]23 08:51-0500 Body weight 115.[address] Navas [facility] 07-27-2023 08:51-0500 Diastolic blood pressure 105 mm[Hg] Dr. Navas [facility] 07-27-2023 08:51-0500 Heart rate 68 /min Dr. Navas [facility] 07-27-2023 08:51-0500 Respiratory rate 14 /min Dr. Navas [facility] 07-27-2023 08:51-0500 SaO2% (BldA) [Mass fraction] 98 % Dr. Navas [facility] 07-27-2023 08:51-0500 Systolic blood pressure 183 mm[Hg] Dr. Navas [facility] 07-09-2023 15:44-0500 Body mass index (BMI) [Ratio] 45.3 kg/m2 Dr. Navas [facility] 07-09-2023 15:44-0500 Body weight 119.[address] Yosef Ochoa [facility] 07-09-2023 15:44-0500 Diastolic blood pressure 72 mm[Hg] Dr. Navas [facility] 07-09-2023 15:44-0500 Systolic blood pressure 130 mm[Hg] Dr. Navas [facility] 03-24-2023 09:50-0400 Diastolic blood pressure 62 mm[Hg] Kay Mariee MD Work Phone: [facility] 03-24-2023 09:50-0400 Heart rate 64 /min Kay Mariee MD Work Phone: [facility] 03-24-2023 09:50-0400 Respiratory rate 16 /min Kay Mariee MD Work Phone: [facility] 03-24-2023 09:50-0400 SaO2% (BldA) [Mass fraction] 97 % Kay Mariee MD Work Phone: [facility] 03-24-2023 09:50-0400 Systolic blood pressure 117 mm[Hg] Kay Mariee MD Work Phone: [facility] 03-24-2023 07:42-0400 Body temperature 97.9 [degF] Kay Mariee MD Work Phone: [facility] 03-24-2023 07:42-0400 Body weight 112 kg Kay Mariee MD Work Phone: [facility] 01-23-2023 09:35-0400 Body height 162.6 cm Kathia BLISS-C Work Phone: [facility] 01-23-2023 09:35-0400 Body temperature 97.5 [degF] Kathia Carr PA-C Work Phone: [facility] 01-23-2023 09:35-0400 Body weight 112.04 kg Kathia Lilly PA-C Work Phone: [facility] 01-23-2023 09:35-0400 Diastolic blood pressure 74 mm[Hg] Kathia [place] [facility] PA-C Work Phone: [facility] 01-23-2023 09:35-0400 Heart rate 103 /min Kathia [place] [facility] PA-C Work Phone: [facility] 01-23-2023 09:35-0400 SaO2% (BldA) [Mass fraction] 96 % Kathia [employer] [facility] PA-C Work Phone: [facility] 01-23-2023 09:35-0400 Systolic blood pressure 118 mm[Hg] Kathiacarmen Mainf PA-C Work Phone: [facility] 01-19-2023 16:52-0400 Body height 162.[address] Yosef Ochoa Work Phone: [facility] 01-19-2023 16:52-0400 Body mass index (BMI) [Ratio] 42 kg/m2 Dr. Yosef Ochoa Work Phone: [facility] 01-19-2023 16:52-0400 Body temperature 98.6 [degF] Dr. Yosef Ochoa Work Phone: [facility] 01-19-2023 16:52-0400 Body weight 111.[address] Yosef Ochoa Work Phone: [facility] 01-19-2023 16:52-0400 Diastolic blood pressure 96 mm[Hg] Dr. Yosef Ochoa Work Phone: [facility] 01-19-2023 16:52-0400 Heart rate 84 /min Dr. Yosef Ochoa Work Phone: [facility] 01-19-2023 16:52-0400 Respiratory rate 16 /min Dr. Yosef Ochoa Work Phone: [facility] 01-19-2023 16:52-0400 SaO2% (BldA) [Mass fraction] 97 % Dr. Yosef Ochoa Work Phone: [facility] 01-19-2023 16:52-0400 Systolic blood pressure 138 mm[Hg] Dr. Yosef Ochoa Work Phone: [facility] 12-15-2022 08:04-0400 Body height 160.[address] Yosef Ochoa Work Phone: [facility] 12-15-2022 08:04-0400 Body mass index (BMI) [Ratio] 44.2 kg/m2 Dr. Yosef Ochoa Work Phone: [facility] 12-15-2022 08:04-0400 Body weight 113.[address] Yosef Ochoa Work Phone: [facility] 12-04-2022 10:29-0400 Body mass index (BMI) [Ratio] 44.1 kg/m2 Dr. Yosef Ochoa Work Phone: [facility] 12-04-2022 10:29-0400 Body temperature 98.3 [degF] Dr. Yosef Ochoa Work Phone: [facility] 12-04-2022 10:29-0400 Body weight 113.[address] Yosef Ochoa Work Phone: [facility] 12-04-2022 10:29-0400 Diastolic blood pressure 78 mm[Hg] Dr. Yosef Ochoa Work Phone: [facility] 12-04-2022 10:29-0400 Heart rate 70 /min Dr. Yosef Ochoa Work Phone: [facility] 12-04-2022 10:29-0400 Respiratory rate 16 /min Dr. Yosef Ochoa Work Phone: [facility] 12-04-2022 10:29-0400 SaO2% (BldA) [Mass fraction] 98 % Dr. Yosef Ochoa Work Phone: [facility] 12-04-2022 10:29-0400 Systolic blood pressure 128 mm[Hg] Dr. Yosef Ochoa Work Phone: [facility] Encounters Encounter Date Encounter Type Care Provider Facility Start: 05-11-2025 ambulatory [facility] Facility:[facility] Start: 05-08-2025 [facility] Facility:[facility] Start: 09-23-2024 End: 09-23-2024 ambulatory Herberth Merino DO Work Phone: [facility] Work Phone: Start: 09-23-2024 End: 09-23-2024 Patient encounter procedure Leah Cuellar FREIGHT CHECKER-C -Outpatient Breast Imaging Work Phone: Start: 09-23-2024 End: 09-23-2024 ambulatory Leah Cuellar FREIGHT CHECKER Facility:[facility] Start: 09-08-2024 End: 09-08-2024 Patient encounter procedure Leah Cuellar FREIGHT CHECKER-C -Laboratory, Specimen Work Phone: Start: 09-08-2024 Encounter for gynecological examination (general) (routine) without abnormal findings Leah Cuellar FREIGHT CHECKER [facility] Start: 09-08-2024 End: 09-08-2024 Patient encounter procedure Leah Cuellar FREIGHT CHECKER-C -[facility] Work Phone: Start: 09-08-2024 End: 09-08-2024 Patient encounter status Leah Cuellar FREIGHT CHECKER-C [facility] Start: 09-08-2024 End: 09-08-2024 ambulatory Angelicaon Elena Facility:[facility] Start: 09-08-2024 End: 09-08-2024 ambulatory [facility] Facility:[facility] Start: 12-10-2023 End: 12-10-2023 ambulatory [facility] Facility:[facility] Start: 12-10-2023 End: 12-10-2023 Patient encounter procedure Veronica Minor APRN.BACK HOE MACHINE OPERATOR Work Phone: [facility] Comment on above: Ingrown nail of grea t toe of right foot (Primary Dx) Start: 09-10-2023 End: 09-10-[address] Yosef Ochoa [facility] Work Phone: Start: 09-10-2023 End: 09-10-[address] Yosef Ochoa [facility]-Physical Therapy Work Phone: Start: 08-27-2023 End: 08-27-[address] Yosef Ochoa [facility] Work Phone: Start: 08-04-2023 End: 08-04-[address] Yosef Ochoa [facility] Work Phone: Start: 07-27-2023 End: 07-27-2023 Emergency department patient visit Dr. Yosef Ochoa [facility]Emergency Department Work Phone: Start: 07-09-2023 End: 07-09-[address] Yosef Ochoa [facility] Work Phone: Start: 03-24-2023 End: 03-24-2023 ambulatory KAY MARIEE Facility:[facility] Start: 03-24-2023 End: 03-24-2023 Subsequent hospital visit by physician Kay Mariee MD Work Phone: Ambulatory Surgery Comment on above: Family history of co temo cancer [Z80.0] Start: 01-23-2023 End: 01-23-2023 ambulatory HERBERTH MERINO Facility:[facility] Start: 01-23-2023 End: 01-23-2023 Patient encounter procedure Kathia Carr PA-C Work Phone: General Surgery Comment on above: Family history of co temo cancer (Primary Dx); Personal history of colonic polyps Start: 01-19-2023 End: 01-19-[address] Yosef Ochoa Work Phone: [facility] Work Phone: Start: 01-19-2023 End: 01-19-[address] Yosef Ochoa Work Phone: [facility]-Laboratory, Specimen Work Phone: Start: 01-19-2023 End: 01-19-[address] Yosef Ochoa Work Phone: [facility] Work Phone: Start: 01-15-2023 End: 01-15-[address] Yosef Ochoa Work Phone: [facility] Work Phone: Start: 01-15-2023 End: 01-15-[address] Yosef Ohcoa Work Phone: [facility] Start: 01-02-2023 End: 01-02-[address] Yosef Ochoa Work Phone: [facility]-Physical Therapy Start: 12-19-2022 End: 12-19-[address] Yosef Ochoa Work Phone: [facility] Start: 12-15-2022 End: 12-15-[address] Yosef Ochoa Work Phone: [facility] Start: 12-04-2022 End: 12-04-[address] Yosef Ochoa Work Phone: [facility] Procedures Date Procedure Procedure Detail Performing Clinician Start: 09-23-2024 Screening mammography Brien Merino DO Work Phone: Start: 08-04-2023 X-ray of lumbosacral spine Dr. Yosef Ochoa Start: 03-24-2023 Colonoscopy flx dx w /collj spec when pfrmd Kathia Carr PA-C Work Phone: Start: 03-24-2023 Colonoscopy Kay hinojosa MD Work Phone: Start: 01-19-[address] Yosef Ochoa Work Phone: Start: 12-04-2022 Radiologic examinati on of knee Dr. Yosef Ochoa Work Phone: Start: 01-30-2017 Colonoscopy Kathia Etelvina montenegro PA-C Work Phone: Start: 08-18-2013 Mammography Kathia Etelvina montenegro PA-C Work Phone: Start: 06-16-2008 Lipid 1996 panel - S katharine or Plasma Kay Mariee MD Work Phone: Plan of Treatment Date Care Activity Detail Author Start: 03-24-2028 Colonoscopy Colonoscopy [facility] Start: 03-24-2028 Colorectal Cancer Screening Colorectal Cancer Screening [facility] Start: 03-24-2028 Screening for malignant neoplasm of colon [facility] Start: 03-27-2024 Influenza vaccination Influenza Vaccine (Season Ended) [facility] Start: 08-04-2023 Patient referral [facility] Work Phone: Start: 07-27-2023 Behavioral Health Screening Behavioral Health Screening [facility] Start: 07-27-2023 [facility] Start: 03-27-2023 Covid-19 Vaccine ( season) Covid-19 Vaccine ( season) [facility] Start: 03-27-2023 Influenza vaccination [facility] Start: 2023 COLOGUARD (FIT-DNA) COLOGUARD (FIT-DNA) [facility] Start: [address] COLONOGRAPHY [facility] Start: 2023 Diabetes Screening Diabetes Screening [facility] Start: 2023 FECAL OCCULT BLOOD FECAL OCCULT BLOOD [facility] Start: 2023 Lipid 1996 panel - Serum or Plasma Lipid Screening [facility] Start: 2023 Lipid panel Lipid Screening [facility] Start: 2023 Screening for malignant neoplasm of colon [facility] Start: 2023 SIGMOIDOSCOPY SIGMOIDOSCOPY [facility] Start: 12-04-2022 Patient referral [facility] Work Phone: Start: 07-27-2022 DEPRESSION ASSESSMENT DEPRESSION ASSESSMENT [facility] Start: 01-30-2022 Colonoscopy COLONOSCOPY [facility] Start: 01-30-2022 COLORECTAL CANCER SCREENING COLORECTAL CANCER SCREENING [facility] Start: 01-10-2021 COVID-19 VACCINE (3 - Booster for Moderna series) COVID-19 VACCINE (3 - Booster for Moderna series) [facility] Start: 08-18-2018 HPV TESTING HPV TESTING [facility] Start: 08-18-2018 PAP TESTING PAP TESTING [facility] Start: 08-18-2018 Screening for malignant neoplasm of cervix [facility] Start: 05-16-2018 Urine microalbumin profile [facility] Start: 2018 Mammography [facility] Start: 2018 Screening for malignant neoplasm of breast Mammogram Screening [facility] Start: 1997 Hepatitis B Vaccine (1 of 3 - 19+ 3-dose series) Hepatitis B Vaccine (1 of 3 - 19+ 3-dose series) [facility] Start: 1996 HEPATITIS C SCREENING HEPATITIS C SCREENING [facility] Start: 1996 Hepatitis C screening Hepatitis C Screening [facility] Start: 1996 HIV SCREENING HIV SCREENING [facility] Start: 1996 HIV screening HIV Screening [facility] Start: 1978 HEPATITIS B (1 of 3 - 3-dose series) HEPATITIS B (1 of 3 - 3-dose series) [facility] Start: 1978 Hepatitis B Vaccine (1 of 3 - 3-dose series) Hepatitis B Vaccine (1 of 3 - 3-dose series) [facility] Patient Education ED [facility] Work Phone: Patient referral [facility] Work Phone: [facility] Immunizations Immunization Date Immunization Notes Care Provider Shady tellez 07-10-2014 influenza virus vacc ine, unspecified formulation Kay Mariee MD Work Phone: [facility] 05-31-2008 influenza virus vacc ine, unspecified formulation Kathia Carr PA-C Work Phone: [facility] 05-16-2008 tetanus toxoid, redu claudia diphtheria toxoid, and acellular pertussis vaccine, adsorbed Kathia Carr PA-C Work Phone: [facility] Payers Date Payer Category Payer Self-pay [id number] 2013 Unknown [id number] 2013 Unknown [employer] PPO OOS [id number] 2013-Present [phone] [address] [place] [address] PPO [id number] Unknown [id number] Unknown [id number] Unknown [id number] Unknown [id number] Unknown [id number] Unknown [id number] Social History Date Type Detail Facility Start: 12-19-2022 End: 08-27-2023 Tobacco smoking status [facility] Unknown if ever smoked [facility] Start: 1980 Sex Assigned At Female [facility] Start: 01-23-2023 End: 08-27-2023 Tobacco smoking status NHIS Ex-smoker [facility] Work Phone: History of tobacco use Current smoker [facility] Work Phone: History of tobacco use Cigarette Smoker [facility] Work Phone: Start: 01-23-2023 End: 12-10-2023 Cigarettes smoked current (pack per day) - Reported 0.5 [facility] Start: 01-23-2023 Tobacco use and exposure Smokeless tobacco non-user [facility] Work Phone: Start: 01-23-2023 End: 12-10-2023 Alcohol intake Current drinker of alcohol (finding) [facility] Start: 1980 Sex Assigned At Not on file [facility] Start: 01-23-2023 End: 03-24-2023 Tobacco use panel [facility] National Score (1-10 0), lower number is lower risk 60 [facility] Start: 10-06-2024 Sex Female (finding) [facility] Clinical Notes 01-23-2023 to 09-08-2024 Note Date & Type Note Facility 09-08-2024 Note [facility] Pap Smear Specimen Adequacy September 09, 2024 12:59am Comment . Satisfactory for evaluation. No endocervical component is identified. Comment on above: Satisfactory for kirby luation. No endocervical component is identified. 09-08-2024 Evaluation note Diagnosis Onset Date Resolution Encounter for routine gynecological examination noneactive September 08 2:35pm [facility] Work Phone: 1(703) 282-397105-16-2024 NoteHNO ID: [id number] Author: VERONICA MINOR APRN.BACK HOE MACHINE OPERATOR Service: ? Author Type: Nurse Practitioner Type: Progress Notes Filed: 12/10/2023 09:03 Note Text: This note was created using [employer]. Subjective Brigette German is a 43 year [...] history is provided by the patient. No imaging scheduler was used. Pain (foot) Pain location: right [...] small sessile polyp a 30cm IUD INSERTION (RESPIRATORY THERAPY TECHNICIAN DEPT)_*[place] 2002 Mirena IUD INSERTION (RESPIRATORY THERAPY TECHNICIAN DEPT)_*[place] 07/04/2008 Mirena TONSILLECTOMY AND ADENOIDECTOMY age 7 ALLERGIES Bacitracin, Bees, and Karnes Juice MEDICATIONS SUMAtriptan (IMITREX) 25 mg tablet [...] or diaphoretic. HENT: Head: Normocephalic and atraumatic. Klaudia (more content not included)...[facility]05-16-2024 History of Present illness Narrative* Veronica Minor APRN.BACK HOE MACHINE OPERATOR - 12/10/2023 8:35 AM EDT This note was created using [employer]. Subjective Brigette Landeros German is a 43 year old female. [...] history is provided by the patient. No imaging scheduler was used. Pain (foot) Pain location: right [...] small sessile polyp a 30cm IUD INSERTION (RESPIRATORY THERAPY TECHNICIAN DEPT)_*[place] 2002 Mirena IUD INSERTION (RESPIRATORY THERAPY TECHNICIAN DEPT)_*[place] 07/04/2008 Mirena TONSILLECTOMY & ADENOIDECTOMY <AGE 12 age 7 ALLERGIES Bacitracin, Bees, and Karnes Juice MEDICATIONS SUMAtriptan (IMITREX) 25 mg tablet [...] appt 12/15/23 Discussed red flags Veronica Minor APRN.YESY documented [facility] Discharge summary Author Uma Posey [facility] November 02, 2023 10:58am Note Date/Time November 02, 2023 10:5 8am [facility] Physical [facility] [address] [place] [address]. [address] [place] [address] / REHABILITATION SERVICES DISCHARGE SUMMARY MR#: [id number] Acct: [id number] Name: BRIGETTE GERMAN Rep #: [id number] : 1980 43 From: Uma BARTH T Referring Dr.: Dr. Elio Parker MD Status: REG RCR Insurance: [facility] P[employer]AN Patient Information Patient Information: BRIGETTE [...] appropriate by the physician. Thank you! Uma Posey DPT Balance/Gait/Functional tests Balance/Special Test Scores Oswestry Low Back Score: 11 <Electronically signed by Uma Posey DPT> 11/02/23 1058 CC: Dr. Elio Parker MD; Herberth Merino, DO ~ ELR Signed [facility] Work Phone: 1(123) 499-569608-29-2023 Nurse Note* April Bedoya RN - 03/24/2023 [...] recommendations. April Bedoya RN documented in [facility]23 History and physical note * Kay [...] small sessile polyp a 30cm IUD INSERTION (RESPIRATORY THERAPY TECHNICIAN DEPT)_*[place] 2002 Mirena IUD INSERTION (RESPIRATORY THERAPY TECHNICIAN DEPT)_*[place] 07/04/2008 Mirena TONSILLECTOMY & ADENOIDECTOMY <AGE 12 age 7 CURRENT MEDICATIONS Current Outpatient Medications Medication Sig SUMAtriptan (IMITREX) 25 mg tablet Take 25 mg by mouth as needed for migraine headache (see administration instructions). rOPINIRole (REQUIP) 0.5 mg tablet Take 0.5 mg by mouth as needed (restless leg). No current facility-administered medications for this visit. ALLERGIES: Bacitracin, Bees, Caterpillars [Other], and Karnes Juice PERSONAL HISTORY: SOCIAL HISTORY Social History [...] which included preparing to see the patient, [id number] patient care, completing clinical documentation, obtaining and/or [...] small sessile polyp a 30cm IUD INSERTION (RESPIRATORY THERAPY TECHNICIAN DEPT)_*FL 2002 Mirena IUD INSERTION (RESPIRATORY THERAPY TECHNICIAN DEPT)_*FL 07/04/2008 Mirena TONSILLECTOMY & ADENOIDECTOMY <AGE 12 age 7 CURRENT MEDICATIONS Current Outpatient Medications Medication Sig SUMAtriptan (IMITREX) 25 mg tablet Take 25 mg by mouth as needed for migraine headache (see administration instructions). rOPINIRole (REQUIP) 0.5 mg tablet Take 0.5 mg by mouth as needed (restless leg). No current facility-administered medications for this visit. ALLERGIES: Bacitracin, Bees, Caterpillars [Other], and Karnes Juice PERSONAL HISTORY: SOCIAL HISTORY Social History [...] which included preparing to see the patient, [id number] patient care, completing clinical documentation, obtaining and/or reviewing separately obtained history, performing a medically appropriate examination, counseling and educating the pat ient/family/caregiver, and ordering medications, tests, or procedures. Kathia Carr PA-C documented in this encounterOhio [facility] Hospital06-30-2023 NoteHNO ID: [id number] Author: Kathia Carr PA-C Service: ? Author Type: Physician Golf Professional Type: Progress Notes Filed: 01/29/2023 4:08 PM [...] small sessile polyp a 30cm IUD INSERTION (RESPIRATORY THERAPY TECHNICIAN DEPT)_*FL 2002 Mirena IUD INSERTION (RESPIRATORY THERAPY TECHNICIAN DEPT)_*[place] 07/04/2008 Mirena TONSILLECTOMY AND ADENOIDECTOMY age 7 Current Outpatient Medications Medication Sig SUMAtriptan (IMITREX) 25 mg tablet Take 25 mg by mouth as needed for migraine headache (see administration instructions). rOPINIRole (REQUIP) 0.5 mg tablet Take 0.5 mg by mouth as needed (restless leg). No current facility-administered medications for this visit. ALLERGIES: Bacitracin, Bees, Caterpillars [Other], and Karnes Juice PERSONAL HISTORY: Social History Tobacco Use [...] entered by the nurse and reviewed by ny Nursing Notes: Veronica Escalante 01/23/2023 9:38 AM [...] The patient denies a (more content not included)...[facility]06-30-2023 History of Present illness Narrative* Kathia Carr PA-C - 01/23/2023 9:38 AM EDT HISTORY AND PHYSICAL Brigettemadhavi German 1980 REFERRING PHYSICIAN: No ref. provider [...] Brigette has undergone prior endoscopy. Last colonoscopy 7/7/[address] Mariee under conscious sedation. No [...] small sessile polyp a 30cm IUD INSERTION (RESPIRATORY THERAPY TECHNICIAN DEPT)_[place] 2002 Mirena IUD INSERTION (RESPIRATORY THERAPY TECHNICIAN DEPT[place] 07/04/2008 Mirena TONSILLECTOMY & ADENOIDECTOMY <AGE 10 age 7 Current Outpatient Medications Medication Sig SUMAtriptan (IMITREX) 25 mg tablet Take 25 mg by mouth as needed for migraine headache (see administration instructions). rOPINIRole (REQUIP) 0.5 mg tablet Take 0.5 mg by mouth as needed (restless leg). No current facility-administered medications for this visit. ALLERGIES: Bacitracin, Bees, Caterpillars [Other], and Karnes Juice PERSONAL HISTORY: Social History Tobacco Use [...] Mammogram screening? N/A Last Colonoscopy: 2016 Veronica Ava I have confirmed and edited as necessary, [...] which included preparing to see the patient, [id number] patient care, completing clinical documentation, obtaining and/or reviewing separately obtained history, performing a medically appropriate examination, counseling and educating the pat ient/family/caregiver, and ordering medications, tests, or procedures. Kathia Carr PA-C [facility]* Veronica Escalante - 01/23/2023 [...] Colonoscopy: 2016 [facility] Diagnosis Onset Date Resolution Status Internal derangement of left knee acute Strain of left knee acute Internal derangement of left knee acute Osteoarthritis of left knee acute Strain of left knee acute Osteoarthritis of left knee acute [facility] Work Phone: Evaluation note* Diagnosis Onset Date Resolution Status Internal derangement of left knee acute Strain of left knee acute Internal derangement of left knee acute Osteoarthritis of left knee acute Strain of left knee acute Osteoarthritis of left knee acute Urinary tract infection with hematuria acute [facility] Work Phone: Evaluation note* Diagnosis Family history of colon cancer- Primary Family history of malignant neoplasm of gastrointestinal tract Personal history of colonic polyps documented in this encounter [facility] note* Diagnosis Blood in stool- Primary Family history of colon cancer Family history of malignant neoplasm of gastrointestinal tract Personal history of colonic polyps Obesity, Class III, BMI >= 40 Morbid obesity documented in this encounter [facility] note* Diagnosis Onset Date Resolution Status Encounter for routine gynecological examination noneactive [facility] Work Phone: Evaluation note* Diagnosis Onset Date Resolution Status Encounter for routine gynecological examination noneactive Lumbar radiculopathy acute Lumbar radiculopathy acute [facility] Work Phone: Evaluation note* Diagnosis Ingrown nail of great toe of right foot- Primary documented in this encounter [facility] Discharge instructions Additional Instructions Thank you for [...] care physician for further outpatient evaluation and management.[facility] Work Phone: Reason for referral (narrative)* Outpatient Procedure (Routine) - Closed Specialty Diagnoses / Procedures Referred By Sunny gallegos Referred To Contact [facility] Diagnoses Family history of colon cancer Personal history of colonic polyps Procedures COLONOSCOPY SCREENING COLONOSCOPY FLX DX W/COLLJ SPEC WHEN PFRMD Kathia Carr PA-C [address] [place] [address] [facility] [place] [address] [place] [address] Referral ID Status Reason Start Date Expiration Date V isits Requested Visits Authorized [id number] Closed Auto-Generate d Referral 01/23/2023 01/24/[address] [facility] for referral (narrative)No reason for referral information [facility]WWood [facility] Work Phone: [facility] for visit Narrative* Outpatient Procedure (Routine) - Closed Specialty Diagnoses / Procedures Referred By Sunny gallegos Referred To Contact [facility] [place] Diagnoses Family history of colon cancer Personal history of colonic polyps Procedures COLONOSCOPY SCREENING COLONOSCOPY FLX DX W/COLLJ SPEC WHEN PFRMD Kathia Carr PA-C [address] [place] [address] [facility] [address] [place] [address] Referral ID Status Reason Start Date Expiration Date V isits Requested Visits Authorized [id number] Closed Auto-Generate d Referral 01/23/2023 01/24/2024 1 1 [facility] Chief Complaint and Reason for Visit [...] tract infection with hematuria Chief Complaint Annual (RESPIRATORY THERAPY TECHNICIAN) BACK Reason for Visit Encounter for routin e gynecological examination Chief Complaint Annual (RESPIRATORY THERAPY TECHNICIAN) BACK LUMBAR SPINE RM 3 LUMBAR SPINE LUMBAR RADICULOPATHY / RX HERE Reason for Visit Encounter for routin e gynecological examination Lumbar radiculopathy Lumbar radiculopathy Chief Complaint Admit Date Annual (RESPIRATORY THERAPY TECHNICIAN) September 08, 2024 2:35pm SCREENING September 23, [...] Will No March 28 9:57am Power of Element Setter No March 28, 2021 9:57am Advance Directive Response Recorded Date/ Time Living Will No July 27 4 10:02am Power of Element Setter No July 27 024 10:02am Advance Directive Response Recorded Date/ Time Living Will No August 03 4 5:09pm Power of Element Setter No August 03 024 5:09pm Medications Administered Section Inactive Administered Medications [...] LIP 03/24/2023 8:57 AM EDT 50 mcg Given by LIP 03/24/2023 8:54 AM EDT 50 mcg lactated [...] 9:07 AM EDT 2 mg Given by LIP 03/24/2023 8:57 AM EDT 2 mg Given by LIP 03/24/2023 8:54 AM EDT 3 mg Summary Purpose Additional Source Comments Care Teams (unrecognized sec tion and content) Team Status: Active Member Role Status Dates Dr. Yosef Ochoa MD Family Provider Active Herberth Merino DO Primary Care Provider Active Team Status: Inactive Member Role Status Dates Dr. Yosef Ochoa MD Primary Care Provider, Referring Provider Active IZAIAH Gamboa Attending Provider Active Team Status: Inactive Member Role Status Dates Dr. Yosef Ochoa MD Primary Care Provider Active Dr. Tomás Gomez MD Attending Provider Active Team Status: Inactive Member Role Status Dates Dr. Yosef Ochoa MD Primary Care Provider, Referring Provider Active Yosef Jacobs MD Attending Provider Active Team Status: Inactive Member Role Status Dates Dr. Yosef Ochoa MD Primary Care Provider Active IZAIAH Gamboa Attending Provider, Referring Pr ovider Active Team Status: Inactive Member Role Status Dates Herberth Merino DO Primary Care Provider, Attending Provider Active Team Status: Inactive Member Role Status Dates Herberth Merino DO Primary Care Provider, Referring Provider Active IZAIAH Gamboa Attending Provider Active Team Status: Inactive Member Role Status Dates Herberth Merino DO Primary Care Provider Active IZAIAH Gamboa Attending Provider Active Singer Songwriter Relationship Specialty Start Date End Date Herberth Merino DO [facility] JOSE A [address] [place], [place] [id number] PCP - General Family Medicine 01/16/23 Singer Songwriter Relationship Specialty Start Date End Date Herberth Merino DO Katey Knox [facility] [address] [place], [place] [id number] PCP - General Family Medicine 01/16/23 Team Status: Inactive Member Role Status Dates Dr. Yosef Ochoa MD Referring Provider Active Leah Cuellar FREIGHT CHECKER, FREIGHT CHECKER-C Attending Provider Active Herberth Merino DO Primary Care Provider Active Team Status: Inactive Member Role Status Dates Herberth Merino DO Primary Care Provider Active Dr. Troy Morillo , Emergency Provider Active Team Status: Inactive Member [...] Active Dr. Troy Morillo DO Attending Provider, Emergency P klaudia Active Team Status: Inactive Member Role Status Dates Herberth Merino DO Primary Care Provider Active Dr. Elio Parker MD Attending Provider Active Singer Songwriter Relationship Specialty Start Date End Date Jessica Ni MD [address] [facility] [address] [place], [place] [id number] PCP - General Internal Medicine 12/10/23 Team Status: Active Member Role Status Dates Jessica Ni MD Primary Care Provider Active Team Status: Inactive Member Role Status Dates Herberth Merino DO Referring Provider Active Start: September 08, 2024 End: September 08, 2024 Leah Cuellar FREIGHT CHECKER, FREIGHT CHECKER-C Attending Provider Active Start: September 08, 2024 End: September 08, 2024 Jessica Ni MD Primary Care Provider Active St art: September 08, 2024 End: September 08, 2024 Team Status: Inactive Member Role Status Dates Jessica Ni MD Primary Care Provider Active St art: September 08, 2024 End: September 08, 2024 SARAHY Abraham NP Attending Provider Active Start: September 08, 2024 End: September 08, 2024 SARAHY Abraham NP Referring Provider Active Start: September 08, 2024 End: September 08, 2024 Team Status: Inactive Member Role Status Dates Jessica Ni MD Primary Care Provider Active St art: September 23, 2024 End: September 23, 2024 SARAHY Abraham NP Attending Provider Active Start: September 23, 2024 End: September 23, 2024 SARAHY Abraham NP Referring Provider Active Start: September 23, 2024 [...] or prosecute any alcohol or drug abuse patient.[facility] Hospital[facility] the event this information is protected by the Federal Confidentiality of Alcohol and Drug Abuse Patient Records regulations: The Federal rules restrict any use of the information to criminally investigate or prosecute any alcohol or drug abuse patient.[facility] HospitalIn the event this information is protected by the Federal Confidentiality of Alcohol and Drug Abuse Patient Records regulations: The Federal rules restrict any use of the information to criminally investigate or prosecute any alcohol or drug abuse patient.[facility] Reason for Visit (unrecogniz ed section and content) Reason Comments Consult Reason Comments Ingrown Toenail R great toe redness, pain, swelling drainage x 2 months INFORMATION SOURCE (unrecogn ized section and content) DATE CREATED AUTHOR 12/12/2023 [facility] DATE CREATED AUTHOR AUTHOR'S ORGANANDREW ATION 05/12/2025 [facility] FOR RECORDS PERTAINING TO PATIENTS WHO ARE [...] BE BASED ON THE PRIMARY CLINICAL RECORDS. [employer] [facility]. provides no warranty or guarantee of the accuracy or completeness of information in this document.
--- OUTSIDE RECORDS SUMMARY | 2025-05-13 09:00 | XMS RPT_ITS | CCD ---
Author Organization [facility] CliniSyid Care Team Providers Care Retinal Angiographer Name Role Phone Dr. Yosef Ochoa Primary Care Provider Dr. Yosef Ochoa Referring Provider Raudel BL[place], [place] Onofre Burrows Attending Provider Dr. Tomás Gomez Attending Provider MD Yosef Jacobs Attending Provider DO Herberth Merino Primary Care Provider [phone] DO Herberth Merino Referring Provider Herberth Merino DO Primary Care Provider Dr. Yosef Ochoa Referring Provider Unavailable Polo TECHNICAL DATA ANALYST, TECHNICAL DATA ANALYST-C Leah Attending Provider [phone] DO Herberth Merino Primary Care Provider [phone] Dr. Yosef Ochoa Referring Provider Unavailable Polo TECHNICAL DATA ANALYST, TECHNICAL DATA ANALYST-C Leah Attending Provider [phone] DO Herberth [...] Unavailable Herberth Merino DO Referring Provider Polo TECHNICAL DATA ANALYST-CLeah Attending Provider [facility] [phone] Polo TECHNICAL DATA ANALYST-C, Leah Referring Provider Jessica Ni Primary Care Unavailable Polo TECHNICAL DATA ANALYST, Leha Attending Unavailable Apison TECHNICAL DATA ANALYST, Leah Referring Unavailable Hill, Tanisha Attending Unavailable Hill, Tanisha Referring Unavailable Elena, Chalon Primary Care Unavailable Hill, Tanisha Primary Care Unavailable Hill, Tanisha Attending Unavailable Hill, Tanisha Referring Unavailable Elena, Chalon Primary Care Unavailable Apison TECHNICAL DATA ANALYST, Leah Attending Unavailable Herberth Merino Referring Unavailable Polo TECHNICAL DATA ANALYST, Leah Attending Unavailable Apison TECHNICAL DATA ANALYST, Leah Referring Unavailable Elena, Chalon Primary Care Unavailable Allergies Allergy Classification Reported Allergen(s) Allergy Type Date of Onset Reaction(s) Facility (9 sources) Bacitracin; Translations: [BACITRACIN] Drug Allergy 6 [facility] (9 sources) Archer juice; Translations: [ORANGE JUICE] Allergy to substance 6 [facility] (4 sources) Bees; Translations: [BEES] Propensity to adverse reactions 6 [facility] (2 sources) CATERPILLARS [Other] Propensity to adverse reactions 6 [facility] (1 source) OTHER; Translations: [OTHER] Propensity to adverse reactions (disorder) 6 [facility] (1 source) Bacitracin Drug Allergy 5 [facility] (1 source) Archer juice Drug allergy (disorder) 5 [facility] Medications Current Medications Medication Drug Class(es) Dates Sig (Normalized) Sig (Original) Amino Ac-Hydroly Collagen-Whey (4 sources) Start: 12-15-2022 Amino Ac-Hydroly Collagen-Whey Active ML PO December 14, 2022 11:00pm Start: 12-15-2022 Amino Ac-Hooper ly Collagen-Whey Active ML PO December 15, [...] MG PO December 15, 2022 12:00am levonorgestrel 0.179981 mg/hr intrauterine system (5 sources) Progestin, Progestin-containing [...] needed for migraine headache (see administration instructions). Qmmtacs-Lgxc-Vwecr-Or eg-Capryl (3 sources) Start: 12-15-2022 Eavtsnt-Vyhu-Ubbne-O reg-Capryl Active CAP PO December 14, 2022 11:00pm Start: 12-15-2022 Mnipyrc-Nonn-Y esag-Clel-Tsrhtz Active CAP PO December 15, 2022 12:00am Ibmkhkbo-Lqse-Qkxtf-Oreg-Cap ry (1 source) Start: 12-15-2022 Rbvyvhhe-Tlom-Nnill-Oreg-Cap ry Active CAP PO December 15, 2022 12:00am Lvxkmtnv-Uynn-Hqpwo-Oreg-Cap ry 100 mg-150 mg- 50 mg-150 mg capsule (1 source) Start: 12-15-2022 Rofrcfjm-Lhtt-Ykryd-Oreg-Cap ry 100 mg-150 mg- 50 mg-150 mg [...] Drug Class(es) Dates Sig (Normalized) Sig (Original) [id number] 200 actuat albuterol 0.09 mg/actuat metered dose [...] Confirmon 05-11-2025 BERTA-D See below TNP Normal [facility] Comment on above: Performed By: #### L 501.5200, L3100.5450 #### [facility] [address] [place], [place], [address] L3410.9992on [facility] Normal . [facility] Comment on above: Order Comment: 08201 1 COQ10 Result Comment: Test Ordered: [id number] Coenzyme Q10, Total Test(s) 859326-Hyxpgysv Q10, Total was developed and its performance characteristics determined by [facility]. It has not been cleared or approved by the Food and Drug Administration. Coenzyme Q10, Total 0.88 ug/mL Reference Range: 0.37-2.20 Performed at: - [address] [id number] Tobacco Sampler: Carolyn Ken MD, Phone: [phone] Performed at: [facility] Lab[address] [id number] Tobacco Sampler: Michael Marcos PhD, Phone: [phone] Performed By: #### L 3410.9992 #### [facility] [address] [place], [place], [id number] [facility] Misc.on [facility]-11-20[facility]isc. 4 COMMENT Normal . [facility] Comment on above: Order Comment: 06546 1 COQ10 Result Comment: Test Ordered: [id number] Vitamin B7 Test(s) 465666-Tsqvzns B7 was developed and its performance characteristics determined by [facility]. It has not been cleared or approved by the Food and Drug Administration. Vitamin B7 0.68 ng/mL Reference Range: 0.05-0.83 Performed at: - [address] [id number] Tobacco Sampler: Carolyn Ken MD, Phone: [phone] Performed at: - [address] [id number] Tobacco Sampler: Michael Marcos PhD, Phone: [phone] Performed By: #### L 3410.9992 #### [facility] [address] [place], [place], [address] Magnesiumon 05-11-2025 Magnesium [Mass/Vol] 2.0 mg/dL Normal 1.5-2.2 [facility] Comment on above: Performed By: #### L 501.5200, L3100.5450 #### [facility] [address] [place], [place], [address] CBC W/Diff, Automatedon 10- Absolute Lymph 2.67 X10 3/uL Normal 0.83-4.51 [facility] Comment on above: Performed By: #### L 501.6710, L500.4050, L506.0400, L509.3001, L506.1001, L503.6030, L3300.1750, L506.0200, L101.9900, L501.9520, L501.20553, L3410.9998, L509.6001, L100.0100, L503.0106, L503.6550 #### [facility] [address] [place], [place], [address] Absolute Neut 5.9 X10 3/uL Normal 2.0-7.7 [facility] Comment on above: Performed By: #### L 501.6710, L500.4050, L506.0400, L509.3001, L506.1001, L503.6030, L3300.1750, L506.0200, L101.9900, L501.9520, L501.55227, L3410.9998, L509.6001, L100.0100, L503.0106, L503.6550 #### [facility] [address] [place], [address] Basophils/100 WBC (Bld) 0.7 % Normal 0-1 [facility] Comment on above: Performed By: #### L 501.6710, L500.4050, L506.0400, L509.3001, L506.1001, L503.6030, L3300.1750, L506.0200, L101.9900, L501.9520, L501.17669, L3410.9998, L509.6001, L100.0100, L503.0106, L503.6550 #### [facility] [address] [place], [address] Eosinophils/100 WBC (Bld) 2.3 % Normal 0-5 [facility] Comment on above: Performed By: #### L 501.6710, L500.4050, L506.0400, L509.3001, L506.1001, L503.6030, L3300.1750, L506.0200, L101.9900, L501.9520, L501.95317, L3410.9998, L509.6001, L100.0100, L503.0106, L503.6550 #### [facility] [address] [facility] [place], [address] Erythrocyte distribution width (RBC) [Ratio] 12.3 % Normal 11.6-14.6 [facility] Comment on above: Performed By: #### L 501.6710, L500.4050, L506.0400, L509.3001, L506.1001, L503.6030, L3300.1750, L506.0200, L101.9900, L501.9520, L501.92702, L3410.9998, L509.6001, L100.0100, L503.0106, L503.6550 #### [facility] [address] [facility] [place], [place], [phone] Hematocrit (Bld) [Volume fraction] 42.3 % Normal 37-47 [facility] Comment on above: Performed By: #### L 501.6710, L500.4050, L506.0400, L509.3001, L506.1001, L503.6030, L3300.1750, L506.0200, L101.9900, L501.9520, L501.08877, L3410.9998, L509.6001, L100.0100, L503.0106, L503.6550 #### [facility] [address] [place], [address] Hemoglobin (Bld) [Mass/Vol] 14.1 g/dL Normal 12.0-15.0 [facility] Comment on above: Performed By: #### L 501.6710, L500.4050, L506.0400, L509.3001, L506.1001, L503.6030, L3300.1750, L506.0200, L101.9900, L501.9520, L501.72961, L3410.9998, L509.6001, L100.0100, L503.0106, L503.6550 #### [facility] [address] [facility] [place], [place], [phone] IG% 0.400 Normal 0.0-0.9 [facility] Comment on above: Result Comment: IG% - Immature Granulocytes (promyelocytes, myelocytes and metamyelocytes) > 1% indicates that a LEFT SHIFT is Present. Performed By: #### L 501.6710, L500.4050, L506.0400, L509.3001, L506.1001, L503.6030, L3300.1750, L506.0200, L101.9900, L501.9520, L501.56277, L3410.9998, L509.6001, L100.0100, L503.0106, L503.6550 #### [facility] [address] [place], [address] Lymphocytes/100 WBC (Bld) 27.9 % Normal 19-41 [facility] Comment on above: Performed By: #### L 501.6710, L500.4050, L506.0400, L509.3001, L506.1001, L503.6030, L3300.1750, L506.0200, L101.9900, L501.9520, L501.39974, L3410.9998, L509.6001, L100.0100, L503.0106, L503.6550 #### [facility] [address] [facility] [place], [address] MCH (RBC) [Entitic mass] 30.1 pg Normal 27.0-32.0 [facility] Comment on above: Performed By: #### L 501.6710, L500.4050, L506.0400, L509.3001, L506.1001, L503.6030, L3300.1750, L506.0200, L101.9900, L501.9520, L501.87486, L3410.9998, L509.6001, L100.0100, L503.0106, L503.6550 #### [facility] [address] [place], [address] MCHC (RBC) [Mass/Vol] 33.3 g/dL Normal 32-36 [facility] Comment on above: Performed By: #### L 501.6710, L500.4050, L506.0400, L509.3001, L506.1001, L503.6030, L3300.1750, L506.0200, L101.9900, L501.9520, L501.96024, L3410.9998, L509.6001, L100.0100, L503.0106, L503.6550 #### [facility] [address] [place], [address] MCV (RBC) [Entitic vol] 90.2 fL Normal 81-99 [facility] Comment on above: Performed By: #### L 501.6710, L500.4050, L506.0400, L509.3001, L506.1001, L503.6030, L3300.1750, L506.0200, L101.9900, L501.9520, L501.81105, L3410.9998, L509.6001, L100.0100, L503.0106, L503.6550 #### [facility] [address] [facility] [place], [address] Monocytes/100 WBC (Bld) 6.7 % Normal 0-10 [facility] Comment on above: Performed By: #### L 501.6710, L500.4050, L506.0400, L509.3001, L506.1001, L503.6030, L3300.1750, L506.0200, L101.9900, L501.9520, L501.83862, L3410.9998, L509.6001, L100.0100, L503.0106, L503.6550 #### [facility] [address] [place], [address] Neutrophils/100 WBC (Bld) 62.0 % Normal 47-70 [facility] Comment on above: Performed By: #### L 501.6710, L500.4050, L506.0400, L509.3001, L506.1001, L503.6030, L3300.1750, L506.0200, L101.9900, L501.9520, L501.79250, L3410.9998, L509.6001, L100.0100, L503.0106, L503.6550 #### [facility] [address] [place], [address] Nucleated RBC (Bld) [#/Vol] 0 10*3/uL Normal 0-5 [facility] Comment on above: Performed By: #### L 501.6710, L500.4050, L506.0400, L509.3001, L506.1001, L503.6030, L3300.1750, L506.0200, L101.9900, L501.9520, L501.49947, L3410.9998, L509.6001, L100.0100, L503.0106, L503.6550 #### [facility] [address] [place], [address] Platelet mean volume (Bld) [Entitic vol] 10.3 fL Normal 6.2-12.0 [facility] Comment on above: Performed By: #### L 501.6710, L500.4050, L506.0400, L509.3001, L506.1001, L503.6030, L3300.1750, L506.0200, L101.9900, L501.9520, L501.50448, L3410.9998, L509.6001, L100.0100, L503.0106, L503.6550 #### [facility] [address] [place], [address] Platelets (Bld) [#/Vol] 292 10*3/uL Normal 150-450 [facility] Comment on above: Performed By: #### L 501.6710, L500.4050, L506.0400, L509.3001, L506.1001, L503.6030, L3300.1750, L506.0200, L101.9900, L501.9520, L501.29351, L3410.9998, L509.6001, L100.0100, L503.0106, L503.6550 #### [facility] [address] [place], [place], [phone] (926) RBC (Bld) [#/Vol] 4.69 10*6/uL Normal 4.2-5.4 [facility] Comment on above: Performed By: #### L 501.6710, L500.4050, L506.0400, L509.3001, L506.1001, L503.6030, L3300.1750, L506.0200, L101.9900, L501.9520, L501.29404, L3410.9998, L509.6001, L100.0100, L503.0106, L503.6550 #### [facility] [address] [place], [place], [phone] (817) RDW SD 40.7 fl Normal 35.1-43.9 [facility] Comment on above: Performed By: #### L 501.6710, L500.4050, L506.0400, L509.3001, L506.1001, L503.6030, L3300.1750, L506.0200, L101.9900, L501.9520, L501.36433, L3410.9998, L509.6001, L100.0100, L503.0106, L503.6550 #### [facility] [address] [place], [place], [phone] (113) WBC (Bld) [#/Vol] 9.6 10*3/uL Normal 4.4-11.0 [facility] Comment on above: Performed By: #### L 501.6710, L500.4050, L506.0400, L509.3001, L506.1001, L503.6030, L3300.1750, L506.0200, L101.9900, L501.9520, L501.95497, L3410.9998, L509.6001, L100.0100, L503.0106, L503.6550 #### [facility] [address] [place], [place], [id number] CRPon 05-08-2025 C-REACTIVE PROT 7.51 mg/L High 0.0-3.0 [facility] Comment on above: Performed By: #### L 7400.0280 #### [facility] [address] [facility] [facility] [address] [place], [place], [phone] Comprehensive Metabolic Prof ilon 05-08-2025 Albumin [Mass/Vol] 4.0 g/dL Normal 3.5-5.0 [facility] Comment on above: Performed By: #### L 501.6710, L500.4050, L506.0400, L509.3001, L506.1001, L503.6030, L3300.1750, L506.0200, L101.9900, L501.9520, L501.19458, L3410.9998, L509.6001, L100.0100, L503.0106, L503.6550 #### [facility] [address] [facility] [address] [place], [place], [phone] Albumin/Globulin [Mass ratio] 1.3 {ratio} Normal 0.9-2.4 [facility] Comment on above: Performed By: #### L 501.6710, L500.4050, L506.0400, L509.3001, L506.1001, L503.6030, L3300.1750, L506.0200, L101.9900, L501.9520, L501.94745, L3410.9998, L509.6001, L100.0100, L503.0106, L503.6550 #### [facility] [address] [place], [place], [id number] ALK PHOS 67 U/L Normal 35-104 [facility] Comment on above: Performed By: #### L 501.6710, L500.4050, L506.0400, L509.3001, L506.1001, L503.6030, L3300.1750, L506.0200, L101.9900, L501.9520, L501.52617, L3410.9998, L509.6001, L100.0100, L503.0106, L503.6550 #### [facility] [address] [place], [address] ALT [Catalytic activity/Vol] 19 U/L Normal <=34 [facility] Comment on above: Performed By: #### L 501.6710, L500.4050, L506.0400, L509.3001, L506.1001, L503.6030, L3300.1750, L506.0200, L101.9900, L501.9520, L501.04941, L3410.9998, L509.6001, L100.0100, L503.0106, L503.6550 #### [facility] [address] [place], [address] AST [Catalytic activity/Vol] 18 U/L Normal <=31 [facility] Comment on above: Performed By: #### L 501.6710, L500.4050, L506.0400, L509.3001, L506.1001, L503.6030, L3300.1750, L506.0200, L101.9900, L501.9520, L501.96219, L3410.9998, L509.6001, L100.0100, L503.0106, L503.6550 #### [facility] [address] [place], [place], [address] Bilirubin [Mass/Vol] 0.39 mg/dL Normal 0.00-1.30 [facility] Comment on above: Performed By: #### L 501.6710, L500.4050, L506.0400, L509.3001, L506.1001, L503.6030, L3300.1750, L506.0200, L101.9900, L501.9520, L501.27522, L3410.9998, L509.6001, L100.0100, L503.0106, L503.6550 #### [facility] [address] [place], [address] BUN/CRE 28.5 RATIO High 10-20 [facility] Comment on above: Performed By: #### L 501.6710, L500.4050, L506.0400, L509.3001, L506.1001, L503.6030, L3300.1750, L506.0200, L101.9900, L501.9520, L501.19918, L3410.9998, L509.6001, L100.0100, L503.0106, L503.6550 #### [facility] [address] [place], [place], [phone] (770) Calcium [Mass/Vol] 9.7 mg/dL Normal 7.6-11.0 [facility] Comment on above: Performed By: #### L 501.6710, L500.4050, L506.0400, L509.3001, L506.1001, L503.6030, L3300.1750, L506.0200, L101.9900, L501.9520, L501.31665, L3410.9998, L509.6001, L100.0100, L503.0106, L503.6550 #### [facility] [address] [place], [place], [phone] (567) Chloride [Moles/Vol] 102 mmol/L Normal 98-108 [facility] Comment on above: Performed By: #### L 501.6710, L500.4050, L506.0400, L509.3001, L506.1001, L503.6030, L3300.1750, L506.0200, L101.9900, L501.9520, L501.89991, L3410.9998, L509.6001, L100.0100, L503.0106, L503.6550 #### [facility] [address] [place], [place], [phone] CO2 [Moles/Vol] 23.8 mmol/L Normal 21.0-32.0 [facility] Comment on above: Performed By: #### L 501.6710, L500.4050, L506.0400, L509.3001, L506.1001, L503.6030, L3300.1750, L506.0200, L101.9900, L501.9520, L501.97890, L3410.9998, L509.6001, L100.0100, L503.0106, L503.6550 #### [facility] [address] [facility] [place], [address] Creatinine [Mass/Vol] 0.62 mg/dL Low 0.70-1.20 [facility] Comment on above: Performed By: #### L 501.6710, L500.4050, L506.0400, L509.3001, L506.1001, L503.6030, L3300.1750, L506.0200, L101.9900, L501.9520, L501.69150, L3410.9998, L509.6001, L100.0100, L503.0106, L503.6550 #### [facility] [address] [place], [place], [id number] GAP 12 Normal 5-15 [facility] Comment on above: Performed By: #### L 501.6710, L500.4050, L506.0400, L509.3001, L506.1001, L503.6030, L3300.1750, L506.0200, L101.9900, L501.9520, L501.63776, L3410.9998, L509.6001, L100.0100, L503.0106, L503.6550 #### [facility] [address] [facility] [place], [address] (764) GFR/1.73 sq M.predicted among non-blacks MDRD (S/P/Bld) [Vol rate/Area] 111 mL/min/{1.73_m2} Normal >60 [facility] Comment on above: Result Comment: mL/m in/1.73m2 CKD-EPI Creatinine Equation (2020) Performed By: #### L 501.6710, L500.4050, L506.0400, L509.3001, L506.1001, L503.6030, L3300.1750, L506.0200, L101.9900, L501.9520, L501.24395, L3410.9998, L509.6001, L100.0100, L503.0106, L503.6550 #### [facility] [address] [facility] [place], [address] (993) Globulin (S) [Mass/Vol] 3.2 g/dL Normal 2.2-4.2 [facility] Comment on above: Performed By: #### L 501.6710, L500.4050, L506.0400, L509.3001, L506.1001, L503.6030, L3300.1750, L506.0200, L101.9900, L501.9520, L501.51354, L3410.9998, L509.6001, L100.0100, L503.0106, L503.6550 #### [facility] [address] [facility] [place], [place], [phone] (825) Glucose [Mass/Vol] 91 mg/dL Normal 70-99 [facility] Comment on above: Performed By: #### L 501.6710, L500.4050, L506.0400, L509.3001, L506.1001, L503.6030, L3300.1750, L506.0200, L101.9900, L501.9520, L501.86714, L3410.9998, L509.6001, L100.0100, L503.0106, L503.6550 #### [facility] [address] [place], [address] Potassium [Moles/Vol] 3.7 mmol/L Normal 3.3-5.1 [facility] Comment on above: Performed By: #### L 501.6710, L500.4050, L506.0400, L509.3001, L506.1001, L503.6030, L3300.1750, L506.0200, L101.9900, L501.9520, L501.87650, L3410.9998, L509.6001, L100.0100, L503.0106, L503.6550 #### [facility] [address] [place], [address] Sodium [Moles/Vol] 138 mmol/L Normal 133-145 [facility] Comment on above: Performed By: #### L 501.6710, L500.4050, L506.0400, L509.3001, L506.1001, L503.6030, L3300.1750, L506.0200, L101.9900, L501.9520, L501.80906, L3410.9998, L509.6001, L100.0100, L503.0106, L503.6550 #### [facility] [address] [place], [address] T PROT 7.2 g/dL Normal 5.9-8.4 [facility] Comment on above: Performed By: #### L 501.6710, L500.4050, L506.0400, L509.3001, L506.1001, L503.6030, L3300.1750, L506.0200, L101.9900, L501.9520, L501.54930, L3410.9998, L509.6001, L100.0100, L503.0106, L503.6550 #### [facility] [address] [place], [place], [id number] Urea nitrogen [Mass/Vol] 18 mg/dL Normal 4-19 [facility] Comment on above: Performed By: #### L 501.6710, L500.4050, L506.0400, L509.3001, L506.1001, L503.6030, L3300.1750, L506.0200, L101.9900, L501.9520, L501.84445, L3410.9998, L509.6001, L100.0100, L503.0106, L503.6550 #### [facility] [address] [place], [place], [id number] Erythrocyte Sed Rateon 05-08 SED RATE 25 mm/hr Normal 0-30 [facility] Comment on above: Performed By: #### L 501.6710, L500.4050, L506.0400, L509.3001, L506.1001, L503.6030, L3300.1750, L506.0200, L101.9900, L501.9520, L501.78433, L3410.9998, L509.6001, L100.0100, L503.0106, L503.6550 #### [facility] [address] [place], [place], [id number] Estradiolon 05-08-2025 ESTRADIOL 45.2 pg/mL Normal [facility] Comment on above: Result Comment: FEMA [...] 18. Performed By: #### L [id number] #### [facility] [address] [facility] [place], [place], [id number] Ferritinon 05-08-2025 Ferritin [Mass/Vol] 172 ng/mL Normal 22-378 [facility] Comment on above: Performed By: #### L 501.6710, L500.4050, L506.0400, L509.3001, L506.1001, L503.6030, L3300.1750, L506.0200, L101.9900, L501.9520, L501.31608, L3410.9998, L509.6001, L100.0100, L503.0106, L503.6550 #### [facility] [address] [place], [place], [id number] Folates,Serum (Folic Acid)on 05-08-2025 FOLATES,SERUM 25.20 ng/mL Normal 4.60-34.80 [facility] Comment on above: Order Comment: N Result Comment: Hemo lysis, Results will be affected, Requires Recollection. Performed By: #### L 501.6710, L500.4050, L506.0400, L509.3001, L506.1001, L503.6030, L3300.1750, L506.0200, L101.9900, L501.9520, L501.70512, L3410.9998, L509.6001, L100.0100, L503.0106, L503.6550 #### [facility] [address] [place], [address] Free T3on 05-08-2025 Free T3 [Mass/Vol] 3.2 pg/mL Normal 2.18-3.98 [facility] Comment on above: Performed By: #### L 7400.0280 #### [facility] [address] [place], [address] Iron+Iron Binding Capacityon 05-08-2025 Iron [Mass/Vol] 92 ug/dL Normal 50-170 [facility] Comment on above: Performed By: #### L 7400.0280 #### [facility] [address] [place], [address] IRON SATURATION 24.5 Normal 13-59 [facility] Comment on above: Performed By: #### L 7400.0280 #### [facility] [address] [place], [address] TIBC 375 ug/dL Normal 250-450 [facility] Comment on above: Performed By: #### L 7400.0280 #### [facility] [address] [place], [address] UIBC 283 ug/dL Normal 228-428 [facility] Comment on above: Performed By: #### L 7400.0280 #### [facility] [address] [place], [address] L509.3001on 05-08-2025 Testosterone [Mass/Vol] ng/dL Low 9-55 [facility] Comment on above: Performed By: #### L 7400.0280 #### [facility] [address] [place], [address] L509.6001on 05-08-2025 CORTISOL < 0.11 Low 6.02-18.40 [facility] Comment on above: Performed By: #### L 7400.0280 #### [facility] [address] [place], [address] T4 Free Directon 05-08-2025 T4 FREE DIRECT 1.40 ng/dL Normal 0.76-1.46 [facility] Comment on above: Performed By: #### L 7400.0280 #### [facility] [address] [place], [address] Thyroid Stim Hormone (TSH)on 05-08-2025 TSH 5.860 uIU/mL High 0.300-4.200 [facility] Comment on above: Performed By: #### L 7400.0280 #### [facility] [address] [place], [address] Vitamin B12on 05-08-2025 Cobalamin (Vitamin B12) [Mass/Vol] 657 pg/mL Normal 180-914 [facility] Comment on above: Performed By: #### L 7400.0280 #### [facility] [address] [place], [place], [address] Vitamin D,25 Hydroxyon 05-08 Vitamin D 25-OH 48.9 ng/mL Normal 30-100 [facility] Comment on above: Result Comment: Lidia min D Status Deficiency: <20 ng/mL (50nmol/L) Insufficiency: 20-30 ng/mL (50-75 nmol/L) Sufficiency: 30-100 ng/mL (75-250 nmol/L) Toxicity: >100 ng/mL (>250 nmol/L) Performed By: #### L 7400.0280 #### [facility] [address] [place], [address] Breast imaging reportOrdered By: Peyton Carlson on 09-23-2024 Study report [facility] Imaging Services [address] [place] [place] [address] SCRN MAMM (CAD)W/NETTE BILAT MR#: [id number] Acct: [id number] Name: BRIGETTE GERMAN NANCY Rep #: [id number] : 1980 F 44 From: Renita Carlson MD PCP: Dr. Jessica Ni MD Status: REG CL I Study:SCRN MAMM (CAD)W/NETTE BILAT Date of Exa m: 09/23/24 Exam# [id number] Ordering Dr: Leah Cuellar NP TECHNICAL DATA ANALYST-C PROCEDURE: SCRN MAMM (CAD)W/NETTE BILAT REASON FOR [...] of the results by letter. Reading Location: [facility] CC: TECHNICAL DATA ANALYST-C Leah Cuellar; Dr. Jessica Ni MD ~ Legal Financial Specialist: Signed [facility] SCRN MAMM (CAD)W/NETTE BILATo n 09-23-2024 SCRN MAMM (CAD)W/NETTE BILAT [facility] Imaging Services [address], [place] [address] SCRN MAMM (CAD)W/NETTE BILAT MR#: [id number] Acct: [id number] Name: BRIGETTE GERMAN NANCY Rep #: [id number] : 1980 F 44 From: Peyton Carlson MD PCP: Dr. Jessica Ni MD Status: REG CLI Study: SCRN MAMM (CAD)W/NETTE BILAT Date of Exam: 08/28 03/20 Exam# [id number] Ordering Dr: Leah Cuellar NP TECHNICAL DATA ANALYST -C PROCEDURE: SCRN MAMM (CAD)W/NETTE BILAT REASON [...] of the results by letter. Reading Location: [facility] CC: TECHNICAL DATA ANALYST-C Leah Cuellar; Dr. Jessica Ni MD Legal Financial Specialist: Signed Normal [facility] PAP IG HPV APTIMA 16/18,45on 09-13-2024 ADEQ Comment Normal . [facility] Comment on above: Order Comment: Speci men Comment: [id number] Specimen Comment: Source.............Cervix Specimen Comment: No. of containers..01 ThinPrep Vial Result Comment: Sati sfactory for evaluation. No endocervical component is identified. Performed By: #### L 7400.0280 #### [facility] [address] [place], [address] COMM . Normal . [facility] Comment on above: Order Comment: Speci men Comment: [id number] Specimen Comment: Source.............Cervix Specimen Comment: No. of containers..01 ThinPrep Vial Performed By: #### L 7400.0280 #### [facility] [address] [place], [place], [address] COMMENT Comment Normal . [facility] Comment on above: Order Comment: Speci men Comment: [id number] Specimen Comment: Source.............Cervix Specimen Comment: No. of containers..01 ThinPrep Vial Result Comment: This liquid based ThinPrep(R) pap test was screened with the use of an image guided system. Performed By: #### L 7400.0280 #### [facility] [address] [place], [address] DIAG Comment Normal . [facility] Comment on above: Order Comment: Speci men Comment: [id number] Specimen Comment: Source.............Cervix Specimen Comment: No. of containers..01 ThinPrep Vial Result Comment: NEGA TIVE FOR INTRAEPITHELIAL LESION OR MALIGNANCY. Performed By: #### L 7400.0280 #### [facility] [address] [place], [address] HPV APTIMA, HR Negative Normal Negative [facility] Comment on above: Order Comment: Speci men Comment: [id number] Specimen Comment: Source.............Cervix Specimen Comment: No. of containers..01 ThinPrep Vial Result Comment: This nucleic acid amplification test detects fourteen high- risk HPV types (16,18,31,33,35,39,45,51,52,56,58,59,66,68) without differentiation. Performed By: #### L 7400.0280 #### [facility] [address] [place], [place], [address] HPV Abbey Rfx Comment Normal . [facility] Comment on above: Order Comment: Speci men Comment: [id number] Specimen Comment: Source.............Cervix Specimen Comment: No. of containers..01 ThinPrep Vial Result Comment: Crit eria not met, HPV Genotype not performed. Performed at: - [facility] [id number] Tobacco Sampler: Lauren Valle MD, Phone: [phone] Performed at: = - [facility] [id number] Tobacco Sampler: Laurne Valle MD, Phone: [phone] Performed By: #### L 7400.0280 #### [facility] [address] [place], [address] PAPSMR Comment Normal . [facility] Comment on above: Order Comment: Speci men Comment: [id number] Specimen Comment: Source.............Cervix Specimen Comment: No. of [...] occur. Performed By: #### L 7400.0280 #### [facility] [address] [place], [place], [address] PERFORM Comment Normal . [facility] Comment on above: Order Comment: Speci men Comment: [id number] Specimen Comment: Source.............Cervix Specimen Comment: No. of containers..01 ThinPrep Vial Result Comment: Brian Hair Equipment Service Associate (ASCP) Performed By: #### Teodoro 7400.0280 #### [facility] [address] [place], [place], [address] Pusher Runner Cyto stain Nom (C vx/Vag) [ID]Ordered By: Leah Cuellar on 09-08-2024 Pap Smear Performed By Comment . [facility] Comment on above: Brian Reginaldo, Cytote chnologist (ASCP) Cytology report Cyto stain D oc (Cvx/Vag)Ordered By: Leah Cuellar on 09-08-2024 Thin Prep Pap Smear Comment . [facility] Comment on above: The Pap smear [...] 09-08-2024 HPV Genotype Special Info Comment . [facility] Comment on above: Criteria not met, HP V Genotype not performed.Performed at: - [address] [id number] Director: Lauren Valle MD, Phone: [phone] at: =[facility] [id number] Director: Lauren Valle MD, Phone: [phone] HPV 16+18+31+33+35+39+45+51+ 52+56+58+59+66+68 DNA Probe+sig amp Ql (Cvx)Ordered By: Leah Cuellar on 09-08-2024 Human Papillomavirus High Risk Negative Negative [facility] Comment on above: This nucleic acid am plification test detects fourteen high-risk HPV types (16,18,31,33,35,39,45,51,52,56,58,59,66,68)without differentiation. Image-guided ThinPrep PapOrd ered By: Leah Cuellar on 09-08-2024 Pap Smear Note Comment . [facility] Comment on above: This liquid based Th inPrep(R) pap test was screened withthe use of an image guided system. Image-guided liquid-based Pa pOrdered By: Leah Cuellar on 09-08-2024 Pap Smear Diagnosis Comment . [facility] Comment on above: NEGATIVE FOR INTRAEP ITHELIAL LESION OR MALIGNANCY. 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 Normal [facility] Service comment (Unsp spec) [Interp]Ordered By: Leah Cuellar on 09-08-2024 Pap Smear Comment (3) . . [facility] CNOVon 12-10-2023 CNOV Office Visit (UCWSTR) BRIGETTE GERMAN ([id number]) 1980 F Date Time Provider Department 12/10/23 8:15 AM VERONICA MINOR [facility] During your visit today, we recorded the following information about you: Temperature Pulse Respiration Blood pressure 97 degrees 65/minute 18/minute 118/85 Weight 120 kg Veronica Minor APRN.HEADLIGHT ASSEMBLER 12/10/2023 9:03 AM Signed This note was created using Branchriter. Subjective Brigette Landeros Monserrat is a 43 [...] history is provided by the patient. No utility locator was used. Pain (foot) Pain location: right [...] small sessile polyp a 30cm IUD INSERTION (TUBING MILL SETTER DEPT)_*FL 2002 Mirena IUD INSERTION (TUBING MILL SETTER DEPT)_*FL 07/04/2008 Mirena TONSILLECTOMY AND ADENOIDECTOMY age 7 ALLERGIES Bacitracin, Bees, and Archer Juice MEDICATIONS SUMAtriptan (IMITREX) 25 mg tablet [...] 98% B (more content not included)... Normal [facility] COLONOSCOPY SCREENINGon 02-25 [facility] Colonoscopyon 03-24-2023 Colonoscopy [place] [facility] Gastrointestinal Endoscopy Patient Name: Brigette German [...] the patient. Procedure Code(s): --- Professional --- 62149, Colonoscopy, flexible; diagnostic, including collection of specimen(s) by brushing or washing, when performed (separate procedure) G0500, Moderate sedation services provided by the same physician or other qualified health animal care supervisor performing a gastrointestinal endoscopic service that sedation supports, requiring the presence of an independent trained observer to assist in the monitoring of the patient's level of consciousness and physiological status; initial 15 minutes of intra-service time; patient age 5 years or older (additional time may be reported with [address]238, as appropriate) CPT copyright 2020 [employer]. All rights reserved. The codes documented in this report are preliminary and upon children's counselor review may be revised to meet current compliance requirements. Attending Participation: I was present and participated during the entire procedure, including non-peterson portions, and during the administration and monitoring of Moderate Sedation. Scope In: 9:01:37 AM Scope Out: 9:14 (more content not included)... Normal [facility] HISTORY PHYSICALon HISTORY PHYSICAL HNO ID: [id number] Author: Kay Mariee MD Service: General Surgery [...] small sessile polyp a 30cm IUD INSERTION (TUBING MILL SETTER DEPT)_*FL 2002 Mirena IUD INSERTION (TUBING MILL SETTER DEPT)_*FL 07/04/2008 Mirena TONSILLECTOMY AND ADENOIDECTOMY age 7 CURRENT MEDICATIONS Current Outpatient Medications Medication Sig SUMAtriptan (IMITREX) 25 mg tablet Take 25 mg by mouth as needed for migraine headache (see administration instructions). rOPINIRole (REQUIP) 0.5 mg tablet Take 0.5 mg by mouth as needed (restless leg). No current facility-administere d medications for this visit. ALLERGIES: Bacitracin, Bees, Caterpillars [Other], and Archer Juice PERSONAL HISTORY: SOCIAL HISTORY Social History [...] entered by the nurse and reviewed by tn Nursing Notes: Veronica Escalante 01/23/2023 9:38 AM [...] history of (more content not included)... Normal [facility] NURSING PROGon 03-24-2023 NURSING PROG HNO ID: [id number] Author: April Bedoya RN Service: ? Author [...] at bedside to review procedure and recommendations. pAril Bedoya RN Normal [facility] CNOVon 01-23-2023 CNOV Office Visit (GENSWS) BRIGETTE GERMAN ([id number]) 1980 F Date Time Provider Department 01/23/23 [...] small sessile polyp a 30cm IUD INSERTION (TUBING MILL SETTER DEPT)_*FL 2002 Mirena IUD INSERTION (TUBING MILL SETTER DEPT)_*FL 07/04/2008 Mirena TONSILLECTOMY AND ADENOIDECTOMY age 7 Current Outpatient Medications Medication Sig SUMAtriptan (IMITREX) 25 mg tablet Take 25 mg by mouth as needed for migraine headache (see administration instructions). rOPINIRole (REQUIP) 0.5 mg tablet Take 0.5 mg by mouth as needed (restless leg). No current facility-administere d medications for this visit. ALLERGIES: Bacitracin, Bees, Caterpillars [Other], and Archer Juice PERSONAL HISTORY: Social History Tobacco Use Smoking status: Former Packs/day: 0.50 Years: 11.00 Pack years: 5.50 Types: Cigarettes Smokeless tobacco: Never Substance Use Topics Alcohol use: Yes Comment: Occasionally Drug use: No FAMILY HISTORY: FAMILY HISTORY Problem Relation Age o (more content not included)... Normal [facility] Basophil percentageOrdered B y: Onofre Starks on 01-19-2023 Basophil percentage 0-5 SEEN /hpf 0-5 [facility] Bilirubin Test strip Ql (U)O rdered By: Onofre Starks on 01-19-2023 Bilirubin Ql (U) Negative Negative [facility] Culture, urineOrdered By: St reyna Starks on 01-19-2023 Bacteria identified Cx Nom (U) Mixed Gram Pos & Gram Neg Org [facility] Ketones Test strip Ql (U)Ord ered By: Onofre Starks on 01-19-2023 Ketones Ql (U) Negative Negative [facility] - Chemistry and C hemistry - challengeOrdered By: Onofre Starks on 01-19-2023 HCG ( test) Ql (U) Negative [facility] Comment on above: Very dilute urine sp ecimens, as indicated by a low specificgravity, may not contain b2b outside sales representative levels of hCG. If is still suspected, a first morning urinespecimen should be collected 48 hours later and tested. Mucus LM Ql (Urine sed)Order ed By: Onofre Starks on 01-19-2023 Mucus Ql (Urine sed) 0 SEEN /hpf [facility] Nitrite Test strip Ql (U)Ord ered By: Onofre Starks on 01-19-2023 Nitrite Ql (U) Negative Negative [facility] Protein Test strip Ql (U)Ord ered By: Onofre Starks on 01-19-2023 Protein Ql (U) 15 mg/dl Negative [facility] Squamous epithelial cells de tection in urine sediment by light microscopyOrdered By: Onofre Starks on 01-19-2023 Epithelial cells.squamous LM Ql (Urine sed) 0-5 SEEN /hpf 5-10 [facility] Urine blood detectionOrdered By: Onofre Starks on 01-19-2023 RBC Ql (U) 50 /ul Negative [facility] RBC Ql (U) 0-5 SEEN /hpf 0-5 [facility] Urine clarityOrdered By: Jose A Starks on 01-19-2023 Clarity (U) Clear Clear [facility] Urine color determinationOrd ered By: Onofre Starks on 01-19-2023 Color (U) Yellow Yellow [facility] Urine glucose detectionOrder ed By: Onofre Starks on 01-19-2023 Glucose Ql (U) Normal mg/dl Normal [facility] Urine leukocyte esterase det ection by dipstickOrdered By: Onofre Starks on 01-19-2023 Leukocyte esterase Test strip Ql (U) 100 /ul Negative [facility] Urine pHOrdered By: Onofre rhoades on 01-19-2023 pH (U) 5.0 [pH] 5.0 - 8.0 [facility] Urine sediment bacteria coun t by microscopy (number/high power field)Ordered By: Onofre Starks on 01-19-2023 Bacteria LM.HPF (Urine sed) [#/Area] 1 /[HPF] None Seen [facility] Urine specific gravity measu rementOrdered By: Onofre Starks on 01-19-2023 Specific gravity (U) [Rel density] 1.025 1.002-1.030 [facility] Urobilinogen Auto test strip Ql (U)Ordered By: Onofre Starks on 01-19-2023 Urobilinogen Ql (U) Normal mg/dl Normal [facility] Absolute lymphocyte countOrd ered By: Herberth Merino on 01-15-2023 Lymphocytes Auto (Unsp spec) [#/Vol] 2.31 10*3/uL 0.83-4.51 [facility] Basophil percentageOrdered B y: Herberth Merino on 01-15-2023 Basophils/100 WBC (Bld) 0.5 % 0-1 [facility] Bilirubin [Mass/Vol] 0.30 mg/dL 0.20-1.00 [facility] Comment on above: For patients on eltr ombopag therapy, use of Dimension Wirt TBIL is not recommended. Chloride [Moles/Vol] 111 mmol/L 98-107 [facility] Eosinophils/100 WBC (Bld) 2.9 % 0-5 [facility] Glucose [Mass/Vol] 93 mg/dL 74-106 [facility] Neutrophils (Bld) [#/Vol] 7.5 10*3/uL 2.0-7.7 [facility] Neutrophils/100 WBC (Bld) 67.8 % 47-70 [facility] Potassium [Moles/Vol] 4.2 mmol/L 3.5-5.1 [facility] Comment on above: Slight Hemolysis, Re sult may be falsely increased. Protein [Mass/Vol] 6.8 g/dL 6.4-8.2 [facility] Sodium [Moles/Vol] 139 mmol/L 136-145 [facility] WBC (Bld) [#/Vol] 11.1 10*3/uL 4.4-11.0 [facility] Blood erythrocytes count (nu mber/volume)Ordered By: Herberth Merino on 01-15-2023 RBC (Bld) [#/Vol] 4.69 10*6/uL 4.2-5.4 [facility] Blood hemoglobin measurement (mass/volume)Ordered By: Herberth Merino on 01-15-2023 Hemoglobin (Bld) [Mass/Vol] 13.7 g/dL 12.0-15.0 [facility] Blood lymphocytes/100 leukoc ytesOrdered By: Herberth Merino on 01-15-2023 Lymphocytes/100 WBC (Bld) 20.8 % 19-41 [facility] Blood monocytes/100 leukocyt esOrdered By: Herberth Merino on 01-15-2023 Monocytes/100 WBC (Bld) 7.6 % 0-10 [facility] Blood platelet mean volumeOr dered By: Herberth Merino on 01-15-2023 Platelet mean volume (Bld) [Entitic vol] 9.8 fL 6.2-12.0 [facility] Determination of erythrocyte mean corpuscular volume (MCV)Ordered By: Herberth Merino on 01-15-2023 MCV (RBC) [Entitic vol] 90.2 fL 81-99 [facility] Hematocrit Auto (Bld) [Volum e fraction]Ordered By: Herberth Merino on 01-15-2023 Hematocrit (Bld) [Volume fraction] 42.3 % 37-47 [facility] - Chemistry and C hemistry - challengeOrdered By: Herberth Merino on 01-15-2023 ALP [Catalytic activity/Vol] 64 U/L 45-117 [facility] ALT [Catalytic activity/Vol] 24 U/L 13-56 [facility] CO2 [Moles/Vol] 24.0 mmol/L 21.0-32.0 [facility] Cobalamin (Vitamin B12) [Mass/Vol] 309 pg/mL 211-911 [facility] Globulin (S) [Mass/Vol] 3.4 g/dL 2.2-4.2 [facility] Magnesium [Mass/Vol] 2.2 mg/dL 1.6-2.6 [facility] Comment on above: Slight Hemolysis, Re sult may be falsely increased. Urea nitrogen/Creatinine [Mass ratio] 38.0 mg/mg 10-20 [facility] - Hematology and Cell countsOrdered By: Herberth Merino on 01-15-2023 Erythrocyte distribution width (RBC) [Entitic vol] 42.5 fL 35.1-43.9 [facility] Erythrocyte distribution width (RBC) [Ratio] 12.9 % 11.6-14.6 [facility] Immature granulocytes/100 WBC (Bld) 0.400 % 0.0-0.9 [facility] Comment on above: IG% - Immature Granu locytes (promyelocytes, myelocytes and metamyelocytes) > 1% indicates that a LEFT SHIFT is Present. MCH (RBC) [Entitic mass] 29.2 pg 27.0-32.0 [facility] Nucleated RBC/100 WBC (Bld) [Ratio] 0 % 0-5 [facility] MCHC Auto (RBC) [Mass/Vol]Or dered By: Herberth Merino on 01-15-2023 MCHC (RBC) [Mass/Vol] 32.4 g/dL 32-36 [facility] No Panel InformationOrdered By: Herberth Merino on 01-15-2023 Estimated GFR (MDRD) Amer 131 mL/min >60 [facility] Comment on above: GFR Calc Estimated GFR (MDRD) Non-Af Amer 108 mL/min >60 [facility] Comment on above: Non- GFR Calc Thyroid Stimulating Hormone (TSH) 1.75 uIU/mL 0.358-3.74 [facility] Vitamin D 25-Hydroxy 50.5 ng/mL [facility] Comment on above: Vitamin D 25(OH) Sta tus Range Deficiency <20 ng/mL (50nmol/L) Insufficiency 20 - 30 ng/mL (50 - 75 nmol/L) Sufficiency 30 - 100 ng/mL (75 - 250 nmol/L) Toxicity >100 ng/mL (>250 nmol/L) Platelets bldOrdered By: Robby Merino on 01-15-2023 Platelets (Bld) [#/Vol] 333 10*3/uL 150-450 [facility] Serum or plasma albumin marybeth urement (mass/volume)Ordered By: Herberth Merino on 01-15-2023 Albumin [Mass/Vol] 3.4 g/dL 3.2-5.0 [facility] Serum or plasma albumin/glob ulin mass ratioOrdered By: Herberth Merino on 01-15-2023 Albumin/Globulin [Mass ratio] 1.0 {ratio} 0.9-2.4 [facility] Serum or plasma calcium marybeth urement (mass/volume)Ordered By: Herberth Merino on 01-15-2023 Calcium [Mass/Vol] 9.0 mg/dL 8.5-10.1 [facility] Serum or plasma creatinine m easurement (mass/volume)Ordered By: Herberth Merino on 01-15-2023 Creatinine [Mass/Vol] 0.63 mg/dL 0.55-1.02 [facility] Comment on above: The validity of the calculated GFR & GFRAA in patients over 70 years has not been determined. Clinical correlation is essential. Serum or plasma ferritin alana surement (mass/volume)Ordered By: Herberth Merino on 01-15-2023 Ferritin [Mass/Vol] 153 ng/mL 8252 [facility] Serum or plasma urea nitroge n measurement (mass/volume)Ordered By: Herberth Merino on 01-15-2023 Urea nitrogen [Mass/Vol] 24 mg/dL 7-18 [facility] [facility] Thin prep Papanicolaou smear with manual screeningOrdered By: Herberth Merino on 01-15-2023 Thin prep Papanicolaou smear with manual screening 13 U/L 15- [facility] Comment on above: Slight Hemolysis, Re sult may be falsely increased. Thin prep Papanicolaou smear with manual screening 4 5-15 [facility] Vital Signs Date Time Vital Sign Value Performing Clinician Antonellai reuben 09-08-2024 14:45-0500 Body height 162.56 cm Herberth Merino DO Work Phone: [facility] 09-08-2024 14:39-0500 Body mass index (BMI) [Ratio] 46.3 kg/m2 Herberthbrian Grangernger DO Work Phone: [facility] 09-08-2024 14:39-0500 Body weight 122.58 kg Herberth Grangernger DO Work Phone: [facility] 09-08-2024 14:39-0500 Diastolic blood pressure 72 mm[Hg] Herberth Grangernger DO Work Phone: [facility] 09-08-2024 14:39-0500 Systolic blood pressure 128 mm[Hg] Herberthbrian Grangernger DO Work Phone: [facility] 12-10-2023 08:24-0400 Body mass index (BMI) [Ratio] 45.41 kg/m2 Veronica Minor CUPOLA PATCHER HELPER.HEADLIGHT ASSEMBLER Work Phone: [facility] 12-10-2023 08:24-0400 Body temperature 97 [degF] Veronica Minor CUPOLA PATCHER HELPER.HEADLIGHT ASSEMBLER Work Phone: [facility] 12-10-2023 08:24-0400 Body weight 120 kg Veronica Minor CUPOLA PATCHER HELPER.HEADLIGHT ASSEMBLER Work Phone: [facility] 12-10-2023 08:24-0400 Diastolic blood pressure 85 mm[Hg] Veronica Minor CUPOLA PATCHER HELPER.HEADLIGHT ASSEMBLER Work Phone: [facility] 12-10-2023 08:24-0400 Heart rate 65 /min Veronica Minor CUPOLA PATCHER HELPER.HEADLIGHT ASSEMBLER Work Phone: [facility] 12-10-2023 08:24-0400 Respiratory rate 18 /min Veronica Minor CUPOLA PATCHER HELPER.HEADLIGHT ASSEMBLER Work Phone: [facility] 12-10-2023 08:24-0400 SaO2% (BldA) [Mass fraction] 98 % Veronica Minor CUPOLA PATCHER HELPER.HEADLIGHT ASSEMBLER Work Phone: [facility] 12-10-2023 08:24-0400 Systolic blood pressure 118 mm[Hg] Veronica Minor CUPOLA PATCHER HELPER.HEADLIGHT ASSEMBLER Work Phone: [facility] 08-03-2023 16:09-0500 Body height 162.[address] Navas [facility] 07-27-2023 08:51-0500 Body height 162.[address] Navas [facility] 07-27-2023 08:51-0500 Body mass index (BMI) [Ratio] 43.7 kg/m2 Dr. Navas [facility] 07-27-2023 08:51-0500 Body temperature [facility]2 [facility]degF[facility]-27-2023 08:51-0500 Body weight 115.[address] Navas [facility] 07-27-2023 08:51-0500 Diastolic blood pressure 105 mm[Hg] Dr. Navas [facility] 07-27-2023 08:51-0500 Heart rate 68 /min Dr. Navas [facility] 07-27-2023 08:51-0500 Respiratory rate 14 /min Dr. Navas [facility] 07-27-2023 08:51-0500 SaO2% (BldA) [Mass fraction] 98 % Dr. Navas [facility] 07-27-2023 08:51-0500 Systolic blood pressure 183 mm[Hg] Dr. Navas [facility] 07-09-2023 15:44-0500 Body mass index (BMI) [Ratio] 45.3 kg/m2 Dr. Navas [facility] 07-09-2023 15:44-0500 Body weight 119.[address] Yosef Ochoa [facility] 07-09-2023 15:44-0500 Diastolic blood pressure 72 mm[Hg] Dr. Navas [facility] 07-09-2023 15:44-0500 Systolic blood pressure 130 mm[Hg] Dr. Navas [facility] 03-24-2023 09:50-0400 Diastolic blood pressure 62 mm[Hg] Kay Mariee MD Work Phone: [facility] 03-24-2023 09:50-0400 Heart rate 64 /min Kay Mariee MD Work Phone: [facility] 03-24-2023 09:50-0400 Respiratory rate 16 /min Kay Mariee MD Work Phone: [facility] 03-24-2023 09:50-0400 SaO2% (BldA) [Mass fraction] 97 % Kay Mariee MD Work Phone: [facility] 03-24-2023 09:50-0400 Systolic blood pressure 117 mm[Hg] Kay Mariee MD Work Phone: [facility] 03-24-2023 07:42-0400 Body temperature 97.9 [degF] Kay Mariee MD Work Phone: [facility] 03-24-2023 07:42-0400 Body weight 112 kg Kay Mariee MD Work Phone: [facility] 01-23-2023 09:35-0400 Body height 162.6 cm Kathia BLISS-C Work Phone: [facility] 01-23-2023 09:35-0400 Body temperature 97.5 [degF] Kathia Carr PA-C Work Phone: [facility] 01-23-2023 09:35-0400 Body weight 112.04 kg Kathia Lilly PA-C Work Phone: [facility] 01-23-2023 09:35-0400 Diastolic blood pressure 74 mm[Hg] Kathia Charco PA-C Work Phone: [facility] 01-23-2023 09:35-0400 Heart rate 103 /min Kathia Charco PA-C Work Phone: [facility] 01-23-2023 09:35-0400 SaO2% (BldA) [Mass fraction] 96 % Kathia Charco PA-C Work Phone: [facility] 01-23-2023 09:35-0400 Systolic blood pressure 118 mm[Hg] Kathiacarmen Mainf PA-C Work Phone: [facility] 01-19-2023 16:52-0400 Body height 162.[address] Yosef Ochoa Work Phone: [facility] 01-19-2023 16:52-0400 Body mass index (BMI) [Ratio] 42 kg/m2 Dr. Yosef Ochoa Work Phone: [facility] 01-19-2023 16:52-0400 Body temperature 98.6 [degF] Dr. Yosef Ochoa Work Phone: [facility] 01-19-2023 16:52-0400 Body weight 111.[address] Yosef Ochoa Work Phone: [facility] 01-19-2023 16:52-0400 Diastolic blood pressure 96 mm[Hg] Dr. Yosef Ochoa Work Phone: [facility] 01-19-2023 16:52-0400 Heart rate 84 /min Dr. Yosef Ochoa Work Phone: [facility] 01-19-2023 16:52-0400 Respiratory rate 16 /min Dr. Yosef Ochoa Work Phone: [facility] 01-19-2023 16:52-0400 SaO2% (BldA) [Mass fraction] 97 % Dr. Yosef Ochoa Work Phone: [facility] 01-19-2023 16:52-0400 Systolic blood pressure 138 mm[Hg] Dr. Yosef Ochoa Work Phone: [facility] 12-15-2022 08:04-0400 Body height 160.[address] Yosef Ochoa Work Phone: [facility] 12-15-2022 08:04-0400 Body mass index (BMI) [Ratio] 44.2 kg/m2 Dr. Yosef Ochoa Work Phone: [facility] 12-15-2022 08:04-0400 Body weight 113.[address] Yosef Ochoa Work Phone: [facility] 12-04-2022 10:29-0400 Body mass index (BMI) [Ratio] 44.1 kg/m2 Dr. Yosef Ochoa Work Phone: [facility] 12-04-2022 10:29-0400 Body temperature 98.3 [degF] Dr. Yosef Ochoa Work Phone: [facility] 12-04-2022 10:29-0400 Body weight 113.[address] Yosef Ochoa Work Phone: [facility] 12-04-2022 10:29-0400 Diastolic blood pressure 78 mm[Hg] Dr. Yosef Ochoa Work Phone: [facility] 12-04-2022 10:29-0400 Heart rate 70 /min Dr. Yosef Ochoa Work Phone: [facility] 12-04-2022 10:29-0400 Respiratory rate 16 /min Dr. Yosef Ochoa Work Phone: [facility] 12-04-2022 10:29-0400 SaO2% (BldA) [Mass fraction] 98 % Dr. Yosef Ochoa Work Phone: [facility] 12-04-2022 10:29-0400 Systolic blood pressure 128 mm[Hg] Dr. Yosef Ochoa Work Phone: [facility] Encounters Encounter Date Encounter Type Care Provider Facility Start: 05-11-2025 ambulatory [facility] Facility:[facility] Start: 05-08-2025 [facility] Facility:[facility] Start: 09-23-2024 End: 09-23-2024 ambulatory Herberth Merino DO Work Phone: [facility] Work Phone: Start: 09-23-2024 End: 09-23-2024 Patient encounter procedure Leah Cuellar TECHNICAL DATA ANALYST-C -Outpatient Breast Imaging Work Phone: Start: 09-23-2024 End: 09-23-2024 ambulatory Leah Cuellar TECHNICAL DATA ANALYST Facility:[facility] Start: 09-08-2024 End: 09-08-2024 Patient encounter procedure Leah Cuellar TECHNICAL DATA ANALYST-C -Laboratory, Specimen Work Phone: Start: 09-08-2024 Encounter for gynecological examination (general) (routine) without abnormal findings Leah Cuellar TECHNICAL DATA ANALYST [facility] Start: 09-08-2024 End: 09-08-2024 Patient encounter procedure Leah Cuellar TECHNICAL DATA ANALYST-C -[facility] Work Phone: Start: 09-08-2024 End: 09-08-2024 Patient encounter status Leah Cuellar TECHNICAL DATA ANALYST-C [facility] Start: 09-08-2024 End: 09-08-2024 ambulatory Angelicaon Elena Facility:[facility] Start: 09-08-2024 End: 09-08-2024 ambulatory [facility] Facility:[facility] Start: 12-10-2023 End: 12-10-2023 ambulatory [facility] Facility:[facility] Start: 12-10-2023 End: 12-10-2023 Patient encounter procedure Veronica Minor APRN.HEADLIGHT ASSEMBLER Work Phone: [facility] Comment on above: Ingrown nail of grea t toe of right foot (Primary Dx) Start: 09-10-2023 End: 09-10-[address] Yosef Ochoa [facility] Work Phone: Start: 09-10-2023 End: 09-10-[address] Yosef Ochoa [facility]-Physical Therapy Work Phone: Start: 08-27-2023 End: 08-27-[address] Yosef Ochoa [facility] Work Phone: Start: 08-04-2023 End: 08-04-[address] Yosef Ochoa [facility] Work Phone: Start: 07-27-2023 End: 07-27-2023 Emergency department patient visit Dr. Yosef Ochoa [facility]-Emergency Department Work Phone: Start: 07-09-2023 End: 07-09-[address] Yosef Ochoa [facility] Work Phone: Start: 03-24-2023 End: 03-24-2023 ambulatory KAY MARIEE Facility:[facility] Start: 03-24-2023 End: 03-24-2023 Subsequent hospital visit by physician Kay Mariee MD Work Phone: Ambulatory Surgery Comment on above: Family history of co temo cancer [Z80.0] Start: 01-23-2023 End: 01-23-2023 ambulatory HERBERTH MERINO Facility:[facility] Start: 01-23-2023 End: 01-23-2023 Patient encounter procedure Kathia Carr PA-C Work Phone: General Surgery Comment on above: Family history of co temo cancer (Primary Dx); Personal history of colonic polyps Start: 01-19-2023 End: 01-19-[address] Yosef cOhoa Work Phone: [facility] Work Phone: Start: 01-19-2023 End: 01-19-[address] Yosef Ochoa Work Phone: [facility]-Laboratory, Specimen Work Phone: Start: 01-19-2023 End: 01-19-[address] Yosef Ochoa Work Phone: [facility] Work Phone: Start: 01-15-2023 End: 01-15-[address] Yosef Ochoa Work Phone: [facility] Work Phone: Start: 01-15-2023 End: 01-15-[address] Yosef Ochoa Work Phone: [facility] Start: 01-02-2023 End: 01-02-[address] Yosef Ochoa Work Phone: [facility]-Physical Therapy Start: 12-19-2022 End: 12-19-[address] Yosef Ochoa Work Phone: [facility] Start: 12-15-2022 End: 12-15-[address] Yosef Ochoa Work Phone: [facility] Start: 12-04-2022 End: 12-04-[address] Yosef Ochoa Work Phone: [facility] Procedures Date Procedure Procedure Detail Performing [...] Activity Detail Author Start: 03-24-2028 Colonoscopy Colonoscopy [facility] Start: 03-24-2028 Colorectal Cancer Screening Colorectal Cancer Screening [facility] Start: 03-24-2028 Screening for malignant neoplasm of colon [facility] Start: 03-27-2024 Influenza vaccination Influenza Vaccine (Season Ended) [facility] Start: 08-04-2023 Patient referral [facility] Work Phone: Start: 07-27-2023 Behavioral Health Screening Behavioral Health Screening [facility] Start: 07-27-2023 [facility] Start: 03-27-2023 Covid-19 Vaccine ( season) Covid-19 Vaccine ( season) [facility] Start: 03-27-2023 Influenza vaccination [facility] Start: 2023 COLOGUARD (FIT-DNA) COLOGUARD (FIT-DNA) [facility] Start: [address] COLONOGRAPHY [facility] Start: 2023 Diabetes Screening Diabetes Screening [facility] Start: 2023 FECAL OCCULT BLOOD FECAL OCCULT BLOOD [facility] Start: 2023 Lipid 1996 panel - Serum or Plasma Lipid Screening [facility] Start: 2023 Lipid panel Lipid Screening [facility] Start: 2023 Screening for malignant neoplasm of colon [facility] Start: 2023 SIGMOIDOSCOPY SIGMOIDOSCOPY [facility] Start: 12-04-2022 Patient referral [facility] Work Phone: Start: 07-27-2022 DEPRESSION ASSESSMENT DEPRESSION ASSESSMENT [facility] Start: 01-30-2022 Colonoscopy COLONOSCOPY [facility] Start: 01-30-2022 COLORECTAL CANCER SCREENING COLORECTAL CANCER SCREENING [facility] Start: 01-10-2021 COVID-19 VACCINE (3 - Booster for Moderna series) COVID-19 VACCINE (3 - Booster for Moderna series) [facility] Start: 08-18-2018 HPV TESTING HPV TESTING [facility] Start: 08-18-2018 PAP TESTING PAP TESTING [facility] Start: 08-18-2018 Screening for malignant neoplasm of cervix [facility] Start: 05-16-2018 Urine microalbumin profile [facility] Start: 2018 Mammography [facility] Start: 2018 Screening for malignant neoplasm of breast Mammogram Screening [facility] Start: 1997 Hepatitis B Vaccine (1 of 3 - 19+ 3-dose series) Hepatitis B Vaccine (1 of 3 - 19+ 3-dose series) [facility] Start: 1996 HEPATITIS C SCREENING HEPATITIS C SCREENING [facility] Start: 1996 Hepatitis C screening Hepatitis C Screening [facility] Start: 1996 HIV SCREENING HIV SCREENING [facility] Start: 1996 HIV screening HIV Screening [facility] Start: 1978 HEPATITIS B (1 of 3 - 3-dose series) HEPATITIS B (1 of 3 - 3-dose series) [facility] Start: 1978 Hepatitis B Vaccine (1 of 3 - 3-dose series) Hepatitis B Vaccine (1 of 3 - 3-dose series) [facility] Patient Education ED Sciatica ED [facility] Work Phone: Patient referral [facility] Work Phone: [facility] Immunizations Immunization Date Immunization Notes Care Provider Shady tellez 07-10-2014 influenza virus vacc ine, unspecified formulation Kay Mariee MD Work Phone: [facility] 05-31-2008 influenza virus vacc ine, unspecified formulation Kathia Carr PA-C Work Phone: [facility] 05-16-2008 tetanus toxoid, redu claudia diphtheria toxoid, and acellular pertussis vaccine, adsorbed Kathia Carr PA-C Work Phone: [facility] Payers Date Payer Category Payer Self-pay [id number] 2013 Unknown [id number] 2013 Unknown [employer] C[employer] PPO OOS [id number] 2013-Present [phone] [address] [place] [address] PPO [id number] Unknown [id number] Unknown [id number] Unknown [id number] Unknown [id number] Unknown [id number] Unknown [id number] Social History Date Type Detail Facility Start: 12-19-2022 End: 08-27-2023 Tobacco smoking status [facility] Unknown if ever smoked [facility] Start: 1980 Sex Assigned At Female [facility] Start: 01-23-2023 End: 08-27-2023 Tobacco smoking status NHIS Ex-smoker [facility] Work Phone: History of tobacco use Current smoker [facility] Work Phone: History of tobacco use Cigarette Smoker C [facility] Work Phone: Start: 01-23-2023 End: 12-10-2023 Cigarettes smoked current (pack per day) - Reported 0.5 [facility] Start: 01-23-2023 Tobacco use and exposure Smokeless tobacco non-user [facility] Work Phone: Start: 01-23-2023 End: 12-10-2023 Alcohol intake Current drinker of alcohol (finding) [facility] Start: 1980 Sex Assigned At Not on file C [facility] Start: 01-23-2023 End: 03-24-2023 Tobacco use panel [facility] National Score (1-10 0), lower number is lower risk 60 [facility] Start: 10-06-2024 Sex Female (finding) [facility] Clinical Notes 01-23-2023 to 09-08-2024 Note Date & Type Note Facility 09-08-2024 Note [facility] Pap Smear Specimen Adequacy September 09, 2024 12:59am Comment . Satisfactory for evaluation. No endocervical component is identified. Comment on above: Satisfactory for kirby luation. No endocervical component is identified. 09-08-2024 Evaluation note Diagnosis Onset Date Resolution Encounter for routine gynecological examination noneactive September 08 2:35pm [facility] Work Phone: 1(945) 163-512605-16-2024 NoteHNO ID: [id number] Author: VERONICA MINOR APRN.HEADLIGHT ASSEMBLER Service: ? Author Type: Nurse Practitioner Type: Progress Notes Filed: 12/10/2023 09:03 Note Text: This note was created using [employer]. Subjective Brigette German is a 43 year [...] history is provided by the patient. No utility locator was used. Pain (foot) Pain location: right [...] small sessile polyp a 30cm IUD INSERTION ([employer] DEPT)_*[place] 2002 Mirena IUD INSERTION ([employer] MILL SETTER DEPT)_*[place] 07/04/2008 Mirena TONSILLECTOMY AND ADENOIDECTOMY age 7 ALLERGIES Bacitracin, Bees, and Archer Juice MEDICATIONS SUMAtriptan (IMITREX) 25 mg tablet [...] Normocephalic and atraumatic. Klaudia (more content not included)...[facility]05-16-2024 History of Present illness Narrative* Veronica Minor APRN.HEADLIGHT ASSEMBLER - 12/10/2023 8:35 AM EDT This note was created using [employer]. Subjective Brigette Landeros German is a 43 [...] history is provided by the patient. No utility locator was used. Pain (foot) Pain location: right [...] small sessile polyp a 30cm IUD INSERTION ([employer] SETTER DEPT)_*FL 2002 Mirena IUD INSERTION (T[employer] MILL SETTER DEPT)_*FL 07/04/2008 Mirena TONSILLECTOMY & ADENOIDECTOMY <AGE 12 age 7 ALLERGIES Bacitracin, Bees, and Archer Juice MEDICATIONS SUMAtriptan (IMITREX) 25 mg tablet [...] flags Veronica Minor APRN.YESY [facility] Discharge summary Author Uma Posey [facility] November 02, 2023 10:58am Note Date/Time November 02, 2023 10:5 8am [facility] Physical Therapy [facility] [address] [place] [address]. [address] [place] [address] / REHABILITATION SERVICES DISCHARGE SUMMARY MR#: [id number] Acct: [id number] Name: BRIGETTE GERMAN Rep #: [id number] : 1980 43 From: Uma BARTH T Referring Dr.: Dr. Elio Parker MD Status: REG RCR Insurance: [facility] [employer] Patient Information Patient Information: BRIGETTE [...] MD; Herberth Merino, DO ~ ELR Signed [facility] Work Phone: 1(559) 552-890508-29-2023 Nurse Note* April Bedoya RN - 03/24/2023 [...] recommendations. April Bedoya RN documented [facility] History and physical note * Kay Mariee [...] small sessile polyp a 30cm IUD INSERTION ([employer]TER DEPT)_*FL 2002 Mirena IUD INSERTION ([employer] SETTER DEPT)_*FL 07/04/2008 Mirena TONSILLECTOMY & ADENOIDECTOMY <AGE 10 age 7 CURRENT MEDICATIONS Current Outpatient Medications Medication Sig SUMAtriptan (IMITREX) 25 mg tablet Take 25 mg by mouth as needed for migraine headache (see administration instructions). rOPINIRole (REQUIP) 0.5 mg tablet Take 0.5 mg by mouth as needed (restless leg). No current facility-administered medications for this visit. ALLERGIES: Bacitracin, Bees, Caterpillars [Other], and Archer Juice PERSONAL HISTORY: SOCIAL HISTORY Social History [...] which included preparing to see the patient, [id number] patient care, completing clinical documentation, obtaining and/or [...] small sessile polyp a 30cm IUD INSERTION ([employer] SETTER DEPT)_*FL 2002 Mirena IUD INSERTION ([employer] SETTER DEPT)_*FL 07/04/2008 Mirena TONSILLECTOMY & ADENOIDECTOMY <AGE 12 age 7 CURRENT MEDICATIONS Current Outpatient Medications Medication Sig SUMAtriptan (IMITREX) 25 mg tablet Take 25 mg by mouth as needed for migraine headache (see administration instructions). rOPINIRole (REQUIP) 0.5 mg tablet Take 0.5 mg by mouth as needed (restless leg). No current facility-administered medications for this visit. ALLERGIES: Bacitracin, Bees, Caterpillars [Other], and Archer Juice PERSONAL HISTORY: SOCIAL HISTORY Social History [...] which included preparing to see the patient, [id number] patient care, completing clinical documentation, obtaining and/or reviewing separately obtained history, performing a medically appropriate examination, counseling and educating the pat ient/family/caregiver, and ordering medications, tests, or procedures. Kathia Carr PA-C documented [facility]06-30-2023 NoteHNO ID: [id number] Author: Kathia Carr PA-C Service: ? Author Type: Physician Factory Maintenance Technician Type: Progress Notes Filed: 01/29/2023 4:08 PM [...] small sessile polyp a 30cm IUD INSERTION ([employer] M[employer] SETTER DEPT)_*FL 2002 Mirena IUD INSERTION ([employer] M[employer] SETTER DEPT)_*FL 07/04/2008 Mirena TONSILLECTOMY AND ADENOIDECTOMY age 7 Current Outpatient Medications Medication Sig SUMAtriptan (IMITREX) 25 mg tablet Take 25 mg by mouth as needed for migraine headache (see administration instructions). rOPINIRole (REQUIP) 0.5 mg tablet Take 0.5 mg by mouth as needed (restless leg). No current facility-administered medications for this visit. ALLERGIES: Bacitracin, Bees, Caterpillars [Other], and Archer Juice PERSONAL HISTORY: Social History Tobacco Use [...] entered by the nurse and reviewed by tn Nursing Notes: Veronica Escalante 01/23/2023 9:38 AM [...] The patient denies a (more content not included)...[facility]06-30-2023 History of Present illness Narrative* Kathia Carr [...] small sessile polyp a 30cm IUD INSERTION ([employer] SETTER DEPT)_*FL 2002 Mirena IUD INSERTION ([employer] M[employer] SETTER DEPT)_*FL 07/04/2008 Mirena TONSILLECTOMY & ADENOIDECTOMY <AGE 12 age 7 Current Outpatient Medications Medication Sig SUMAtriptan (IMITREX) 25 mg tablet Take 25 mg by mouth as needed for migraine headache (see administration instructions). rOPINIRole (REQUIP) 0.5 mg tablet Take 0.5 mg by mouth as needed (restless leg). No current facility-administered medications for this visit. ALLERGIES: Bacitracin, Bees, Caterpillars [Other], and [employer] Juice PERSONAL HISTORY: Social History Tobacco Use [...] which included preparing to see the patient, [id number] patient care, completing clinical documentation, obtaining and/or reviewing separately obtained history, performing a medically appropriate examination, counseling and educating the pat ient/family/caregiver, and ordering medications, tests, or procedures. Kathia Carr PA-C [facility]* Veronica Escalante - 01/23/2023 9:37 [...] Colonoscopy: 2016 [facility]alante [facility] Diagnosis Onset Date Resolution Status Internal derangement of left knee acute Strain of left knee acute Internal derangement of left knee acute Osteoarthritis of left knee acute Strain of left knee acute Osteoarthritis of left knee acute [facility] Work Phone: Evaluation note* Diagnosis Onset Date Resolution Status Internal derangement of left knee acute Strain of left knee acute Internal derangement of left knee acute Osteoarthritis of left knee acute Strain of left knee acute Osteoarthritis of left knee acute Urinary tract infection with hematuria acute [facility] Work Phone: Evaluation note* Diagnosis Family history of colon cancer- Primary Family history of malignant neoplasm of gastrointestinal tract Personal history of colonic polyps [facility] Diagnosis Blood in stool- Primary Family history of colon cancer Family history of malignant neoplasm of gastrointestinal tract Personal history of colonic polyps Obesity, Class III, BMI >= 40 Morbid obesity [facility]* Diagnosis Onset Date Resolution Status Encounter for routine gynecological examination noneactive [facility] Work Phone: Evaluation note* Diagnosis Onset Date Resolution Status Encounter for routine gynecological examination noneactive Lumbar radiculopathy acute Lumbar radiculopathy acute [facility] Work Phone: Evaluation note* Diagnosis Ingrown nail of great toe of right foot- Primary documented in this encounter [facility] Discharge instructions Additional Instructions Thank you for [...] care physician for further outpatient evaluation and management.[facility] Work Phone: Reason for referral (narrative)* Outpatient Procedure (Routine) - Closed Specialty Diagnoses / Procedures Referred By Sunny gallegos Referred To Contact [facility] Diagnoses Family history of colon cancer Personal history of colonic polyps Procedures COLONOSCOPY SCREENING COLONOSCOPY FLX DX W/COLLJ SPEC WHEN PFRMD Kathia Carr PA-C [address] [place] [address] [facility] [address] [place] [address] Referral ID Status Reason Start Date Expiration Date V isits Requested Visits Authorized [id number] Closed Auto-Generate d Referral 01/23/2023 01/24/2024 [address] [facility] for referral (narrative)No reason for referral information availableWWilson [facility] Work Phone: Reuods for visit Narrative* Outpatient Procedure (Routine) - Closed Specialty Diagnoses / Procedures Referred By Sunny gallegos Referred To Contact [facility] Diagnoses Family history of colon cancer Personal history of colonic polyps Procedures COLONOSCOPY SCREENING COLONOSCOPY FLX DX W/COLLJ SPEC WHEN PFRMD Kathia Carr PA-C [address] 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 LUMBAR SPINE RM 3 LUMBAR SPINE LUMBAR RADICULOPATHY / RX HERE Reason for Visit Encounter for routin e gynecological examination Lumbar radiculopathy Lumbar radiculopathy Chief Complaint Admit Date Annual (TUBING MILL SETTER) September 08, 2024 2:35pm SCREENING September 23, [...] Will No March 28 9:57am Power of Freight Forwarder No March 28, 2021 9:57am Advance Directive Response Recorded Date/ Time Living Will No July 27 4 10:02am Power of Freight Forwarder No July 27 024 10:02am Advance Directive Response Recorded Date/ Time Living Will No August 03 4 5:09pm Power of Freight Forwarder No August 03 024 5:09pm Medications Administered [...] Provider Active IZAIAH Gamboa Attending Provider Active Retinal Angiographer Relationship Specialty Start Date End Date Herberth Merino DO [facility] [address]SE [address] [place], [place] [id number] PCP - General Family Medicine 01/16/23 Retinal Angiographer Relationship Specialty Start Date End Date Herberth Merino DO Katey Knox [facility] [address] [place], [place] [address] PCP - General Family Medicine 01/16/23 Team Status: Inactive Member Role Status Dates Dr. Yosef Ochoa MD Referring Provider Active Leah Cuellar TECHNICAL DATA ANALYST, TECHNICAL DATA ANALYST-C Attending Provider Active Herberth Merino DO Primary [...] Dr. Elio Parker MD Attending Provider Active Retinal Angiographer Relationship Specialty Start Date End Date Jessica Ni MD [address] [place] [facility] [address] [place], [place] [id number] PCP - General Internal Medicine 12/10/23 Team Status: Active Member Role Status Dates Jessica Ni MD Primary Care Provider Active Team Status: Inactive Member Role Status Dates Herberth Merino DO Referring Provider Active Start: September 08, 2024 End: September 08, 2024 Leah Cuellar TECHNICAL DATA ANALYST, TECHNICAL DATA ANALYST-C Attending Provider Active Start: September 08, 2024 [...] or prosecute any alcohol or drug abuse patient.[facility] CenterIn the event this information is protected by the Federal Confidentiality of Alcohol and Drug Abuse Patient Records regulations: The Federal rules restrict any use of the information to criminally investigate or prosecute any alcohol or drug abuse patient.[facility] CenterIn the event this information is protected by the Federal Confidentiality of Alcohol and Drug Abuse Patient Records regulations: The Federal rules restrict any use of the information to criminally investigate or prosecute any alcohol or drug abuse patient.[facility] Reason for Visit (unrecogniz ed section and content) Reason Comments Consult Reason Comments Ingrown Toenail R great toe redness, pain, swelling drainage x 2 months INFORMATION SOURCE (unrecogn ized section and content) DATE CREATED AUTHOR 12/12/2023 [facility] DATE CREATED AUTHOR AUTHOR'S ORGANANDREW ATION 05/12/2025 [facility] FOR RECORDS PERTAINING TO PATIENTS WHO [...] BE BASED ON THE PRIMARY CLINICAL RECORDS. [employer] [facility]. provides no warranty or guarantee of the accuracy or completeness of information in this document.
== END | disposition home or self-care (01) ==
PROVIDERS: PCP Nurse Practitioner Family; Referring Provider Nurse Practitioner Family; Visit Provider Nurse Practitioner Family
DX: Z13.29 Encounter for screening for other suspected endocrine disorder (principal); R53.82 Chronic fatigue, unspecified; E53.9 Vitamin B deficiency, unspecified; M54.50 Low back pain, unspecified; E66.3 Overweight; Z13.228 Encounter for screening for other metabolic disorders; R94.7 Abnormal results of other endocrine function studies

== ENCOUNTER → 2025-06-05 | Outpatient (CLI) | payer BC, SELFPAY ==
[2025-06-05 15:39] LABS: PTHIN 30 pg/mL (11-61)
== END | disposition home or self-care (01) ==
LOC: MTLAB 11:29
PROVIDERS: PCP Nurse Practitioner Family; Referring Provider Nurse Practitioner Family; Visit Provider Nurse Practitioner Family
DX: R53.82 Chronic fatigue, unspecified (principal); R65.10 Systemic inflammatory response syndrome (SIRS) of non-infectious origin without acute organ dysfunction; M35.81 Multisystem inflammatory syndrome; Z13.29 Encounter for screening for other suspected endocrine disorder; E63.9 Nutritional deficiency, unspecified; M54.50 Low back pain, unspecified; E66.3 Overweight; Z13.228 Encounter for screening for other metabolic disorders; R94.7 Abnormal results of other endocrine function studies; R94.6 Abnormal results of thyroid function studies
CPT/HCPCS: 36415; 82525; 83970; 86160